=== PATIENT | male | born 1970 | race Caucasian/White ===

== ENCOUNTER → 2018-03-31 07:11 | Outpatient (CLI) | payer BC, SELFPAY ==
[2018-03-31 08:36] LABS: Absolute Lymphocyte Count 1.64 X10^3/ul (0.83-4.51); Absolute Neutrophil Count 2.4 X10^3/uL (2.0-7.7); Basophil# 0.02 X10^3/uL; Basophil% 0.4 % (0-1); Eosinophil# 0.31 X10^3/uL; Eosinophils% 6.1 % (0-5); Hematocrit 40.8 % (40-54); Hemoglobin 13.7 g/dl (13.0-16.5); Lymphocyte # 1.64 X10^3/ul (4.0); Lymphocyte % 32.5 % (19-41); Mean Corp Hgb Conc 33.6 g/gl (32-36); Mean Corpuscular Hgb 29.7 pg (27.0-32.0); Mean Corpuscular Volume 88.3 fL (80-94); Mean Platelet Vol. 12.1 fl (6.2-12.0); Monocyte# 0.63 X10^3/uL; Monocyte% 12.5 % (0-10); Neutrophil # 2.43 X10^3/uL (2.7-7.7); Neutrophil % 48.1 % (47-70); POSITIVE COUNT NO; POSITIVE DIFFERENTIAL NO; POSITIVE MORPHOLOGY NO; Platelet Count 136 K/mm3 (150-450); RBC Distribution Width CV 13.4 % (11.6-14.6); Red Blood Count 4.62 M/mm3 (4.6-6.2); White Blood Count 5.1 K/mm3 (4.4-11.0)
[2018-03-31 09:44] LABS: ALB/GLOB Ratio 1.2 RATIO (0.9-2.4); AST(SGOT) 18 U/L (15-37); Alanine Aminotransfer ALT/SGPT 43 U/L (16-61); Albumin, Serum 3.7 g/dL (3.2-5.0); Alkaline Phosphatase 59 U/L (45-117); Anion Gap 7 (5-15); BUN 24 mg/dL (7-18); BUN/Creat Ratio 23.3 RATIO (10-20); Calcium,Total 8.2 mg/dL (8.5-10.1); Chloride 103 mmol/L (98-107); Cholesterol 135 mg/dL (200); Creatinine, Serum 1.03 mg/dL (0.70-1.30); EST Glomerular Filtration Rate 81 mL/min (>60); Est Glom Filt Rate - Afr Amer 98 mL/min (>60); Globulin 3.1 g/dL (2.2-4.2); Glucose 178 mg/dL (74-106); High Density Lipoprotein 26 mg/dL; Potassium 3.7 mmol/L (3.5-5.1); Protein, Total 6.8 g/dL (6.4-8.2); Sodium Level 139 mmol/L (136-145); Triglycerides 175 mg/dL; Very Low Density Lipoprotein 35 mg/dL (5-40)
[2018-04-02 10:10] LABS: Vitamin D,25 Hydroxy 24.9 ng/mL (29.95-100.01)
== END ==
PROVIDERS: Family Provider Nurse Practitioner; PCP Nurse Practitioner; Visit Provider Nurse Practitioner
DX: E11.9 Type 2 diabetes mellitus without complications (principal); E78.00 Pure hypercholesterolemia, unspecified
CPT/HCPCS: 36415; 80053; 80061; 82306; 85025

== ENCOUNTER → 2018-06-30 07:33 | Outpatient (CLI) | payer BC, SELFPAY ==
[2018-06-30 08:40] LABS: ALB/GLOB Ratio 1.1 RATIO (0.9-2.4); AST(SGOT) 21 U/L (15-37); Albumin, Serum 3.7 g/dL (3.2-5.0); Alkaline Phosphatase 54 U/L (45-117); BUN 20 mg/dL (7-18); BUN/Creat Ratio 17.5 RATIO (10-20); Calcium,Total 8.4 mg/dL (8.5-10.1); Creatinine, Serum 1.14 mg/dL (0.70-1.30); EST Glomerular Filtration Rate 72 mL/min (>60); Est Glom Filt Rate - Afr Amer 87 mL/min (>60); Globulin 3.5 g/dL (2.2-4.2); Glucose 166 mg/dL (74-106); Protein, Total 7.2 g/dL (6.4-8.2)
[2018-06-30 08:41] LABS: Alanine Aminotransfer ALT/SGPT 46 U/L (16-61); Anion Gap 6 (5-15); Chloride 103 mmol/L (98-107); PSA,Total - Annual Screen 0.43 ng/mL (0.00-4.00); Potassium 4.4 mmol/L (3.5-5.1); Sodium Level 137 mmol/L (136-145)
[2018-07-02 09:49] LABS: Vitamin D,25 Hydroxy 35.1 ng/mL (29.95-100.01)
== END ==
PROVIDERS: Family Provider Nurse Practitioner; PCP Nurse Practitioner; Visit Provider Nurse Practitioner
DX: E11.9 Type 2 diabetes mellitus without complications (principal); E55.9 Vitamin D deficiency, unspecified; Z12.5 Encounter for screening for malignant neoplasm of prostate
CPT/HCPCS: 36415; 80053; 82306; 84153; G0103

== ENCOUNTER → 2019-01-12 07:04 | Outpatient (CLI) | payer BC, SELFPAY ==
[2019-01-12 07:20] LABS: Bacteria 0 SEEN /hpf (None Seen); Mucous, Urine 0 SEEN /hpf (<or=2+); Red Blood Cells-Urine 0 SEEN /hpf (0-5); Squamous Epithelial Cells - UA 0 SEEN /hpf (0-5); White Blood Cells 0 SEEN /hpf (0-5)
[2019-01-12 07:56] LABS: Absolute Neutrophil Count 2.5 X10^3/uL (2.0-7.7); Basophil# 0.02 X10^3/uL; Basophil% 0.4 % (0-1); Eosinophil# 0.25 X10^3/uL; Eosinophils% 5.2 % (0-5); Hematocrit 40.1 % (40-54); Hemoglobin 13.7 g/dl (13.0-16.5); Mean Corp Hgb Conc 34.2 g/gl (32-36); Mean Corpuscular Hgb 29.8 pg (27.0-32.0); Mean Corpuscular Volume 87.2 fL (80-94); Monocyte# 0.65 X10^3/uL; Monocyte% 13.5 % (0-10); Neutrophil # 2.46 X10^3/uL (2.7-7.7); Neutrophil % 50.9 % (47-70); Platelet Count 127 K/mm3 (150-450); RBC Distribution Width SD 41.4 fl (35.1-43.9); White Blood Count 4.8 K/mm3 (4.4-11.0)
[2019-01-12 07:57] LABS: POSITIVE COUNT NO; POSITIVE DIFFERENTIAL NO; POSITIVE MORPHOLOGY NO
[2019-01-12 08:19] LABS: Color, Urine Yellow (Yellow); Glucose, Dipstick 1000 mg/dl (Normal); Ketone-Dipstick Negative (Negative); Leukocyte Esterase-Dipstick Negative /ul (Negative); Nitrite-Dipstick Negative (Negative); Occult Blood-Urine Negative /ul (Negative); Protein-Dipstick Negative (Negative); Specific Gravity, Urine 1.025 (1.002-1.030); Urine Bilirubin Dipstick Negative (Negative); Urine Clarity Clear (Clear); Urine Urobilinogen Normal (Normal)
[2019-01-12 08:20] LABS: Microalbumin,Random Urine 6.8 mg/L (NO RANGE EST.); Microalbumin:Creatinine Ratio 5.1 mg/g CRE (<30 mg/g CRE)
[2019-01-12 08:26] LABS: ALB/GLOB Ratio 1.2 RATIO (0.9-2.4); AST(SGOT) 28 U/L (15-37); Alanine Aminotransfer ALT/SGPT 50 U/L (16-61); Albumin, Serum 3.5 g/dL (3.2-5.0); Alkaline Phosphatase 78 U/L (45-117); Anion Gap 7 (5-15); BUN 17 mg/dL (7-18); BUN/Creat Ratio 17.1 RATIO (10-20); Calcium,Total 7.9 mg/dL (8.5-10.1); Chloride 103 mmol/L (98-107); Cholesterol 149 mg/dL (200); EST Glomerular Filtration Rate 84 mL/min (>60); Est Glom Filt Rate - Afr Amer 102 mL/min (>60); Glucose 269 mg/dL (74-106); High Density Lipoprotein 27 mg/dL; Potassium 3.9 mmol/L (3.5-5.1); Protein, Total 6.5 g/dL (6.4-8.2); Sodium Level 134 mmol/L (136-145); Thyroid Stim Hormone (TSH) 2.29 uIU/mL (0.358-3.74); Triglycerides 241 mg/dL; Very Low Density Lipoprotein 48 mg/dL (5-40)
== END ==
PROVIDERS: Family Provider Nurse Practitioner; PCP Nurse Practitioner; Referring Provider Nurse Practitioner; Visit Provider Nurse Practitioner
DX: E11.8 Type 2 diabetes mellitus with unspecified complications (principal); I10 Essential (primary) hypertension; E78.00 Pure hypercholesterolemia, unspecified
CPT/HCPCS: 36415; 80053; 80061; 81001; 82043; 82570; 84443; 85025

== ENCOUNTER → 2019-11-16 | Outpatient (CLI) | payer BC, SELFPAY ==
[2019-11-16 10:20] LABS: Absolute Lymphocyte Count 1.38 X10^3/uL (0.83-4.51); Absolute Neutrophil Count 2.7 X10^3/uL (2.0-7.7); Basophil# 0.04 X10^3/uL; Basophil% 0.8 % (0-1); Eosinophil# 0.28 X10^3/uL; Eosinophils% 5.4 % (0-5); Hematocrit 42.6 % (40-54); Hemoglobin 14.4 g/dL (13.0-16.5); Lymphocyte # 1.38 X10^3/ul (4.0); Lymphocyte % 26.7 % (19-41); Mean Corp Hgb Conc 33.8 g/dL (32-36); Mean Corpuscular Hgb 28.8 pg (27.0-32.0); Mean Corpuscular Volume 85.2 fL (80-94); Mean Platelet Vol. 12.9 fl (6.2-12.0); Monocyte# 0.69 X10^3/uL; Monocyte% 13.4 % (0-10); NRBC Flagged by Analyzer 0 % (0-5); Neutrophil # 2.72 X10^3/uL (2.7-7.7); Neutrophil % 52.7 % (47-70); Platelet Count 162 K/mm3 (150-450); RBC Distribution Width CV 13.2 % (11.6-14.6); RBC Distribution Width SD 40.6 fl (35.1-43.9); White Blood Count 5.2 K/mm3 (4.4-11.0)
[2019-11-16 10:30] LABS: Microalbumin,Random Urine 8.8 mg/L (NO RANGE EST.)
[2019-11-16 11:21] LABS: AST(SGOT) 18 U/L (15-37); Alanine Aminotransfer ALT/SGPT 47 U/L (16-61); Albumin, Serum 3.7 g/dL (3.2-5.0); Alkaline Phosphatase 72 U/L (45-117); Anion Gap 5 (5-15); BUN 19 mg/dL (7-18); BUN/Creat Ratio 17.9 RATIO (10-20); Calcium,Total 8.7 mg/dL (8.5-10.1); Chloride 104 mmol/L (98-107); Cholesterol 172 mg/dL (200); Creatinine, Serum 1.06 mg/dL (0.70-1.30); EST Glomerular Filtration Rate 78 mL/min (>60); Est Glom Filt Rate - Afr Amer 94 mL/min (>60); Globulin 3.6 g/dL (2.2-4.2); Glucose 187 mg/dL (74-106); High Density Lipoprotein 35 mg/dL; PSA,Total - Annual Screen 0.63 ng/mL (0.00-4.00); Potassium 3.9 mmol/L (3.5-5.1); Protein, Total 7.3 g/dL (6.4-8.2); Sodium Level 137 mmol/L (136-145); Thyroid Stim Hormone (TSH) 2.02 uIU/mL (0.358-3.74); Triglycerides 140 mg/dL; Very Low Density Lipoprotein 28 mg/dL (5-40)
[2019-11-18 09:45] LABS: Vitamin D,25 Hydroxy 40.4 ng/mL (29.95-100.01)
== END | disposition home or self-care (01) ==
LOC: LAB 08:20
PROVIDERS: PCP Nurse Practitioner; Referring Provider Nurse Practitioner; Visit Provider Nurse Practitioner
DX: E11.8 Type 2 diabetes mellitus with unspecified complications (principal); E55.9 Vitamin D deficiency, unspecified; Z12.5 Encounter for screening for malignant neoplasm of prostate; Z13.220 Encounter for screening for lipoid disorders
CPT/HCPCS: 36415; 80053; 80061; 82043; 82306; 82570; 84153; 84443; 85025; G0103

== ENCOUNTER → 2021-02-20 07:03 | Outpatient (CLI) | payer BC, SELFPAY ==
[2021-01-26 14:56] VITALS: BMI 38.5
[2021-02-20 09:36] LABS: ALB/GLOB Ratio 1.1 RATIO (0.9-2.4); AST(SGOT) 28 U/L (15-37); Alanine Aminotransfer ALT/SGPT 50 U/L (16-61); Albumin, Serum 3.9 g/dL (3.2-5.0); Alkaline Phosphatase 74 U/L (45-117); Anion Gap 7 (5-15); BUN 23 mg/dL (7-18); BUN/Creat Ratio 25.4 RATIO (10-20); Calcium,Total 8.7 mg/dL (8.5-10.1); Chloride 104 mmol/L (98-107); Cholesterol 134 mg/dL (200); EST Glomerular Filtration Rate 93 mL/min (>60); Est Glom Filt Rate - Afr Amer 113 mL/min (>60); Globulin 3.5 g/dL (2.2-4.2); Glucose 94 mg/dL (74-106); High Density Lipoprotein 39 mg/dL; PSA,Total - Annual Screen 0.68 ng/mL (0.00-4.00); Potassium 3.7 mmol/L (3.5-5.1); Protein, Total 7.4 g/dL (6.4-8.2); Sodium Level 140 mmol/L (136-145); Triglycerides 95 mg/dL; Very Low Density Lipoprotein 19 mg/dL (5-40)
== END ==
PROVIDERS: PCP Nurse Practitioner; Referring Provider Nurse Practitioner; Visit Provider Nurse Practitioner
DX: I10 Essential (primary) hypertension (principal); E78.00 Pure hypercholesterolemia, unspecified; Z12.5 Encounter for screening for malignant neoplasm of prostate
CPT/HCPCS: 36415; 80053; 80061; 84153; G0103

== ENCOUNTER 2021-10-23 07:00 | Outpatient (CLI) | payer BC, SELFPAY ==
[2021-10-23 07:16] LABS: Absolute Lymphocyte Count 1.84 X10^3/uL (0.83-4.51); Absolute Neutrophil Count 4.5 X10^3/uL (2.0-7.7); Basophil# 0.05 X10^3/uL; Basophil% 0.7 % (0-1); Eosinophil# 0.36 X10^3/uL; Eosinophils% 4.8 % (0-5); Hematocrit 45.1 % (40-54); Hemoglobin 15.4 g/dL (13.0-16.5); Lymphocyte # 1.84 X10^3/ul (0.83-4.51); Lymphocyte % 24.3 % (19-41); Mean Corp Hgb Conc 34.1 g/dL (32-36); Mean Corpuscular Volume 87.7 fL (80-94); Mean Platelet Vol. 11.3 fl (6.2-12.0); Monocyte# 0.81 X10^3/uL; Monocyte% 10.7 % (0-10); NRBC Flagged by Analyzer 0 % (0-5); Neutrophil # 4.48 X10^3/uL (2.7-7.7); Neutrophil % 59.1 % (47-70); Platelet Count 163 K/mm3 (150-450); RBC Distribution Width SD 44.6 fl (35.1-43.9); Red Blood Count 5.14 M/mm3 (4.6-6.2); White Blood Count 7.6 K/mm3 (4.4-11.0)
[2021-10-23 07:40] LABS: AST(SGOT) 23 U/L (15-37); Alanine Aminotransfer ALT/SGPT 51 U/L (16-61); Albumin, Serum 3.7 g/dL (3.2-5.0); Alkaline Phosphatase 70 U/L (45-117); Anion Gap 4 (5-15); BUN 16 mg/dL (7-18); BUN/Creat Ratio 18.4 RATIO (10-20); Calcium,Total 8.8 mg/dL (8.5-10.1); Chloride 105 mmol/L (98-107); Creatinine, Serum 0.87 mg/dL (0.70-1.30); EST Glomerular Filtration Rate 97 mL/min (>60); Est Glom Filt Rate - Afr Amer 118 mL/min (>60); Globulin 3.7 g/dL (2.2-4.2); Glucose 71 mg/dL (74-106); Potassium 3.6 mmol/L (3.5-5.1); Protein, Total 7.4 g/dL (6.4-8.2); Sodium Level 141 mmol/L (136-145); Thyroid Stim Hormone (TSH) 1.92 uIU/mL (0.358-3.74)
== END 2021-10-23 23:59 | disposition short-term general hospital (02) ==
LOC: LAB 07:02
PROVIDERS: PCP Nurse Practitioner; Referring Provider Nurse Practitioner; Visit Provider Nurse Practitioner
DX: E11.9 Type 2 diabetes mellitus without complications (principal)
CPT/HCPCS: 36415; 80053; 84443; 85025

== ENCOUNTER → 2022-12-31 | Outpatient (CLI) | payer BC, SELFPAY ==
[2022-12-31 08:13] LABS: Microalbumin,Random Urine 65.7 mg/L (NO RANGE EST.); Microalbumin:Creatinine Ratio 38.6 mg/g CRE (<30 mg/g CRE)
[2022-12-31 08:15] LABS: ALB/GLOB Ratio 1.1 RATIO (0.9-2.4); AST(SGOT) 22 U/L (15-37); Alanine Aminotransfer ALT/SGPT 52 U/L (16-61); Albumin, Serum 3.6 g/dL (3.2-5.0); Alkaline Phosphatase 83 U/L (45-117); Anion Gap 9 (5-15); BUN 19 mg/dL (7-18); BUN/Creat Ratio 20.2 RATIO (10-20); Calcium,Total 8.7 mg/dL (8.5-10.1); Chloride 106 mmol/L (98-107); Cholesterol 193 mg/dL (200); Creatinine, Serum 0.94 mg/dL (0.70-1.30); EST Glomerular Filtration Rate 89 mL/min (>60); Est Glom Filt Rate - Afr Amer 107 mL/min (>60); Globulin 3.4 g/dL (2.2-4.2); Glucose 95 mg/dL (74-106); High Density Lipoprotein 32 mg/dL; Sodium Level 142 mmol/L (136-145); Thyroid Stim Hormone (TSH) 2.49 uIU/mL (0.358-3.74); Triglycerides 222 mg/dL; Very Low Density Lipoprotein 44 mg/dL (5-40)
[2023-01-02 08:15] LABS: Vitamin D,25 Hydroxy 74.7 ng/mL
== END | disposition home or self-care (01) ==
LOC: LAB 07:18
PROVIDERS: PCP Nurse Practitioner; Visit Provider Nurse Practitioner Family
DX: E11.9 Type 2 diabetes mellitus without complications (principal); I10 Essential (primary) hypertension; E78.1 Pure hyperglyceridemia; E66.9 Obesity, unspecified
CPT/HCPCS: 36415; 80053; 80061; 82043; 82306; 82570; 84443

== ENCOUNTER → 2024-03-29 | Outpatient (CLI) | payer BC, SELFPAY ==
[2024-03-29 07:32] LABS: Microalbumin,Random Urine 19.4 mg/L (NO RANGE EST.); Microalbumin:Creatinine Ratio 14.9 mg/g CRE (<30 mg/g CRE)
[2024-03-30 06:50] LABS: ALB/GLOB Ratio 0.9 RATIO (0.9-2.4); AST(SGOT) 26 U/L (15-37); Alanine Aminotransfer ALT/SGPT 53 U/L (16-61); Albumin, Serum 3.5 g/dL (3.2-5.0); Alkaline Phosphatase 87 U/L (45-117); Anion Gap 7 (5-15); BUN 23 mg/dL (7-18); BUN/Creat Ratio 24.7 RATIO (10-20); Calcium,Total 8.7 mg/dL (8.5-10.1); Chloride 106 mmol/L (98-107); Cholesterol 166 mg/dL (200); Creatinine, Serum 0.93 mg/dL (0.70-1.30); EST Glomerular Filtration Rate 89 mL/min (>60); Est Glom Filt Rate - Afr Amer 108 mL/min (>60); Globulin 3.7 g/dL (2.2-4.2); Glucose 102 mg/dL (74-106); High Density Lipoprotein 31 mg/dL; Potassium 3.9 mmol/L (3.5-5.1); Protein, Total 7.2 g/dL (6.4-8.2); Sodium Level 140 mmol/L (136-145); Thyroid Stim Hormone (TSH) 2.94 uIU/mL (0.358-3.74); Triglycerides 258 mg/dL; Very Low Density Lipoprotein 52 mg/dL (5-40)
== END | disposition home or self-care (01) ==
LOC: LAB 06:07
PROVIDERS: Referring Provider Nurse Practitioner Family; Visit Provider Nurse Practitioner Family
DX: E11.9 Type 2 diabetes mellitus without complications (principal)
CPT/HCPCS: 36415; 80053; 80061; 82043; 82306; 82570; 84443

== ENCOUNTER → 2025-04-05 | Outpatient (CLI) | payer BC, SELFPAY ==
--- OUTSIDE RECORDS SUMMARY | 2025-04-05 07:26 | XMS RPT_ITS | CCD ---
Author Organization [facility] ion Partnership [facility] Care Team Providers Care Door Frame Assembler Machine Name Role Phone Noy Hook Unavailable Bere Rogers Unavailable Gravius, Latoya Unavailable Unavailable Unavailable Unavailable Kim Caba Unavailable Unavailable Noy Hook Unavailable Bere Rogers Unavailable Gravius, Latoya Unavailable Unavailable Kim Caba Unavailable Unavailable Unavailable Unavailable Kyrie Falk Unavailable Unavailable Noy Hook Attending Unavailable Noy Hook Referring Unavailable Noy Hook Consulting Unavailable Gravius, Latoya Unavailable Unavailable Kyrie Falk Unavailable Unavailable Slarb, Latrice Unavailable Unavailable Minnie Quinteros Unavailable Unavailable Unavailable Unavailable Timur Burgos Unavailable Kyrie Denis Unavailable Unavailable Noy Hook CNP Unavailable Dr. Bere Rogers Unavailable Timur Burgos Unavailable Kyrie Denis LPN Unavailable Unavailable Gravius BHARGAV, Latoya Unavailable Unavailable Unavailable Unavailable Minnie Quinteros LPN Unavailable Unavailable Noy Hook CNP Primary Care Provider Noy Hook Unavailable Julio Cesar VOCATIONAL CASE MANAGER, VOCATIONAL CASE MANAGER-C Noy Primary Care Provider Julio Cesar VOCATIONAL CASE MANAGER, VOCATIONAL CASE MANAGER-C Noy Referring Provider [phone] CARMINA Griffin Attending Provider Noy Hook CNP Primary Care Provider Noy Hook CNP Primary Care Provider ERA LLANOS Referring Unavailable ERA LLANOS Attending Unavailable NOY HOOK Primary Care Unavailable NOY HOOK Primary Care Unavailable ERA LLANOS Attending Unavailable NOY HOOK Referring Unavailable Unavailable Primary Care Provider Unavailabl e Care Physician, No Primary Primary Care Unava ilMarysol Abreu Referring Unavailable Marysol Griffin Attending Unavailable Julio Cesar VOCATIONAL CASE MANAGER, Noy Referring Unavailable Julio Cesar VOCATIONAL CASE MANAGER, Noy Primary Care Unavailable Marysol Griffin Attending Unavailable Care Physician, No Primary Referring Unava ilable Care Physician, No Primary Primary Care Unava ilable Marysol Griffin Attending Unavailable Care Physician, No Primary Referring Unava ilable Care Physician, No Primary Primary Care Unava ilable Marysol Griffin Attending Unavailable Allergies Allergy Classification Reported Allergen(s) Allergy Type Date of Onset Reaction(s) Facility (3 sources) Definity *DIAGNOSTIC PRODUCTS*; Translations: [[facility] *DIAGNOSTIC PRODUCTS*] Allergy to drug (finding) [facility]; [facility] Work Phone: (8 sources) Perflutren Lipid Microsphere Propensity to adverse reactions to drug 8 [facility] (1 source) Iodine Drug Allergy 4 [facility] (1 source) Iodinated Contrast Media Drug allergy (disorder) 5 [facility] Repository Medications Current Medications Medication Drug Class(es) Dates Sig (Normalized) Sig (Original) amLODIPine 5 mg oral tablet (20 sources) Dihydropyridine Calcium Channel Ninfa Start: 07-07-2021 End: 05-14-2024 take 2 tablets by mouth once amLODIPine (NORVASC) 5 mg tablet Take 2 tablets by mouth every afternoon. 03/29/2024 Active Start: 06-01-2021 take 2 tablets by mo [facility] once daily amLODIPine (Norvasc) 5 MG tablet Indications: Essential hypertension Take 2 tablets by mouth daily. 90 tablet 3 06/01/2021 Active Start: 10-05-2020 take 1 tablet by clarence twice daily amLODIPine Besylate 5 MG Oral Tablet 1 (one) Tablet BID for 0 days Quantity: 60 {Tablet} Refills: 0 Ordered: 03-Nov-2021 Noy Hook Mary Start : 03-Nov-2021 Active Start: 06-08-2020 End: 06-01-2021 take 1 tablet by mouth once daily amLODIPine Besylate 5 MG Oral Tablet 1 (one) Tablet daily for 0 days Quantity: 30 {Tablet} Refills: 0 Ordered: 03-Nov-2020 Kyrie Denis LPN Start : 30-Jun-2020 Active ascorbic acid 1000 mg oral tablet (20 sources) Vitamin C Start: 10-05-2020 take 1 g by mouth once daily Ascorbic Acid (Vitamin C) Active 1 GM PO DAILY October 05, 2020 1:00am take 1 tablet by mouth once carly y ascorbic acid 500 MG Tab tablet Take 1 tablet by mouth daily. Active take 1 tablet by mouth once carly y ascorbic acid 500 MG Tab tablet Take 500 mg by mouth daily. 0 Active VItamin C 500mg Active aspirin 81 mg delayed release oral tablet (20 sources) Nonsteroidal Anti-inflammatory Drug Start: 10-05-2020 take 1 tablet by mouth twice daily Aspirin (Adult Aspirin Regimen) 81 mg tablet,delayed release (DR/EC) Active 81 MG PO TWICE A DAY October 05, 2020 1:00am Start: 04-27-2010 take 1 tablet by clarence th once daily aspirin 81 MG PO TABS take 1 Tab by mouth daily. 90 Tab 3 04/27/2010 Active Blood Pressure Monitoring (B lood Pressure Monitor/L Cuff) Misc (8 sources) Start: 06-02-2020 Start: 06-02-2020 cholecalciferol 0.125 mg oral capsule (20 sources) Vitamin D Start: 06-29-2022 take 125 ug by mouth once daily Cholecalciferol (Vitamin D3) Active 125 MCG PO DAILY June 29, 2022 12:00am Start: 10-10-2018 End: 06-30-2020 take 1 capsule by mouth once daily Vitamin D3 Ultra Strength 125 MCG (5000 UT) Oral Capsule 1 (one) Capsule Capsule daily for 0 days Quantity: 30 {Capsule} Refills: 0 Ordered: 30-Jun-2020 Kyrie Denis LPN Start : 10-Oct-2018 End : 30-Jun-2020 Inactive Start: 10-10-2018 End: 06-30-2020 take 1 capsule by mouth once daily Vitamin D3 Ultra Strength 125 MCG (5000 UT) Oral Capsule 1 (one) Capsule Capsule daily for 0 days Quantity: 30 {Capsule} Refills: 0 Ordered: 30-Jun-2020 Kyrie Denis LPN Start : 10-Oct-2018 End : 30-Jun-2020 Inactive Start: 04-03-2018 take 1 capsule by mo uth once daily, then take 2 capsules by mouth once daily Vitamin D 2000 UNIT Oral Capsule 1 (one) Capsule Capsule 1 daily alter with 2 daily for 0 days Quantity: 60 {Capsule} Refills: 0 Ordered: 10-Jul-2018 Latoya Duque CMA Start : 03-Apr-2018 Active take 5000-52450 [IU] by mouth once daily Vitamin D3 25 MCG (1000 UT) tablet Take 1 tablet by mouth daily. States 5,000-10,000 units per day Active empagliflozin 25 mg oral tablet (6 sources) Sodium-Glucose Cotransporter 2 Inhibitor Start: 03-29-2024 take 1 tablet by mouth once JARDIANCE 25 mg tablet Take 1 tablet by mouth every afternoon. 03/29/2024 Active Start: 01-02-2023 take 1 tablet by clarence th once daily Empagliflozin (Jardiance) 25 mg tablet Active 25 MG PO DAILY January 02, 2023 12:00am take 1 tablet by clarence th once daily Empagliflozin (Jardiance) 10 MG tablet Take 1 tablet by mouth daily. Active 3 ml insulin degludec 100 unt/ml pen injector (20 sources) Insulin Analog Start: 04-13-2024 inject 60 [IU] by subcutaneous injection once daily in the evening TRESIBA FLEXTOUCH U-100 100 unit/mL (3 mL) injection pen Inject 60 Units subcutaneously every evening. 04/13/2024 Active Start: 04-29-2022 Tresiba FlexTo uch 200 UNIT/ML Solution Pen-injector injection Inject under the skin. 04/29/2022 Active Start: 07-07-2021 End: 10-05-2021 inject 20 [IU] by subcutaneous injection once daily Tresiba FlexTouch 200 UNIT/ML Subcutaneous Solution Pen-injector 20 Unit daily for 90 days Quantity: 3 {Pre-filled_Pen_Syringe} Refills: 0 Ordered: 07-Jul-2021 Noy Hook Mary Start : 07-Jul-2021 End : 05-Oct-2021 Inactive Comments: Per Dr. Timur Burgos Start: 11-03-2020 End: 11-03-2020 inject 20 [IU] by subcutaneous injection once daily Tresiba FlexTouch 200 UNIT/ML Subcutaneous Solution Pen-injector 20 Unit daily for 90 days Quantity: 3 {Pre-filled_Pen_Syringe} Refills: 0 Ordered: 03-Nov-2020 Julio Cesar MEIR Noy Martinez CNP Start : 03-Nov-2020 End : 03-Nov-2020 Inactive Comments: Per Dr. Timur Burgos Start: 10-10-2020 inject 60 [IU] by lopez bcutaneous injection once daily Tresiba FlexTouch 200 UNIT/ML Subcutaneous Solution Pen-injector 60 Unit daily for 90 days Quantity: 3 {Pre-filled_Pen_Syringe} Refills: 0 Ordered: 10-Oct-2020 Bessychitraissac WORLEY Noy Martinez CNP Start : 10-Oct-2020 Active Comments: Per Dr. Timur Burgos Start: 10-05-2020 End: 12-28-2022 Insulin Degludec (Tresiba Flextouch U-200) 200 unit/mL (3 mL) insulin pen Active 60 UNIT SC DAILY December 28, 2022 11:11am Start: 10-05-2020 End: 10-05-2020 Insulin Degludec Discontinue d ML SC October 05, 2020 1:00am October 05, 2020 11:51am Start: 04-30-2019 inject 10 [IU] by lopez bcutaneous injection once daily Tresiba FlexTouch 100 UNIT/ML Subcutaneous Solution Pen-injector 10 Unit daily for 0 days Quantity: 1 {Box} Refills: 3 Ordered: 30-Apr-2019 Julio Cesar MEIR Noy Martinez CNP Start : 30-Apr-2019 Active Start: 01-22-2019 inject 10 [IU] by lopez bcutaneous injection once daily Tresiba FlexTouch 100 UNIT/ML Subcutaneous Solution Pen-injector 10 Unit daily for 0 days Quantity: 1 {Box} Refills: 0 Ordered: 22-Jan-2019 Julio Cesar MEIR Noy Martinez CNP Start : 22-Jan-2019 Active insulin degludec (TRESIBA) 100 UNIT/ML Solution Inject under the skin. 10 units Active Comment on above: Per Dr. Timur Burgos losartan potassium 100 mg oral tablet (20 sources) Angiotensin 2 Receptor Ninfa Start: 05-16-2023 End: 05-14-2024 take 1 tablet by mouth once losartan (COZAAR) 100 mg tablet Take 1 tablet by mouth every afternoon. 03/22/2024 Active Start: 07-07-2021 End: 05-16-2023 take 0.5 tablet by mouth twice daily losartan 50 MG tablet Indications: Essential hypertension Take 0.5 tablets by mouth 2 times daily. 90 tablet 3 05/31/2022 05/16/2023 Discontinued Start: 05-13-2020 take 1 tablet by clarence th twice daily Losartan Potassium 25 MG Oral Tablet 1 (one) Tablet Tablet bid for 0 days Quantity: 180 {Tablet} Refills: 3 Ordered: 10-May-2021 Noy Hook Mary Start : 10-May-2021 Active Start: 05-16-2019 take 1 tablet by clarence th twice daily Losartan Potassium 25 MG Oral Tablet 1 (one) Tablet Tablet bid for 0 days Quantity: 180 {Tablet} Refills: 3 Ordered: 16-May-2019 Noy Hook CNP, CNP, Mary E Start : 16-May-2019 Active Start: 05-16-2018 take 1 tablet by clarence th twice daily Losartan Potassium 25 MG Oral Tablet 1 (one) Tablet Tablet bid for 0 days Quantity: 180 {Tablet} Refills: 3 Ordered: 16-May-2018 Noy Hook CNP, CNP Dina Start : 16-May-2018 Active Start: 02-08-2016 End: 06-01-2021 take 0.5 tablet by mouth twice daily losartan 50 MG tablet Indications: Essential hypertension Take 0.5 tablets by mouth 2 times daily. 90 tablet 3 06/01/2021 Active End: 04-11-2017 take 1 tablet by mouth once daily Losartan Potassium 25 MG Oral Tablet 1 qd (25 MG) End : 11-Apr-2017 Discontinued mecobalamin 1 mg chewable tablet (1 source) Start: 10-05-2020 take 1 tablet by mouth once daily Mecobalamin (Vitamin B12) (B12 Active) 1,000 mcg tablet,chewable Active 1000 MCG PO DAILY October 05, 2020 1:00am 24 hr metFORMIN hydrochloride 750 mg extended release oral tablet (20 sources) Biguanide Start: 05-10-2024 take 1 tablet by mouth twice daily at mealtime metFORMIN ER (GLUCOPHAGE XR) 750 mg 24 hr tablet Take 750 mg by mouth two times a day with meals. 05/10/2024 Active Start: 02-18-2022 metFORMIN HCl ER 750 MG Oral Tablet Extended Release 24 Hour 1 (one) Tablet ER 24HR bid for 90 days Quantity: 180 {Tablet} Refills: 6 Ordered: 18-Feb-2022 Miriam Chao DO Start : 18-Feb-2022 Active Start: 12-22-2020 metFORMIN HCl ER 750 MG Oral Tablet Extended Release 24 Hour 1 (one) Tablet ER 24HR bid for 90 days Quantity: 180 {Tablet} Refills: 6 Ordered: 22-Dec-2020 Noy Hook CNP, CNP, Mary E Start : 22-Dec-2020 Active Start: 08-20-2020 End: 12-28-2022 take 1 tablet by mouth twice daily metFORMIN HCl ER 750 MG Oral Tablet Extended Release 24 Hour 1 (one) Tablet bid for 30 days Quantity: 60 {Tablet} Refills: 3 Ordered: 03-Nov-2020 Kyrie Denis LPN Start : 20-Aug-2020 End : 03-Nov-2020 Inactive Start: 04-22-2020 take 1 tablet by clarence th twice daily metFORMIN HCl ER 750 MG Oral Tablet Extended Release 24 Hour 1 (one) Tablet bid for 30 days Quantity: 60 {Tablet} Refills: 3 Ordered: 22-Apr-2020 Miriam Chao DO Start : 22-Apr-2020 Active Start: 08-20-2019 take 1 tablet by clarence th twice daily metFORMIN HCl ER 750 MG Oral Tablet Extended Release 24 Hour 1 (one) Tablet bid for 30 days Quantity: 60 {Tablet} Refills: 3 Ordered: 20-Aug-2019 Noy Hook CNP, CNP, Mary E Start : 20-Aug-2019 Active Start: 01-22-2019 metFORMIN HCl ER 750 MG Oral Tablet Extended Release 24 Hour 1 (one) Tablet ER 24HR bid for 30 days Quantity: 60 {Tablet} Refills: 6 Ordered: 22-Jan-2019 Noy Hook CNP, CNP, Mary E Start : 22-Jan-2019 Active Start: 06-27-2018 MetFORMIN HCl ER 750 MG Oral Tablet Extended Release 24 Hour 1 (one) Tablet ER 24HR bid for 30 days Quantity: 60 {Tablet} Refills: 6 Ordered: 27-Jun-2018 Noy Hook CNP, CNP, Mary E Start : 27-Jun-2018 Active Start: 09-29-2017 End: 04-03-2018 take 1 tablet by mouth twice daily MetFORMIN HCl 1000 MG Oral Tablet 1 (one) Tablet bid for 0 days Quantity: 60 {Tablet} Refills: 4 Ordered: 03-Apr-2018 Marysol Arias RN Start : 29-Sep-2017 End : 03-Apr-2018 Inactive Start: 05-30-2013 take 1 tablet by clarence th twice daily at mealtime metformin 500 MG PO TABS Indications: Diabetes mellitus take 1 Tab by mouth 2 times daily with meals. 180 Tab 1 05/30/2013 Active Comment on above: Mail order. 24 hr metoprolol succinate 100 mg extended release oral tablet (20 sources) beta-Adrenergic Ninfa Start: 06-08-2020 End: 05-14-2024 take 1 tablet by mouth once metoprolol succinate ER (TOPROL XL) 100 mg Take 1 tablet by mouth every afternoon. 03/22/2024 Active take 1 tablet by clarence th every twenty-four hours Metoprolol Succinate ER 100 MG Oral Tablet Extended Release 24 Hour daily (100 MG) Inactive pravastatin sodium 40 mg oral tablet (20 sources) HMG-CoA Reductase Inhibitor Start: 03-29-2024 take 1 tablet by mouth once pravastatin (PRAVACHOL) 40 mg tablet Take 1 tablet by mouth every afternoon. 03/29/2024 Active Start: 04-22-2020 End: 12-28-2022 take 1 tablet by mouth once daily Pravastatin Sodium 40 MG Oral Tablet 1 (one) Tablet daily for 90 days Quantity: 90 {Tablet} Refills: 3 Ordered: 01-Dec-2021 Noy Hook Mary Start : 01-Dec-2021 Active Comments: [id number] Start: 02-26-2019 take 1 tablet by clarence th once daily Pravachol 40 MG Oral Tablet 1 (one) Tablet daily for 30 days Quantity: 30 {Tablet} Refills: 6 Ordered: 26-Feb-2019 Noy Hook CNP, CNP, Mary E Start : 26-Feb-2019 Active Comments: [id number] Start: 01-22-2019 take 1 tablet by clarence th once daily Pravachol 40 MG Oral Tablet 1 (one) Tablet daily for 0 days Quantity: 90 {Tablet} Refills: 1 Ordered: 22-Jan-2019 Noy Hook CNP, CNP, Mary E Start : 22-Jan-2019 Active Start: 07-26-2018 take 1 tablet by clarence th once daily Pravachol 40 MG Oral Tablet 1 (one) Tablet daily for 30 days Quantity: 30 {Tablet} Refills: 6 Ordered: 26-Jul-2018 Noy Hook CNP, CNP, Mary E Start : 26-Jul-2018 Active take 1.5 tablets by mouth once daily pravastatin 40 MG Tab Take 1.5 tablets by mouth daily. Active pravastatin 40 M G Tab take 60 mg by mouth daily. 0 Active Comment on above: [id number] Mail order. predniSONE 10 mg oral tablet (1 source) Start: 06-14-2024 End: 06-23-2024 predniSONE (DELTASONE) 10 mg tablet Indications: Dermatitis due to plants, including poison nisha, sumac, and oak Take 4 tabs daily for 3 days, then 2 tabs daily for 3 days, then 1 tab daily for 3 days with food. 21 tablet 06/14/2024 06/23/2024 Active semaglutide 14 mg oral tablet (20 sources) Start: 04-13-2024 take 1 tablet by mouth once RYBELSUS 14 mg tablet Take 1 tablet by mouth every afternoon. 04/13/2024 Active Start: 10-24-2022 End: 12-28-2022 take 1 tablet by mouth once daily Semaglutide (Rybelsus) 14 mg tablet Active 14 MG PO DAILY December 28, 2022 11:11am Start: 11-03-2021 Rybelsus 14 MG Oral Tablet 1 (one) Tablet daily for 0 days Quantity: 30 {Tablet} Refills: 0 Ordered: 03-Nov-2021 Noy Hook Mary Start : 03-Nov-2021 Active Comments: 30 day given Start: 07-05-2021 End: 01-03-2022 take 1 tablet by mouth once daily Semaglutide (Rybelsus) 14 mg tablet Discontinued 14 MG PO DAILY July 05, 2021 12:00am January 03, 2022 2:55pm Start: 10-05-2020 End: 08-01-2023 take 1 tablet by mouth once daily Semaglutide 7 MG tablet Take 7 mg by mouth daily. 0 11/03/2020 05/16/2023 Discontinued (Discontinued by another clinician (suppress cancel msg)) Start: 06-30-2020 Rybelsus 3 MG Oral Tablet 1 (one) Tablet TAD for 0 days Quantity: 1 {Package} Refills: 0 Ordered: 30-Jun-2020 Julio Cesar CONFERENCE CONCIERGE, Dina Julio Cesar CONFERENCE CONCIERGE, Noy Arevalo Start : 30-Jun-2020 Active Comments: 30 day given Comment on above: 30 day given triamcinolone acetonide 0.25 mg/ml topical cream (20 sources) Corticosteroid Start: 06-14-2024 triamcinolone (KENALOG) 0.025 % cream Indications: Dermatitis due to plants, including poison nisha, sumac, and oak Apply 1 application to affected area two times a day. 80 g 06/14/2024 Active End: 06-24-2013 TRI-MED, 40MG/ML (Injection Suspension) for 0 days Refills: 0 Ordered: 24-Jun-2013 KIRSTIN Boland LPN End : 24-Jun-2013 Discontinued Comments: This order discontinued per [facility]. End: 06-24-2013 TRI-MED, 40MG/ML (Injection Suspension) for 0 days Refills: 0 Ordered: 24-Jun-2013 KIRSTIN Boland End : 24-Jun-2013 Discontinued Comments: This order discontinued per [facility]. Comment on above: This order discontin ued per [facility]. Turmeric Root Extract (9 sources) Start: 10-05-2020 take 2 tablets by mouth once daily Turmeric Root Extract Active 500 MG PO DAILY October 05, 2020 1:00am 2 tablets by mouth daily Turmeric 500 MG Tab Take 2 tablets by mouth. Active Turmeric 500 MG Tab Take 2 tablets by mouth. 0 Active Turmeric 500 MG Tab Take 1,000 mg by mouth. 0 Active vitamin b12 0.5 mg oral tablet (8 sources) Vitamin B12 take 1 tablet by mouth once daily cyanocobalamin 500 MCG tablet Take 1 tablet by mouth daily. Active vitamin b6 100 mg oral tablet (20 sources) Start: 10-05-2020 take 100 mg by mouth once daily Pyridoxine (Vitamin B6) Active 100 MG PO DAILY October 05, 2020 1:00am take 2 tablets by mouth once lazaro ly pyridoxine 50 MG Tab Take 2 tablets by mouth daily. Active VItamin B6 100mg Active Completed/Discontinued Medications Medication Drug Class(es) Dates Sig (Normalized) Sig (Original) Accu-Chek Apple Plus (5 sources) Start: 10-03-2016 Accu-Chek Apple Plus w/Device Kit 1 (one) Kit Kit test 2-3 times daily for 0 days Quantity: 1 Kit Refills: 0 Ordered: 03-Oct-2016 Slarb BOX TURNER, Latrice Start : 03-Oct-2016 Active Start: 10-03-2016 Accu-Chek Tae a Plus In Vitro Strip 1 (one) Strip Strip test 2-3 times daily for 0 days Quantity: 90 {Strip} Refills: 10 Ordered: 03-Oct-2016 Slarb BOX TURNER, Latrice Start : 03-Oct-2016 Active Accu-Chek Apple Plus w/Device Kit (20 sources) Start: 10-03-2016 Accu-Chek Apple Plus w/Device Kit 1 (one) Kit Kit test 2-3 times daily for 0 days Quantity: 1 Kit Refills: 0 Ordered: 03-Oct-2016 Slarb BOX TURNER, Latrice Start : 03-Oct-2016 Active Accu-Chek Soft Touch Lancets (1 source) Start: 10-03-2016 Accu-Chek Soft Touch Lancets Miscellaneous 1 (one) Misc Misc test 3x daily for 0 days Quantity: 100 {Applicator} Refills: 11 Ordered: 03-Oct-2016 Slarb BOX TURNER, Latrice Start : 03-Oct-2016 Active Accu-Chek Softclix Lancet Dev (1 source) Start: 10-03-2016 End: 10-04-2016 Accu-Chek Softclix Lancet Dev Miscellaneous 1 (one) Misc one for 1 days Quantity: 1 Kit Refills: 0 Ordered: 03-Oct-2016 Noy Hook CNP E Noy Hook CNP Start : 03-Oct-2016 End : 04-Oct-2016 Inactive amoxicillin 500 mg oral capsule (12 sources) Penicillin-class Antibacterial Start: 12-02-2014 End: 05-14-2025 Amoxicillin (Amoxil) 500 MG capsule Indications: Coarctation of aorta take by mouth As directed. Take total of 4 capsules (2grams) one hour before dental procedure. 4 capsule 05/16/2023 05/14/2024 Discontinued (Reorder) atorvastatin 20 mg oral tablet (20 sources) HMG-CoA Reductase Inhibitor End: 08-21-2014 take 1 tablet by mouth once daily LIPITOR, 20MG (Oral Tablet) 1 qd (20 MG) End : 21-Aug-2014 Inactive BD Pen Needle Jackie U/F (1 source) Start: 05-02-2017 BD Pen Needle Jackie U/F 32G X 4 MM Miscellaneous 1 (one) Misc Misc qd for 0 days Quantity: 1 {Box} Refills: 6 Ordered: 02-May-2017 Noy Hook CNP, CNP, Mary E Start : 02-May-2017 Active cephalexin 500 mg oral capsule (20 sources) Cephalosporin Antibacterial Start: 08-20-2019 End: 08-27-2019 take 1 capsule by mouth twice daily Keflex 500 MG Oral Capsule 1 (one) Capsule bid for 7 days Quantity: 14 {Capsule} Refills: 0 Ordered: 20-Aug-2019 Noy Hook Mary Start : 20-Aug-2019 End : 27-Aug-2019 Inactive fenofibrate 145 mg oral tablet (20 sources) Peroxisome Proliferator Receptor alpha Agonist Start: 01-02-2017 End: 06-29-2022 take 1 tablet by mouth once daily Tricor 145 MG Oral Tablet 1 Tablet QD for 0 days Quantity: 90 {Tablet} Refills: 3 Ordered: 03-Mar-2021 Noy Hook Mary Start : 02-Jan-2017 End : 03-Mar-2021 Inactive Comment on above: Mail order. glimepiride 2 mg oral tablet (14 sources) Sulfonylurea Start: 03-03-2021 End: 07-07-2021 take 1 tablet by mouth once daily Glimepiride 2 MG Oral Tablet 1 (one) Tablet daily based on nightly blood sugar reading for 0 days Quantity: 30 {Tablet} Refills: 0 Ordered: 07-Jul-2021 Minnie Quinteros LPN Start : 03-Mar-2021 End : 07-Jul-2021 Inactive Comments: per Dr. Burgos Start: 10-05-2020 End: 07-05-2021 take 1 tablet by mouth once daily Glimepiride 4 MG Oral Tablet 1 (one) Tablet daily for 0 days Quantity: 30 {Tablet} Refills: 0 Ordered: 03-Nov-2020 Kyrie Denis LPN Start : 10-Oct-2020 Active Comments: per Dr. Burgos End: 05-16-2023 take 2 mg by mouth once daily in the morning gliMEPIride 4 MG tablet Take 2 mg by mouth daily every morning. 0 05/16/2023 Discontinued (Discontinued by another clinician (suppress cancel msg)) Comment on above: per Dr. Burgos linagliptin 5 mg oral tablet (20 sources) Dipeptidyl Peptidase 4 Inhibitor Start: 07-26-20 18 End: 05-16-20 take 1 tablet by mouth once daily Tradjenta 5 MG Oral Tablet 1 (one) Tablet daily for 0 days Quantity: 30 {Tablet} Refills: 6 Ordered: 03-Nov-2020 Kyrie Denis LPN Start : 22-Apr-2020 End : 03-Nov-2020 Inactive 3 ml liraglutide 6 mg/ml pen injector (20 sources) GLP-1 Receptor Agonist Start: 04-22-20 End: 06-30-20 inject 1.8 mg by subcutaneous injection once daily Victoza 18 MG/3ML Subcutaneous Solution Pen-injector uad Soln Pen-inj 1.8 mg a day SC for 0 days Quantity: 3 {Pre-filled_Pen_Syri nge} Refills: 3 Ordered: 30-Jun-2020 Noy Hook Mary Start : 22-Apr-2020 End : 30-Jun-2020 Inactive Start: 08-20-2019 inject 1.8 mg by subcutaneous injection once daily Victoza 18 MG/3ML Subcutaneous Solution Pen-injector uad Soln Pen-inj 1.8 mg a day SC for 0 days Quantity: 3 {Pre-filled_Pen_Syringe} Refills: 3 Ordered: 20-Aug-2019 Latrice Castillo LPN Start : 20-Aug-2019 Active Start: 04-30-2019 inject 1.8 mg by subcutaneous injection once daily Victoza 18 MG/3ML Subcutaneous Solution Pen-injector uad Soln Pen-inj 1.8 mg a day SC for 0 days Quantity: 3 {Pre-filled_Pen_Syringe} Refills: 3 Ordered: 30-Apr-2019 Noy Hook CNP, CNP, Mary E Start : 30-Apr-2019 Active Start: 12-26-2018 inject 1.8 mg by subcutaneous injection once daily Victoza 18 MG/3ML Subcutaneous Solution Pen-injector uad Soln Pen-inj 1.8 mg a day SC for 0 days Quantity: 3 {Pre-filled_Pen_Syringe} Refills: 3 Ordered: 26-Dec-2018 Julio Cesar MEIRNoy MEIRNoy Start : 26-Dec-2018 Active Start: 08-28-2018 take 1.8 mg by subcu taneous injection once daily Victoza 18 MG/3ML Subcutaneous Solution Pen-injector uad Soln Pen-inj 1.8 mg a day SC for 0 days Quantity: 3 {Pre-filled_Pen_Syringe} Refills: 3 Ordered: 28-Aug-2018 Bessychitraissac WORLEY Noy Blandonissac WORLEY Noy Arevalo Start : 28-Aug-2018 Active Start: 04-26-2018 take 1.8 mg by subcu taneous injection once daily Victoza 18 MG/3ML Subcutaneous Solution Pen-injector uad Soln Pen-inj 1.8 mg a day SC for 0 days Quantity: 3 {Pre-filled_Pen_Syringe} Refills: 3 Ordered: 26-Apr-2018 Julio Cesar MEIRNoy MEIRNoy Start : 26-Apr-2018 Active End: 05-31-2022 Liraglutide 18 MG/3ML Soluti on Pen-injector injection 1.2 mg by Subcutaneous route. 0 05/31/2022 Discontinued Rybelsus 3 MG Oral Tablet (7 sources) Start: 09-03-2020 Rybelsus 3 MG Oral Tablet 1 (one) Tablet TAD for 0 days Quantity: 1 {Package} Refills: 0 Ordered: 03-Sep-2020 Julio Cesar MEIRNoy MEIRNoy Start : 03-Sep-2020 Active Comments: 30 day given Start: 08-03-2020 Rybelsus 3 MG Oral Tablet 1 (one) Tablet TAD for 0 days Quantity: 1 {Package} Refills: 0 Ordered: 03-Aug-2020 Julio Cesar MEIR Noy Blandonissac WORLEYNoy Start : 03-Aug-2020 Active Comments: 30 day given Start: 06-30-2020 Rybelsus 3 MG Oral Tablet 1 (one) Tablet TAD for 0 days Quantity: 1 {Package} Refills: 0 Ordered: 30-Jun-2020 Noy Hook CNP, CNP, Mary E Start : 30-Jun-2020 Active Comments: 30 day given Comment on above: 30 day given Rybelsus 7 MG Oral Tablet (2 sources) Start: 11-03-2020 Rybelsus 7 MG Oral Tablet 1 (one) Tablet TAD for 0 days Quantity: 1 {Package} Refills: 0 Ordered: 03-Nov-2020 Noy Hook CNP, CNP, Mary E Start : 03-Nov-2020 Active Comments: 30 day given Comment on above: 30 day given Semaglutide (Rybelsus) 14 mg tablet (1 source) Start: 01-03-2022 End: 10-24-2022 take 1 tablet by mouth once daily Semaglutide (Rybelsus) 14 mg tablet Discontinued 14 MG PO DAILY 90 January 03, 2022 2:55pm October 24, 2022 12:22pm Tumeric (20 sources) Tumeric 1000 Act wendy Problems Active Problems Problem Classification Problem Date Documented Date Episodic/Chronic Abdominal hernia (20 sources) Umbilical hernia without obstruction AND without gangrene ; Translations: [Hernia of abdominal cavity] 07-10-2018 Episodic Comment on above: told once loose more weight to have repaired. know signs and symptoms of carceration and when to go to ER not wanting to do an ything at this time Administrative/social admission (20 sources) Patient encounter status; Translations: [Encounter for pre-employment examination] Resolved: 05-25-2015 09-01-2015 Episodic Comment on above: fill out form Allergic reactions (1 source) Contact dermatitis due to plants; Translations: [Unspecified contact dermatitis due to plants, except food] 06-14-2024 Episodic Aortic; peripheral; and visceral artery aneurysms (15 sources) Aortic aneurysm; Translations: [Aortic aneurysm of unspecified site, without rupture] Onset: 06-03-2021 Resolved: 06-03-2021 04-16-2009 Chronic Asthma (20 sources) Asthma; Translations: [Asthma] 07-10-2018 Chronic Comment on above: 1986 refuse pneumonv ax wants to check cost Blindness and vision defects (20 sources) Unspecified visual disturbance; Translations: [Visual disturbance] 07-10-2018 Episodic Comment on above: 1973 Cardiac and circulatory congenital anomalies (20 sources) Coarctation of aorta; Translations: [Coarctation of aorta] Onset: 04-21-2009 07-10-2018 Chronic Comment on above: repaired reviewed wi patient specialist's note and following. Dr. Era Llanos at [facility], root repair not valve Cardiac and circulatory congenital anomalies (20 sources) History of repair of coarctation of aorta; Translations: [History of closure of ventricular septal defect] 07-10-2018 Episodic Comment on above: with BAV and s/p fab t replacement (09-17-03 [facility]. Ventral Septal defect s/p repair,(1976) coarctation of the aorta s/p repair( 1976) at [facility] Following with Dr. Era Askew at [facility] Adult congenital Heart diseaseRequires dental [id number], 2003 with BAV and s/p fab t replacement (09-17-03 [facility]. Ventral Septal defect s/p repair,(1976) coarctation of the aorta s/p repair( 1976) at [facility] Following with Dr. Era Llanos at [facility] Adult congenital Heart diseaseRequires dental [id number], 2003 Diabetes mellitus with complications (20 sources) Type II diabetes mellitus uncontrolled; Translations: [Diabetes mellitus without mention of complication, type II or unspecified type, uncontrolled] Onset: 01-09-2025 Resolved: 11-03-2021 12-27-2017 Chronic Comment on above: hga1c up 8.1 victoza . metformin,Eats at 9 goes to bed at 10, Saw T Aubrey stopped t radgenta, stopped victoza, on tresiba base is 20 units up to 60 based on finger prick, glimepiride, on rybelsus 7mg on metformin, tragen ta, victoza and tresiba, am blood sugars higher than pm will take treseiba at hs and monitor BS, eats late Diabetes mellitus with complications (20 sources) Diabetes mellitus with complications Diabetes mellitus without complication (20 sources) Type 2 diabetes mellitus without complication; Translations: [Diabetes mellitus] Onset: 01-09-2025 Resolved: 10-10-2018 07-10-2018 Chronic Comment on above: on victoza. at 1.8, tragenta 1 daily,cut out sweetsGFR 81see cardio. see eye recently. on victoza. at 1.8, tragenta 1 daily,cut out sweets, metformin GFR 81see cardio. see eye recently. on metformin, tragen ta, victoza on metformin, tragen ta, victoza and tresiba, am blood sugars higher than pm will take treseiba at hs and monitor BS hga1c up 8.1 victoza . metformin,Eats at 9 goes to bed at 10, on metformin, tragen ta, victoza and tresiba, am blood sugars higher than pm will take treseiba at hs and monitor BS, eats late Saw T Aubrey stopped t radgenta, stopped victoza, on tresiba base is 20 units up to 60 based on finger prick, glimepiride, on rybelsus 7mg rybelsus, metformin, tresiba Diabetes mellitus without complication (20 sources) Diabetes mellitus without complication Disorders of lipid metabolism (20 sources) Hypercholesterolemia; Translations: [Hypercholesterolemia ] 07-10-2018 Chronic Comment on above: MRA widely patent ar silke. on statin now and pravachol not cause ache reveiwed with patient labs good Essential hypertension (20 sources) Hypertensive disorder; Translations: [Hypertension] 07-10-2018 Chronic Comment on above: Working with cardiol ogist for BP to get holter Working with cardiol ogist at [facility], Seeing Era Llanos at Genitourinary symptoms and ill-defined conditions (2 sources) Microalbuminuria; Translations: [Proteinuria, unspecified] Onset: 01-09-2025 01-02-2023 Episodic Nutritional deficiencies (20 sources) Vitamin D deficiency; Translations: [Vitamin D deficiency] 07-10-2018 Chronic Comment on above: continue 2000 daily continue 5000 daily Other and ill-defined heart disease (20 sources) Heart disease, unspecified; Translations: [HEART DISEASE, NOS] Resolved: 03-08-2016 03-08-2016 Chronic Other circulatory disease (20 sources) Disorder of aorta; Translations: [Aortic stenosis] 07-10-2018 Chronic Comment on above: Jeremy Llanos-- [phone]. does echo alternate mri for this yearly,echo this year Other congenital anomalies (5 sources) Congenital malformation; Translations: [Other specified congenital malformations] Chronic Other connective tissue disease (6 sources) Pain in right lower limb; Translations: [Leg pain, right] 07-07-2021 Episodic Comment on above: rt leg swelling sugg ested by cardio Other connective tissue disease (5 sources) Pain in left arm; Translations: [Arm pain, left] 11-03-2021 Episodic Comment on above: from statin vs old i njury vs other, holding statin x 2 weeks to see if arm pain resolves Other ear and sense organ disorders (20 sources) Hearing loss; Translations: [Hearing loss] 07-10-2018 Chronic Comment on above: 1988 Other male genital disorders (20 sources) Impotence; Translations: [Impotence of organic origin] 07-10-2018 Chronic Other nutritional; endocrine; and metabolic disorders (20 sources) Body mass index 30+ - obesity; Translations: [BMI 36.0-36.9,adult] Resolved: 10-24-2017 07-10-2018 Chronic Other nutritional; endocrine; and metabolic disorders (20 sources) Obesity; Translations: [Obesity, unspecified] Resolved: 12-27-2017 12-27-2017 Chronic Comment on above: gain soem weight brian k not workign as much and eating more. Other nutritional; endocrine; and metabolic disorders (14 sources) Body mass index 40+ - severely obese; Translations: [BMI 40.0-44.9, adult] 11-03-2020 Chronic Other nutritional; endocrine; and metabolic disorders (8 sources) Obese class II; Translations: [Obesity, unspecified] Onset: 06-01-2021 06-01-2021 Chronic Other nutritional; endocrine; and metabolic disorders (1 source) Obesity, unspecified; Translations: [Obesity, unspecified] 12-28-2022 Chronic Other screening for suspected conditions (not mental disorders or infectious disease) (20 sources) Screening status; Translations: [Encounter for screening for malignant neoplasm of colon (Renamed from Special screening for malignant neoplasms, colon)] 11-03-2020 Episodic Residual codes; unclassified (20 sources) Non-smoker; Translations: [Nonsmoker] 07-10-2018 Episodic Residual codes; unclassified (2 sources) History of repair of aortic root; Translations: [Other specified postprocedural states] Episodic Skin and subcutaneous tissue infections (20 sources) Abscess; Translations: [Abscess] Resolved: 11-26-2019 08-20-2019 Episodic Comment on above: paranychia Spondylosis; intervertebral disc disorders; other back problems (20 sources) Sciatica; Translations: [Sciatica, left side] 07-10-2018 Episodic Comment on above: ask chiropracter at work to work onit Substance-related disorders (20 sources) Tobacco dependence in remission; Translations: [Tobacco abuse, in remission (Renamed from Tobacco dependence in remission)] 07-10-2018 Chronic Unclassified (20 sources) Noncompliance with treatment; Translations: [Noncompliance] Resolved: 03-08-2016 03-08-2016 Episodic Comment on above: not follow up as gurpreet pitts told that could risk eye site, kidneys, loss of limb, neuropathy, heart disease. pt aware Unclassified (20 sources) BMI 36.0-36.9,adult Unclassified (20 sources) Unclassified (20 sources) Tobacco abuse, in remission (Renamed from Tobacco dependence in remission) Unclassified (20 sources) Non-smoker; Translations: [Non-smoker] 07-10-2018 Unclassified (20 sources) Aortic stenosis Unclassified (20 sources) Sciatica, left side Unclassified (20 sources) HEART DISEASE, NOS (429.9) Unclassified (20 sources) BMI 37.0-37.9, adult Unclassified (20 sources) HEARING LOSS, NOS (389.9) Unclassified (20 sources) Noncompliance Unclassified (20 sources) Aortic Stenosis (746.81) Unclassified (20 sources) Encounter for screening for malignant neoplasm of colon (Renamed from Special screening for malignant neoplasms, colon) Unclassified (20 sources) Work Physical (V70.5) Unclassified (20 sources) Well Male Exam (V70.0) Unclassified (20 sources) Abdominal hernia Unclassified (20 sources) Encounter for screening for malignant neoplasm of prostate (Renamed from Screening for prostate cancer) Unclassified (20 sources) Nonsmoker Unclassified (20 sources) Encounter for screening for lipid disorder Unclassified (19 sources) BMI 38.0-38.9,adult Unclassified (12 sources) BMI 40.0-44.9, adult Unclassified (20 sources) Uncontrolled diabetes mellitus with complications Unclassified (20 sources) Diabetes mellitus type II, controlled, with no complications Unclassified (20 sources) Diabetes mellitus type 2, uncontrolled, without complications Unclassified (2 sources) Encounter for routine history and physical exam for male Unclassified (2 sources) Leg pain, right Unclassified (1 source) Arm pain, left Past or Other Problems Problem Classification Problem Date Documented Da te Episodic/Chronic Chronic obstructive pulmonary disease and bronchiectasis (20 sources) Bronchitis, not specified as acute or chronic; Translations: [BRONCHITIS, NOS] Resolved: 04-13-2009 06-24-2013 Episodic Other nutritional; endocrine; and metabolic disorders (20 sources) Obese class I; Translations: [Obesity (BMI 30.0-34.9)] Resolved: 12-27-2017 01-22-2019 Comment on above: gain soem weight brian k not workign as much and eating more. Other upper respiratory disease (20 sources) Allergic rhinitis; Translations: [Allergic rhinitis] Resolved: 04-13-2009 07-21-2015 Chronic Comment on above: 1982 Pneumonia (20 sources) Infective pneumonia; Translations: [Pneumonia, organism unspecified] Resolved: 04-13-2009 09-01-2015 Episodic Residual codes; unclassified (1 source) Edema of right lower limb; Translations: [Localized edema] Episodic Unclassified (20 sources) Patient encounter status; Translations: [Encounter for pre-employment examination] Resolved: 05-25-2015 09-01-2015 Comment on above: fill out form Unclassified (20 sources) Unspecified Diagnosis Resolved: 05-25-2015 07-10-2018 Unclassified (20 sources) Non-smoker; Translations: [Nonsmoker] 07-10-2018 Unclassified (20 sources) Encounter for well adult exam with abnormal findings (Renamed from Encounter for general adult medical examination with abnormal findings) Unclassified (20 sources) Screening status; Translations: [Encounter for screening for malignant neoplasm of prostate (Renamed from Screening for prostate cancer)] 07-10-2018 Unclassified (20 sources) Annual visit for general adult medical examination without abnormal findings Unclassified (20 sources) S/P repair of coarctation of aorta Unclassified (1 source) AORTIC ROOT REPLACEMENT 05-05-2022 Unclassified (1 source) REPAIR OF JOINT DEFECTS IN BOTH ARMS 05-05-2022 Unclassified (1 source) REPAIR OF NARROW AORTA 05-05-2022 Unclassified (1 source) VITAMIN DEF 05-05-2022 Results Test Name Value Interpretation Reference Range Facility Endocrinology Visit Reporton 01-09-2025 Endocrinology Visit Report [facility] [address] [place], [place] [id number] OFFICE VISIT Date of Service: 01/09/25 MR#: [id number] Acct: [id number] Name: LISS MOON Rep #: [id number] : 1970 Provider: CARMINA nieves Age/Sex: 54/M Location: [facility] Status: Signed Intake Vital Signs 07/11/24 12:59 01/09/25 08:07 Height 5 ft 7.5 in 5 ft 7.5 in Weight: 257 lb 6 oz 255 lb 6 oz BMI 39.6 39.4 BP 136/81 H 132/80 H Blood Pressure Location Rt brachial Rt brachial Position Sitting Sitting Pulse 74 67 Pulse Source Monitor Monitor Pulse Oximetry (%) 96 96 Oxygen Delivery Method room air room air Intake Visit Reasons: 6 M FU Chief Complaint: f/u diabetes Is patient in pain?: No Allergies Iodinated Contrast Media Adverse Reaction (Mild, Verified 01/09/25 08:11) Hives Medications ???Medication ???Instructions ???Recorded ???Confirmed ???Type amlodipine 5 mg tablet ea PO 10/05/20 01/09/25 History metoprolol succinate 100 mg ea PO 10/05/20 01/09/25 History tablet,extended release 24 hr losartan 100 mg tablet 100 mg PO DAILY 07/06/23 01/09/25 History Rybelsus 14 mg tablet (semaglutide) 14 mg PO DAILY #90 tabs 4 01/09/25 Rx aspirin 81 mg tablet,delayed 81 mg PO QDAY 07/11/24 01/09/25 Hi story release (Adult Aspirin Regimen) insulin degludec 100 unit/mL (3 60 unit (0.6 mL) subcut DAILY #54 07/11/24 01/09/25 Rx mL) subcutaneous pen (Tresiba mL FlexTouch U-100 insulin) metformin 750 mg tablet,extended 750 mg PO BIDWMEAL #180 tabs 07/1101/09/25 Rx release 24 hr pravastatin 40 mg tablet 40 mg PO DAILY #90 tabs 07/11/24 0 01/09/25 Rx empagliflozin 25 mg tablet 25 mg PO DAILY #90 tabs 01/09/25 0 01/09/25 Rx (Jardiance) PFS Medical History REPAIR OF JOINT DEFECTS IN BOTH ARMS REPAIR OF NARROW AORTA AORTIC ROOT REPLACEMENT CIRCUMCISION Heart valve problem VITAMIN DEF Vision problem Murmur Heart disease Diabetes Asthma Anemia Surgical History H/O knee surgery Family History Other Alcohol abuse Breast cancer Depression Diabetes Heart disease Hypertension Mental disorder Psychiatric care Social History Smoking Status: Former smoker alcohol intake: never substance use type: does not use HPI HPI Chief Complaint: f/u diabetes Details: LISS MOON, is a 54 M who presents to the office today for evaluation and management of diabetes. A1C today is 6.5%, improved from at 6.8%. He has lost 2 lbs since that time. Currently taking Tresiba 60 u once daily, metformin 750 mg BID, Jardiance 25 mg once daily, and Rybelsus 14 mg once daily. He denies any blood sugars <70 or any significant episodes of hypoglycemia that have required assistnace from others, he has intermittent symptoms of hypoglycemia, he does not check his blood sugars during these episodes, he eats and symptoms resolve. BP today is controlled. Currently taking amlodipine 10 mg once daily, losartan 100 mg once daily, and metoprolol 100 mg once daily. He has microalbuminuria. He takes a daily statin. He will be due for labs. Denies any acute concerns. ROS Const Constitutional: No fatigue or weight change ENT ENT: No dizziness/vertigo Cardio Cardiology: No chest pain at rest, chest pain with exertion, shortness of breath or palpitations Skin Skin: No wounds Endo Endocrine: No fatigue or weight change Exam Const General: cooperative, healthy appearing, comfortable and no acute distress Nutritional Appearance: obese Orientation: alert, awake and oriented x3 HENMT Head: normal to inspection Ears: hearing grossly normal bilaterally Nose: external nose normal Face and sinus: normal facial exam Eyes General: appearance normal, both eyes and all related structures Alignment and Position: alignment normal Sclera: sclerae normal Neck Neck: normal visual inspection Chest Chest palpation inspection: normal inspection of the chest Resp Effort Inspection: normal respiratory effort, able to speak in complete sentences, symmetric chest movement, normal respiratory pattern, no audible wheezes and no cough Auscultation: Bilateral: Clear to Auscultation Cardio Heart Sounds: murmur systolic mid, III/, with radiation to the carotids, at the left sternal border and at the right sternal border GI Inspection: obesity Musc Cervical Spine: normal cervical lordosis Thoracic/Lumbar Spine: thoracic and lumbar spine normal to inspection Skin General: no rashes or lesions noted L (more content not included)... Normal [facility] Endocrinology Visit Reporton 07-11-2024 Endocrinology Visit Report [facility] [address] [place] [address]. [address] [place] [address] OFFICE VISIT Date of Service: 07/11/24 MR#: [id number] Acct: [id number] Name: ELVIRALISS CASH Rep #: [id number] : 1970 Provider: CARMINA nieves Age/Sex: 54/M [place] [facility] Status: Signed Intake Vital Signs 07/06/23 08:16 07/11/24 12:59 Height 5 ft 7.5 in 5 ft 7.5 in Weight: 257 lb 6 oz BMI 39.6 BP 136/81 H Blood Pressure Location Rt brachial Position Sitting Pulse 74 Pulse Source Monitor Pulse Oximetry (%) 96 Oxygen Delivery Method room air Intake Visit Reasons: 6 M FU Chief Complaint: f/u diabetes Is patient in pain?: No Allergies Iodinated Contrast Media Adverse Reaction (Mild, Verified 01/11/24 08:44) Hives Medications ???Medication ???Instructions ???Recorded ???Confirmed ???Type amlodipine 5 mg tablet ea PO 10/05/20 07/11/24 History ascorbic acid (vitamin C) 1,000 mg 1 g PO DAILY 10/05/20 07/11/24 History tablet mecobalamin (vitamin B12) 1,000 1,000 mcg PO DAILY 10/05/20 07/11/24 History mcg chewable tablet (B12 Active) metoprolol succinate 100 mg ea PO 10/05/20 07/11/24 History tablet,extended release 24 hr pyridoxine (vitamin B6) 100 mg 100 mg PO DAILY 10/05/20 07/11/24 History tablet cholecalciferol (vitamin D3) 125 125 mcg PO DAILY 06/29/22 07/11/24 History mcg (5,000 unit) capsule losartan 100 mg tablet 100 mg PO DAILY 07/06/23 07/11/24 History empagliflozin 25 mg tablet 25 mg PO DAILY #90 tabs 06/27/24 07/11/24 Rx (Jardiance) Rybelsus 14 mg tablet (semaglutide) 14 mg PO DAILY #90 tabs 07/11/24 07/11/24 Rx aspirin 81 mg tablet,delayed 81 mg PO QDAY 07/11/24 07/11/24 History release (Adult Aspirin Regimen) insulin degludec 100 unit/mL (3 60 unit (0.6 mL) subcut DAILY #54 07/11/24 07/11/24 Rx mL) subcutaneous pen (Tresiba mL FlexTouch U-100 insulin) metformin 750 mg tablet,extended 750 mg PO BIDWMEAL #180 tabs 07/11/24 07/11/24 Rx release 24 hr pravastatin 40 mg tablet 40 mg PO DAILY #90 tabs 07/11/24 07/11/24 Rx PFSH Medical History REPAIR OF JOINT DEFECTS IN BOTH ARMS REPAIR OF NARROW AORTA AORTIC ROOT REPLACEMENT CIRCUMCISION Heart valve problem VITAMIN DEF Vision problem Murmur Heart disease Diabetes Asthma Anemia Surgical History H/O knee surgery Family History Other Alcohol abuse Breast cancer Depression Diabetes Heart disease Hypertension Mental disorder Psychiatric care Social History Smoking Status: Former smoker alcohol intake: never substance use type: does not use HPI HPI Chief Complaint: f/u diabetes Details: LISS MOON, is a 54 M who presents to the office today for evaluation and management of diabetes. A1C today is 6.8%, increased from 3/28/24 at 6.2%, he has gained 5 lbs since that time. Currently taking Tresiba 60 u once daily, metformin 750 mg BID with food, Jardiance 25 mg once daily, and Rybelsus 14 mg once daily. Denies blood sugars <70. Average fasting blood sugar remains between 100-120. He admits that there is room for improvement in his diet. BP today is 136/81. Currently taking amlodipine 10 mg once daily, losartan 100 mg once daily, and metoprolol succ 100 mg once daily. Labs are up to date and unremarkable. He saw cardiology last month and aortic root repair is stable. He follows up again in 1 year. Denies any acute concerns. ROS Const Constitutional: Positive for weight change (gain) Resp Respiratory: Positive for change in phlegm color Endo Endocrine: Positive for weight change (gain) Exam Const General: cooperative, healthy appearing, comfortable and no acute distress Nutritional Appearance: obese Orientation: alert, awake and oriented x3 HENMT Head: normal to inspection Ears: hearing grossly normal bilaterally Nose: external nose normal Face and sinus: normal facial exam Eyes General: appearance normal, both eyes and all related structures Alignment and Position: alignment normal Sclera: sclerae normal Neck Neck: normal visual inspection Carotids: normal carotid upstroke Chest Chest palpation inspection: normal inspection of the chest Resp Effort Inspection: normal respiratory effort, able to speak in complete sentences, symmetric chest movement, normal respiratory pattern, no audible wheezes and no cough Auscultation: Bilateral: Clear to Auscultation Cardio Rate: regular rate Rhythm: regular rhythm Heart Sounds: S1 normal, S2 normal and murmur systolic III/, at the left sternal b (more content not included)... Normal [facility] ECHOCARDIOGRAM CONGENITALon 05-17-2024 ECHOCARDIOGRAM CONGENITAL ? BAV, s/p asc aorta replacement, VSD and coarct repairs. ? Left Ventricle: Chamber size is normal. Increased wall thickness. Concentric hypertrophy. Normal global systolic function. Regional wall motion is normal. Ejection fraction is normal (65 - 70%). Unable to assess diastolic function. No residual ventricular septal defect present. ? Right Ventricle: Chamber size is enlarged. Systolic function is normal. ? Bi-atrial enlargement. ? Aortic Valve: Bicuspid valve. Leaflet calcification. Leaflet excursion is mildly decreased. No regurgitation. Mean gradient: 29 mmHg. Dimensionless Index by VTI: 0.31. Valve area continuity VMAX: 0.95 cm2. Valve area continuity VTI: 1.00 cm2. ? Mitral Valve: Leaflet mobility is normal. Annular calcification. Mild regurgitation. Mean gradient is 4 mmHg. Hemodynamics assessed at heart rate of 76 bpm. ? The ascending aorta regions contain a 26 mm Hemashield prosthetic graft. SOV: 4.32 cm. STJ: 3.68 cm. Ascendin.89 cm. No evidence of re-coarctation. ? Compared to the prior study from 05/2023, there is no significant change. Table formatting from the original result was not included. Images from the original result were not included. Facility [facility] Patient Information Patient Name Liss Moon Legal Sex Male Indication for Exam Priority: Routine Dx: Coarctation of aorta [Q25.1 (ICD-10-CM)]; Bicuspid aortic valve [Q23.1 (ICD-10-CM)] Comments: Coarct, bav s/p vsrr Interpretation Summary ? BAV, s/p asc aorta replacement, VSD and coarct repairs. ? Left Ventricle: Chamber size is normal. Increased wall thickness. Concentric hypertrophy. Normal global systolic function. Regional wall motion is normal. Ejection fraction is normal (65 - 70%). Unable to assess diastolic function. No residual ventricular septal defect present. ? Right Ventricle: Chamber size is enlarged. Systolic function is normal. ? Bi-atrial enlargement. ? Aortic Valve: Bicuspid valve. Leaflet calcification. Leaflet excursion is mildly decreased. No regurgitation. Mean gradient: 29 mmHg. Dimensionless Index by VTI: 0.31. Valve area continuity VMAX: 0.95 cm2. Valve area continuity VTI: 1.00 cm2. ? Mitral Valve: Leaflet mobility is normal. Annular calcification. Mild regurgitation. Mean gradient is 4 mmHg. Hemodynamics assessed at heart rate of 76 bpm. ? The ascending aorta regions contain a 26 mm Hemashield prosthetic graft. SOV: 4.32 cm. STJ: 3.68 cm. Ascendin.89 cm. No evidence of re-coarctation. ? Compared to the prior study from 05/2023, there is no significant change. Findings Left Ventricle Chamber size is normal. Increased wall thickness. Concentric hypertrophy. Normal global systolic function. Regional wall motion is normal. Ejection fraction is normal (65 - 70%). Unable to assess diastolic function. No ventricular septal defect present. Right Ventricle Chamber size is enlarged. Systolic function is normal. Left Atrium Chamber size is mildly enlarged. Right Atrium Chamber size is enlarged. Septum The atrial septum is normal. Mitral Valve Leaflet mobility is normal. Annular calcification. Mild regurgitation. Hemodynamics assessed at heart rate of 76 bpm. Mean gradient is 4 mmHg. Aortic Valve Bicuspid valve. Leaflet calcification. Leaflet excursion is mildly decreased. No regurgitation. Mean gradient: 29 mmHg. Dimensionless Index by VTI: 0.31. Valve area continuity VMAX: 0.95 cm2. Valve area continuity VTI: 1.00 cm2. Tricuspid Valve Tricuspid valve not well visualized. No regurgitation. No stenosis. Pulmonic Valve Normal structure. No regurgitation. No stenosis. Aorta The ascending aorta regions contain a prosthetic graft. SOV: 4.32 cm. STJ: 3.68 cm. Ascendin.89 cm. Pericardium Trivial pericardial effusion. IVC/SVC The inferior vena cava structure has a diameter <21 mm and decreases >50% during inspiration. Reading Providers Reading Role Read Date Soledad Oleary MD Echo Irons, Test Guest Relations Representative 05/17/2024 Left Heart Measurements LV - Systole LVIDD 3.89 cm IVS 1.36 cm LVIDS 2.11 cm PW 1.38 cm LV RWT 0.71 LV Mass Index 87 g/m2 LV - Diastole MV pk E donovan 1.19 m/s MV pk A donovan 1.38 m/s E/A ratio 0.86 e' septal pk donovan 0.08 m/s e' lateral pk donovan 0.08 m/s Avg e' pk donovan 0.08 m/s E/e' septal ratio 14.99 E/e' lateral ratio 14.22 Avg E/e' ratio 14.6 LV - HCM AV LVOT peak gradient 4 mmHg Left Atrium LA ESV SP 4CH (MOD) 96 mL LA ESV SP 2CH (MOD) 73 mL LA ESV BP (MOD) index 39 mL/m2 Right Heart Measurements RV - 2D RV basal diam 5.82 cm RV mid diam 4.8 cm RV long diam 6.8 cm RV Area diastolic 29.71 cm2 RV Area systolic 18.98 cm2 RV Fractional area change 36.1 % RV - Doppler TAPSE 1.55 cm RV S' 10 cm/s Right Atrium RA vol index 4CH (MOD) 36.77 mL/m2 RA area 4CH (MOD) 24.2 (more content not included)... Abnormal [facility] Comprehensive Metabolic Prof oleg 03-30-2024 Albumin [Mass/Vol] 3.5 g/dL Normal 3.2-5.0 [facility] Comment on above: Performed By: #### L 501.9520, L502.0250, L500.4050, L500.4100, L506.1000 #### [facility] [address] [place], [address] Albumin/Globulin [Mass ratio] 0.9 {ratio} Normal 0.9-2.4 [facility] Comment on above: Performed By: #### L 501.9520, L502.0250, L500.4050, L500.4100, L506.1000 #### [facility] [address] [place], [address] ALK P 87 U/L Normal 45-117 [facility] Comment on above: Performed By: #### L [id number], L502.0250, L500.4050, L500.4100, L506.1000 #### [facility] [address] [place], [address] ALT [Catalytic activity/Vol] 53 U/L Normal 16-61 [facility] Comment on above: Performed By: #### L 501.9520, L502.0250, L500.4050, L500.4100, L506.1000 #### [facility] [address] [place], [address] AST [Catalytic activity/Vol] 26 U/L Normal 15-37 [facility] Comment on above: Performed By: #### L 501.9520, L502.0250, L500.4050, L500.4100, L506.1000 #### [facility] [address] [place], [address] Bilirubin [Mass/Vol] 0.50 mg/dL Normal 0.20-1.00 [facility] Comment on above: Result Comment: For patients on eltrombopag therapy, use of Dimension Banks TBIL is not recommended. Performed By: #### L 501.9520, L502.0250, L500.4050, L500.4100, L506.1000 #### [facility] [address] [place], [address] BUN/CRE 24.7 RATIO High 10-20 [facility] Comment on above: Performed By: #### L 501.9520, L502.0250, L500.4050, L500.4100, L506.1000 #### [facility] [address] [place], [address] CA,Total 8.7 mg/dL Normal 8.5-10.1 [facility] Comment on above: Performed By: #### L 501.9520, L502.0250, L500.4050, L500.4100, L506.1000 #### [facility] [address] [place], [address] Chloride [Moles/Vol] 106 mmol/L Normal 98-107 [facility] Comment on above: Performed By: #### L 501.9520, L502.0250, L500.4050, L500.4100, L506.1000 #### [facility] [address] [place], [address] CO2 [Moles/Vol] 27.0 mmol/L Normal 21.0-32.0 [facility] Comment on above: Performed By: #### L 501.9520, L502.0250, L500.4050, L500.4100, L506.1000 #### [facility] [address] [place], [address] Creatinine [Mass/Vol] 0.93 mg/dL Normal 0.70-1.30 [facility] Comment on above: Result Comment: The validity of the calculated GFR GFRAA in patients over 70 years has not been determined. Clinical correlation is essential. Performed By: #### L 501.9520, L502.0250, L500.4050, L500.4100, L506.1000 #### [facility] [address] [place], [address] EST GFR - AA 108 mL/min Normal >60 [facility] Comment on above: Result Comment: Afri can Peruvian GFR Calc Performed By: #### L 501.9520, L502.0250, L500.4050, L500.4100, L506.1000 #### [facility] [address] [place], [address] GAP 7 Normal 5-15 [facility] Comment on above: Performed By: #### L 501.9520, L502.0250, L500.4050, L500.4100, L506.1000 #### [facility] [address] [place], [address] GFR/1.73 sq M.predicted among non-blacks MDRD (S/P/Bld) [Vol rate/Area] 89 mL/min/{1.73_m2} Normal >60 [facility] Comment on above: Result Comment: Non- GFR Calc Performed By: #### L 501.9520, L502.0250, L500.4050, L500.4100, L506.1000 #### [facility] [address] [place], [address] Globulin (S) [Mass/Vol] 3.7 g/dL Normal 2.2-4.2 [facility] Comment on above: Performed By: #### L 501.9520, L502.0250, L500.4050, L500.4100, L506.1000 #### [facility] [address] [place], [address] Glucose [Mass/Vol] 102 mg/dL Normal 74-106 [facility] Comment on above: Result Comment: Fast ing Glucose result from 100 to 125 mg/dL suggests IMPAIRED HOMEOSTASIS per A.D.A. criteria. Performed By: #### L 501.9520, L502.0250, L500.4050, L500.4100, L506.1000 #### [facility] [address] [place], [address] Potassium [Moles/Vol] 3.9 mmol/L Normal 3.5-5.1 [facility] Comment on above: Performed By: #### L 501.9520, L502.0250, L500.4050, L500.4100, L506.1000 #### [facility] [address] [place], [address] Sodium [Moles/Vol] 140 mmol/L Normal 136-145 [facility] Comment on above: Performed By: #### L 501.9520, L502.0250, L500.4050, L500.4100, L506.1000 #### [facility] [address] [place], [address] T PROT 7.2 g/dL Normal 6.4-8.2 [facility] Comment on above: Performed By: #### L 501.9520, L502.0250, L500.4050, L500.4100, L506.1000 #### [facility] [address] [place], [address] Urea nitrogen [Mass/Vol] 23 mg/dL High 7-18 [facility] Comment on above: Performed By: #### L 501.9520, L502.0250, L500.4050, L500.4100, L506.1000 #### [facility] [address] [place], [address] Lipid Profileon 03-30-2024 Cholesterol [Mass/Vol] 166 mg/dL Normal 200 [facility] Comment on above: Result Comment: <200 mg/dL Desirable 200-240 mg/dL Borderline >240 mg/dL High Risk Performed By: #### L 501.9520, L502.0250, L500.4050, L500.4100, L506.1000 #### [facility] [address] [place], [address] Cholesterol in HDL [Mass/Vol] 31 mg/dL Low [facility] Comment on above: Result Comment: The drugs N-Acetylcysteine and Metamizole may falsely depress this assay. Reference Range HDL <40 mg/dL Low HDL Cholesterol HDL >or= 60 mg/dL High HDL Cholesterol Performed By: #### L 501.9520, L502.0250, L500.4050, L500.4100, L506.1000 #### [facility] [address] [place], [address] Cholesterol in LDL [Mass/Vol] 83 mg/dL Normal 0-130 [facility] Comment on above: Performed By: #### L 501.9520, L502.0250, L500.4050, L500.4100, L506.1000 #### [facility] [address] [place], [address] Cholesterol in VLDL [Mass/Vol] 52 mg/dL High 5-40 [facility] Comment on above: Performed By: #### L 501.9520, L502.0250, L500.4050, L500.4100, L506.1000 #### [facility] [address] [place], [address] Triglyceride [Mass/Vol] 258 mg/dL High [facility] Comment on above: Result Comment: The drugs N-Acetylcysteine and Metamizole may falsely depress this assay. Serum Triglycerides Reference Interval Normal <150 mg/dL Borderline high 150 - 199 mg/dL High 200 - 499 mg/dL Very High > or = 500 mg/dL Performed By: #### L 501.9520, L502.0250, L500.4050, L500.4100, L506.1000 #### [facility] [address] [place], [address] Thyroid Stim Hormone (TSH)on 03-30-2024 TSH 2.94 uIU/mL Normal 0.358-3.74 [facility] Comment on above: Performed By: #### L 501.9520, L502.0250, L500.4050, L500.4100, L506.1000 #### [facility] [address] [place], [address] Microalb:Creat Ratio,Random URon 03-29-2024 Creatinine [Mass/Vol] 130.00 mg/dL Normal NO RAN GE EST. [facility] Comment on above: Performed By: #### L 501.9520, L502.0250, L500.4050, L500.4100, L506.1000 #### [facility] [address] [place], [address] MALB:CRE 14.9 mg/g CRE Normal <30 mg/g CRE [facility] Comment on above: Performed By: #### L 501.9520, L502.0250, L500.4050, L500.4100, L506.1000 #### [facility] [address] [place], [address] MICROALBUMIN,UR 19.4 mg/L Normal NO RANGE EST. [facility] Comment on above: Performed By: #### L 501.9520, L502.0250, L500.4050, L500.4100, L506.1000 #### [facility] [address] [place], [address] Vitamin D,25 Hydroxyon 03-29 Vitamin D 25-OH 38.0 ng/mL Normal [facility] Comment on above: Result Comment: Charline min D 25(OH) Status Range Deficiency <20 ng/mL (50nmol/L) Insufficiency 20 - 30 ng/mL (50 - 75 nmol/L) Sufficiency 30 - 100 ng/mL (75 - 250 nmol/L) Toxicity >100 ng/mL (>250 nmol/L) Performed By: #### L 501.9520, L502.0250, L500.4050, L500.4100, L506.1000 #### [facility] [address] [place], [place], [address] Endocrinology Visit Reporton 01-11-2024 Endocrinology Visit Report [facility] [address] [place], [place] [address] OFFICE VISIT Date of Service: 01/11/24 MR#: [id number] Acct: [id number] Name: LISS MOON Rep #: [id number] : 1970 Provider: CARMINA nieves Age/Sex: 53/M [facility] Status: Signed Intake Vital Signs 07/06/23 08:16 01/11/24 08:42 Height 5 ft 7.5 in Weight: 252 lb 252 lb 2 oz BMI 38.9 BP 129/79 H 169/82 H Blood Pressure Location Lt brachial Rt brachial Position Sitting Sitting Respiration 16 17 Pulse 72 87 Pulse Source Monitor NIBP Temp 98.4 F 97.5 F L Temp Source Temporal Temporal Pulse Oximetry (%) 97 92 Oxygen Delivery Method room air room air Intake Visit Reasons: 6 M FU Chief Complaint: f/u diabetes Header Operator Required: No Is patient in pain?: No Allergies Iodinated Contrast Media Adverse Reaction (Mild, Verified 01/11/24 08:44) Hives Medications amlodipine 5 mg tablet ea PO 10/05/20 [History Confirmed 01/11/24] ascorbic acid (vitamin C) 1,000 mg tablet 1 g PO DAILY 10/05/20 [History Confirmed 01/11/24] aspirin 81 mg tablet,delayed release (Adult Aspirin Regimen) 81 mg PO BID 10/05/20 [History Confirmed 01/11/24] mecobalamin (vitamin B12) 1,000 mcg chewable tablet (B12 Active) 1,000 mcg PO DAILY 10/05/20 [History Confirmed 01/11/24] metoprolol succinate 100 mg tablet,extended release 24 hr ea PO 10/05/20 [History Confirmed 01/11/24] pyridoxine (vitamin B6) 100 mg tablet 100 mg PO DAILY 10/05/20 [History Confirmed 01/11/24] turmeric root extract 500 mg capsule 500 mg PO DAILY 10/05/20 [History Confirmed 01/11/24] cholecalciferol (vitamin D3) 125 mcg (5,000 unit) capsule 125 mcg PO DAILY 06/29/22 [History Confirmed 01/11/24] losartan 100 mg tablet 100 mg PO DAILY 07/06/23 [History Confirmed 01/11/24] empagliflozin 25 mg tablet (Jardiance) 25 mg PO DAILY #90 tabs 01/02/24 [Rx Confirmed 01/11/24] pravastatin 40 mg tablet 40 mg PO DAILY #90 tabs 01/02/24 [Rx Confirmed 01/11/24] Rybelsus 14 mg tablet (semaglutide) 14 mg PO DAILY #90 tabs 01/11/24 [Rx Confirmed 01/11/24] azithromycin 250 mg tablet See Rx Instructions PO .COMPLEX #6 tabs 01/11/24 [Rx Confirmed 01/11/24] insulin degludec 100 unit/mL (3 mL) subcutaneous pen (Tresiba FlexTouch U-100 insulin) 60 unit (0.6 mL) subcut DAILY #54 mL 01/11/24 [Rx Confirmed 01/11/24] metformin 750 mg tablet,extended release 24 hr 750 mg PO BIDWMEAL #180 tabs 01/11/24 [Rx Confirmed 01/11/24] PFSH Medical History Anemia AORTIC ROOT REPLACEMENT Asthma CIRCUMCISION Diabetes Heart disease Heart valve problem Murmur 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 A1C today is 6.2%, improved slightly from 07/06/23 at 6.4%, weight is stable. Currently taking Tresiba 60 u once daily, metformin 750 mg BId with food, Rybelsus 14 mg once daily, and Jardiance 25 mg once daily. Reports fastings average 110-120's. Denies any blood sugars <70. BP elevated today at 169/82. Currently taking amlodipine 5 mg once daily, losartan 100 mg once daily, and metoprolol succinate 100 mg once daily. Reports compliance with medication regimen. He reports cold sx for the last 3 weeks. He has not taken any cold medications as he is concerned about how it will effect chronic conditions. He is due for routine labs. Regarding cold symptoms. Reports approximately 3 weeks ago he developed sinus congestion with cough. Denies any fevers/chills. Reports body aches, malaise, and productive cough. Additionally, over the last week he has noticed increased shortness of breath, worse with exertion. O2 sat 92% at rest. ROS Const Constitutional: Positive for body ache, fatigue and malaise Resp Respiratory: Positive for cough Cough: Yes productive and shortness of breath sob: SOB with activity Endo Endocrine: Positive for fatigue Exam Const General: cooperative, healthy appearing, comfortable and no acute distress Nutritional Appearance: obese Orientation: alert, awake and oriented x3 HENMT Head: normal to inspection Ears: hearing grossly normal bilaterally Nose: exte (more content not included)... Normal [facility] ECGOrdered By: Bharath gar 05-20-2023 [facility] Work Phone: Cardiac echo study Procedure Ordered By: Agustin Reeves on 05-16-2023 Ao arch index 1.03 cm/m2 [facility] Work Phone: Ao ASC index 1.29 cm/m2 [facility] Work Phone: Ao peak donovan 3.11 m/s [facility] Work Phone: Ao SOV index 1.88 cm/m2 [facility] Work [facility]: Ao STJ index 1.61 cm/m2 [facility] Work Phone: Ao VTI 67.90 cm [facility] Work Phone: Aortic arch 2.30 cm [facility] Work Phone: Ascending [facility] 2.[facility] Work [facility]: AV LVOT peak gradient 3 mmHg [facility] Work Phone: AV mean gradient 25 mmHg [facility] Work Phone: AV peak gradient 39 mmHG [facility] Work Phone: AV valve area 0.96 cm2 [facility] Work Phone: AV Velocity Ratio 0.[address] [facility] Work Phone: ANDREW (continuity Vmax) 0.94 cm2 [facility] Work Phone: ANDREW (continuity VTI) 0.96 cm2 [facility] Work Phone: ANDREW index (continuity Vmax) 0.42 m/s [facility] Work Phone: ANDREW index (continuity VTI) 0.43 cm2/m2 [facility] Work Phone: Avg e' pk donovan 0.08 m/s [facility] Work Phone: Avg E/e' ratio 12.85 [facility] Work Phone: Body surface area Derived from formula 2.24 m2 [facility] Work Phone: BP EF 56 % [facility] Work Phone: DI (Vmax) 0.30 [facility] Work Phone: DI (VTI) 0.30 m/2 [facility] Work Phone: E wave decelartion time 228.00 msec [facility] Work Phone: e' lateral pk donovan 0.1000 m/s [facility] Work Phone: e' lateral pk donovan 0.10 m/s [facility] Work Phone: e' septal pk donovan 0.0691 m/s [facility] Work Phone: e' septal pk donovan 0.07 m/s [facility] Work Phone: E/A ratio 0.80 [facility] Work Phone: E/e' lateral ratio 10.50 [facility] Work Phone: E/e' septal ratio 15.20 [facility] Work Phone: EF SP 2CH 58 [facility] Work Phone: EF SP 4CH 53 [facility] Work Phone: EST RAP 3.00 mmHg [facility] Work Phone: EST RVSP 31 mmHg [facility] Work Phone: FS 25 % Abnormal 28 - 44 % [facility] Work Phone: Interpretation and review of laboratory results Abnormal [facility] Work Phone: IVC ostium 1.10 cm [facility] Work Phone: IVS 1.10 cm [facility] Work Phone: LA AREA 2CH 25.30 cm2 [facility] Work Phone: LA area 4CH 29.10 cm2 [facility] Work Phone: LA ESV BP (MOD) 86 mL [facility] Work Phone: LA ESV BP (MOD) index 38 mL/m2 [facility] Work Phone: LA ESV SP 2CH (MOD) 77 mL [facility] Work Phone: LA ESV SP 4CH (MOD) 96 mL [facility] Work Phone: LV EDV BP 147 mL [facility] Work Phone: LV EDV SP 2CH 178 mL [facility] Work Phone: LV EDV SP 4CH 117 mL [facility] Work Phone: LV ESV BP 65 mL [facility] Work Phone: LV ESV SP 2CH 74 mL [facility] Work Phone: LV ESV SP 4CH 55 mL [facility] Work Phone: LV mass 207.28 g [facility] Work Phone: LV Mass Index 92.5 g/m2 [facility] Work Phone: LV RWT 0.38 [facility] Work Phone: LV stroke volume BP (ml) 82 mL [facility] Work Phone: LV stroke volume index BP 36.61 mL/m2 [facility] Work Phone: LVIDD 5.20 cm [facility] Work Phone: LVIDS 3.90 cm [facility] Work Phone: LVOT area 3.14 cm2 [facility] Work Phone: LVOT diameter 2.00 cm [facility] Work Phone: LVOT peak donovan 0.93 m/s [facility] Work Phone: LVOT peak VTI 20.70 cm [facility] Work Phone: LVOT stroke volume 65 [facility]3 [facility] Work Phone: LVOT stroke volume index 29.02 ml/m2 [facility] Work Phone: MV mean gradient 4 mmHg [facility] Work Phone: MV peak gradient 7 mmHg [facility] Work Phone: MV pk A donovan 1.31 m/s [facility] Work Phone: MV pk E donovan 1.05 m/s [facility] Work Phone: MV stenosis pressure 1/2 time 105.00 ms [facility] Work Phone: MV valve area by continuity eq 1.80 cm2 [facility] Work Phone: MV valve area p 1/2 method 2.10 cm2 [facility] Work Phone: MV VTI 36.20 cm [facility] Work Phone: MVA (continuity VTI) 1.80 cm [facility] Work Phone: [facility] AV VTI RATIO PRE STRESS 0.30 [facility] Work Phone: OSU ECHO LV BIPLANE SYSTOLIC VOLUME INDEX 29.02 mL/m2 [facility] Work Phone: [facility] ECHO LV BP DIASTOLIC VOLUME INDEX 65.63 mL/m2 [facility] Work Phone: PW 1.00 cm [facility] Work Phone: RA vol index 4CH (MOD) 27.68 mL/m2 [facility] Work Phone: Right atrium volume 4 chamber method of disks 62 mL [facility] Work Phone: RV basal diam 4.20 cm [facility] Work Phone: RV long diam 7.70 cm [facility] Work Phone: RV mid diam 3.80 cm [facility] Work Phone: Sinus 4.20 cm [facility] Work Phone: STJ 3.60 cm [facility] Work Phone: Stroke Volume 65 cm/mL [facility] Work Phone: Stroke volume index 29 [facility] Work Phone: TAPSE 1.58 cm [facility] Work Phone: TR pk grad 28 mmHg [facility] Work Phone: TR pk donovan 2.65 m/s [facility] Work Phone: [facility] Work Phone: Cardiac echo study Procedure on 05-16-2023 BAV, s/p asc aorta replacement, VSD and coarct repairs. Fair image quality. Left Ventricle: Chamber size is normal. Normal global systolic function. Regional wall motion is normal. The ejection fraction is 56%. Ejection fraction by modified Grace's rule is normal (55 - 60%). Right Ventricle: Chamber size is normal. Systolic function is normal. Aortic valve not well visualized, reportedly bicusoid. Non-specific thickening. Leaflet calcification. Leaflet excursion is decreased. Moderate stenosis. Mean gradient: 25 mmHg. Dimensionless Index by VTI: 0.30. Valve area continuity VTI: 0.96 cm2. The valve Vmax is 3.11 m/s. MAC with a small gradient, mild MR. Estimated right ventricular systolic pressure is 31 mmHg. Estimated right atrial pressure is 3.00 mmHg. Sinuses of Valsalva/aortic root is mildly enlarged. The ascending aorta regions contain a prosthetic graft (26 mm Hemshield). SOV: 4.20 cm. Coarct repsir site noted, ? graft or stent, no gradient to suggest re-coarctation. Compared to 05/31/22 TTE, results are similar, some progression of No evidence of VSD flow with color Doppler. Background information: 1) Bicuspid aortic valve and aortic root dilation s/p valve sparing supracoronary root replacement 2) Ventricular septal defect s/p repair 3) Coarctation of the aorta s/p repair Relevant Surgical and Procedural History: - 1976: VSD and coarctation repair [facility] - 2002: surveillance revealed a 5.0 cm aortic aneurysm - 09/17/03: Valve-sparing supracoronary root replacement at [facility] 26 mm hemashield tube graft and closure of residual VSD Left Ventricle Chamber size is normal. Normal global systolic function. Regional wall motion is normal. The ejection fraction is 56%. Ejection fraction by modified Grace's rule is normal (55 - 60%). Unable to assess diastolic function. Right Ventricle Chamber size is normal. Systolic function is normal. Left Atrium Chamber size is mildly enlarged. Right Atrium Chamber size is normal. IVC/SVC The inferior vena cava is normal in size. The inferior vena cava structure has a diameter <21 mm and decreases >50% during inspiration. Mitral Valve Normal appearing leaflets. Leaflet mobility is normal. Annular calcification. Mild regurgitation. No valve stenosis. Hemodynamics assessed at heart rate of 75 bpm. Mean gradient is 4 mmHg. Tricuspid Valve Normal leaflets. Leaflet mobility is normal. Trace regurgitation. No stenosis. Estimated right ventricular systolic pressure is 31 mmHg. Estimated right atrial pressure is 3.00 mmHg. Aortic Valve Aortic valve not well visualized. Structural morphology cannot be determined. Non-specific thickening. Leaflet calcification. Leaflet excursion is decreased. No regurgitation. Moderate stenosis. LVOT diameter: 2.00 cm. Mean gradient: 25 mmHg. Dimensionless Index by VTI: 0.30. Valve area continuity VTI: 0.96 cm2. The valve Vmax is 3.11 m/s. Pulmonic Valve Normal structure. Trace regurgitation. No stenosis. Pericardium No pericardial effusion. Septum The atrial septum is normal. Pulmonary Artery Pulmonary artery not well visualized. Aorta Sinuses of Valsalva/aortic root is mildly enlarged. The ascending aorta regions contain a prosthetic graft. SOV: 4.20 cm. Study Details A complete congenital echocardiography study was performed. Overall study quality was fair. Study limitations include patient body habitus. Imaging system used: Taya. Wall Scoring Score Index: 1.00 The left ventricular wall motion is normal. [facility] Radiology Study observation (narrative) [facility] Basophil percentageOrdered B y: Marysol Griffin on 12-31-2022 Bilirubin [Mass/Vol] 0.40 mg/dL 0.20-1.00 [facility] Comment on above: For patients on eltr ombopag therapy, use of Dimension Banks TBIL is not recommended. Chloride [Moles/Vol] 106 mmol/L 98-107 [facility] Cholesterol [Mass/Vol] 193 mg/dL <200 [facility] Comment on above: <200 mg/dL Desirable 200-240 mg/dL Borderline >240 mg/dL High Risk Glucose [Mass/Vol] 95 mg/dL 74-106 [facility] Potassium [Moles/Vol] 4.0 mmol/L 3.5-5.1 [facility] Protein [Mass/Vol] 7.0 g/dL 6.4-8.2 [facility] Sodium [Moles/Vol] 142 mmol/L 136-145 [facility] Triglyceride [Mass/Vol] 222 mg/dL <199 [facility] Comment on above: The drugs N-Acetylcy steine and Metamizole may falsely depress this assay.Serum Triglycerides Reference Interval Normal <150 mg/dL Borderline high 150 - 199 mg/dL High 200 - 499 mg/dL Very High > or = 500 mg/dL Laboratory - Chemistry and C hemistry - challengeOrdered By: Marysol Griffin on 12-31-2022 ALP [Catalytic activity/Vol] 83 U/L 45-117 [facility] ALT [Catalytic activity/Vol] 52 U/L 16-61 [facility] CO2 [Moles/Vol] 27.0 mmol/L 21.0-32.0 [facility] Globulin (S) [Mass/Vol] 3.4 g/dL 2.2-4.2 [facility] Urea nitrogen/Creatinine [Mass ratio] 20.2 mg/mg 10-20 [facility] No Panel InformationOrdered By: Marysol Griffin on 12-31-2022 Estimated GFR (MDRD) Amer 107 mL/min >60 [facility] Comment on above: GFR Calc Estimated GFR (MDRD) Non-Af Amer 89 mL/min >60 [facility] Comment on above: Non- GFR Calc Thyroid Stimulating Hormone (TSH) 2.49 uIU/mL 0.358-3.74 [facility] Urine Microalbumin/Creatini ne Ratio 38.6 mg/g CRE <30 [facility] Vitamin D 25-Hydroxy 74.7 ng/mL [facility] Comment on above: Vitamin D 25(OH) Sta tus Range Deficiency <20 ng/mL (50nmol/L) Insufficiency 20 - 30 ng/mL (50 - 75 nmol/L) Sufficiency 30 - 100 ng/mL (75 - 250 nmol/L) Toxicity >100 ng/mL (>250 nmol/L) Serum or plasma albumin arely urement (mass/volume)Ordered By: Marysol Griffin on 12-31-2022 Albumin [Mass/Vol] 3.6 g/dL 3.2-5.0 [facility] Serum or plasma albumin/glob ulin mass ratioOrdered By: Marysol Griffin on 12-31-2022 Albumin/Globulin [Mass ratio] 1.1 {ratio} 0.9-2.4 [facility] Serum or plasma calcium arely urement (mass/volume)Ordered By: Marysol Griffin on 12-31-2022 Calcium [Mass/Vol] 8.7 mg/dL 8.5-10.1 [facility] Serum or plasma cholesterol in HDL measurement (mass/volume)Ordered By: Marysol Griffin on 12-31-2022 Cholesterol in HDL [Mass/Vol] 32 mg/dL >40 [facility] Comment on above: The drugs N-Acetylcy steine and Metamizole may falsely depress this assay. Reference Range HDL <40 mg/dL Low HDL Cholesterol HDL >or= 60 mg/dL High HDL Cholesterol Serum or plasma cholesterol in VLDL measurement (mass/volume)Ordered By: Marysol Griffin on 12-31-2022 Cholesterol in VLDL [Mass/Vol] 44 mg/dL 5-40 [facility] Serum or plasma creatinine m easurement (mass/volume)Ordered By: Marysol Griffin on 12-31-2022 Creatinine [Mass/Vol] 0.94 mg/dL 0.70-1.30 [facility] Comment on above: The validity of the calculated GFR & GFRAA in patients over 70 years has not been determined. Clinical correlation is essential. Serum or plasma low density lipoprotein (LDL) cholesterol measurement (mass/volume)Ordered By: Marysol Griffin on 12-31-2022 Cholesterol in LDL [Mass/Vol] 117 mg/dL 0-130 [facility] Serum or plasma urea nitroge n measurement (mass/volume)Ordered By: Marysol Griffin on 12-31-2022 Urea nitrogen [Mass/Vol] 19 mg/dL 7-18 [facility] Thin prep Papanicolaou smear with manual screeningOrdered By: Marysol Griffin on 12-31-2022 Thin prep Papanicolaou smear with manual screening 22 U/L 15-37 [facility] Thin prep Papanicolaou smear with manual screening 9 5-15 [facility] Thin prep Papanicolaou smear with manual screening 65.7 mg/L NO RANGE EST. [facility] Urine creatinine measurement (mass/volume)Ordered By: Marysol Griffin on 12-31-2022 Creatinine (U) [Mass/Vol] 170.00 mg/dL NO RANGE EST. [facility] Laboratory - Hematology and Cell countson 12-28-2022 HbA1c (Bld) [Mass fraction] 6.3 % 4.2-6.3 [facility] HgA1C , Office ([phone])Ordere d By: Kyrie Denis on 11-03-2021 HbA1c (Bld) [Mass fraction] 5.6 % Normal 4.6 - 7.1 [facility]; [facility] Work Phone: HgA1C , Office ([phone])Ordere d By: Minnie Quinteros on 06-30-2020 HbA1c (Bld) [Mass fraction] 9.4 % Abnormal 4.6 - 7.1 [facility] Work Phone: HgA1C , Office ([phone])Ordere d By: Latrice Castillo on 03-24-2020 HbA1c (Bld) [Mass fraction] 9.7 % Abnormal 4.6 - 7.1 [facility] Work Phone: Blood Glucose , Office ([phone])Ordered By: Kyrie Falk on 11-26-2019 Glucose Glucometer (BldC) [Moles/Vol] 239 1 Normal [facility] Work Phone: HgA1C , Office ([phone])Ordere d By: Kyrie Falk on 11-26-2019 HbA1c (Bld) [Mass fraction] 9.7 % Abnormal 4.6 - 7.1 [facility] Work Phone: Blood Glucose , Office ([phone])Ordered By: Latrice Castillo on 08-20-2019 Glucose Glucometer (BldC) [Moles/Vol] 129 1 Normal [facility] Work Phone: Blood Glucose , Office ([phone])Ordered By: Latoya Duque on 04-30-2019 Glucose Glucometer (BldC) [Moles/Vol] 126 1 Normal [facility] Work Phone: HgA1C , Office ([phone])Ordere d By: Latoya Duque on 04-30-2019 HbA1c (Bld) [Mass fraction] 7.1 % Normal 4.6 - 7.1 [facility] Work Phone: Comment on above: 7.1 Blood Glucose , Office ([phone])Ordered By: Kyrie Falk on 01-22-2019 Glucose Glucometer (BldC) [Moles/Vol] 242 1 Normal [facility] Work Phone: HgA1C , Office ([phone])Ordere d By: Kyrie Falk on 01-22-2019 HbA1c (Bld) [Mass fraction] 10.2 % Abnormal 4.6 - 7.1 [facility] Work Phone: CBC W/Diff, AutomatedOrdered By: Community Midwife on 01-12-2019 Absolute Neut 2.5 {X10_3/uL} Normal 2.0-7.7 Compreh ensive [facility] Work Phone: Comment on above: [facility] [address] [place], [address] Basophils/100 WBC (Bld) 0.4 % Normal 0-1 [facility] Work Phone: Comment on above: [facility] [address] [place], [address] Eosinophils/100 WBC (Bld) 5.2 % Abnormal 0-5 [facility] Work Phone: Comment on above: [facility] [address] [place], [address] Erythrocyte distribution width (RBC) [Ratio] 13.0 % Normal 11.6-14.6 [facility] Work Phone: Comment on above: [facility] [address] [place], [address] Hematocrit (Bld) [Volume fraction] 40.1 % Normal 40-54 [facility] Work Phone: Comment on above: [facility] [address] [place], [address] Hemoglobin (Bld) [Mass/Vol] 13.7 g/dL Normal 13.0-16.5 [facility] Work Phone: Comment on above: [facility] [address] [place], [address] IM GRAN % 1.000 % Abnormal 0.0-0.9 [facility] Work Phone: Comment on above: IG% - Immature Granu locytes (promyelocytes, myelocytes andmetamyelocytes) > 1% indicates that a LEFT SHIFT is Present. [facility] [address] [place], [address] Lymphocytes (Bld) [#/Vol] 1.40 {X10_3/ul} Normal 0.83-4.51 [facility] Work Phone: Comment on above: [facility] [address] [place], [address] Lymphocytes/100 WBC (Bld) 29.0 % Normal 19-41 [facility] Work Phone: Comment on above: [facility] [address] [place], [address] MCH (RBC) [Entitic mass] 29.8 pg Normal 27.0-32.0 [facility] Work Phone: Comment on above: [facility] [address] [place], [address] MCHC (RBC) [Mass/Vol] 34.2 {g/gl} Normal 32-36 [facility] Work Phone: Comment on above: [facility] [address] [place], [address] MCV (RBC) [Entitic vol] 87.2 fL Normal 80-94 [facility] Work Phone: Comment on above: [facility] [address] [place], [address] Monocytes/100 WBC (Bld) 13.5 % Abnormal 0-10 [facility] Work Phone: Comment on above: [facility] [address] [place], [address] Neutrophils/100 WBC (Bld) 50.9 % Normal 47-70 [facility] Work Phone: Comment on above: [facility] [address] [place], [address] Platelet mean volume (Bld) [Entitic vol] 12.0 fL Normal 6.2-12.0 [facility] e [facility] Work Phone: Comment on above: [facility] [address] [place], [place], [phone] Platelets (Bld) [#/Vol] 127 10*3/uL Abnormal 150-450 [facility] Work Phone: Comment on above: [facility] [address] [place], [phone] RBC (Bld) [#/Vol] 4.60 {M/mm3} Normal 4.6-6.2 Compr ehensive [facility] Work Phone: Comment on above: [facility] [address] [place], [place], [phone] RDW SD 41.4 fL Normal 35.1-43.9 [facility] Work Phone: Comment on above: [facility] [address] [place], [place], [phone] WBC (Bld) [#/Vol] 4.8 10*3/uL Normal 4.4-11.0 Compre [facility] Internal Medicine Work Phone: Comment on above: [facility] [address] [place], [place], [phone] [facility] Met[facility] Prof ilOrdered By: Community Midwife on 01-12-2019 [facility] 2000 panel 103 mmol/L Normal 98-107 Comprehensi ve [facility] Medicine Work Phone: Comment on above: [facility] [address] [place], [place], [phone] [facility] 2000 panel 6.5 g/dL Normal 6.4-8.2 Comprehensi ve [facility] Work Phone: Comment on above: [facility] [address] [place], [place], [phone] [facility] 2000 panel 17.1 {RATIO} Normal 10-20 Comprehensi ve [facility] Work Phone: Comment on above: [facility] [address] [place], [place], [phone] [facility] 2000 panel 3.0 g/dL Normal 2.2-4.2 Comprehensi ve [facility] Work Phone: Comment on above: [facility] [address] [place], [place], [phone] [facility] 2000 panel 1.2 {RATIO} Normal 0.9-2.4 Comprehensi ve [facility] Work Phone: Comment on above: [facility] [address] [place], [address] [facility] 2000 panel 102 mL/min Normal Comprehensi ve [facility] Work Phone: Comment on above: GFR Calc [facility] [address] [place], [place], [phone] [facility] 2000 panel 7.9 mg/dL Abnormal 8.5-10.1 Comprehensi ve [facility] Work Phone: Comment on above: [facility] [address] [place], [place], [phone] [facility] 2000 panel 28 U/L Normal 15-37 Comprehensi ve [facility] Work Phone: Comment on above: [facility] [address] [place], [address] Comprehensive metabolic 2000 panel 84 mL/min Normal Comprehensi ve [facility] Work Phone: Comment on above: Non- GFR Calc [facility] [address] [place], [address] Comprehensive metabolic 2000 panel 3.5 g/dL Normal 3.2-5.0 Comprehensi ve [facility] Work Phone: Comment on above: [facility] [address] [place], [place], [phone] [facility] 2000 panel 1.00 mg/dL Normal 0.70-1.30 Comprehensi ve [facility] Work Phone: Comment on above: The validity of the calculated GFR AND GFRAA in patients over70 years has not been determined. Clinical correlation isessential. [facility] [address] [place], [place], [phone] [facility] 2000 panel 17 mg/dL Normal 7-18 Comprehensi ve [facility] Work Phone: Comment on above: [facility] [address] [place], [place], [phone] [facility] 2000 panel 269 mg/dL Abnormal 74-106 Comprehensi ve [facility] Work Phone: Comment on above: Glucose result great er than or equal to 200 mg/dLsuggests DIABETES MELLITUS per A.D.A. criteria.Please note revised GLUCOSE reference range tsoencony66/02/2018. [facility] [address] [place], [place], [phone] [facility] 2000 panel 50 U/L Normal 16-61 Comprehensi ve [facility] Work Phone: Comment on above: [facility] [address] [place], [place], [phone] [facility] 2000 panel 0.30 mg/dL Normal 0.20-1.00 Comprehensi ve [facility] Work Phone: Comment on above: [facility] [address] [place], [place], [phone] [facility] 2000 panel 134 mmol/L Abnormal 136-145 Comprehensi ve [facility] Work Phone: Comment on above: [facility] [address] [place], [place], [phone] [facility] 2000 panel 3.9 mmol/L Normal 3.5-5.1 Comprehensi ve [facility] Work Phone: Comment on above: [facility] [address] [place], [place], [phone] [facility] 2000 panel 24.0 mmol/L Normal 21.0-32.0 Comprehensi ve [facility] Work Phone: Comment on above: [facility] [address] [place], [place], [phone] [facility] 2000 panel 7 1 Normal 5-15 Comprehensi ve [facility] Work Phone: Comment on above: [facility] [address] [place], [place], [phone] [facility] 2000 panel 78 U/L Normal 45-117 Comprehensi ve [facility] Work Phone: Comment on above: [facility] [address] [place], [place], [phone] Lipid ProfileOrdered By: Gracia tem Picture Frames Inspector on 01-12-2019 Cholesterol [Mass/Vol] 149 mg/dL Normal [facility] Work Phone: Comment on above: <200 mg/dL Desirable 200-240 mg/dL Borderline >240 mg/dL High Risk [facility] [address] [place], [place], [phone] Cholesterol in HDL [Mass/Vol] 27 mg/dL Abnormal [facility] Work Phone: Comment on above: The drugs N-Acetylcy steine and Metamizole may falselydepress this assay. Reference Range HDL <40 mg/dL Low HDL Cholesterol HDL >or= 60 mg/dL High HDL Cholesterol [facility] [address] [place], [place], [phone] Cholesterol in LDL [Mass/Vol] 74 mg/dL Normal 0-130 [facility] Work Phone: Comment on above: [facility] [address] [place], [place], [phone] Cholesterol in VLDL [Mass/Vol] 48 mg/dL Abnormal 5-40 [facility] Work Phone: Comment on above: [facility] [address], [address] Triglyceride [Mass/Vol] 241 mg/dL Abnormal [facility] Work Phone: Comment on above: The drugs N-Acetylcy steine and Metamizole may falselydepress this assay.Serum Triglycerides Reference Interval Normal <150 mg/dL Borderline high 150 - 199 mg/dL High 200 - 499 mg/dL Very High > or = 500 mg/dL [facility] [address] [place], [place], [phone] MicroalbOrdered By: Jose serna on 01-12-2019 Creatinine [Mass/Vol] 133.00 mg/dL Normal C omprehensive Internal Medicine Work Phone: Comment on above: [facility] [address] [place], [address] Creatinine [Mass/Vol] 5.1 {mg/g_CRE} Normal [facility] Work Phone: Comment on above: [facility] [address] [place], [address] Microalb 6.8 mg/L Normal [facility] Work Phone: Comment on above: [facility] [address] [place], [address] Thyroid Stim Hormone (TSH)Or dered By: Community Midwife on 01-12-2019 TSH Qn 2.29 {uIU/mL} Normal 0.358-3.74 Comprehensi ve [facility] Work Phone: Comment on above: [facility] [address] [place], [address] Urinalysis, CompleteOrdered By: Community Midwife on 01-12-2019 Protein mass conc (U) Negative Normal Com prehensive [facility] Work Phone: Comment on above: How was Urine Obtain ed? [facility] [address] [place], [address] RBC (U) [#/Vol] 0 SEEN Normal 0-5 Comprehen sive [facility] Medicine Work Phone: Comment on above: How was Urine Obtain ed? [facility] [address] [place], [address] Urinalysis complete panel - Urine Clear Normal [facility] Work Phone: Comment on above: How was Urine Obtain ed? [facility] [address] [place], [address] Urinalysis complete panel - Urine 0 SEEN Normal 0-5 [facility] Work Phone: Comment on above: How was Urine Obtain ed? [facility] [address] [place], [address] Urinalysis complete panel - Urine Negative Normal [facility] Work Phone: Comment on above: How was Urine Obtain ed? [facility] [address] [place], [address] Urinalysis complete panel - Urine Normal Normal [facility] Work Phone: Comment on above: How was Urine Obtain ed? [facility] [address] [place], [address] Urinalysis complete panel - Urine Yellow Normal [facility] Work Phone: Comment on above: How was Urine Obtain ed? [facility] [address] [place], [address] Urinalysis complete panel - Urine 1000 mg/dL Abnormal [facility] Work Phone: Comment on above: How was Urine Obtain ed? [facility] [address] [place], [address] Urinalysis complete panel - Urine 5.0 1 Normal 5.0 - 8.0 [facility] Work Phone: Comment on above: How was Urine Obtain ed? [facility] [address] [place], [place], [phone] Urinalysis complete panel - Urine 1.025 1 Normal 1.002-1.030 [facility] Work Phone: Comment on above: How was Urine Obtain ed? [facility] [address] [place], [place], [phone] Blood Glucose , Office ([phone])Ordered By: Kim Caba on 10-10-2018 Glucose Glucometer molar conc (BldC) 212 1 Normal [facility] Work Phone: Comment on above: 212 HgA1C , Office ([phone])Ordere d By: Kyrie Falk on 10-10-2018 Hemoglobin A1c/Hemoglobin.total mass fraction (Bld) 8.9 % Abnormal 4.6 - 7.1 Comprehensiv e [facility] Work Phone: Comment on above: 8.9 [facility] Met[facility] Prof ilOrdered By: Community Midwife on 06-30-2018 [facility] 2000 panel 72 mL/min Normal Comprehensi ve [facility] Medicine Work Phone: Comment on above: Non- GFR Calc [facility] [address] [place], [place], [phone] [facility] 2000 panel 6 1 Normal 5-15 Comprehensi ve Internal Medicine Work Phone: Comment on above: [facility] [address] [place], [place], [phone] [facility] 2000 panel 0.40 mg/dL Normal 0.20-1.00 Comprehensi ve Internal Medicine Work Phone: Comment on above: [facility] spital [address] [place], [place], [phone] Comprehensive metabolic 2000 panel 46 U/L Normal 16-61 Comprehensi ve Internal Medicine Work Phone: Comment on above: [facility] spital [address] [place], [place], [phone] [facility] 2000 panel 54 U/L Normal 45-117 Comprehensi ve [facility] Medicine Work Phone: Comment on above: [facility] [address] [place], [place], [phone] [facility] metabolic 2000 panel 21 U/L Normal 15-37 Comprehensi ve [facility] Medicine Work Phone: Comment on above: [facility] [address] [place], [place], [phone] Comprehensive metabolic 2000 panel 8.4 mg/dL Abnormal 8.5-10.1 Comprehensi ve [facility] Medicine Work Phone: Comment on above: [facility] [address] [place], [place], [phone] Comprehensive metabolic 2000 panel 1.1 {RATIO} Normal 0.9-2.4 Comprehensi ve [facility] Work Phone: Comment on above: [facility] [address] [place], [place], [phone] Comprehensive metabolic 2000 panel 3.5 g/dL Normal 2.2-4.2 Comprehensi ve Internal Medicine Work Phone: Comment on above: [facility] [address] [place], [place], [address] Comprehensive metabolic 2000 panel 3.7 g/dL Normal 3.2-5.0 Comprehensi ve Internal Medicine Work Phone: Comment on above: [facility] [address] [place], [place], [address] Comprehensive metabolic 2000 panel 7.2 g/dL Normal 6.4-8.2 Comprehensi ve Internal Medicine Work Phone: Comment on above: [facility] [address] [place], [place], [phone] Comprehensive metabolic 2000 panel 17.5 {RATIO} Normal 10-20 Comprehensi ve Internal Medicine Work Phone: Comment on above: [facility] [address] [place], [place], [address] Comprehensive metabolic 2000 panel 87 mL/min Normal Comprehensi ve Internal Medicine Work Phone: Comment on above: GFR Calc [facility] [address] [place], [address] Comprehensive metabolic 2000 panel 4.4 mmol/L Normal 3.5-5.1 Comprehensi ve Internal Medicine Work Phone: Comment on above: [facility] [address] [place], [place], [address] Comprehensive metabolic 2000 panel 137 mmol/L Normal 136-145 Comprehensi ve Internal Medicine Work Phone: Comment on above: [facility] [address] [place], [place], [address] Comprehensive metabolic 2000 panel 1.14 mg/dL Normal 0.70-1.30 Comprehensi ve Internal Medicine Work Phone: Comment on above: The validity of the calculated GFR AND GFRAA in patients over70 years has not been determined. Clinical correlation isessential. [facility] [address] [place], [place], [phone] Comprehensive metabolic 2000 panel 20 mg/dL Abnormal 7-18 Comprehensi ve Internal Medicine Work Phone: Comment on above: [facility] [address] [place], [place], [address] Comprehensive metabolic 2000 panel 166 mg/dL Abnormal 74-106 Comprehensi ve Internal Medicine Work Phone: Comment on above: Fasting Glucose resu lt greater than or equal to 126 mg/dLsuggests DIABETES MELLITUS per A.D.A. criteria.Please note revised GLUCOSE reference range [id number]/02/2018. [facility] [address] [place], [place], [phone] Comprehensive metabolic 2000 panel 28.0 mmol/L Normal 21.0-32.0 Comprehensi ve Internal Medicine Work Phone: Comment on above: [facility] [address] [place], [address] Comprehensive metabolic 2000 panel 103 mmol/L Normal 98-107 Comprehensi Internal Medicine Work Phone: Comment on above: [facility] [address] [place], [phone] PSA,Total - Annual ScreenOrd ered By: Community Midwife on 06-30-2018 Prostate specific Ag mass conc 0.43 ng/mL Normal 0.00-4.00 Comprehensive Internal Medicine Work Phone: Comment on above: This test was perfor med using the TPSA assay method for [employer] chemistry system. Values obtained with differentassay methods cannot be used interchangably.When changing PSA assays in the course of monitoring apatient, additional sequential testing should be carriedout to confirm baseline values. [facility] [address] [place], [phone] Vitamin D,25 HydroxyOrdered By: Community Midwife on 06-30-2018 Vitamin D 25-OH 35.1 ng/mL Normal 29.95-100.01 Compreh ensive Internal Medicine Work Phone: Comment on above: Vitamin D 25(OH) Sta tus Range Deficiency <20 ng/mL (50nmol/L) Insuffciency 20 - 30 ng/mL (50 - 75 nmol/L) Sufficiency 30 - 100 ng/mL (75 - 250 nmol/L) Toxicity >100 ng/mL (>250 nmol/L) Vitamin D,25 Hydroxy 35.1 ng/mL Normal 29.95-100.01 [facility] Internal [facility] Work Phone: Comment on above: Vitamin D 25(OH) Sta tus Range Deficiency <20 ng/mL (50nmol/L) Insuffciency 20 - 30 ng/mL (50 - 75 nmol/L) Sufficiency 30 - 100 ng/mL (75 - 250 nmol/L) Toxicity >100 ng/mL (>250 nmol/L) [facility] [address] [place], [phone] Blood Glucose , Office ([phone])Ordered By: Marysol Arias on 04-03-2018 Glucose Glucometer molar conc (BldC) 111 1 Normal Comprehensive Internal Medicine Work Phone: HgA1C , Office ([phone])Ordere d By: Marysol Arias on 04-03-2018 Hemoglobin A1c/Hemoglobin.total mass fraction (Bld) 7.7 % Abnormal 4.6 - 7.1 Comprehensiv e Internal Medicine Work Phone: CBC W/Diff, AutomatedOrdered By: Community Midwife on 03-31-2018 Absolute Lymph 1.64 {X10_3/ul} Normal 0.83-4.51 Compr ehensive Internal Medicine Work Phone: Absolute Neut 2.4 {X10_3/uL} Normal 2.0-7.7 Compreh ensive Internal Medicine Work Phone: Comment on above: [facility] [address] [place], [place], [phone] Basophils/100 WBC (Bld) 0.4 % Normal 0-1 Comprehensive Internal Medicine Work Phone: Comment on above: [facility] [address] [place], [place], [phone] Basophils/100 WBC Auto (Bld) 0.4 % Normal 0-1 Comprehensive Internal Medicine Work Phone: Eosinophils/100 WBC (Bld) 6.1 % Abnormal 0-5 Comprehensive Internal Medicine Work Phone: Comment on above: [facility] [address] [place], [place], [phone] Eosinophils/100 WBC Auto (Bld) 6.1 % Abnormal 0-5 Comprehensive Internal Medicine Work Phone: Erythrocyte distribution width Auto Ratio (RBC) 13.4 % Normal 11.6-14.6 Comprehensive Internal Medicine Work Phone: Erythrocyte distribution width Ratio (RBC) 13.4 % Normal 11.6-14.6 Comprehensive Internal Medicine Work Phone: Comment on above: [facility] [address] [place], [place], [phone] Hematocrit Auto Volume Fraction (Bld) 40.8 % Normal 40-54 Comprehens wendy Internal Medicine Work Phone: Hematocrit Volume Fraction (Bld) 40.8 % Normal 40-54 Comprehensive Internal Medicine Work Phone: Comment on above: [place] [address] [place], [address] Hemoglobin mass conc (Bld) 13.7 g/dL Normal 13.0-16.5 Comprehensive Internal Medicine Work Phone: Comment on above: [place] [address] [place], [address] IM GRAN % 0.400 % Normal 0.0-0.9 Comprehensive Internal Medicine Work Phone: Comment on above: IG% - Immature Granu locytes (promyelocytes, myelocytes andmetamyelocytes) > 1% indicates that a LEFT SHIFT is Present. [place] [address] [place], [place], [phone] Lymphocytes #/vol (Bld) 1.64 {X10_3/ul} Normal 0.83-4.51 Comprehensive Internal Medicine Work Phone: Comment on above: [place] [address] [place], [address] Lymphocytes/100 WBC (Bld) 32.5 % Normal 19-41 Comprehensive Internal Medicine Work Phone: Comment on above: [facility] [address] [place], [address] Lymphocytes/100 WBC Auto (Bld) 32.5 % Normal 19-41 Comprehensive Internal Medicine Work Phone: MCH Auto Entitic mass (RBC) 29.7 pg Normal 27.0-32.0 Comprehensive Internal Medicine Work Phone: MCH Entitic mass (RBC) 29.7 pg Normal 27.0-32.0 Comprehensive Internal Medicine Work Phone: Comment on above: [facility] [address] [place], [address] MCHC Auto mass conc (RBC) 33.6 {g/gl} Normal 32-36 Comprehensive Internal Medicine Work Phone: MCHC mass conc (RBC) 33.6 {g/gl} Normal 32-36 [facility] prehensive Internal Medicine Work Phone: Comment on above: [facility] [address] [place], [address] MCV Auto Entitic volume (RBC) 88.3 fL Normal 80-94 Comprehensive Internal Medicine Work Phone: MCV Entitic volume (RBC) 88.3 fL Normal 80-94 Comprehensive Internal Medicine Work Phone: Comment on above: [facility] [address] [place], [address] Monocytes/100 WBC Auto (Bld) 12.5 % Abnormal 0-10 Comprehensive Internal Medicine Work Phone: Comment on above: [facility] [address] [place], [address] Monocytes/100 WBC Auto (Bld) 12.5 % Abnormal 0-10 Comprehensive Internal Medicine Work Phone: Neutrophils/100 WBC (Bld) 48.1 % Normal 47-70 Comprehensive Internal Medicine Work Phone: Comment on above: [facility] [address] [place], [address] Neutrophils/100 WBC Auto (Bld) 48.1 % Normal 47-70 Comprehensive Internal Medicine Work Phone: Platelet mean volume Auto Entitic volume (Bld) 12.1 fL Abnormal 6.2-12.0 Comprehensive Internal Medicine Work Phone: Platelet mean volume Entitic volume (Bld) 12.1 fL Abnormal 6.2-12.0 Comprehensi ve Internal Medicine Work Phone: Comment on above: [facility] [address] [place], [address] Platelets #/vol (Bld) 136 10*3/uL Abnormal 150-450 [facility] Internal Medicine Work Phone: Comment on above: [facility] [address] [place], [address] Platelets Auto #/vol (Bld) 136 10*3/uL Abnormal 150-450 Comprehensive Internal Medicine Work Phone: RBC #/vol (Bld) 4.62 {M/mm3} Normal 4.6-6.2 Compreh ensive Internal Medicine Work Phone: Comment on above: [facility] [address] [place], [address] RBC Auto #/vol (Bld) 4.62 {M/mm3} Normal 4.6-6.2 [facility] Internal [facility] Work Phone: RDW SD 43.0 fL Normal 35.1-43.9 Comprehensive Internal Medicine Work Phone: Comment on above: [facility] [address] [place], [address] WBC #/vol (Bld) 5.1 10*3/uL Normal 4.4-11.0 Comprehe nsive Internal Medicine Work Phone: Comment on above: [facility] [address] [place], [address] WBC Auto #/vol (Bld) 5.1 10*3/uL Normal 4.4-11.0 [facility] prehensive Internal Medicine Work Phone: CBC W/Diff, Automated 1.64 {X10_3/ul} Normal 0.83-4.51 Comprehensive Internal Medicine Work Phone: CBC W/Diff, Automated 2.4 {X10_3/uL} Normal 2.0-7.7 Comprehensive Internal Medicine Work Phone: CBC W/Diff, Automated 0.400 % Normal 0.0-0.9 [facility] prehensive Internal Medicine Work Phone: Comment on above: IG% - Immature Granu locytes (promyelocytes, myelocytes andmetamyelocytes) > 1% indicates that a LEFT SHIFT is Present. CBC W/Diff, Automated 43.0 fL Normal 35.1-43.9 [facility] prehensive Internal Medicine Work Phone: Comprehensive Metabolic Prof ilOrdered By: Community Midwife on 03-31-2018 Comprehensive metabolic 2000 panel 29.0 mmol/L Normal 21.0-32.0 Comprehensi ve Internal Medicine Work Phone: Comment on above: [facility] [address] [place], [place], [phone] Comprehensive metabolic 2000 panel 3.7 mmol/L Normal 3.5-5.1 Comprehensi ve Internal Medicine Work Phone: Comment on above: [facility] [address] [place], [place], [phone] Comprehensive metabolic 2000 panel 103 mmol/L Normal 98-107 Comprehensi ve Internal Medicine Work Phone: Comment on above: [facility] [address] [place], [place], [phone] Comprehensive metabolic 2000 panel 3.7 g/dL Normal 3.2-5.0 Comprehensi ve Internal Medicine Work Phone: Comment on above: [facility] [address] [place], [place], [phone] Comprehensive metabolic 2000 panel 139 mmol/L Normal 136-145 Comprehensi ve Internal Medicine Work Phone: Comment on above: [facility] [address] [place], [place], [phone] Comprehensive metabolic 2000 panel 7 1 Normal 5-15 Comprehensi ve Internal Medicine Work Phone: Comment on above: [facility] [address] [place], [place], [address] Comprehensive metabolic 2000 panel 0.30 mg/dL Normal 0.20-1.00 Comprehensi ve Internal Medicine Work Phone: Comment on above: [facility] spital [address] [place], [place], [phone] Comprehensive metabolic 2000 panel 6.8 g/dL Normal 6.4-8.2 Comprehensi ve Internal Medicine Work Phone: Comment on above: [facility] [address] [place], [place], [phone] Comprehensive metabolic 2000 panel 23.3 {RATIO} Abnormal 10-20 Comprehensi ve Internal Medicine Work Phone: Comment on above: [facility] [address] [place], [place], [phone] Comprehensive metabolic 2000 panel 43 U/L Normal 16-61 Comprehensi ve Internal Medicine Work Phone: Comment on above: [facility] [address] [place], [place], [address] Comprehensive metabolic 2000 panel 98 mL/min Normal Comprehensi ve Internal Medicine Work Phone: Comment on above: GFR Calc [facility] [address] [place], [place], [address] Comprehensive metabolic 2000 panel 59 U/L Normal 45-117 Comprehensi ve Internal Medicine Work Phone: Comment on above: [facility] [address] [place], [place], [address] Comprehensive metabolic 2000 panel 81 mL/min Normal Comprehensi ve Internal Medicine Work Phone: Comment on above: Non- GFR Calc [facility] spital [address] [place], [address] Comprehensive metabolic 2000 panel 18 U/L Normal 15-37 Comprehensi ve Internal Medicine Work Phone: Comment on above: [facility] [address] [place], [place], [phone] Comprehensive metabolic 2000 panel 1.03 mg/dL Normal 0.70-1.30 Comprehensi ve Internal Medicine Work Phone: Comment on above: The validity of the calculated GFR AND GFRAA in patients over70 years has not been determined. Clinical correlation isessential. [facility] [address] [place], [place], [phone] Comprehensive metabolic 2000 panel 8.2 mg/dL Abnormal 8.5-10.1 Comprehensi ve Internal Medicine Work Phone: Comment on above: [facility] [address] [place], [place], [phone] Comprehensive metabolic 2000 panel 1.2 {RATIO} Normal 0.9-2.4 Comprehensi ve Internal Medicine Work Phone: Comment on above: [facility] [address] [place], [place], [phone] Comprehensive metabolic 2000 panel 24 mg/dL Abnormal 7-18 Comprehensi ve Internal Medicine Work Phone: Comment on above: [facility] [address] [place], [place], [phone] Comprehensive metabolic 2000 panel 178 mg/dL Abnormal 74-106 Comprehensi ve Internal Medicine Work Phone: Comment on above: Fasting Glucose resu lt greater than or equal to 126 mg/dLsuggests DIABETES MELLITUS per A.D.A. criteria.Please note revised GLUCOSE reference range /02/2018. [facility] [address] [place], [place], [phone] Comprehensive metabolic 2000 panel 3.1 g/dL Normal 2.2-4.2 Comprehensi ve Internal Medicine Work Phone: Comment on above: [facility] [address] [place], [place], [phone] Lipid ProfileOrdered By: Sys tem Picture Frames Inspector on 03-31-2018 Cholesterol in HDL mass conc 26 mg/dL Abnormal Comprehensive Internal Medicine Work Phone: Comment on above: The drugs N-Acetylcy steine and Metamizole may falselydepress this assay. Reference Range HDL <40 mg/dL Low HDL Cholesterol HDL >or= 60 mg/dL High HDL Cholesterol [facility] [address] [place], [address] Cholesterol in LDL mass conc 74 mg/dL Normal 0-130 Comprehensive Internal Medicine Work Phone: Cholesterol in LDL mass conc 74 mg/dL Normal 0-130 Comprehensive Internal Medicine Work Phone: Comment on above: [facility] [address] [place], [address] Cholesterol in VLDL mass conc 35 mg/dL Normal 5-40 Comprehensive Internal Medicine Work Phone: Comment on above: [facility] [address] [place], [address] Cholesterol mass conc 135 mg/dL Normal Com prehensive Internal Medicine Work Phone: Comment on above: <200 mg/dL Desirable 200-240 mg/dL Borderline >240 mg/dL High Risk [facility] [address] [place], [place], [phone] Triglyceride mass conc 175 mg/dL Normal Comprehensive Internal Medicine Work Phone: Comment on above: The drugs N-Acetylcy steine and Metamizole may falselydepress this assay.Serum Triglycerides Reference Interval Normal <150 mg/dL Borderline high 150 - 199 mg/dL High 200 - 499 mg/dL Very High > or = 500 mg/dL [facility] [address] [place], [place], [phone] Lipid Profile 35 mg/dL Normal 5-40 Comprehensi ve Internal Medicine Work Phone: Vitamin D,25 HydroxyOrdered By: Community Midwife on 03-31-2018 Vitamin D 25-OH 24.9 ng/mL Abnormal 29.95-100.01 Compreh ensive Internal Medicine Work Phone: Comment on above: Vitamin D 25(OH) Sta tus Range Deficiency <20 ng/mL (50nmol/L) Insuffciency 20 - 30 ng/mL (50 - 75 nmol/L) Sufficiency 30 - 100 ng/mL (75 - 250 nmol/L) Toxicity >100 ng/mL (>250 nmol/L) Vitamin D,25 Hydroxy 24.9 ng/mL Abnormal 29.95-100.01 Co mprehensive Internal Medicine Work Phone: Comment on above: Vitamin D 25(OH) Sta tus Range Deficiency <20 ng/mL (50nmol/L) Insuffciency 20 - 30 ng/mL (50 - 75 nmol/L) Sufficiency 30 - 100 ng/mL (75 - 250 nmol/L) Toxicity >100 ng/mL (>250 nmol/L) [facility] [address] [place] [address], [phone] Blood Glucose , Office ([phone])Ordered By: Marysol Arias on 10-24-2017 Glucose Glucometer molar conc (BldC) 328 1 Normal Comprehensive Internal Medicine Work Phone: Comment on above: Just ate HgA1C , Office ([phone])Ordere d By: Marysol Arias on 10-24-2017 Hemoglobin A1c/Hemoglobin.total mass fraction (Bld) 9.5 % Abnormal 4.6 - 7.1 Comprehensiv e Internal Medicine Work Phone: Blood Glucose , Office ([phone])Ordered By: Latrice Castillo on 07-25-2017 Glucose Glucometer molar conc (BldC) 149 1 Normal Comprehensive Internal Medicine Work Phone: HgA1C , Office ([phone])Ordere d By: Latrice Castillo on 07-25-2017 Hemoglobin A1c/Hemoglobin.total mass fraction (Bld) 8.1 % Abnormal 4.6 - 7.1 Comprehensiv e Internal Medicine Work Phone: Comprehensive Metabolic Prof ilOrdered By: Community Midwife on 07-17-2017 Comprehensive metabolic 2000 panel 7 1 Normal 5-15 Comprehensi ve Internal Medicine Work Phone: Comment on above: [facility] [address] [place], [place], [phone] Comprehensive metabolic 2000 panel 76 mL/min Normal Comprehensi ve Internal Medicine Work Phone: Comment on above: Non- GFR Calc [facility] sp[facility] [address] [place], [place], [phone] Comprehensive metabolic 2000 panel 31.0 mmol/L Normal 21.0-32.0 Comprehensi ve Internal Medicine Work Phone: Comment on above: [facility] sp[facility] [address] [place], [place], [phone] Comprehensive metabolic 2000 panel 91 mL/min Normal Comprehensi ve Internal Medicine Work Phone: Comment on above: [facility] Calc [facility] [address] [place], [place], [phone] Comprehensive metabolic 2000 panel 4.0 mmol/L Normal 3.5-5.1 Comprehensi ve Internal Medicine Work Phone: Comment on above: [facility] sp[facility] [address] [place], [place], [address] Comprehensive metabolic 2000 panel 138 mmol/L Normal 136-145 Comprehensi ve Internal Medicine Work Phone: Comment on above: [facility] [address] [place], [place], [address] Comprehensive metabolic 2000 panel 18.2 {RATIO} Normal 10-20 Comprehensi ve Internal Medicine Work Phone: Comment on above: [facility] [address] [place], [place], [address] Comprehensive metabolic 2000 panel 0.30 mg/dL Normal 0.20-1.00 Comprehensi ve Internal Medicine Work Phone: Comment on above: [facility] [address] [place], [place], [address] Comprehensive metabolic 2000 panel 47 U/L Normal 12-78 Comprehensi ve Internal Medicine Work Phone: Comment on above: [facility] [address] [place], [place], [address] Comprehensive metabolic 2000 panel 59 U/L Normal 45-117 Comprehensi ve Internal Medicine Work Phone: Comment on above: [facility] [address] [place], [place], [address] Comprehensive metabolic 2000 panel 22 U/L Normal 15-37 Comprehensi ve Internal Medicine Work Phone: Comment on above: [facility] [address] [place], [place], [phone] Comprehensive metabolic 2000 panel 8.3 mg/dL Abnormal 8.5-10.1 Comprehensi ve Internal Medicine Work Phone: Comment on above: [facility] [address] [place], [place], [address] Comprehensive metabolic 2000 panel 6.9 g/dL Normal 6.4-8.2 Comprehensi ve Internal Medicine Work Phone: Comment on above: [facility] [address] [place], [place], [address] Comprehensive metabolic 2000 panel 100 mmol/L Normal 98-107 Comprehensi ve Internal Medicine Work Phone: Comment on above: [facility] [address] [place], [place], [address] Comprehensive metabolic 2000 panel 3.3 g/dL Normal 2.3-3.5 Comprehensi ve Internal Medicine Work Phone: Comment on above: [facility] [address] [place], [place], [address] Comprehensive metabolic 2000 panel 1.1 {RATIO} Normal 0.9-2.4 Comprehensi ve Internal Medicine Work Phone: Comment on above: [facility] [address] [place], [place], [phone] Comprehensive metabolic 2000 panel 1.10 mg/dL Normal 0.70-1.30 Comprehensi ve Internal Medicine Work Phone: Comment on above: The validity of the calculated GFR AND GFRAA in patients over70 years has not been determined. Clinical correlation isessential. [facility] [address] [place], [place], [phone] Comprehensive metabolic 2000 panel 20 mg/dL Abnormal 7-18 Comprehensi ve Internal Medicine Work Phone: Comment on above: [facility] [address] [place], [place], [address] Comprehensive metabolic 2000 panel 204 mg/dL Abnormal 70-110 Comprehensi ve Internal Medicine Work Phone: Comment on above: Glucose result great er than or equal to 200 mg/dLsuggests DIABETES MELLITUS per A.D.A. criteria. [facility] [address] [place], [place], [phone] Comprehensive metabolic 2000 panel 3.6 g/dL Normal 3.4-5.0 Comprehensi ve Internal Medicine Work Phone: Comment on above: [facility] [address] [place], [place], [phone] MicroalbOrdered By: Jose serna on 07-17-2017 Creatinine mass conc 4.7 {mg/g_CRE} Normal Comprehensive Internal Medicine Work Phone: Comment on above: [facility] [address] [place], [place], [phone] Creatinine mass conc 157.00 mg/dL Normal [facility] Work Phone: Comment on above: [facility] [address] [place], [place], [phone] MICROALBUMIN,UR 7.4 mg/L Normal Comprehen sive Internal Medicine Work Phone: UR CREAT 157.00 mg/dL Normal Comprehensiv e Internal Medicine Work Phone: Microalb 7.4 mg/L Normal Comprehensive Internal Medicine Work Phone: Comment on above: [facility] [address] [place], [phone]) Microalb 157.00 mg/dL Normal Comprehensiv e Internal Medicine Work Phone: Blood Glucose , Office ([phone])Ordered By: Latrice Castillo on 04-11-2017 Glucose Glucometer molar conc (BldC) 227 1 Normal Comprehensive [facility] Medicine Work Phone: HgA1C , Office ([phone])Ordere d By: Latrice Castillo on 04-11-2017 Hemoglobin A1c/Hemoglobin.total mass fraction (Bld) 8.2 % Abnormal 4.6 - 7.1 Comprehensiv e Internal Medicine Work Phone: CBC W/Diff, AutomatedOrdered By: Community Midwife on 04-07-2017 Absolute Lymph 1.72 {X10_3/ul} Normal 0.83-4.51 Compr ehensive Internal Medicine Work Phone: Absolute Neut 2.2 {X10_3/uL} Normal 2.0-7.7 Compreh ensive Internal Medicine Work Phone: Comment on above: [facility] [address] [place], [place], [phone] Basophils/100 WBC (Bld) 0.8 % Normal 0-1 Comprehensive Internal Medicine Work Phone: Comment on above: [facility] [address] [place], [address] Basophils/100 WBC Auto (Bld) 0.8 % Normal 0-1 Comprehensive Internal Medicine Work Phone: Eosinophils/100 WBC (Bld) 4.8 % Normal 0-5 Comprehensive [facility] Medicine Work Phone: Comment on above: [facility] [address] [place], [address] Eosinophils/100 WBC Auto (Bld) 4.8 % Normal 0-5 Comprehensive Internal Medicine Work Phone: Erythrocyte distribution width Auto Ratio (RBC) 13.1 % Normal 11.6-14.6 Comprehensive [facility] Medicine Work Phone: Erythrocyte distribution width Ratio (RBC) 13.1 % Normal 11.6-14.6 Comprehensive Internal Medicine Work Phone: Comment on above: [facility] [address] [place], [place], [id number] Hematocrit Auto Volume Fraction (Bld) 39.6 % Abnormal 40-54 Comprehens wendy Internal Medicine Work Phone: Hematocrit Volume Fraction (Bld) 39.6 % Abnormal 40-54 [facility] Internal Medicine Work Phone: Comment on above: [facility] [address] [place], [address] Hemoglobin mass conc (Bld) 13.8 g/dL Normal 13.0-16.5 [facility] Internal Medicine Work Phone: Comment on above: [facility] [address] [place], [address] IM GRAN % 0.200 % Normal 0.0-0.9 [facility] Internal Medicine Work Phone: Comment on above: IG% - Immature Granu locytes (promyelocytes, myelocytes andmetamyelocytes) > 1% indicates that a LEFT SHIFT is Present. [facility] [address] [place], [place], [phone] Lymphocytes #/vol (Bld) 1.72 {X10_3/ul} Normal 0.83-4.51 [facility] Internal Medicine Work Phone: Comment on above: [facility] [address] [place], [address] Lymphocytes/100 WBC (Bld) 34.7 % Normal 19-41 [facility] Internal Medicine Work Phone: Comment on above: [facility] [address] [place], [address] Lymphocytes/100 WBC Auto (Bld) 34.7 % Normal 19-41 [facility] Internal Medicine Work Phone: MCH Auto Entitic mass (RBC) 30.1 pg Normal 27.0-32.0 [facility] Internal Medicine Work Phone: MCH Entitic mass (RBC) 30.1 pg Normal 27.0-32.0 [facility] Internal Medicine Work Phone: Comment on above: [facility] [address] [place], [address] MCHC Auto mass conc (RBC) 34.8 {g/gl} Normal 32-36 [facility] Internal Medicine Work Phone: MCHC mass conc (RBC) 34.8 {g/gl} Normal 32-36 [facility] prehensive Internal Medicine Work Phone: Comment on above: [facility] [address] [place], [address] MCV Auto Entitic volume (RBC) 86.5 fL Normal 80-94 [facility] Internal Medicine Work Phone: MCV Entitic volume (RBC) 86.5 fL Normal 80-94 [facility] Internal Medicine Work Phone: Comment on above: [facility] [address] [place], [address] Monocytes/100 WBC Auto (Bld) 14.9 % Abnormal 0-10 [facility] Internal Medicine Work Phone: Comment on above: [facility] [address] [place], [address] Monocytes/100 WBC Auto (Bld) 14.9 % Abnormal 0-10 [facility] Internal Medicine Work Phone: Neutrophils/100 WBC (Bld) 44.6 % Abnormal 47-70 [facility] Internal Medicine Work Phone: Comment on above: [facility] [address] [place], [address] Neutrophils/100 WBC Auto (Bld) 44.6 % Abnormal 47-70 [facility] Internal Medicine Work Phone: Platelet mean volume Auto Entitic volume (Bld) 12.3 fL Abnormal 6.2-12.0 [facility] Internal Medicine Work Phone: Platelet mean volume Entitic volume (Bld) 12.3 fL Abnormal 6.2-12.0 Comprehensi Internal Medicine Work Phone: Comment on above: [facility] [address] [place], [address] Platelets #/vol (Bld) 146 10*3/uL Abnormal 150-450 [facility] Internal Medicine Work Phone: Comment on above: [facility] [address] [place], [address] Platelets Auto #/vol (Bld) 146 10*3/uL Abnormal 150-450 [facility] Internal Medicine Work Phone: RBC #/vol (Bld) 4.58 {M/mm3} Abnormal 4.6-6.2 Compreh ensive Internal Medicine Work Phone: Comment on above: ADDENDA: Monday [facility] [address] [place], [address] RBC Auto #/vol (Bld) 4.58 {M/mm3} Abnormal 4.6-6.2 [facility] Internal Medicine Work Phone: Comment on above: ADDENDA: OV Monday RDW SD 40.3 fL Normal 35.1-43.9 [facility] Internal Medicine Work Phone: Comment on above: [facility] [address] [place], [address] WBC #/vol (Bld) 5.0 10*3/uL Normal 4.4-11.0 Comprehe nsive Internal Medicine Work Phone: Comment on above: [facility] [address] [place], [place], [phone] WBC Auto #/vol (Bld) 5.0 10*3/uL Normal 4.4-11.0 [facility] prehensive Internal Medicine Work Phone: CBC W/Diff, Automated 0.200 % Normal 0.0-0.9 [facility] prehensive Internal Medicine Work Phone: Comment on above: IG% - Immature Granu locytes (promyelocytes, myelocytes andmetamyelocytes) > 1% indicates that a LEFT SHIFT is Present. CBC W/Diff, Automated 2.2 {X10_3/uL} Normal 2.0-7.7 [facility] Internal Medicine Work Phone: CBC W/Diff, Automated 1.72 {X10_3/ul} Normal 0.83-4.51 [facility] Internal Medicine Work Phone: CBC W/Diff, Automated 40.3 fL Normal 35.1-43.9 [facility] prehensive Internal Medicine Work Phone: Comprehensive Metabolic Prof ilOrdered By: Community Midwife on 04-07-2017 Comprehensive metabolic 2000 panel 1.2 {RATIO} Normal 0.9-2.4 Comprehensi ve Internal Medicine Work Phone: Comment on above: [facility] [address] [place], [place], [phone] Comprehensive metabolic 2000 panel 22 mg/dL Abnormal 7-18 Comprehensi ve Internal Medicine Work Phone: Comment on above: [facility] [address] [place], [place], [phone] Comprehensive metabolic 2000 panel 36 U/L Normal 12-78 Comprehensi ve Internal Medicine Work Phone: Comment on above: [facility] [address] [place], [address] Comprehensive metabolic 2000 panel 0.50 mg/dL Normal 0.20-1.00 Comprehensi ve Internal Medicine Work Phone: Comment on above: ADDENDA: ov 04/11 [facility] [address] [place], [address] Comprehensive metabolic 2000 panel 136 mmol/L Normal 136-145 Comprehensi ve Internal Medicine Work Phone: Comment on above: [facility] [address] [place], [address] Comprehensive metabolic 2000 panel 3.5 mmol/L Normal 3.5-5.1 Comprehensi ve Internal Medicine Work Phone: Comment on above: [facility] [address] [place], [address] Comprehensive metabolic 2000 panel 99 mmol/L Normal 98-107 Comprehensi ve Internal Medicine Work Phone: Comment on above: [facility] [address] [place], [address] Comprehensive metabolic 2000 panel 29.0 mmol/L Normal 21.0-32.0 Comprehensi ve Internal Medicine Work Phone: Comment on above: [facility] [address] [place], [place], [address] Comprehensive metabolic 2000 panel 8 1 Normal 5-15 Comprehensi ve Internal Medicine Work Phone: Comment on above: [facility] [address] [place], [address] Comprehensive metabolic 2000 panel 8.6 mg/dL Normal 8.5-10.1 Comprehensi ve Internal Medicine Work Phone: Comment on above: [facility] [address] [place], [address] Comprehensive metabolic 2000 panel 54 U/L Normal 45-117 Comprehensi ve Internal Medicine Work Phone: Comment on above: [facility] [address] [place], [address] Comprehensive metabolic 2000 panel 3.1 g/dL Normal 2.3-3.5 Comprehensi ve Internal Medicine Work Phone: Comment on above: [facility] [address] [place], [place], [phone] Comprehensive metabolic 2000 panel 3.6 g/dL Normal 3.4-5.0 Comprehensi ve Internal Medicine Work Phone: Comment on above: [facility] [address] [place], [place], [phone] Comprehensive metabolic 2000 panel 6.7 g/dL Normal 6.4-8.2 Comprehensi ve Internal Medicine Work Phone: Comment on above: [facility] [address] [place], [place], [phone] Comprehensive metabolic 2000 panel 19.0 {RATIO} Normal 10-20 Comprehensi ve Internal Medicine Work Phone: Comment on above: [facility] [address] [place], [place], [phone] Comprehensive metabolic 2000 panel 154 mg/dL Abnormal 70-110 Comprehensi ve Internal Medicine Work Phone: Comment on above: Fasting Glucose resu lt greater than or equal to 126 mg/dLsuggests DIABETES MELLITUS per A.D.A. criteria. [facility] [address] [place], [place], [phone] Comprehensive metabolic 2000 panel 86 mL/min Normal Comprehensi ve Internal Medicine Work Phone: Comment on above: GFR Calc [facility] [address] [place], [place], [phone] Comprehensive metabolic 2000 panel 71 mL/min Normal Comprehensi ve Internal Medicine Work Phone: Comment on above: Non- GFR Calc [facility] [address] [place], [place], [phone] Comprehensive metabolic 2000 panel 1.16 mg/dL Normal 0.70-1.30 Comprehensi ve Internal Medicine Work Phone: Comment on above: The validity of the calculated GFR AND GFRAA in patients over70 years has not been determined. Clinical correlation isessential. [facility] [address] [place], [place], [address] Comprehensive metabolic 2000 panel 20 U/L Normal 15-37 Comprehensi ve Internal Medicine Work Phone: Comment on above: [facility] [address] [place], [place], [phone] Lipid ProfileOrdered By: Gracia tem Picture Frames Inspector on 04-07-2017 Cholesterol in HDL mass conc 32 mg/dL Abnormal Comprehensive Internal Medicine Work Phone: Comment on above: The drugs N-Acetylcy steine and Metamizole may falsely deressthis assay. Reference Range HDL <40 mg/dL Low HDL Cholesterol HDL >or= 60 mg/dL High HDL Cholesterol [facility] [address] [place], [place], [phone] Cholesterol in LDL mass conc 77 mg/dL Normal 0-130 [facility] Internal Medicine Work Phone: Cholesterol in LDL mass conc 77 mg/dL Normal 0-130 [facility] Internal Medicine Work Phone: Comment on above: [facility] [address] [place], [place], [phone] Cholesterol in VLDL mass conc 31 mg/dL Normal 5-40 [facility] Internal Medicine Work Phone: Comment on above: [facility] [address] [place], [place], [phone] Cholesterol mass conc 140 mg/dL Normal Com prehensive Internal Medicine Work Phone: Comment on above: <200 mg/dL Desirable 200-240 mg/dL Borderline >240 mg/dL High Risk [facility] [address] [place], [place], [phone] Triglyceride mass conc 153 mg/dL Normal [facility] Internal Medicine Work Phone: Comment on above: The drugs N-Acetylcy steine and Metamizole may falsely deressthis assay.Serum Triglycerides Reference Interval Normal <150 mg/dL Borderline high 150 - 199 mg/dL High 200 - 499 mg/dL Very High > or = 500 mg/dL [facility] [address] [place], [place], [address] Lipid Profile 31 mg/dL Normal 5-40 Comprehensi ve Internal Medicine Work Phone: Thyroid Stim Hormone (TSH)Or dered By: Community Midwife on 04-07-2017 Thyrotropin Qn 2.64 {uIU/mL} Normal 0.358-3.74 Compreh ensive Internal Medicine Work Phone: Comment on above: [facility] [address] [place], [place], [address] Blood Glucose , Office ([phone])Ordered By: Latrice Castillo on 01-02-2017 Glucose Glucometer molar conc (BldC) 136 1 Normal [facility] Internal Medicine Work Phone: Comment on above: 136 HgA1C , Office ([phone])Ordere d By: Latrice Castillo on 01-02-2017 Hemoglobin A1c/Hemoglobin.total mass fraction (Bld) 7.5 % Abnormal 4.6 - 7.1 Comprehensiv e Internal Medicine Work Phone: Comment on above: 7.5 Blood Glucose , Office ([phone])Ordered By: Latrice Castillo on 10-03-2016 Glucose Glucometer molar conc (BldC) 172 1 Normal [facility] Internal Medicine Work Phone: HgA1C , Office ([phone])Ordere d By: Latrice Castillo on 10-03-2016 Hemoglobin A1c/Hemoglobin.total mass fraction (Bld) 8.1 % Abnormal 4.6 - 7.1 Comprehensiv e Internal Medicine Work Phone: Blood Glucose , Office ([phone])Ordered By: Latrice Castillo on 06-27-2016 Glucose Glucometer molar conc (BldC) 186 1 Normal [facility] Medicine Work Phone: HgA1C , Office ([phone])Ordere d By: Latrice Castillo on 06-27-2016 Hemoglobin A1c/Hemoglobin.total mass fraction (Bld) 7.0 % Normal 4.6 - 7.1 Comprehensiv e Internal Medicine Work Phone: Comment on above: down to 7.0 from 7.5 CBC W/Diff, AutomatedOrdered By: Community Midwife on 06-25-2016 Absolute Lymph 1.45 {X10_3/ul} Normal 0.83-4.51 Compr ehensive Internal Medicine Work Phone: Absolute Neut 2.8 {X10_3/uL} Normal 2.0-7.7 Compreh ensive Internal Medicine Work Phone: Comment on above: [facility] [address] [place], [address] Basophils/100 WBC (Bld) 0.6 % Normal 0-1 [facility] Internal Medicine Work Phone: Comment on above: [facility] [address] [place], [address] Basophils/100 WBC Auto (Bld) 0.6 % Normal 0-1 [facility] Internal Medicine Work Phone: Eosinophils/100 WBC (Bld) 5.3 % Abnormal 0-5 [facility] Internal Medicine Work Phone: Comment on above: [facility] [address] [place], [address] Eosinophils/100 WBC Auto (Bld) 5.3 % Abnormal 0-5 [facility] Internal Medicine Work Phone: Erythrocyte distribution width Auto Ratio (RBC) 13.2 % Normal 11.6-14.6 [facility] Internal Medicine Work Phone: Erythrocyte distribution width Ratio (RBC) 13.2 % Normal 11.6-14.6 [facility] Internal Medicine Work Phone: Comment on above: [facility] [address] [place], [address] Hematocrit Auto Volume Fraction (Bld) 41.0 % Normal 40-54 Comprehens wendy Internal Medicine Work Phone: Hematocrit Volume Fraction (Bld) 41.0 % Normal 40-54 [facility] Internal Medicine Work Phone: Comment on above: [facility] [address] [place], [address] Hemoglobin mass conc (Bld) 14.7 g/dL Normal 13.0-16.5 [facility] Internal Medicine Work Phone: Comment on above: [facility] [address] [place], [address] IM GRAN % 1.000 % Abnormal 0.0-0.9 [facility] Internal Medicine Work Phone: Comment on above: IG% - Immature Granu locytes (promyelocytes, myelocytes andmetamyelocytes) > 1% indicates that a LEFT SHIFT is Present. [place] [address] [place], [address] Lymphocytes #/vol (Bld) 1.45 {X10_3/ul} Normal 0.83-4.51 [facility] Internal Medicine Work Phone: Comment on above: [facility] [address] [place], [address] Lymphocytes/100 WBC (Bld) 27.6 % Normal 19-41 [facility] Internal Medicine Work Phone: Comment on above: [facility] [address] [place], [address] Lymphocytes/100 WBC Auto (Bld) 27.6 % Normal 19-41 [facility] Internal Medicine Work Phone: MCH Auto Entitic mass (RBC) 31.8 pg Normal 27.0-32.0 [facility] Internal Medicine Work Phone: MCH Entitic mass (RBC) 31.8 pg Normal 27.0-32.0 [facility] Internal Medicine Work Phone: Comment on above: [facility] [address] [place], [address] MCHC Auto mass conc (RBC) 35.9 {g/gl} Normal 32-36 [facility] Internal Medicine Work Phone: MCHC mass conc (RBC) 35.9 {g/gl} Normal 32-36 Com prehensive Internal Medicine Work Phone: Comment on above: [facility] [address] [place], [address] MCV Auto Entitic volume (RBC) 88.7 fL Normal 80-94 [facility] Internal Medicine Work Phone: MCV Entitic volume (RBC) 88.7 fL Normal 80-94 [facility] Internal Medicine Work Phone: Comment on above: [facility] [address] [place], [address] Monocytes/100 WBC Auto (Bld) 12.8 % Abnormal 0-10 [facility] Internal Medicine Work Phone: Comment on above: [facility] [address] [place], [address] Monocytes/100 WBC Auto (Bld) 12.8 % Abnormal 0-10 [facility] Internal Medicine Work Phone: Neutrophils/100 WBC (Bld) 52.7 % Normal 47-70 [facility] Internal Medicine Work Phone: Comment on above: [facility] [address] [place], [address] Neutrophils/100 WBC Auto (Bld) 52.7 % Normal 47-70 [facility] Internal Medicine Work Phone: Platelet mean volume Auto Entitic volume (Bld) 12.5 fL Abnormal 6.2-12.0 [facility] Internal Medicine Work Phone: Platelet mean volume Entitic volume (Bld) 12.5 fL Abnormal 6.2-12.0 Comprehensi Internal Medicine Work Phone: Comment on above: [facility] [address] [place], [address] Platelets #/vol (Bld) 141 10*3/uL Abnormal 150-450 Co mprehensive Internal Medicine Work Phone: Comment on above: [facility] [address] [place], [address] Platelets Auto #/vol (Bld) 141 10*3/uL Abnormal 150-450 Comprehensive Internal Medicine Work Phone: RBC #/vol (Bld) 4.62 {M/mm3} Normal 4.6-6.2 Compreh ensive Internal Medicine Work Phone: Comment on above: [facility] [address] [place], [address] RBC Auto #/vol (Bld) 4.62 {M/mm3} Normal 4.6-6.2 Co mprehensive Internal Medicine Work Phone: RDW SD 42.5 fL Normal 35.1-43.9 Comprehensive Internal Medicine Work Phone: Comment on above: [facility] [address] [place], [address] WBC #/vol (Bld) 5.3 10*3/uL Normal 4.4-11.0 Comprehe nsive Internal Medicine Work Phone: Comment on above: [facility] [address] [place], [address] WBC Auto #/vol (Bld) 5.3 10*3/uL Normal 4.4-11.0 [facility] prehensive Internal Medicine Work Phone: CBC W/Diff, Automated 1.000 % Abnormal 0.0-0.9 [facility] prehensive Internal Medicine Work Phone: Comment on above: IG% - Immature Granu locytes (promyelocytes, myelocytes andmetamyelocytes) > 1% indicates that a LEFT SHIFT is Present. CBC W/Diff, Automated 2.8 {X10_3/uL} Normal 2.0-7.7 [facility] Internal Medicine Work Phone: CBC W/Diff, Automated 1.45 {X10_3/ul} Normal 0.83-4.51 [facility] Internal Medicine Work Phone: CBC W/Diff, Automated 42.5 fL Normal 35.1-43.9 Com prehensive Internal Medicine Work Phone: Comprehensive Metabolic Prof ilOrdered By: Community Midwife on 06-25-2016 Comprehensive metabolic 2000 panel 26.0 mmol/L Normal 21.0-32.0 Comprehensi ve Internal Medicine Work Phone: Comment on above: [facility] [address] [place], [address] ; OV today Comprehensive metabolic 2000 panel 17.6 {RATIO} Normal 10-20 Comprehensi ve Internal Medicine Work Phone: Comment on above: [facility] [address] [place], [place], [address] ; OV today Comprehensive metabolic 2000 panel 48 U/L Abnormal 50-136 Comprehensi ve Internal Medicine Work Phone: Comment on above: [facility] [address] [place], [place], [address] ; OV today Comprehensive metabolic 2000 panel 26 U/L Normal 15-37 Comprehensi ve Internal Medicine Work Phone: Comment on above: [facility] [address] [place], [place], [address] ; OV today Comprehensive metabolic 2000 panel 43 U/L Normal 12-78 Comprehensi ve Internal Medicine Work Phone: Comment on above: [facility] [address] [place], [place], [address] ; OV today Comprehensive metabolic 2000 panel 8.2 mg/dL Abnormal 8.5-10.1 Comprehensi ve Internal Medicine Work Phone: Comment on above: [facility] [address] [place], [place], [phone] ; OV today Comprehensive metabolic 2000 panel 1.2 {RATIO} Normal 0.9-2.4 Comprehensi ve Internal Medicine Work Phone: Comment on above: [facility] [address] [place], [address] ; OV today Comprehensive metabolic 2000 panel 3.2 g/dL Normal 2.3-3.5 Comprehensi ve Internal Medicine Work Phone: Comment on above: [facility] [address] [place], [address] ; OV today Comprehensive metabolic 2000 panel 94 mL/min Normal Comprehensi ve Internal Medicine Work Phone: Comment on above: GFR Calc [facility] [address] [place], [address] ; OV today Comprehensive metabolic 2000 panel 77 mL/min Normal Comprehensi ve Internal Medicine Work Phone: Comment on above: Non- GFR Calc [facility] [address] [place], [address] ; OV today Comprehensive metabolic 2000 panel 8 1 Normal 5-15 Comprehensi ve Internal Medicine Work Phone: Comment on above: [facility] [address] [place], [place], [address] ; OV today Comprehensive metabolic 2000 panel 1.08 mg/dL Normal 0.70-1.30 Comprehensi ve Internal Medicine Work Phone: Comment on above: The validity of the calculated GFR AND GFRAA in patients over70 years has not been determined. Clinical correlation isessential. [facility] [address] [place], [address] ; OV today Comprehensive metabolic 2000 panel 0.50 mg/dL Normal 0.20-1.00 Comprehensi ve Internal Medicine Work Phone: Comment on above: [facility] [address] [place], [address] ; OV today Comprehensive metabolic 2000 panel 100 mmol/L Normal 98-107 Comprehensi ve Internal Medicine Work Phone: Comment on above: [facility] [address] [place], [place], [phone] ; OV today Comprehensive metabolic 2000 panel 3.8 g/dL Normal 3.4-5.0 Comprehensi ve Internal Medicine Work Phone: Comment on above: [facility] [address] [place], [place], [phone] ; OV today Comprehensive metabolic 2000 panel 7.0 g/dL Normal 6.4-8.2 Comprehensi ve Internal Medicine Work Phone: Comment on above: [facility] [address] [place], [place], [phone] ; OV today Comprehensive metabolic 2000 panel 3.7 mmol/L Normal 3.5-5.1 Comprehensi ve Internal Medicine Work Phone: Comment on above: [facility] [address] [place], [place], [phone] ; OV today Comprehensive metabolic 2000 panel 19 mg/dL Abnormal 7-18 Comprehensi ve Internal Medicine Work Phone: Comment on above: [facility] [address] [place], [place], [address] ; OV today Comprehensive metabolic 2000 panel 133 mg/dL Abnormal 70-110 Comprehensi ve Internal Medicine Work Phone: Comment on above: Fasting Glucose resu lt greater than or equal to 126 mg/dLsuggests DIABETES MELLITUS per A.D.A. criteria. [facility] [address] [place], [place], [phone] ; OV today Comprehensive metabolic 2000 panel 134 mmol/L Abnormal 136-145 Comprehensi ve Internal Medicine Work Phone: Comment on above: [facility] [address] [place], [place], [phone] ; OV today Lipid ProfileOrdered By: Gracia tem Picture Frames Inspector on 06-25-2016 Cholesterol in HDL mass conc 33 mg/dL Abnormal [facility] Medicine Work Phone: Comment on above: The drugs N-Acetylcy steine and Metamizole may falsely deressthis assay. Reference Range HDL <40 mg/dL Low HDL Cholesterol HDL >or= 60 mg/dL High HDL Cholesterol [facility] [address] [place], [address] Cholesterol in LDL mass conc 89 mg/dL Normal 0-130 [facility] Work Phone: Cholesterol in LDL mass conc 89 mg/dL Normal 0-130 [facility] Work Phone: Comment on above: [facility] [address] [place], [address] Cholesterol in VLDL mass conc 27 mg/dL Normal 5-40 [facility] Work Phone: Comment on above: [facility] [address] [place], [place], [phone] Cholesterol mass conc 149 mg/dL Normal Com prehensive Internal Medicine Work Phone: Comment on above: <200 mg/dL Desirable 200-240 mg/dL Borderline >240 mg/dL High Risk [facility] [address] [place], [place], [phone] Triglyceride mass conc 134 mg/dL Normal [facility] Work Phone: Comment on above: The drugs N-Acetylcy steine and Metamizole may falsely deressthis assay.Serum Triglycerides Reference Interval Normal <150 mg/dL Borderline high 150 - 199 mg/dL High 200 - 499 mg/dL Very High > or = 500 mg/dL [facility] [address] [place], [place], [phone] Lipid Profile 27 mg/dL Normal 5-40 Comprehensi Internal Medicine Work Phone: MicroalbOrdered By: Jose serna on 06-25-2016 Creatinine mass conc Test not performed Normal [facility] Work Phone: Comment on above: [facility] [address] [place], [place], [phone] Creatinine mass conc mg/dL Normal Comp rehensive Internal Medicine Work Phone: Comment on above: [facility] [address] [place], [place], [phone] MICROALBUMIN,UR < 5.0 Normal Comprehen sive Internal Medicine Work Phone: UR CREAT < 13.00 Normal [facility] Work Phone: Microalb < 5.0 Normal [facility] Work Phone: Comment on above: [facility] [address] [place], [address] Microalb < 13.00 Normal [facility] Work Phone: HgA1C , Office ([phone])Ordere d By: Marysol Arias on 03-08-2016 Hemoglobin A1c/Hemoglobin.total mass fraction (Bld) 7.5 % Abnormal 4.6 - 7.1 Comprehensiv e Internal Medicine Work Phone: CBC W/Diff, AutomatedOrdered By: Community Midwife on 11-21-2015 Absolute Lymph 1.51 {X10_3/ul} Normal 0.83-4.51 Compr ehensive Internal Medicine Work Phone: Absolute Neut 2.2 {X10_3/uL} Normal 2.0-7.7 Compreh ensive Internal Medicine Work Phone: Comment on above: [facility] [address] [place], [place], [phone] ; apt. 2-16 Basophils/100 WBC (Bld) 0.6 % Normal 0-1 [facility] Work Phone: Comment on above: [facility] [address] [place], [place], [phone] ; apt. 2-16 Basophils/100 WBC Auto (Bld) 0.6 % Normal 0-1 [facility] Work Phone: Eosinophils/100 WBC (Bld) 6.1 % Abnormal 0-5 [facility] Work Phone: Comment on above: [facility] [address] [place], [place], [phone] ; [address]-16 Eosinophils/100 WBC Auto (Bld) 6.1 % Abnormal 0-5 [facility] Work Phone: Erythrocyte distribution width Auto Ratio (RBC) 13.3 % Normal 11.6-14.6 [facility] Work Phone: Erythrocyte distribution width Ratio (RBC) 13.3 % Normal 11.6-14.6 [facility] Work Phone: Comment on above: [facility] [address] [place], [place], [phone] ; [address]. 2-16 Hematocrit Auto Volume Fraction (Bld) 42.7 % Normal 40-54 [facility] Internal [facility] Work Phone: Hematocrit Volume Fraction (Bld) 42.7 % Normal 40-54 [facility] Work Phone: Comment on above: [facility] [address] [place], [place], [address] ; [address]. [address]-16 Hemoglobin mass conc (Bld) 14.8 g/dL Normal 13.0-16.5 [facility] Work Phone: Comment on above: [place] [address] [place], [place], [phone] ; apt. 2-16 IM GRAN % 0.400 % Normal 0.0-0.9 [facility] Work Phone: Comment on above: IG% - Immature Granu locytes (promyelocytes, myelocytes andmetamyelocytes) > 1% indicates that a LEFT SHIFT is Present. [facility] [address] [place], [place], [phone] ; apt. 2-16 Lymphocytes #/vol (Bld) 1.51 {X10_3/ul} Normal 0.83-4.51 [facility] Work Phone: Comment on above: [facility] [address] [place], [place], [phone] ; apt. 2-16 Lymphocytes/100 WBC (Bld) 31.9 % Normal 19-41 [facility] Work Phone: Comment on above: [facility] [address] [place], [place], [phone] ; apt. 2-16 Lymphocytes/100 WBC Auto (Bld) 31.9 % Normal 19-41 [facility] Work Phone: MCH Auto Entitic mass (RBC) 30.3 pg Normal 27.0-32.0 [facility] Work Phone: MCH Entitic mass (RBC) 30.3 pg Normal 27.0-32.0 [facility] Work Phone: Comment on above: [facility] [address] [place], [place], [phone] ; apt. 2-16 MCHC Auto mass conc (RBC) 34.7 {g/gl} Normal 32-36 [facility] Work Phone: MCHC mass conc (RBC) 34.7 {g/gl} Normal 32-36 [facility] prehensive Internal Medicine Work Phone: Comment on above: [facility] [address] [place], [place], [phone] ; apt. 2-16 MCV Auto Entitic volume (RBC) 87.5 fL Normal 80-94 [facility] Work Phone: MCV Entitic volume (RBC) 87.5 fL Normal 80-94 [facility] Work Phone: Comment on above: [facility] [address] [place], [place], [phone] ; apt. 2-16 Monocytes/100 WBC Auto (Bld) 15.4 % Abnormal 0-10 [facility] Work Phone: Comment on above: [facility] [address] [place], [phone] ; apt. 2-16 Monocytes/100 WBC Auto (Bld) 15.4 % Abnormal 0-10 [facility] Work Phone: Neutrophils/100 WBC (Bld) 45.6 % Abnormal 47-70 [facility] Work Phone: Comment on above: [facility] [address] [place], [phone] ; [address]. 2-16 Neutrophils/100 WBC Auto (Bld) 45.6 % Abnormal 47-70 [facility] Work Phone: Platelet mean volume Auto Entitic volume (Bld) 12.2 fL Abnormal 6.2-12.0 [facility] Work Phone: Platelet mean volume Entitic volume (Bld) 12.2 fL Abnormal 6.2-12.0 Comprehensi ve Internal Medicine Work Phone: Comment on above: [facility] [address] [place], [phone] ; [address] Platelets #/vol (Bld) 140 10*3/uL Abnormal 150-450 Co mprehensive Internal Medicine Work Phone: Comment on above: [facility] [address] [place], [phone] ; [address] Platelets Auto #/vol (Bld) 140 10*3/uL Abnormal 150-450 [facility] Work Phone: RBC #/vol (Bld) 4.88 {M/mm3} Normal 4.6-6.2 Compreh ensive Internal Medicine Work Phone: Comment on above: [facility] [address] [place], [phone] ; [address]. 2-16 RBC Auto #/vol (Bld) 4.88 {M/mm3} Normal 4.6-6.2 Co mprehensive Internal Medicine Work Phone: RDW SD 41.1 fL Normal 35.1-43.9 [facility] Work Phone: Comment on above: [facility] [address] [place], [place], [address] ; apt. 2-16 WBC #/vol (Bld) 4.7 10*3/uL Normal 4.4-11.0 Comprehe nsive Internal Medicine Work Phone: Comment on above: [facility] [address] [place], [place], [phone] ; [address]. [address]-16 WBC Auto #/vol (Bld) 4.7 10*3/uL Normal 4.4-11.0 Com prehensive Internal Medicine Work Phone: CBC W/Diff, Automated 41.1 fL Normal 35.1-43.9 [facility] prehensive Internal Medicine Work Phone: CBC W/Diff, Automated 0.400 % Normal 0.0-0.9 [facility] prehensive Internal Medicine Work Phone: Comment on above: IG% - Immature Granu locytes (promyelocytes, myelocytes andmetamyelocytes) > 1% indicates that a LEFT SHIFT is Present. CBC W/Diff, Automated 2.2 {X10_3/uL} Normal 2.0-7.7 [facility] Work Phone: CBC W/Diff, Automated 1.51 {X10_3/ul} Normal 0.83-4.51 [facility] Work Phone: Comprehensive Metabolic Prof ilOrdered By: Community Midwife on 11-21-2015 Comprehensive metabolic 2000 panel 1.2 {RATIO} Normal 0.9-2.4 Comprehensi ve Internal Medicine Work Phone: Comment on above: [facility] [address] [place], [place], [phone] Comprehensive metabolic 2000 panel 4 1 Abnormal 5-15 Comprehensi ve Internal Medicine Work Phone: Comment on above: [facility] [address] [place], [address] Comprehensive metabolic 2000 panel 80 mL/min Normal Comprehensi ve Internal Medicine Work Phone: Comment on above: Non- GFR Calc [facility] [address] [place], [address] Comprehensive metabolic 2000 panel 97 mL/min Normal Comprehensi ve Internal Medicine Work Phone: Comment on above: [facility] Calc [facility] [address] [place], [place], [phone] Comprehensive metabolic 2000 panel 128 mg/dL Abnormal 70-110 Comprehensi ve Internal Medicine Work Phone: Comment on above: Fasting Glucose resu lt greater than or equal to 126 mg/dLsuggests DIABETES MELLITUS per A.D.A. criteria. [facility] [address] [place], [place], [phone] Comprehensive metabolic 2000 panel 1.05 mg/dL Normal 0.70-1.30 Comprehensi ve Internal Medicine Work Phone: Comment on above: The validity of the calculated GFR AND GFRAA in patients over70 years has not been determined. Clinical correlation isessential. [facility] [address] [place], [place], [phone] Comprehensive metabolic 2000 panel 16.2 {RATIO} Normal 10-20 Comprehensi ve Internal Medicine Work Phone: Comment on above: [facility] [address] [place], [place], [phone] Comprehensive metabolic 2000 panel 7.0 g/dL Normal 6.4-8.2 Comprehensi ve Internal Medicine Work Phone: Comment on above: [facility] [address] [place], [place], [phone] Comprehensive metabolic 2000 panel 3.8 g/dL Normal 3.4-5.0 Comprehensi ve Internal Medicine Work Phone: Comment on above: [facility] spital [address] [place], [place], [phone] Comprehensive metabolic 2000 panel 3.2 g/dL Normal 2.3-3.5 Comprehensi ve Internal Medicine Work Phone: Comment on above: [facility] spital [address] [place], [place], [phone] Comprehensive metabolic 2000 panel 17 mg/dL Normal 7-18 Comprehensi ve Internal Medicine Work Phone: Comment on above: [facility] spital [address] [place], [place], [address] Comprehensive metabolic 2000 panel 8.2 mg/dL Abnormal 8.5-10.1 Comprehensi ve Internal Medicine Work Phone: Comment on above: [facility] [address] [place], [place], [phone] Comprehensive metabolic 2000 panel 26 U/L Normal 15-37 Comprehensi ve Internal Medicine Work Phone: Comment on above: [facility] [address] [place], [place], [phone] Comprehensive metabolic 2000 panel 59 U/L Normal 50-136 Comprehensi ve Internal Medicine Work Phone: Comment on above: [facility] [address] [place], [place], [phone] Comprehensive metabolic 2000 panel 44 U/L Normal 12-78 Comprehensi ve Internal Medicine Work Phone: Comment on above: [facility] [address] [place], [place], [phone] Comprehensive metabolic 2000 panel 0.50 mg/dL Normal 0.20-1.00 Comprehensi ve Internal Medicine Work Phone: Comment on above: [facility] spital [address] [place], [place], [phone] Comprehensive metabolic 2000 panel 138 mmol/L Normal 136-145 Comprehensi ve Internal Medicine Work Phone: Comment on above: [facility] [address] [place], [place], [phone] Comprehensive metabolic 2000 panel 4.1 mmol/L Normal 3.5-5.1 Comprehensi ve Internal Medicine Work Phone: Comment on above: [facility] [address] [place], [place], [address] Comprehensive metabolic 2000 panel 104 mmol/L Normal 98-107 Comprehensi ve Internal Medicine Work Phone: Comment on above: [facility] [address] [place], [place], [phone] Comprehensive metabolic 2000 panel 30.0 mmol/L Normal 21.0-32.0 Comprehensi ve Internal Medicine Work Phone: Comment on above: [facility] [address] [place], [place], [phone] Lipid ProfileOrdered By: Gracia tem Picture Frames Inspector on 11-21-2015 Cholesterol in HDL mass conc 37 mg/dL Abnormal [facility] Work Phone: Comment on above: Reference Range HDL <40 mg/dL Low HDL Cholesterol HDL >or= 60 mg/dL High HDL Cholesterol [facility] [address] [place], [place], [phone] Cholesterol in LDL mass conc 84 mg/dL Normal 0-130 [facility] Work Phone: Cholesterol in LDL mass conc 84 mg/dL Normal 0-130 [facility] Work Phone: Comment on above: [facility] [address] [place], [place], [address] Cholesterol in VLDL mass conc 19 mg/dL Normal 5-40 [facility] Work Phone: Comment on above: [facility] [address] [place], [place], [address] Cholesterol mass conc 140 mg/dL Normal Com prehensive Internal Medicine Work Phone: Comment on above: <200 mg/dL Desirable 200-240 mg/dL Borderline >240 mg/dL High Risk [facility] [address] [place], [address] Triglyceride mass conc 96 mg/dL Normal [facility] Work Phone: Comment on above: Serum Triglycerides Reference Interval Normal <150 mg/dL Borderline high 150 - 199 mg/dL High 200 - 499 mg/dL Very High > or = 500 mg/dL [facility] [address] [place], [place], [address] Lipid Profile 19 mg/dL Normal 5-40 Comprehensi ve Internal Medicine Work Phone: MicroalbOrdered By: Jose serna on 11-21-2015 Creatinine mass conc Test not performed Normal [facility] Work Phone: Comment on above: [facility] [address] [place], [place], [phone] Creatinine mass conc 46.90 mg/dL Normal Com prehensive Internal Medicine Work Phone: Comment on above: [facility] [address] [place], [place], [phone] MICROALBUMIN,UR < 5.0 Normal Comprehen sive Internal Medicine Work Phone: UR CREAT 46.90 mg/dL Normal [facility] Work Phone: Microalb 46.90 mg/dL Normal [facility] Work Phone: Microalb < 5.0 Normal [facility] Work Phone: Comment on above: [facility] [address] [place], [place], [phone] CBC W/Diff, AutomatedOrdered By: Community Midwife on 05-22-2015 Absolute Lymph 1.78 {X10_3/ul} Normal 0.83-4.51 Compr ehensive Internal Medicine Work Phone: Absolute Neut 2.5 {X10_3/uL} Normal 2.0-7.7 Compreh ensive Internal Medicine Work Phone: Comment on above: Test performed at:[facility] [address] [place] [address] ; has fu 8-10 will review then Basophils/100 WBC (Bld) 0.4 % Normal 0-1 [facility] Work Phone: Comment on above: Test performed at:[facility] [address] [place] [address] ; has fu 8-10 will review then Basophils/100 WBC Auto (Bld) 0.4 % Normal 0-1 [facility] Work Phone: Eosinophils/100 WBC (Bld) 5.7 % Abnormal 0-5 [facility] Work Phone: Comment on above: Test performed at:[facility] [address] [place] [address] ; has fu 8-10 will review then Eosinophils/100 WBC Auto (Bld) 5.7 % Abnormal 0-5 [facility] Work Phone: Erythrocyte distribution width Auto Ratio (RBC) 13.3 % Normal 11.6-14.6 [facility] Work Phone: Erythrocyte distribution width Ratio (RBC) 13.3 % Normal 11.6-14.6 [facility] Work Phone: Comment on above: Test performed at:[facility] [address] [place], [place] [phone] ; has fu 8-10 will review then Hematocrit Auto Volume Fraction (Bld) 42.5 % Normal 40-54 Comprehens wendy Internal Medicine Work Phone: Hematocrit Volume Fraction (Bld) 42.5 % Normal 40-54 [facility] Work Phone: Comment on above: Test performed at:[facility] [address] [place] [address] ; has fu 8-10 will review then Hemoglobin mass conc (Bld) 14.5 g/dL Normal 13.0-16.5 [facility] Work Phone: Comment on above: Test performed at:[facility] [address] [place], [place] [phone] ; has fu 8-10 will review then IM GRAN % 0.600 % Normal 0.0-0.9 [facility] Work Phone: Comment on above: IG% - Immature Granu locytes (promyelocytes, myelocytes andmetamyelocytes) > 1% indicates that a LEFT SHIFT is Present. Test performed at:[facility] [address] [place] [address] ; has fu 8-10 will review then Lymphocytes #/vol (Bld) 1.78 {X10_3/ul} Normal 0.83-4.51 [facility] Work Phone: Comment on above: Test performed at:[facility] [address] [place], [place] [phone] ; has fu 8-10 will review then Lymphocytes/100 WBC (Bld) 32.9 % Normal 19-41 [facility] Work Phone: Comment on above: Test performed at:[facility] [address] [place], [place] [phone] ; has fu 8-10 will review then Lymphocytes/100 WBC Auto (Bld) 32.9 % Normal 19-41 [facility] Work Phone: MCH Auto Entitic mass (RBC) 30.5 pg Normal 27.0-32.0 [facility] Work Phone: MCH Entitic mass (RBC) 30.5 pg Normal 27.0-32.0 [facility] Work Phone: Comment on above: Test performed at:[facility] [address] [place], [place] [phone] ; has fu 8-10 will review then MCHC Auto mass conc (RBC) 34.1 {g/gl} Normal 32-36 [facility] Work Phone: MCHC mass conc (RBC) 34.1 {g/gl} Normal 32-36 Com prehensive Internal Medicine Work Phone: Comment on above: Test performed at:[facility] [address] [place], [place] [phone] ; has fu 8-10 will review then MCV Auto Entitic volume (RBC) 89.5 fL Normal 80-94 [facility] Work Phone: MCV Entitic volume (RBC) 89.5 fL Normal 80-94 [facility] Work Phone: Comment on above: Test performed at:[facility] [address] [place], [place] [phone] ; has fu 8-10 will review then Monocytes/100 WBC Auto (Bld) 14.0 % Abnormal 0-10 [facility] Work Phone: Comment on above: Test performed at:[facility] [address] [place], [place] [phone] ; has fu 8-10 will review then Monocytes/100 WBC Auto (Bld) 14.0 % Abnormal 0-10 [facility] Work Phone: Neutrophils/100 WBC (Bld) 46.4 % Abnormal 47-70 [facility] Work Phone: Comment on above: Test performed at:[facility] [address] [place], [place] [phone] ; has fu 8-10 will review then Neutrophils/100 WBC Auto (Bld) 46.4 % Abnormal 47-70 [facility] Work Phone: Platelet mean volume Auto Entitic volume (Bld) 12.0 fL Normal 6.2-12.0 [facility] Work Phone: Platelet mean volume Entitic volume (Bld) 12.0 fL Normal 6.2-12.0 Comprehensi ve Internal Medicine Work Phone: Comment on above: Test performed at:[facility] [address] [place] [address] ; has fu 8- will review then Platelets #/vol (Bld) 154 10*3/uL Normal 150-450 [facility] Work Phone: Comment on above: Test performed at:[facility] [address] [place] [address] ; has fu 05-25 will review then Platelets Auto #/vol (Bld) 154 10*3/uL Normal 150-450 Comprehensive [facility] Work Phone: RBC #/vol (Bld) 4.75 {M/mm3} Normal 4.6-6.2 Compreh ensive Internal Medicine Work Phone: Comment on above: Test performed at:[facility] [address] [place] [address] ; has fu 05-25 will review then RBC Auto #/vol (Bld) 4.75 {M/mm3} Normal 4.6-6.2 [facility] Work Phone: RDW SD 43.3 fL Normal 35.1-43.9 Comprehensive [facility] Work Phone: Comment on above: Test performed at:[facility] [address] [place] [address] ; has fu 05-25 will review then WBC #/vol (Bld) 5.4 10*3/uL Normal 4.4-11.0 Comprehe nsive Internal Medicine Work Phone: Comment on above: Test performed at:[facility] [address] [place], [place] [phone] ; has fu 05-25 will review then WBC Auto #/vol (Bld) 5.4 10*3/uL Normal 4.4-11.0 [facility] prehensive Internal Medicine Work Phone: CBC W/Diff, Automated 1.78 {X10_3/ul} Normal 0.83-4.51 [facility] Work Phone: CBC W/Diff, Automated 2.5 {X10_3/uL} Normal 2.0-7.7 [facility] Work Phone: CBC W/Diff, Automated 43.3 fL Normal 35.1-43.9 [facility] prehensive Internal Medicine Work Phone: CBC W/Diff, Automated 0.600 % Normal 0.0-0.9 [facility] prehensive Internal Medicine Work Phone: Comment on above: IG% - Immature Granu locytes (promyelocytes, myelocytes andmetamyelocytes) > 1% indicates that a LEFT SHIFT is Present. Comprehensive Metabolic Prof ilOrdered By: Community Midwife on 05-22-2015 Comprehensive metabolic 2000 panel 6 1 Normal 5-15 Comprehensi ve Internal Medicine Work Phone: Comment on above: Test performed at:[facility] [address] [facility] [place] [address] Comprehensive metabolic 2000 panel 103 mmol/L Normal 98-107 Comprehensi ve Internal Medicine Work Phone: Comment on above: Test performed at:[facility] [address] [place] [address] Comprehensive metabolic 2000 panel 0.98 mg/dL Normal 0.70-1.30 Comprehensi ve Internal Medicine Work Phone: Comment on above: Please note revised CREATININE reference range /22/2015. Test performed at:[facility] [address] [address] Comprehensive metabolic 2000 panel 23 mg/dL Abnormal 7-18 Comprehensi ve Internal Medicine Work Phone: Comment on above: Test performed at:[facility] [address] [facility] [place] [address] Comprehensive metabolic 2000 panel 136 mmol/L Normal 136-145 Comprehensi ve Internal Medicine Work Phone: Comment on above: Test performed at:[facility] [address] [place], [place] [id number] Comprehensive metabolic 2000 panel 0.40 mg/dL Normal 0.20-1.00 Comprehensi ve Internal Medicine Work Phone: Comment on above: Test performed at:[facility] [address] [place], [place] [id number] Comprehensive metabolic 2000 panel 41 U/L Normal 12-78 Comprehensi ve Internal Medicine Work Phone: Comment on above: Test performed at:[facility] [address] [place], [place] [id number] Comprehensive metabolic 2000 panel 47 U/L Abnormal 50-136 Comprehensi ve Internal Medicine Work Phone: Comment on above: Test performed at:[facility] [address] [place] [address] Comprehensive metabolic 2000 panel 23 U/L Normal 15-37 Comprehensi ve Internal Medicine Work Phone: Comment on above: Test performed at:[facility] [address] [place], [place] [id number] Comprehensive metabolic 2000 panel 8.4 mg/dL Abnormal 8.5-10.1 Comprehensi ve Internal Medicine Work Phone: Comment on above: Test performed at:[facility] [address] [place], [place] [id number] Comprehensive metabolic 2000 panel 1.3 {RATIO} Normal 0.9-2.4 Comprehensi ve Internal Medicine Work Phone: Comment on above: Test performed at:[facility] [address] [place], [place] [id number] Comprehensive metabolic 2000 panel 3.1 g/dL Normal 2.3-3.5 Comprehensi ve Internal Medicine Work Phone: Comment on above: Test performed at:[facility] [address] [place], [place] [id number] Comprehensive metabolic 2000 panel 126 mg/dL Abnormal 70-110 Comprehensi ve Internal Medicine Work Phone: Comment on above: Fasting Glucose resu lt greater than or equal to 126 mg/dLsuggests DIABETES MELLITUS per A.D.A. criteria. Test performed at:[facility] [address] [place], [place] [id number] Comprehensive metabolic 2000 panel 3.9 g/dL Normal 3.4-5.0 Comprehensi ve Internal Medicine Work Phone: Comment on above: Test performed at:[facility] [address] [place], [place] [id number] Comprehensive metabolic 2000 panel 7.0 g/dL Normal 6.4-8.2 Comprehensi ve Internal Medicine Work Phone: Comment on above: Test performed at:[facility] [address] [place], [place] [id number] Comprehensive metabolic 2000 panel 23.5 {RATIO} Abnormal 10-20 Comprehensi ve Internal Medicine Work Phone: Comment on above: Test performed at:[facility] [address] [place], [place] [id number] Comprehensive metabolic 2000 panel 27.0 mmol/L Normal 21.0-32.0 Comprehensi ve Internal Medicine Work Phone: Comment on above: Test performed at:[facility] [address] [place] [address] Comprehensive metabolic 2000 panel 105 mL/min Normal Comprehensi ve Internal Medicine Work Phone: Comment on above: Test performed at:[facility] [address] [place], [place] [id number] Comprehensive metabolic 2000 panel 87 mL/min Normal Comprehensi ve Internal Medicine Work Phone: Comment on above: Test performed at:[facility] [address] [place], [place] [id number] Comprehensive metabolic 2000 panel 3.7 mmol/L Normal 3.5-5.1 Comprehensi ve Internal Medicine Work Phone: Comment on above: Test performed at:[facility] [address] [place] [address] Hemoglobin [id number] By: Sy stem Picture Frames Inspector on 05-22-2015 Hemoglobin A1c/Hemoglobin.total mass fraction (Bld) 7.0 % Abnormal 4.2-6.3 Comprehensiv e Internal Medicine Work Phone: Comment on above: Test performed at:[facility] [address] [place] [address] Lipid ProfileOrdered By: Gracia tem Picture Frames Inspector on 05-22-2015 Cholesterol in HDL mass conc 31 mg/dL Abnormal Comprehensive [facility] Medicine Work Phone: Comment on above: Reference Range HDL <40 mg/dL Low HDL Cholesterol HDL >or= 60 mg/dL High HDL Cholesterol Test performed at:[facility] [address] [place] [address] Cholesterol in LDL mass conc 83 mg/dL Normal 0-130 [facility] Work Phone: Cholesterol in LDL mass conc 83 mg/dL Normal 0-130 [facility] Work Phone: Comment on above: Test performed at:[facility] [address] [place] [address] Cholesterol in VLDL mass conc 24 mg/dL Normal 5-40 [facility] Work Phone: Comment on above: Test performed at:[facility] [address] [place] [address] Cholesterol mass conc 138 mg/dL Normal Com prehensive Internal Medicine Work Phone: Comment on above: <200 mg/dL Desirable 200-240 mg/dL Borderline >240 mg/dL High Risk Test performed at:[facility] [address] [place] [address] Triglyceride mass conc 120 mg/dL Normal [facility] Work Phone: Comment on above: Serum Triglycerides Reference Interval Normal <150 mg/dL Borderline high 150 - 199 mg/dL High 200 - 499 mg/dL Very High > or = 500 mg/dL Test performed at:[facility] [address] [place] [address] Lipid Profile 24 mg/dL Normal 5-40 Comprehensi ve Internal Medicine Work Phone: MicroalbOrdered By: Jose serna on 05-22-2015 Creatinine mass conc 3.0 {mg/g_CRE} Normal [facility] Work Phone: Comment on above: Test performed at:[facility] [address] [place] [address] Creatinine mass conc 192.00 mg/dL Normal Co mprehensive Internal Medicine Work Phone: Comment on above: Test performed at:[facility] [address] [place] [address] MICROALBUMIN,UR 6.8 mg/L Normal Comprehen sive Internal Medicine Work Phone: UR CREAT 192.00 mg/dL Normal Comprehensiv e Internal Medicine Work Phone: Microalb 6.8 mg/L Normal [facility] Work Phone: Comment on above: Test performed at:[facility] [address] [place] [address] Microalb 192.00 mg/dL Normal Comprehensiv e Internal Medicine Work Phone: Blood Glucose , Office ([phone])Ordered By: Marysol Arias on 12-16-2014 Glucose Glucometer molar conc (BldC) 252 1 Normal [facility] Work Phone: HgA1C , Office ([id number])Ordere d By: Rossy Carrillo on 12-16-2014 Hemoglobin A1c/Hemoglobin.total mass fraction (Bld) 9.1 % Abnormal 4.6 - 7.1 Comprehensiv e Internal Medicine Work Phone: Lipid ProfileOrdered By: Gracia tem on 12-13-2014 Cholesterol in HDL mass conc 31 mg/dL Abnormal [facility] Work Phone: Comment on above: Reference Range HDL <40 mg/dL Low HDL Cholesterol HDL >or= 60 mg/dL High HDL Cholesterol Test performed at:[facility] [address] [place], [place] [id number] Cholesterol in LDL mass conc 104 mg/dL Normal 0-130 [facility] Work Phone: Cholesterol in LDL mass conc 104 mg/dL Normal 0-130 [facility] Work Phone: Comment on above: Test performed at:[facility] [address] [place], [place] [id number] Cholesterol in VLDL mass conc 28 mg/dL Normal 5-40 [facility] Work Phone: Comment on above: Test performed at:[facility] [address] [place] [address] Cholesterol mass conc 163 mg/dL Normal Com prehensive Internal Medicine Work Phone: Comment on above: <200 mg/dL Desirable 200-240 mg/dL Borderline >240 mg/dL High Risk Test performed at:[facility] [address] [place] [address] Triglyceride mass conc 139 mg/dL Normal 0-199 [facility] Work Phone: Comment on above: Serum Triglycerides Reference Interval Normal <150 mg/dL Borderline high 150 - 199 mg/dL High 200 - 499 mg/dL Very High > or = 500 mg/dL Test performed at:[facility] [address] [place] [address] Lipid Profile 28 mg/dL Normal 5-40 Comprehensi ve Internal Medicine Work Phone: Liver ProfileOrdered By: Gracia tem Picture Frames Inspector on 12-13-2014 Albumin mass conc 4.0 g/dL Normal 3.4-5.0 Compreh ensive Internal Medicine Work Phone: Comment on above: Test performed at:[facility] [address] [place] [address] ALT enzyme act/vol 44 U/L Normal 12-78 [facility]pre [facility] Internal Medicine Work Phone: Comment on above: Test performed at:[facility] [address] [place] [address] AST enzyme act/vol 29 U/L Normal 15-37 Compre [facility] Internal Medicine Work Phone: Comment on above: Test performed at:[facility] [address] [place] [address] Bilirubin mass conc 0.80 mg/dL Normal 0.00-4.00 Compr ehensive Internal Medicine Work Phone: Comment on above: Test performed at:[facility] [address] [place] [address] Bilirubin.direct mass conc 0.17 mg/dL Normal 0.00-0.30 [facility] Work Phone: Comment on above: Test performed at:[facility] [address] [place] [address] Globulin Calculated mass conc (S) 3.1 g/dL Normal 2.7-4.2 [facility] Work Phone: Globulin mass conc (S) 3.1 g/dL Normal 2.7-4.2 [facility] Work Phone: Comment on above: Test performed at:[facility] [address] [place] [address] Protein mass conc 7.1 g/dL Normal 6.4-8.2 Compreh ensive Internal Medicine Work Phone: Comment on above: Test performed at:[facility] [address] [place] [address] Liver Profile 47 U/L Abnormal 50-136 Comprehensi ve Internal Medicine Work Phone: Comment on above: Test performed at:[facility] [address] [place] [address] Liver Profile 7.1 g/dL Normal 6.4-8.2 Comprehensi ve Internal Medicine Work Phone: Comment on above: Test performed at:[facility] [address] [place] [address] Liver Profile 3.1 g/dL Normal 2.7-4.2 Comprehensi ve Internal Medicine Work Phone: Comment on above: Test performed at:[facility] [address] [place] [address] PSA,Total - Annual ScreenOrd ered By: Community Midwife on 12-13-2014 PSA,Total - Annual Screen 0.42 ng/mL Normal 0.00-4.00 [facility] Work Phone: Comment on above: This test was perfor med using the TPSA assay method for theLabtrip chemistry system. Values obtained with differentassay methods cannot be used interchangably.When changing PSA assays in the course of monitoring apatient, additional sequential testing should be carriedout to confirm baseline values. Test performed at:[facility] [address] [place] [address] Thyroid Stim Hormone (TSH)Or dered By: Community Midwife on 12-13-2014 Thyrotropin Qn 1.51 {uIU/mL} Normal 0.358-3.74 Compreh ensive Internal Medicine Work Phone: Comment on above: Test performed at:[facility] [address] [place] [address] HEPATIC FUNCTION PANEL ([id number])Ordered By: Community Midwife on 08-21-2014 Albumin mass conc 4.4 g/dL Normal 3.5-5.5 Compreh ensive Internal Medicine Work Phone: Comment on above: PATIENT WAS FASTINGP ERFORMED BY: [facility] Znbpzi2132 [facility] [id number] ALP [Catalytic activity/Vol] 57 U/L Normal 39-117 [facility] Work Phone: Comment on above: PATIENT WAS FASTINGP ERFORMED BY: DAVON [facility] Qkzsti[address] RoadDublin [place] [id number] ALP enzyme act/vol 57 [iU]/L Normal 39-117 [facility] Internal Medicine Work Phone: Comment on above: PATIENT WAS FASTINGP ERFORMED BY: DAVON [facility] Zxfadm6[address] Road[address] [place] [id number] ALT [Catalytic activity/Vol] 35 U/L Normal 0-44 [facility] Internal Medicine Work Phone: Comment on above: PATIENT WAS FASTINGP ERFORMED BY: DAVON [facility] J[address]bjbp[address] Road[address] [place] [id number] ALT enzyme act/vol 35 [iU]/L Normal 0-44 [facility] Internal Medicine Work Phone: Comment on above: PATIENT WAS FASTINGP ERFORMED BY: DAVON [facility] Pdbxgz4541 [address]ublin [place] [id number] AST [Catalytic activity/Vol] 21 U/L Normal 0-40 [facility] Internal Medicine Work Phone: Comment on above: PATIENT WAS FASTINGP ERFORMED BY: DAVON [facility] Njclce[address] RoadDublin [place] [id number] AST enzyme act/vol 21 [iU]/L Normal 0-40 [facility] Internal Medicine Work Phone: Comment on above: PATIENT WAS FASTINGP ERFORMED BY: DAVON [facility] Icssrs[address] [place] [id number] Bilirubin mass conc 0.6 mg/dL Normal 0.0-1.2 [facility] Internal Medicine Work Phone: Comment on above: PATIENT WAS FASTINGP ERFORMED BY: DAVON [facility] [address] [place] [id number] Bilirubin.direct mass conc 0.21 mg/dL Normal 0.00-0.40 [facility] Internal Medicine Work Phone: Comment on above: PATIENT WAS FASTINGP ERFORMED BY: CB [facility] Q[address]hjj[address] [place] [id number] Protein mass conc 6.9 g/dL Normal 6.0-8.5 Compreh ensive Internal Medicine Work Phone: Comment on above: PATIENT WAS FASTINGP ERFORMED BY: DAVON Sorianolin6370 [facility] [id number] LIPID PANEL ([id number])Ordered B y: Community Midwife on 08-21-2014 Cholesterol in HDL mass conc 35 mg/dL Abnormal [facility] Work Phone: Comment on above: According to ATP-III Guidelines, HDL-C >59 mg/dL is considered anegative risk factor for CHD. PATIENT WAS FASTINGP ERFORMED BY: DAVON [facility] [address] [id number] Information: [id number] Cholesterol in LDL mass conc 128 mg/dL Abnormal 0-99 [facility] Work Phone: Comment on above: PATIENT WAS FASTINGP ERFORMED BY: DAVON [place] [address]79[address] [facility] [id number] Information: [id number] Cholesterol in LDL/Cholesterol in HDL mass ratio 3.7 {ratio_units} Abnormal 0.0-3.6 [facility] Work Phone: Comment on above: LDL/HDL Ratio Men Wo men 1/2 Avg.Risk 1.0 1.5 Avg.Risk 3.6 3.2 2X Avg.Risk 6.2 5.0 3X Avg.Risk 8.0 6.1 PATIENT WAS FASTINGP ERFORMED BY: DAVON [facility]eraldBe[facility]umont Hospital6370 [facility] [id number] Information: [id number] Cholesterol in VLDL mass conc 28 mg/dL Normal 5-40 [facility] Work Phone: Comment on above: PATIENT WAS FASTINGP ERFORMED BY: DAVON MarquesBeaumont Hospital6370 [facility] [id number] Information: [id number] Cholesterol mass conc 191 mg/dL Normal 100-199 Com prehensive Internal Medicine Work Phone: Comment on above: PATIENT WAS FASTINGP ERFORMED BY: DAVON [facility] Lwgund3528 [facility] [id number] Information: [id number] Triglyceride mass conc 139 mg/dL Normal 0-149 [facility] Work Phone: Comment on above: PATIENT WAS FASTINGP ERFORMED BY: [facility] Sbkmuq8984 [facility] [id number] Information: [id number] PSA (PROSTATE SPECIFIC ANTIG EN) (V76.44)Ordered By: Community Midwife on 08-21-2014 Prostate specific Ag mass conc 0.4 ng/mL Normal 0.0-4.0 [facility] Work Phone: Comment on above: [employer] ECLIA methodol ogy. .According to the [place] [employer], Serum PSA shoulddecrease and remain at undetectable levels after radicalprostatectomy. The AUA defines biochemical recurrence as an initialPSA value 0.2 ng/mL or greater followed by a subsequent confirmatoryPSA value 0.2 ng/mL or greater.Values obtained with different assay methods or kits cannot be usedinterchangeably. Results cannot be interpreted as absolute evidenceof the presence or absence of malignant disease. PATIENT WAS FASTINGP ERFORMED BY: DAVON [facility] Noyuvf7073 [facility] [id number] TSH ([id number])Ordered By: INFUSDe m Picture Frames Inspector on 08-21-2014 Thyrotropin Qn 2.180 {uIU/mL} Normal 0.450-4.500 Compr ehensive Internal Medicine Work Phone: Comment on above: PATIENT WAS FASTINGP ERFORMED BY: [facility] Puzqxn7889 [facility] [id number] By: System Manage r on 08-16-2014 Hemoglobin A1c/Hemoglobin.total mass fraction (Bld) 9.7 % Abnormal 4.2-6.3 Comprehensiv e Internal Medicine Work Phone: Comment on above: Has pt arrived? Y BMPOrdered By: System Manage r on 08-16-2014 Calcium mass conc 8.6 mg/dL Normal 8.5-10.1 Compreh ensive Internal Medicine Work Phone: Comment on above: Has pt arrived? Y Chloride molar conc 104 mmol/L Normal 98-107 Compr ehensive Internal Medicine Work Phone: Comment on above: Has pt arrived? Y CO2 molar conc 27.0 mmol/L Normal 21.0-32.0 Comprehen sive Internal Medicine Work Phone: Comment on above: Has pt arrived? Y Creatinine mass conc 1.1 mg/dL Normal 0.8-1.3 Comp rehensive Internal Medicine Work Phone: Comment on above: Has pt arrived? Y GFR/1.73 sq M predicted among non-blacks MDRD vol rate/area (S/P/Bld) 77 mL/min/{1.73_m2} Normal Comprehe nsive Internal Medicine Work Phone: Comment on above: Has pt arrived? Y Glucose mass conc 202 mg/dL Abnormal 70-110 Compreh ensive Internal Medicine Work Phone: Comment on above: Glucose result great er than or equal to 200 mg/dLsuggests DIABETES MELLITUS per A.D.A. criteria. Has pt arrived? Y Potassium molar conc 4.1 mmol/L Normal 3.5-5.1 Comp rehensive Internal Medicine Work Phone: Comment on above: Has pt arrived? Y Sodium molar conc 136 mmol/L Normal 136-145 Compreh ensive Internal Medicine Work Phone: Comment on above: Has pt arrived? Y Urea nitrogen mass conc 21 mg/dL Abnormal 7-18 [facility] Work Phone: Comment on above: Has pt arrived? Y BMP 19.1 {RATIO} Normal 10-20 Comprehensiv e Internal Medicine Work Phone: Comment on above: Has pt arrived? Y BMP 93 mL/min Normal [facility] Work Phone: Comment on above: Has pt arrived? Y BMP 5 1 Normal 5-15 [facility] Work Phone: Comment on above: Has pt arrived? Y LIVEROrdered By: Jose manjarrez on 08-16-2014 Albumin mass conc 3.8 g/dL Normal 3.4-5.0 Compreh ensive Internal Medicine Work Phone: Comment on above: Has pt arrived? Y ALT enzyme act/vol 39 U/L Normal 12-78 [facility] Internal Medicine Work Phone: Comment on above: Has pt arrived? Y AST enzyme act/vol 19 U/L Normal 15-37 [facility] Internal Medicine Work Phone: Comment on above: Has pt arrived? Y Protein mass conc 7.3 g/dL Normal 6.4-8.2 Compreh [facility] Internal Medicine Work Phone: Comment on above: Has pt arrived? Y LIVER 0.17 mg/dL Normal 0.00-0.30 [facility] Work Phone: Comment on above: Has pt arrived? Y LIVER 0.50 mg/dL Normal 0.00-4.00 [facility] Work Phone: Comment on above: Has pt arrived? Y LIVER 73 U/L Normal 50-136 [facility] Work Phone: Comment on above: Has pt arrived? Y LIVER 7.3 g/dL Normal 6.4-8.2 [facility] Work Phone: Comment on above: Has pt arrived? Y Blood Glucose , Office ([phone])Ordered By: KIRSTIN Boland on 06-24-2013 Glucose Glucometer molar conc (BldC) 115 1 Normal [facility] Work Phone: HgA1C , Office ([id number])Ordere d By: KIRSTIN Boland on 06-24-2013 Hemoglobin A1c/Hemoglobin.total mass fraction (Bld) 7.8 % Abnormal 4.6 - 7.1 Comprehensiv e Internal Medicine Work Phone: CBCDOrdered By: System Manag er on 03-03-2007 Basophils/100 WBC (Bld) 0.7 % Normal 0-1 [facility] Work Phone: Basophils/100 WBC Auto (Bld) 0.7 % Normal 0-1 [facility] Work Phone: Eosinophils/100 WBC (Bld) 6.1 % Abnormal 0-5 [facility] Work Phone: Eosinophils/100 WBC Auto (Bld) 6.1 % Abnormal 0-5 [facility] Work Phone: Erythrocyte distribution width Auto Ratio (RBC) 13.5 % Normal 11.6-14.6 [facility] Work Phone: Erythrocyte distribution width Ratio (RBC) 13.5 % Normal 11.6-14.6 [facility] Work Phone: Hematocrit Auto Volume Fraction (Bld) 44.6 % Normal 40-54 Comprehens wendy Internal Medicine Work Phone: Hematocrit Volume Fraction (Bld) 44.6 % Normal 40-54 [facility] Work Phone: Hemoglobin mass conc (Bld) 15.6 g/dL Normal 14.0-18.0 [facility] Work Phone: Lymphocytes/100 WBC (Bld) 34.6 % Normal 19-41 [facility] Work Phone: Lymphocytes/100 WBC Auto (Bld) 34.6 % Normal 19-41 [facility] Work Phone: MCH Auto Entitic mass (RBC) 30.7 pg Normal 27.0-32.0 [facility] Work Phone: MCH Entitic mass (RBC) 30.7 pg Normal 27.0-32.0 [facility] Work Phone: MCHC Auto mass conc (RBC) 34.9 g/dL Normal 32-36 [facility] Work Phone: MCHC mass conc (RBC) 34.9 g/dL Normal 32-36 Comp rehensive Internal Medicine Work Phone: MCV Auto Entitic volume (RBC) 87.8 fL Normal 80-94 [facility] Work Phone: MCV Entitic volume (RBC) 87.8 fL Normal 80-94 [facility] Work Phone: Monocytes/100 WBC (Bld) 11.5 % Abnormal 0-10 [facility] Work Phone: Monocytes/100 WBC Auto (Bld) 11.5 % Abnormal 0-10 [facility] Work Phone: Neutrophils/100 WBC (Bld) 47.1 % Normal 47-70 [facility] Work Phone: Neutrophils/100 WBC Auto (Bld) 47.1 % Normal 47-70 [facility] Work Phone: Platelet mean volume Auto Entitic volume (Bld) 10.1 fL Normal 6.5-12.0 [facility] Work Phone: Platelet mean volume Entitic volume (Bld) 10.1 fL Normal 6.5-12.0 Comprehensi ve Internal Medicine Work Phone: Platelets #/vol (Bld) 191 10*3/uL Normal 150-450 Co mprehensive Internal Medicine Work Phone: Platelets Auto #/vol (Bld) 191 10*3/uL Normal 150-450 [facility] Work Phone: RBC #/vol (Bld) 5.08 {M/mm3} Normal 4.6-6.2 Compreh ensive Internal Medicine Work Phone: RBC Auto #/vol (Bld) 5.08 {M/mm3} Normal 4.6-6.2 Co mprehensive Internal Medicine Work Phone: WBC #/vol (Bld) 4.9 10*3/uL Normal 4.4-11.0 Comprehe nsive Internal Medicine Work Phone: WBC Auto #/vol (Bld) 4.9 10*3/uL Normal 4.4-11.0 Com prehensive Internal Medicine Work Phone: COMP METABOLICOrdered By: Sy stem Picture Frames Inspector on 03-03-2007 Albumin mass conc 3.9 g/dL Normal 3.4-5.0 Compreh ensive Internal Medicine Work Phone: Albumin/Globulin mass ratio 1.1 {RATIO} Normal 0.9-2.4 [facility] Work Phone: ALP enzyme act/vol 61 U/L Normal 50-136 Compre hensive Internal Medicine Work Phone: ALT enzyme act/vol 64 [iU]/L Normal 30-65 [facility] Internal Medicine Work Phone: Anion gap 3 molar conc 8 mmol/L Normal 5-15 [facility] Internal Medicine Work Phone: Anion gap molar conc 8 mmol/L Normal 5-15 [facility] Internal Medicine Work Phone: AST enzyme act/vol 33 U/L Normal 15-37 [facility] Work Phone: Bilirubin mass conc 0.62 mg/dL Normal 0.00-1.00 Compr [facility] Internal Medicine Work Phone: Calcium mass conc 8.7 mg/dL Normal 8.5-10.1 Compreh [facility] Internal Medicine Work Phone: Chloride molar conc 103 mmol/L Normal 98-107 Compr [facility] Internal Medicine Work Phone: CO2 molar conc 27.8 mmol/L Normal 22.0-29.0 [facility] Internal [facility] Work Phone: Creatinine mass conc 1.1 mg/dL Normal 0.8-1.3 [facility] Internal Medicine Work Phone: Globulin Calculated mass conc (S) 3.4 g/dL Normal 2.3-3.5 [facility] Internal Medicine Work Phone: Globulin mass conc (S) 3.4 g/dL Normal 2.3-3.5 [facility] Internal Medicine Work Phone: Glucose mass conc 111 mg/dL Abnormal 70-110 [facility] Internal Medicine Work Phone: Comment on above: Fasting Glucose resu lt from 110 to <126 mg/dL suggests IMPAIRED HOMEOSTASIS per A.D.A. criteria. Potassium molar conc 3.9 mmol/L Normal 3.5-5.1 [facility] Internal Medicine Work Phone: Protein mass conc 7.3 g/dL Normal 6.4-8.2 [facility]pre[facility] Internal Medicine Work Phone: Sodium molar conc 139 mmol/L Normal 136-145 Compreh [facility] Internal Medicine Work Phone: Urea nitrogen mass conc 21 mg/dL Abnormal 7-18 [facility] Work Phone: Urea nitrogen/Creatinine mass ratio 19.1 {RATIO} Normal 10-20 [facility] Work Phone: LIPIDOrdered By: Jose manjarrez on 03-03-2007 Cholesterol in HDL mass conc 29 mg/dL Abnormal [facility] Work Phone: Comment on above: Reference Range HDL <40 mg/dL Low HDL Cholesterol HDL >or= 60 mg/dL High HDL Cholesterol Cholesterol in LDL mass conc 144 mg/dL Abnormal 0-130 [facility] Work Phone: Cholesterol in VLDL mass conc 25 mg/dL Normal 5-40 [facility] Work Phone: Cholesterol mass conc 198 mg/dL Normal Com prehensive Internal Medicine Work Phone: Comment on above: <200 mg/dL Desirable 200-240 mg/dL Borderline >240 mg/dL High Risk Triglyceride mass conc 125 mg/dL Normal [facility] Work Phone: Comment on above: Serum Triglycerides Reference Interval Normal <150 mg/dL Borderline high 150 - 199 mg/dL High 200 - 499 mg/dL Very High > or = 500 mg/dL Vital Signs Date Time Vital Sign Value Performing Clinician Facility 06-14-2024 10:17-0400 Body temperature 98.6 [degF] Awa Praisler-Wood EMERGENCY DISPATCH OPERATOR.CONFERENCE CONCIERGE Work Phone: [facility] 06-14-2024 10:17-0400 Body weight 116 kg Awa Praisler-Wood EMERGENCY DISPATCH OPERATOR.CONFERENCE CONCIERGE Work Phone: [facility] 06-14-2024 10:17-0400 Diastolic blood pressure 90 mm[Hg] Awa Praisler-Wood EMERGENCY DISPATCH OPERATOR.CONFERENCE CONCIERGE Work Phone: [facility] Comment on above: At home BP 117/77 06-14-2024 10:17-0400 Heart rate 77 /min Awa Praisler-Wood EMERGENCY DISPATCH OPERATOR.CONFERENCE CONCIERGE Work Phone: [facility] 06-14-2024 10:17-0400 Respiratory rate 18 /min Awa Praisler-Wood EMERGENCY DISPATCH OPERATOR.CONFERENCE CONCIERGE Work Phone: [facility] 06-14-2024 10:17-0400 SaO2% (BldA) [Mass fraction] 98 % Awa Aguero EMERGENCY DISPATCH OPERATOR.CONFERENCE CONCIERGE Work Phone: [facility] 06-14-2024 10:17-0400 Systolic blood pressure 160 mm[Hg] Awa Aguero EMERGENCY DISPATCH OPERATOR.CONFERENCE CONCIERGE Work Phone: [facility] Comment on above: At home BP 117/77 05-14-2024 09:45-0400 Diastolic blood pressure 86 mm[Hg] Era Llanos MD Work Phone: [facility] 05-14-2024 09:45-0400 Heart rate 73 /min Era Llanos MD Work Phone: [facility] 05-14-2024 09:45-0400 Systolic blood pressure 188 mm[Hg] Era Llanos MD Work Phone: [facility] 05-14-2024 09:42-0400 Body height 168.9 cm Era Llanos MD Work Phone: [facility] 05-14-2024 09:42-0400 Body mass index (BMI) [Ratio] 40.55 kg/m2 Era Llanos MD Work Phone: [facility] 05-14-2024 09:42-0400 Body weight 115.7 kg Era Llanos MD Work Phone: [facility] 05-14-2024 09:42-0400 Diastolic blood pressure 71 mm[Hg] Era Llanos MD Work Phone: [facility] 05-14-2024 09:42-0400 Systolic blood pressure 136 mm[Hg] Era Llanos MD Work Phone: [facility] 05-14-2024 09:39-0400 Body height 168.9 cm Era Llanos MD Work Phone: 4(980)494-060740 [place] [address] 05-14-2024 09:39-0400 Body mass index (BMI) [Ratio] 40.54 kg/m2 Era Llanos MD Work Phone: 3(688)651-002840 [place] [address] 05-14-2024 09:39-0400 Body weight 115.67 kg Era Llanos MD Work Phone: 1(444)402-339840 [place] [address] 05-14-2024 09:39-0400 Respiratory rate 16 /min Era Llanos MD Work Phone: 3(268)913-655240 [place] [address] 05-14-2024 09:39-0400 SaO2% (BldA) [Mass fraction] 99 % Era Llanos MD Work Phone: 5(106)484-670540 [place] [address] 05-16-2023 08:51-0400 Diastolic blood pressure 77 mm[Hg] Era Llanos MD Work Phone: 3(340)515-898040 [place] [address] 05-16-2023 08:51-0400 Heart rate 78 /min Era Llanos MD Work Phone: 4(576)416-635640 [place] [address] 05-16-2023 08:51-0400 Systolic blood pressure 148 mm[Hg] Era Llanos MD Work Phone: 3(266)552-606140 [place] [address] 05-16-2023 08:45-0400 Body height 170.2 cm Era Llanos MD Work Phone: 4(044)916-675540 [place] [address] 05-16-2023 08:45-0400 Body mass index (BMI) [Ratio] 39.16 kg/m2 Era Llanos MD Work Phone: 9(953)441-087140 [place] [address] 05-16-2023 08:45-0400 Body weight 113.4 kg Era Llanos MD Work Phone: 2(341)471-948840 [place] [address] 05-16-2023 08:45-0400 Respiratory rate 16 /min Era Llanos MD Work Phone: [facility] 05-16-2023 08:45-0400 SaO2% (BldA) [Mass fraction] 97 % Era Llanos MD Work Phone: [facility] 05-16-2023 08:39-0400 Body height 170.2 cm Era Llanos MD Work Phone: [facility] 05-16-2023 08:39-0400 Body mass index (BMI) [Ratio] 39.98 kg/m2 Era Llanos MD Work Phone: [facility] 05-16-2023 08:39-0400 Body weight 115.8 kg Era Llanos MD Work Phone: [facility] 05-16-2023 08:39-0400 Diastolic blood pressure 81 mm[Hg] Era Llanos MD Work Phone: 0(606)[phone] [address] 05-16-2023 08:39-0400 Systolic blood pressure 149 mm[Hg] Era Llanos MD Work Phone: [facility] 12-28-2022 10:37-0400 Body height 171.45 cm VOCATIONAL CASE MANAGER-C Noy Blandona VOCATIONAL CASE MANAGER Work Phone: [facility] 12-28-2022 10:37-0400 Body mass index (BMI) [Ratio] 40.4 kg/m2 VOCATIONAL CASE MANAGER-C Noy Blandona VOCATIONAL CASE MANAGER Work Phone: [facility] 12-28-2022 10:37-0400 Body temperature 97.2 [degF] VOCATIONAL CASE MANAGER-C Noy Blandona VOCATIONAL CASE MANAGER Work Phone: [facility] 12-28-2022 10:37-0400 Body weight 118.95 kg VOCATIONAL CASE MANAGER-C Noy Blandona VOCATIONAL CASE MANAGER Work Phone: [facility] 12-28-2022 10:37-0400 Diastolic blood pressure 79 mm[Hg] VOCATIONAL CASE MANAGER-C Noy Bessychitraa VOCATIONAL CASE MANAGER Work Phone: [facility] 12-28-2022 10:37-0400 Heart rate 71 /min VOCATIONAL CASE MANAGER-C Noy Hook VOCATIONAL CASE MANAGER Work Phone: [facility] 12-28-2022 10:37-0400 Respiratory rate 18 /min VOCATIONAL CASE MANAGER-C Noy Hook VOCATIONAL CASE MANAGER Work Phone: [facility] 12-28-2022 10:37-0400 SaO2% (BldA) [Mass fraction] 95 % VOCATIONAL CASE MANAGER-C Noy Hook VOCATIONAL CASE MANAGER Work Phone: [facility] 12-28-2022 10:37-0400 Systolic blood pressure 142 mm[Hg] VOCATIONAL CASE MANAGER-C Noy Hook VOCATIONAL CASE MANAGER Work Phone: [facility] 05-31-2022 08:58-0400 Diastolic blood pressure 95 mm[Hg] Era Llanos MD Work Phone: [facility] 05-31-2022 08:58-0400 Heart rate 77 /min Era Llanos MD Work Phone: [facility] 05-31-2022 08:58-0400 Systolic blood pressure 152 mm[Hg] Era Llanos MD Work Phone: [facility] 05-31-2022 08:54-0400 Body height 170.2 cm Era Llanos MD Work Phone: [facility] 05-31-2022 08:54-0400 Body mass index (BMI) [Ratio] 39.97 kg/m2 Era Llanos MD Work Phone: [facility] 05-31-2022 08:54-0400 Body weight 115.76 kg Era Llanos MD Work Phone: [facility] 05-31-2022 08:54-0400 Respiratory rate 20 /min Era Llanos MD Work Phone: [facility] 05-31-2022 08:54-0400 SaO2% (BldA) [Mass fraction] 96 % Era Llanos MD Work Phone: [facility] 11-03-2021 13:42-0500 Body height 170.18 cm Kyrie Denis LPN [facility]; [facility] Work Phone: 11-03-2021 13:42-0500 Body mass index (BMI) [Ratio] 37.78 kg/m2 Kyrie Denis LPN [facility]; [facility] Work Phone: 11-03-2021 13:42-0500 Body surface area Derived from formula 2.19 m2 Kyrie Denis LPN [facility]; [facility] Work Phone: 11-03-2021 13:42-0500 Body temperature 97.8 [degF] Kyrie Denis LPN [facility]; [facility] Work Phone: Comment on above: Method: Infrared 11-03-2021 13:42-0500 Body weight 109.41 kg Kyrie Denis LPN [facility]; [facility] Work Phone: 11-03-2021 13:42-0500 Diastolic blood pressure 70 mm[Hg] Kyrie Denis LPN [facility]; [facility] Work Phone: Comment on above: Patient Position: Sitting; Cuff Location : Left Arm; Cuff Size: Standard 11-03-2021 13:42-0500 Heart rate 90 /min Kyrie Denis LPN [facility]; [facility] Work Phone: Comment on above: Pattern: Regular 11-03-2021 13:42-0500 Respiratory rate 16 /min Kyrie Denis LPN [facility]; [facility] Work Phone: Comment on above: Pattern: Unlabored 11-03-2021 13:42-0500 SaO2% (BldA) [Mass fraction] 95 % Kyrie Denis LPN [facility]; [facility] Work Phone: Comment on above: Room air 11-03-2021 13:42-0500 Systolic blood pressure 110 mm[Hg] Kyrie Denis LPN [facility]; [facility] Work Phone: Comment on above: Patient Position: Sitting; Cuff Location : Left Arm; Cuff Size: Standard 07-07-2021 14:37-0400 Body height 170.18 cm Minnie Quinteros [facility]; [facility] Work Phone: 07-07-2021 14:37-0400 Body mass index (BMI) [Ratio] 38.27 kg/m2 Minnie Quinteros [facility]; [facility] Work Phone: 07-07-2021 14:37-0400 Body surface area Derived from formula 2.2 m2 Minnie Quinteros [facility]; [facility] Work Phone: 07-07-2021 14:37-0400 Body temperature 97.3 [degF] Minnie Quinteros [facility]; [facility] Work Phone: Comment on above: Method: Temporal 07-07-2021 14:37-0400 Body weight 110.85 kg Minnie Quinteros ARNULFO [facility]; [facility] Work Phone: 07-07-2021 14:37-0400 Diastolic blood pressure 84 mm[Hg] Minnie Quinteros [facility]; [facility] Work Phone: Comment on above: Patient Position: Sitting; Cuff Location : Left Arm; Cuff Size: Standard 07-07-2021 14:37-0400 Heart rate 80 /min Minnie Quinteros [facility]; [facility] Work Phone: Comment on above: Pattern: Regular 07-07-2021 14:37-0400 Respiratory rate 16 /min Minnie Quinteros [facility]; [facility] Work Phone: Comment on above: Pattern: Unlabored 07-07-2021 14:37-0400 SaO2% (BldA) [Mass fraction] 95 % Minnielashell Quinteros [facility]; [facility] Work Phone: Comment on above: Room air 07-07-2021 14:37-0400 Systolic blood pressure 140 mm[Hg] Minnie Neli [facility]; [facility] Work Phone: Comment on above: Patient Position: Sitting; Cuff Location : Left Arm; Cuff Size: Standard 06-01-2021 11:35-0400 Diastolic blood pressure 101 mm[Hg] Era Llanos MD Work Phone: 0(232)602-103340 [place] [address] 06-01-2021 11:35-0400 Systolic blood pressure 156 mm[Hg] Era Llanos MD Work Phone: 6(549)244-650540 [place] [address] 06-01-2021 11:05-0400 Body height 170.2 cm Era Llanos MD Work Phone: 8(038)873-768040 [place] [address] 06-01-2021 11:05-0400 Body mass index (BMI) [Ratio] 38.48 kg/m2 Era Llanos MD Work Phone: 6(560)013-361140 [place] [address] 06-01-2021 11:05-0400 Body temperature 97.7 [degF] Era Llanos MD Work Phone: 2(973)123-328340 [place] [address] 06-01-2021 11:05-0400 Body weight 111.45 kg Era Llanos MD Work Phone: 6(511)066-491040 [place] [address] 06-01-2021 11:05-0400 Heart rate 76 /min Era Llanos MD Work Phone: 6(742)636-828140 [place] [address] 06-01-2021 11:05-0400 Respiratory rate 16 /min Era Llanos MD Work Phone: 1(176)417-586240 [place] [address] 06-01-2021 11:05-0400 SaO2% (BldA) [Mass fraction] 97 % Era Llanos MD Work Phone: 8(264)617-845640 [place] [address] 06-01-2021 10:57-0400 Body height 170.2 cm Era Llanos MD Work Phone: 1(444)578-872840 [place] [address] 06-01-2021 10:57-0400 Body mass index (BMI) [Ratio] 38.06 kg/m2 Era Llanos MD Work Phone: [facility] 06-01-2021 10:57-0400 Body weight 110.22 kg Era Llanos MD Work Phone: [facility] 06-01-2021 10:57-0400 Diastolic blood pressure 80 mm[Hg] Era Llanos MD Work Phone: [facility] 06-01-2021 10:57-0400 Systolic blood pressure 145 mm[Hg] Era Llanos MD Work Phone: [facility] 03-03-2021 15:06-0400 Body height 170.18 cm Kyrie Denis LPN [facility]; [facility] Work Phone: 03-03-2021 15:06-0400 Body mass index (BMI) [Ratio] 38.22 kg/m2 Kyrie Denis LPN [facility]; [facility] Work Phone: 03-03-2021 15:06-0400 Body surface area Derived from formula 2.2 m2 Kyrie Denis LPN [facility]; [facility] Work Phone: 03-03-2021 15:06-0400 Body temperature 97.3 [degF] Kyrie Denis LPN [facility]; [facility] Work Phone: Comment on above: Method: Infrared 03-03-2021 15:06-0400 Body weight 110.68 kg Kyrie Denis LPN [facility]; [facility] Work Phone: 03-03-2021 15:06-0400 Diastolic blood pressure 80 mm[Hg] Kyrie Denis LPN [facility]; [facility] Work Phone: Comment on above: Patient Position: Sitting; Cuff Location : Left Arm; Cuff Size: Standard 03-03-2021 15:06-0400 Heart rate 81 /min Kyrie Denis LPN [facility]; [facility] Work Phone: Comment on above: Pattern: Regular 03-03-2021 15:06-0400 Respiratory rate 16 /min Kyrie Denis LPN [facility]; [facility] Work Phone: Comment on above: Pattern: Unlabored 03-03-2021 15:06-0400 SaO2% (BldA) [Mass fraction] 97 % Kyrie Denis LPN [facility]; [facility] Work Phone: Comment on above: Room air 03-03-2021 15:06-0400 Systolic blood pressure 130 mm[Hg] Kyrie Denis LPN [facility]; [facility] Work Phone: Comment on above: Patient Position: Sitting; Cuff Location : Left Arm; Cuff Size: Standard 11-03-2020 14:53-0500 BMI (Body Mass Index) 38.53 kg/m2 Noy Hook CNP Work Phone: [facility]; [facility] Work Phone: 11-03-2020 14:53-0500 Body Temperature 97.4 [degF] Noy Hook CNP Work Phone: [facility]; [facility] Work Phone: Comment on above: Method: Infrared 11-03-2020 14:53-0500 Body weight 111.59 kg Noy Hook CNP Work Phone: [facility]; [facility] Work Phone: 11-03-2020 14:53-0500 BP Diastolic 80 mm[Hg] Noy Hook CNP Work Phone: [facility]; [facility] Work Phone: Comment on above: Patient Position: Sitting; Cuff Location : Left Arm; Cuff Size: Standard 11-03-2020 14:53-0500 BP Systolic 130 mm[Hg] Noy Hook CNP Work Phone: [facility]; [facility] Work Phone: Comment on above: Patient Position: Sitting; Cuff Location : Left Arm; Cuff Size: Standard 11-03-2020 14:53-0500 BSA (Body Surface Area) 2.21 m2 Noy Hook CNP Work Phone: [facility]; [facility] Work Phone: 11-03-2020 14:53-0500 Height 170.18 cm Noy Hook CONFERENCE CONCIERGE Work Phone: [facility]; [facility] Work Phone: 11-03-2020 14:53-0500 Pulse (Heart Rate) 92 /min Noy Hook CONFERENCE CONCIERGE Work Phone: [facility]; [facility] Work Phone: Comment on above: Pattern: Regular 11-03-2020 14:53-0500 Pulse Oximetry 96 % Noy Hook [facility]; [facility] Work Phone: Comment on above: Room air 11-03-2020 14:53-0500 Respiratory Rate 16 /min Noy Hook CONFERENCE CONCIERGE Work Phone: [facility]; [facility] Work Phone: Comment on above: Pattern: Unlabored 11-03-2020 14:53-0500 SaO2% (BldA) [Mass fraction] 96 % Noy Hook CONFERENCE CONCIERGE Work Phone: [facility]; [facility] Work Phone: Comment on above: Room air 06-30-2020 11:22-0400 Body height 170.18 cm Kyrie Denis LPN [facility] Work Phone: 06-30-2020 11:22-0400 Body mass index (BMI) [Ratio] 37.91 kg/m2 Kyrie Denis LPN [facility] Work Phone: 06-30-2020 11:22-0400 Body mass index (BMI) [Ratio] 37.67 kg/m2 Kyrie Denis LPN [facility] Work Phone: 06-30-2020 11:22-0400 Body surface area Derived from formula 2.19 m2 Kyrie Denis LPN [facility] Work Phone: 06-30-2020 11:22-0400 Body temperature 97.9 [degF] Kyrie Denis LPN [facility] Work Phone: Comment on above: Method: Infrared 06-30-2020 11:22-0400 Body weight 109.79 kg Kyrie Denis LPN [facility] Work Phone: 06-30-2020 11:22-040 Body weight 109.09 kg Kyrie Adeel ARREDONDO [facility] Work Phone: 06-30-2020 11:22-0400 Diastolic blood pressure 74 mm[Hg] Kyrie Denis LPN [facility] Work Phone: Comment on above: Patient Position: Sitting; Cuff Location : Left Arm; Cuff Size: Standard 06-30-2020 11:22-0400 Heart rate 85 /min Kyrie Denis LPN [facility] Work Phone: Comment on above: Pattern: Regular 06-30-2020 11:22-0400 Pulse Oximetry 97 % Noy Hook [facility] Work Phone: Comment on above: Room air 06-30-2020 11:22-0400 Respiratory rate 16 /min Kyrie Adeel ARREDONDO [facility] Work Phone: Comment on above: Pattern: Unlabored 06-30-2020 11:22-0400 SaO2% (BldA) [Mass fraction] 97 % Kyrie Denis LPN [facility] Work Phone: Comment on above: Room air 06-30-2020 11:22-0400 Systolic blood pressure 132 mm[Hg] Kyrie Denis LPN [facility] Work Phone: Comment on above: Patient Position: Sitting; Cuff Location : Left Arm; Cuff Size: Standard 02-18-2020 11:51-0400 BMI (Body Mass Index) 37.67 kg/m2 Minnie Quinteros LPN [facility] Work Phone: 02-18-2020 11:51-0400 Body Temperature 97.4 [degF] Minnie Quinteros LPN [facility] Work Phone: Comment on above: Method: Temporal 02-18-2020 11:51-0400 Body weight 109.09 kg Minnie Quinteros LPN [facility] Work Phone: 02-18-2020 11:51-0400 BP Diastolic 84 mm[Hg] Minnie Quinteros LPN [facility] Work Phone: Comment on above: Patient Position: Sitting; Cuff Location : Left Arm; Cuff Size: Standard 02-18-2020 11:51-0400 BP Systolic 138 mm[Hg] Minnie Quinteros LPN [facility] Work Phone: Comment on above: Patient Position: Sitting; Cuff Location : Left Arm; Cuff Size: Standard 02-18-2020 11:51-0400 BSA (Body Surface Area) 2.19 m2 Minnie Quinteros LPN [facility] Work Phone: 02-18-2020 11:51-0400 Height 170.18 cm Minnie Quinteros [address] [facility] Work Phone: 02-18-2020 11:51-0400 Pulse (Heart Rate) 62 /min Minnie Quinteros LPN [facility]pre[facility] Work Phone: Comment on above: Pattern: Regular 02-18-2020 11:51-0400 Pulse Oximetry 97 % Noy Bessychitraissac [facility] Work Phone: Comment on above: Room air 02-18-2020 11:51-0400 Respiratory Rate 16 /min Minnie Quinteros [address] [facility] Work Phone: Comment on above: Pattern: Unlabored 02-18-2020 11:51-0400 SaO2% (BldA) [Mass fraction] 97 % Minnielashell Quinteros ARNULFO [facility] Work Phone: Comment on above: Room air 11-26-2019 13:10-0500 BMI (Body Mass Index) 38.37 kg/m2 Kyrie Denis LPN [facility] Work Phone: 11-26-2019 13:10-0500 Body Temperature 97.9 [degF] Kyrie Denis LPN [facility] Work Phone: Comment on above: Method: Temporal 11-26-2019 13:10-0500 Body weight 111.14 kg Kyrie Denis LPN [facility] Work Phone: 11-26-2019 13:10-0500 BP Diastolic 78 mm[Hg] Kyrie Denis ARNULFO [facility] Work Phone: Comment on above: Patient Position: Sitting; Cuff Location : Left Arm; Cuff Size: Standard 11-26-2019 13:10-0500 BP Systolic 130 mm[Hg] Kyrie Denis ARNULFO [facility] Work Phone: Comment on above: Patient Position: Sitting; Cuff Location : Left Arm; Cuff Size: Standard 11-26-2019 13:10-0500 BSA (Body Surface Area) 2.2 m2 Kyrie Adeel [address] [facility] Work Phone: 11-26-2019 13:10-0500 Height 170.18 cm Kyrie Denis [address] [facility] Work Phone: 11-26-2019 13:10-0500 Pulse (Heart Rate) 90 /min Kyrie Adeel ARREDONDO [facility] Work Phone: Comment on above: Pattern: Regular 11-26-2019 13:10-0500 Pulse Oximetry 96 % Noy Hook [facility] Work Phone: Comment on above: Room air 11-26-2019 13:10-0500 Respiratory Rate 16 /min Kyrie Adeel [address] [facility] Work Phone: Comment on above: Pattern: Unlabored 11-26-2019 13:10-0500 SaO2% (BldA) [Mass fraction] 96 % Kyrie Adeel [facility] Work Phone: Comment on above: Room air 08-20-2019 14:26-0500 BMI (Body Mass Index) 36.49 kg/m2 Latrice Castillo [facility] [facility] Work Phone: 08-20-2019 14:26-0500 Body Temperature 98.2 [degF] Latrice Castillo [facility] Work Phone: 08-20-2019 14:26-0500 Body weight 105.69 kg Latrice Patrickrb [address] [facility] [facility] Work Phone: 08-20-2019 14:26-0500 BP Diastolic 78 mm[Hg] Latrice Nguyenrb [address] [facility] [facility] Work Phone: Comment on above: Patient Position: Sitting; Cuff Location : Left Arm; Cuff Size: Standard 08-20-2019 14:26-0500 BP Systolic 122 mm[Hg] Latrice Castillo LPN [facility] Work Phone: Comment on above: Patient Position: Sitting; Cuff Location : Left Arm; Cuff Size: Standard 08-20-2019 14:26-0500 BSA (Body Surface Area) 2.16 m2 Latrice Castillo LPN [facility] Work Phone: 08-20-2019 14:26-0500 Height 170.18 cm Latrice Castillo [facility] [facility] Work Phone: 08-20-2019 14:26-0500 Pulse (Heart Rate) 86 /min Latrice Castillo LPN [facility] Work Phone: Comment on above: Pattern: Regular 08-20-2019 14:26-0500 Pulse Oximetry 98 % Noy Hook [facility] Work Phone: Comment on above: Room air 08-20-2019 14:26-0500 Respiratory Rate 17 /min Latrice Castillo LPN [facility] Work Phone: Comment on above: Pattern: Unlabored 08-20-2019 14:26-0500 SaO2% (BldA) [Mass fraction] 98 % Latrice Castillo [address] [facility] Work Phone: Comment on above: Room air 04-30-2019 15:04-0400 BMI (Body Mass Index) 36.81 kg/m2 Latoya Duque [facility] Work Phone: 04-30-2019 15:04-0400 Body Temperature 96.5 [degF] Latoya Duque [facility] Work Phone: Comment on above: Method: Temporal 04-30-2019 15:04-0400 Body weight 106.62 kg Latoya Duque [facility] Work Phone: 04-30-2019 15:04-0400 BP Diastolic 78 mm[Hg] Latoya Duque [facility] Internal Medicine Work Phone: Comment on above: Patient Position: Sitting; Cuff Location : Left Arm; Cuff Size: Standard 04-30-2019 15:04-0400 BP Systolic 124 mm[Hg] Latoya Duque [facility] Internal Medicine Work Phone: Comment on above: Patient Position: Sitting; Cuff Location : Left Arm; Cuff Size: Standard 04-30-2019 15:04-0400 BSA (Body Surface Area) 2.17 m2 Latoya Duque [facility] Internal Medicine Work Phone: 04-30-2019 15:04-0400 Height 170.18 cm Latoya Duque [facility] Internal Medicine Work Phone: 04-30-2019 15:04-0400 Pulse (Heart Rate) 80 /min Latoya Duque [facility] Internal Medicine Work Phone: Comment on above: Pattern: Regular 04-30-2019 15:04-0400 Pulse Oximetry 98 % Noy Blandonissac [facility] Internal Medicine Work Phone: Comment on above: Room air 04-30-2019 15:04-0400 Respiratory Rate 18 /min Latoya Duque [facility] Internal Medicine Work Phone: Comment on above: Pattern: Unlabored 04-30-2019 15:04-0400 SaO2% (BldA) [Mass fraction] 98 % Latoya Duque [facility] Internal Medicine Work Phone: Comment on above: Room air 01-22-2019 09:01-0400 BMI (Body Mass Index) 37.13 kg/m2 Kyrie Denis LPN [facility] Internal Medicine Work Phone: 01-22-2019 09:01-0400 Body Temperature 97.4 [degF] Kyrie Denis LPN [facility] Internal Medicine Work Phone: Comment on above: Method: Temporal 01-22-2019 09:01-0400 Body weight 107.53 kg Kyrie Denis LPN [facility] Internal Medicine Work Phone: 01-22-2019 09:01-0400 BP Diastolic 80 mm[Hg] Kyrie Denis LPN [facility] Internal Medicine Work Phone: Comment on above: Patient Position: Sitting; Cuff Location : Left Arm; Cuff Size: Standard 01-22-2019 09:01-0400 BP Systolic 122 mm[Hg] Kyrie Denis ARNULFO [facility] Internal Medicine Work Phone: Comment on above: Patient Position: Sitting; Cuff Location : Left Arm; Cuff Size: Standard 01-22-2019 09:01-0400 BSA (Body Surface Area) 2.17 m2 Kyrie Adeel ARREDONDO [facility] Internal Medicine Work Phone: 01-22-2019 09:01-0400 Height 170.18 cm Kyrie Adeel ARREDONDO [facility] Internal Medicine Work Phone: 01-22-2019 09:01-0400 Pulse (Heart Rate) 81 /min Kyrie Denis ARNULFO Comprehens[facility] e Internal Medicine Work Phone: Comment on above: Pattern: Regular 01-22-2019 09:01-0400 Pulse Oximetry 97 % Noy Dohertysameera [facility] Internal Medicine Work Phone: Comment on above: Room air 01-22-2019 09:01-0400 Respiratory Rate 16 /min Kyrie Denis ARNULFO [facility] Internal Medicine Work Phone: Comment on above: Pattern: Unlabored 01-22-2019 09:01-0400 SaO2% (BldA) [Mass fraction] 97 % Kyrie Denis [facility] Internal Medicine Work Phone: Comment on above: Room air 01-22-2019 09:01-0400 Weight 107.53 kg Noy Hook [facility] Internal Medicine Work Phone: 10-10-2018 09:12-0500 BMI (Body Mass Index) 36.86 kg/m2 Kim Caba [facility] Internal Medicine Work Phone: 10-10-2018 09:12-0500 Body Temperature 98.6 [degF] Kim Caba [facility] Internal Medicine Work Phone: Comment on above: Method: Temporal 10-10-2018 09:12-0500 Body weight 106.77 kg Kim Caba [facility] Internal Medicine Work Phone: 10-10-2018 09:12-0500 BP Diastolic 82 mm[Hg] Kim Caba [facility] Internal Medicine Work Phone: Comment on above: Patient Position: Sitting; Cuff Location : Left Arm; Cuff Size: Standard 10-10-2018 09:12-0500 BP Systolic 136 mm[Hg] Kim Caba [facility] Internal Medicine Work Phone: Comment on above: Patient Position: Sitting; Cuff Location : Left Arm; Cuff Size: Standard 10-10-2018 09:12-0500 BSA (Body Surface Area) 2.17 m2 Kim Caba [facility] Internal Medicine Work Phone: 10-10-2018 09:12-0500 Height 170.18 cm Kim Caba [facility] Internal Medicine Work Phone: 10-10-2018 09:12-0500 Pulse (Heart Rate) 73 /min Kim Caba [facility] Internal Medicine Work Phone: Comment on above: Pattern: Regular 10-10-2018 09:12-0500 Pulse Oximetry 97 % Noy Hook [facility] Internal Medicine Work Phone: Comment on above: Room air 10-10-2018 09:12-0500 Respiratory Rate 17 /min Kim Caba [facility] Internal Medicine Work Phone: Comment on above: Pattern: Unlabored 10-10-2018 09:12-0500 SaO2% (BldA) [Mass fraction] 97 % Kim Caba [facility] Internal Medicine Work Phone: Comment on above: Room air 10-10-2018 09:12-0500 Weight 106.77 kg Noy Hook [facility] Internal Medicine Work Phone: 07-10-2018 15:17-0400 BMI (Body Mass Index) 36.34 kg/m2 Latoya Duque [facility] Internal Medicine Work Phone: 07-10-2018 15:17-0400 Body Temperature 97.3 [degF] Latoya Duque [facility] Internal Medicine Work Phone: Comment on above: Method: Temporal 07-10-2018 15:17-0400 Body weight 105.24 kg Latoya Duque [facility] Internal Medicine Work Phone: 07-10-2018 15:17-0400 BP Diastolic 90 mm[Hg] Latoya Duque CMA [facility] Medicine Work Phone: Comment on above: Patient Position: Sitting; Cuff Location : Left Arm; Cuff Size: Standard 07-10-2018 15:17-0400 BP Systolic 130 mm[Hg] Latoya Duque [facility] Internal Medicine Work Phone: Comment on above: Patient Position: Sitting; Cuff Location : Left Arm; Cuff Size: Standard 07-10-2018 15:17-0400 BSA (Body Surface Area) 2.15 m2 Latoya Duque [facility] Internal Medicine Work Phone: 07-10-2018 15:17-0400 Height 170.18 cm Latoya Duque [facility] Internal Medicine Work Phone: 07-10-2018 15:17-0400 Pulse (Heart Rate) 82 /min Latoya Duque [facility] Internal Medicine Work Phone: Comment on above: Pattern: Regular 07-10-2018 15:17-0400 Pulse [facility]ximetry 97 % [facility] Work Phone: Comment on above: Room air 07-10-2018 15:17-0400 Respiratory Rate 18 /min Latoya Duque [facility] Internal Medicine Work Phone: Comment on above: Pattern: Unlabored 07-10-2018 15:17-0400 SaO2% (BldA) [Mass fraction] 97 % Latoya Duque [facility] Internal Medicine Work Phone: Comment on above: Room air 07-10-2018 15:17-0400 Weight 105.24 kg Noy Hook [facility] Internal Medicine Work Phone: 04-03-2018 15:15-0400 BMI (Body Mass Index) 35.71 kg/m2 Marysol Arias RN [facility] Internal Medicine Work Phone: 04-03-2018 15:15-0400 Body Temperature 97.5 [degF] Marysol Arias RN [facility] Internal Medicine Work Phone: Comment on above: Method: Temporal 04-03-2018 15:15-0400 Body weight 103.42 kg Marysol Arias RN [facility] Internal Medicine Work Phone: 04-03-2018 15:15-0400 BP Diastolic 74 mm[Hg] Marysol Arias RN [facility] Work Phone: Comment on above: Patient Position: Sitting; Cuff Location : Left Arm; Cuff Size: Standard 04-03-2018 15:15-0400 BP Systolic 122 mm[Hg] Marysol Arias RN [facility] Internal Medicine Work Phone: Comment on above: Patient Position: Sitting; Cuff Location : Left Arm; Cuff Size: Standard 04-03-2018 15:15-0400 BSA (Body Surface Area) 2.14 m2 Marysol Arias RN [facility] Medicine Work Phone: 04-03-2018 15:15-0400 Height 170.18 cm Marysol Arias RN [facility] Work Phone: 04-03-2018 15:15-0400 Pulse (Heart Rate) 80 /min Marysol Arias RN [facility] Medicine Work Phone: Comment on above: Pattern: Regular 04-03-2018 15:15-0400 Pulse Oximetry 98 % Noy Hook [facility] Internal Medicine Work Phone: Comment on above: Room air 04-03-2018 15:15-0400 Respiratory Rate 16 /min Marysol Arias RN [facility] Work Phone: Comment on above: Pattern: Unlabored 04-03-2018 15:15-0400 SaO2% (BldA) [Mass fraction] 98 % Marysol Arias RN [facility] Internal Medicine Work Phone: Comment on above: Room air 04-03-2018 15:15-0400 Weight 103.42 kg Noy Hook [facility] Internal Medicine Work Phone: 12-27-2017 15:15-0400 BMI (Body Mass Index) 36.18 kg/m2 Latrice Castillo LPN [facility] Internal Medicine Work Phone: 12-27-2017 15:15-0400 Body Temperature 97.5 [degF] Latrice Castillo LPN [facility] Internal Medicine Work Phone: 12-27-2017 15:15-0400 Body weight 104.78 kg Latrice Castillo LPN [facility] Medicine Work Phone: 12-27-2017 15:15-0400 BP Diastolic 80 mm[Hg] Latrice Castillo [employer] Work Phone: Comment on above: Patient Position: Sitting; Cuff Location : Left Arm; Cuff Size: Standard 12-27-2017 15:15-0400 BP Systolic 118 mm[Hg] Latrice Castillo [employer] Work Phone: Comment on above: Patient Position: Sitting; Cuff Location : Left Arm; Cuff Size: Standard 12-27-2017 15:15-0400 BSA (Body Surface Area) 2.15 m2 Latrice Castillo LPN [facility] Work Phone: 12-27-2017 15:15-0400 Height 170.18 cm Latrice Castillo LPN [facility] Work Phone: 12-27-2017 15:15-0400 Pulse (Heart Rate) 81 /min Latrice Castillo LPN [facility] Internal Medicine Work Phone: Comment on above: Pattern: Regular 12-27-2017 15:15-0400 Pulse Oximetry 97 % Noy Hook [facility] Internal Medicine Work Phone: Comment on above: Room air 12-27-2017 15:15-0400 Respiratory Rate 17 /min Latrice Castillo LPN [facility] Work Phone: Comment on above: Pattern: Unlabored 12-27-2017 15:15-0400 SaO2% (BldA) [Mass fraction] 97 % Latrice Castillo LPN [facility] Work Phone: Comment on above: Room air 12-27-2017 15:15-0400 Weight 104.78 kg Noy Hook [facility] Internal Medicine Work Phone: 10-24-2017 15:23-0500 BMI (Body Mass Index) 36.96 kg/m2 Marysol Arias RN [facility] Internal Medicine Work Phone: 10-24-2017 15:23-0500 Body Temperature 98.2 [degF] Marysol Arias RN [facility] Work Phone: Comment on above: Method: Temporal 10-24-2017 15:23-0500 Body weight 107.05 kg Marysol Arias RN [facility] Work Phone: 10-24-2017 15:23-0500 BP Diastolic 76 mm[Hg] Marysol Arias RN [facility] Work Phone: Comment on above: Patient Position: Sitting; Cuff Location : Left Arm; Cuff Size: Standard 10-24-2017 15:23-0500 BP Systolic 128 mm[Hg] Marysol Arias RN [facility] Work Phone: Comment on above: Patient Position: Sitting; Cuff Location : Left Arm; Cuff Size: Standard 10-24-2017 15:23-0500 BSA (Body Surface Area) 2.17 m2 Marysol Arias RN [facility] Work Phone: 10-24-2017 15:23-0500 Height 170.18 cm Marysol Arias RN [facility] Work Phone: 10-24-2017 15:23-0500 Pulse (Heart Rate) 78 /min Marysol Arias RN [facility] Work Phone: Comment on above: Pattern: Regular 10-24-2017 15:23-0500 Pulse Oximetry 97 % Noy Hook [facility] Internal Medicine Work Phone: Comment on above: Room air 10-24-2017 15:23-0500 Respiratory Rate 16 /min Marysol Arias RN [facility] Work Phone: Comment on above: Pattern: Unlabored 10-24-2017 15:23-0500 SaO2% (BldA) [Mass fraction] 97 % Marysol Arias RN [facility] Work Phone: Comment on above: Room air 10-24-2017 15:23-0500 Weight 107.05 kg Noy Hook [facility] Internal Medicine Work Phone: 07-25-2017 15:19-0400 BMI (Body Mass Index) 36.81 kg/m2 Latrice Yen [facility] Internal Medicine Work Phone: 07-25-2017 15:19-0400 Body Temperature 97.4 [degF] Latrice Castillo [facility] Work Phone: 07-25-2017 15:19-0400 Body weight 106.6 kg Latrice Castillo [facility] Work Phone: 07-25-2017 15:19-0400 BP Diastolic 78 mm[Hg] Latrice Nguyenrb [employer] [facility] Work Phone: Comment on above: Patient Position: Sitting; Cuff Location : Left Arm; Cuff Size: Standard 07-25-2017 15:19-0400 BP Systolic 122 mm[Hg] Latrice Nguyenrb [employer] [facility] Work Phone: Comment on above: Patient Position: Sitting; Cuff Location : Left Arm; Cuff Size: Standard 07-25-2017 15:19-0400 BSA (Body Surface Area) 2.17 m2 Latrice Nguyenrb [facility] Work Phone: 07-25-2017 15:19-0400 Height 170.18 cm Latrice Castillo [facility] Work Phone: 07-25-2017 15:19-0400 Pulse (Heart Rate) 81 /min Latrice Castillo LPN [facility]prehens[facility] Internal Medicine Work Phone: Comment on above: Pattern: Regular 07-25-2017 15:19-0400 Pulse Oximetry 97 % Noy Hook [facility] Internal Medicine Work Phone: Comment on above: Room air 07-25-2017 15:19-0400 Respiratory Rate 16 /min Latrice Castillo LPN [facility] Work Phone: Comment on above: Pattern: Unlabored 07-25-2017 15:19-0400 SaO2% (BldA) [Mass fraction] 97 % Latrice Castillo [facility] Work Phone: Comment on above: Room air 07-25-2017 15:19-0400 Weight 106.6 kg Noy Hook [facility] Internal Medicine Work Phone: 04-11-2017 15:41-0400 BMI (Body Mass Index) 37.12 kg/m2 Latrice Slarb [facility] [facility] Internal Medicine Work Phone: 04-11-2017 15:41-0400 Body Temperature 97.2 [degF] Latrice Slarb [facility] Work Phone: 04-11-2017 15:41-0400 Body weight 107.5 kg Latrice Slarb [facility] Work Phone: 04-11-2017 15:41-0400 BP Diastolic 80 mm[Hg] Latrice Slarb [facility] Work Phone: Comment on above: Patient Position: Sitting; Cuff Location : Left Arm; Cuff Size: Standard 04-11-2017 15:41-0400 BP Systolic 124 mm[Hg] Latrice Slarb [facility] Work Phone: Comment on above: Patient Position: Sitting; Cuff Location : Left Arm; Cuff Size: Standard 04-11-2017 15:41-0400 BSA (Body Surface Area) 2.17 m2 Latrice Slarb [facility] Work Phone: 04-11-2017 15:41-0400 Height 170.18 cm Latrice Slarb [facility] Work Phone: 04-11-2017 15:41-0400 Pulse (Heart Rate) 82 /min Latrice Slarb [employer] Comprehens[facility] Internal Medicine Work Phone: Comment on above: Pattern: Regular 04-11-2017 15:41-0400 Pulse Oximetry 98 % Noy Hook [facility] Work Phone: Comment on above: Room air 04-11-2017 15:41-0400 Respiratory Rate 18 /min Latrice Slarb [employer] Work Phone: Comment on above: Pattern: Unlabored 04-11-2017 15:41-0400 SaO2% (BldA) [Mass fraction] 98 % Latrice Slarb [facility] Work Phone: Comment on above: Room air 04-11-2017 15:41-0400 Weight 107.5 kg Noy Hook [facility] Work Phone: 01-02-2017 16:24-0400 BP Diastolic 84 mm[Hg] Noy Hook [employer] Work Phone: [facility] Work Phone: Comment on above: Patient Position: Supine; Cuff Location: Right Arm; Cuff Size: Standard 01-02-2017 16:24-0400 BP Systolic 132 mm[Hg] Noy Hook [employer] Work Phone: [facility] Work Phone: Comment on above: Patient Position: Supine; Cuff Location: Right Arm; Cuff Size: Standard 01-02-2017 16:19-0400 Body Temperature 97.4 [degF] Noy Hook [employer] Work Phone: [facility] Work Phone: 01-02-2017 16:19-0400 Body weight 106.6 kg Noy Hook [employer] Work Phone: [facility] Work Phone: 01-02-2017 16:19-0400 BP Diastolic 84 mm[Hg] Noy Hook [employer] Work Phone: [facility] Work Phone: Comment on above: Patient Position: Supine; Cuff Location: Right Arm; Cuff Size: Standard 01-02-2017 16:19-0400 BP Systolic 132 mm[Hg] Noy Hook [employer] Work Phone: [facility] Work Phone: Comment on above: Patient Position: Supine; Cuff Location: Right Arm; Cuff Size: Standard 01-02-2017 16:19-0400 Respiratory Rate 16 /min Noy Hook [employer] Work Phone: [facility] Work Phone: 01-02-2017 16:19-0400 Weight 106.6 kg Noy Hook [facility] Work Phone: 10-03-2016 14:010500 BMI (Body Mass Index) 36.96 kg/m2 Latrice Slarb [employer] [facility]pre[facility] Internal Medicine Work Phone: 10-03-2016 14:01-0500 Body Temperature 97.4 [degF] Latrice Nguyenrb [facility] Work Phone: 10-03-2016 14:01-0500 Body weight 107.05 kg Latrice Castillo [employer] Work Phone: 10-03-2016 14:01-0500 BP Diastolic 82 mm[Hg] Latrice Patrickrb [employer] Work Phone: Comment on above: Patient Position: Sitting; Cuff Location : Left Arm; Cuff Size: Standard 10-03-2016 14:01-0500 BP Systolic 126 mm[Hg] Latrice Jonathan [facility] Work Phone: Comment on above: Patient Position: Sitting; Cuff Location : Left Arm; Cuff Size: Standard 10-03-2016 14:01-0500 BSA (Body Surface Area) 2.17 m2 Latrice Castillo [facility] Work Phone: 10-03-2016 14:01-0500 Height 170.18 cm Latrice Nguyenrb [facility] Work Phone: 10-03-2016 14:01-0500 Pulse (Heart Rate) 80 /min Latrice Castillo LPN [facility] Internal Medicine Work Phone: Comment on above: Pattern: Regular 10-03-2016 14:01-0500 Pulse Oximetry 98 % Noy Hook [facility] Work Phone: Comment on above: Room air 10-03-2016 14:01-0500 Respiratory Rate 18 /min Latrice Castillo LPN [facility] Work Phone: Comment on above: Pattern: Unlabored 10-03-2016 14:01-0500 SaO2% (BldA) [Mass fraction] 98 % Latrice Castillo LPN [facility] Work Phone: Comment on above: Room air 10-03-2016 14:01-0500 Weight 107.05 kg Noy Hook [facility] Work Phone: 06-27-2016 15:35-0400 BMI (Body Mass Index) 35.4 kg/m2 Latrice Slarb [employer] [facility]pre[facility] Internal Medicine Work Phone: 06-27-2016 15:35-0400 Body Temperature 97.2 [degF] Latrice Patrickrb [facility] Work Phone: 06-27-2016 15:35-0400 Body weight 102.51 kg Latrice Patrickrb [facility] Work Phone: 06-27-2016 15:35-0400 BP Diastolic 76 mm[Hg] Latrice Slarb [employer] Work Phone: Comment on above: Patient Position: Sitting; Cuff Location : Left Arm; Cuff Size: Standard 06-27-2016 15:35-0400 BP Systolic 124 mm[Hg] Latrice Patrickrb [employer] [facility] Work Phone: Comment on above: Patient Position: Sitting; Cuff Location : Left Arm; Cuff Size: Standard 06-27-2016 15:35-0400 BSA (Body Surface Area) 2.13 m2 Latrice Patrickrb [facility] Work Phone: 06-27-2016 15:35-0400 Height 170.18 cm Latrice Castillo [facility] Work Phone: 06-27-2016 15:35-0400 Pulse (Heart Rate) 100 /min Latrice Patrickrb [employer]prehens[facility] Internal Medicine Work Phone: Comment on above: Pattern: Regular 06-27-2016 15:35-0400 Pulse Oximetry 97 % Noy Hook [facility] Work Phone: Comment on above: Room air 06-27-2016 15:35-0400 Respiratory Rate 17 /min Latrice Castillo [facility] Work Phone: Comment on above: Pattern: Unlabored 06-27-2016 15:35-0400 SaO2% (BldA) [Mass fraction] 97 % Latrice Slarb [facility] Work Phone: Comment on above: Room air 06-27-2016 15:35-0400 Weight 102.51 kg Noy Hook [facility] Internal Medicine Work Phone: 03-08-2016 15:50-0400 BMI (Body Mass Index) 35.55 kg/m2 KIRSTIN Boland LPN [facility] Internal Medicine Work Phone: 03-08-2016 15:50-0400 Body Temperature 97.4 [degF] KIRSTIN Boland LPN [facility] Work Phone: Comment on above: Method: Temporal 03-08-2016 15:50-0400 Body weight 102.97 kg KIRSTIN Boland LPN [facility] Internal Medicine Work Phone: 03-08-2016 15:50-0400 BP Diastolic 76 mm[Hg] KIRSTIN Boland LPN [facility] Internal Medicine Work Phone: Comment on above: Patient Position: Sitting; Cuff Location : Left Arm; Cuff Size: Standard 03-08-2016 15:50-0400 BP Systolic 116 mm[Hg] KIRSTIN Boland LPN [facility] Work Phone: Comment on above: Patient Position: Sitting; Cuff Location : Left Arm; Cuff Size: Standard 03-08-2016 15:50-0400 BSA (Body Surface Area) 2.13 m2 KIRSTIN Boland LPN [facility] Internal Medicine Work Phone: 03-08-2016 15:50-0400 Height 170.18 cm KIRSTIN Boland [employer] [employer] [facility] Internal Medicine Work Phone: 03-08-2016 15:50-0400 Pulse (Heart Rate) 74 /min KIRSTIN Boland LPN [facility] Internal Medicine Work Phone: Comment on above: Pattern: Regular 03-08-2016 15:50-0400 Pulse Oximetry 97 % Noy Hook [facility] Internal Medicine Work Phone: Comment on above: Room air 03-08-2016 15:50-0400 Respiratory Rate 18 /min KIRSTIN Boland LPN [facility] Internal Medicine Work Phone: Comment on above: Pattern: Unlabored 03-08-2016 15:50-0400 SaO2% (BldA) [Mass fraction] 97 % KIRSTIN Boland LPN [facility] Work Phone: Comment on above: Room air 03-08-2016 15:50-0400 Weight 102.97 kg Noy Hook [facility] Internal Medicine Work Phone: 12-01-2015 15:29-0500 BMI (Body Mass Index) 35.32 kg/m2 Latrice Castillo [employer] [facility]pre[facility] Internal Medicine Work Phone: 12-01-2015 15:29-0500 Body Temperature 97.4 [degF] Latrice Castillo [facility] [facility] Work Phone: 12-01-2015 15:29-0500 Body weight 102.29 kg Latrice Castillo [address] [facility] [facility] Internal Medicine Work Phone: 12-01-2015 15:29-0500 BP Diastolic 80 mm[Hg] Latrice Castillo [facility] Work Phone: Comment on above: Patient Position: Sitting; Cuff Location : Left Arm; Cuff Size: Standard 12-01-2015 15:29-0500 BP Systolic 122 mm[Hg] Latrice Castillo [address] [employer] [facility] Internal Medicine Work Phone: Comment on above: Patient Position: Sitting; Cuff Location : Left Arm; Cuff Size: Standard 12-01-2015 15:29-0500 BSA (Body Surface Area) 2.13 m2 Latrice Castillo [facility] Work Phone: 12-01-2015 15:29-0500 Height 170.18 cm Latrice Castillo [facility] [facility] Work Phone: 12-01-2015 15:29-0500 Pulse (Heart Rate) 92 /min Latrice Castillo [employer] [employer] [facility] Internal Medicine Work Phone: Comment on above: Pattern: Regular 12-01-2015 15:29-0500 Pulse Oximetry 98 % Noy Hook [facility] Internal Medicine Work Phone: Comment on above: Room air 12-01-2015 15:29-0500 Respiratory Rate 16 /min Latriceissac Castillo [address] [facility] Work Phone: Comment on above: Pattern: Unlabored 12-01-2015 15:29-0500 SaO2% (BldA) [Mass fraction] 98 % Latrice Castillo [facility] Internal Medicine Work Phone: Comment on above: Room air 12-01-2015 15:29-0500 Weight 102.29 kg Noy Hook [facility] Internal Medicine Work Phone: 05-25-2015 15:19-0400 BMI (Body Mass Index) 33.99 kg/m2 KIRSTIN Boland [address] [employer] [facility] Internal Medicine Work Phone: 05-25-2015 15:19-0400 Body Temperature 97.6 [degF] KIRSTIN Boland [address] [employer] [facility] Internal Medicine Work Phone: Comment on above: Method: Temporal 05-25-2015 15:0400 Body weight 98.43 kg KIRSTIN Boland [address] [facility] [facility] Internal Medicine Work Phone: 05-25-2015 15:19-0400 BP Diastolic 74 mm[Hg] KIRSTIN Boland [facility] Internal Medicine Work Phone: Comment on above: Patient Position: Sitting; Cuff Location : Left Arm; Cuff Size: Standard 05-25-2015 15:19-0400 BP Systolic 114 mm[Hg] KIRSTIN Boland [facility] Internal Medicine Work Phone: Comment on above: Patient Position: Sitting; Cuff Location : Left Arm; Cuff Size: Standard 05-25-2015 15:19-0400 BSA (Body Surface Area) 2.09 m2 KIRSTIN Boland BOX TURNER [facility] Internal [facility] Work Phone: 05-25-2015 15:19-0400 Height 170.18 cm KIRSTIN Boland BOX TURNER [facility] Work Phone: 05-25-2015 15:19-0400 Pulse (Heart Rate) 84 /min KIRSTIN Boland BOX TURNER [facility] Work Phone: Comment on above: Pattern: Regular 05-25-2015 15:19-0400 Pulse Oximetry 98 % Noy Hook [facility] Work Phone: Comment on above: Room air 05-25-2015 15:19-0400 Respiratory Rate 20 /min KIRSTIN Boland BOX TURNER [facility] Work Phone: Comment on above: Pattern: Unlabored 05-25-2015 15:19-0400 SaO2% (BldA) [Mass fraction] 98 % KIRSTIN Boland ARNULFO [facility] Work Phone: Comment on above: Room air 05-25-2015 15:19-0400 Weight 98.43 kg Noy Blandonissac [facility] Work Phone: 12-16-2014 15:55-0500 BMI (Body Mass Index) 34.93 kg/m2 Marysol Arias RN [facility] Internal Medicine Work Phone: 12-16-2014 15:55-0500 Body Temperature 98.1 [degF] Marysol Arias RN [facility] Work Phone: Comment on above: Method: Temporal 12-16-2014 15:55-0500 Body weight 101.15 kg Marysol Arias RN [facility] Work Phone: 12-16-2014 15:55-0500 BP Diastolic 76 mm[Hg] Marysol Arias RN [facility] Work Phone: Comment on above: Patient Position: Sitting; Cuff Location : Left Arm; Cuff Size: Standard 12-16-2014 15:55-0500 BP Systolic 120 mm[Hg] Marysol Arias RN [facility] Work Phone: Comment on above: Patient Position: Sitting; Cuff Location : Left Arm; Cuff Size: Standard 12-16-2014 15:55-0500 BSA (Body Surface Area) 2.12 m2 Marysol Arias RN [facility] Work Phone: 12-16-2014 15:55-0500 Height 170.18 cm Marysol Arias RN [facility] Work Phone: 12-16-2014 15:55-0500 Pulse (Heart Rate) 78 /min Marysol Arias RN [facility] Work Phone: Comment on above: Pattern: Regular 12-16-2014 15:55-0500 Pulse Oximetry 98 % Noy Blandonissac [facility] Work Phone: Comment on above: Room air 12-16-2014 15:55-0500 Respiratory Rate 18 /min Marysol Arias RN [facility] Work Phone: Comment on above: Pattern: Unlabored 12-16-2014 15:55-0500 SaO2% (BldA) [Mass fraction] 98 % Marysol Arias RN [facility] Work Phone: Comment on above: Room air 12-16-2014 15:55-0500 Weight 101.15 kg Noy Hook [facility] Work Phone: 08-21-2014 07:55-0500 BMI (Body Mass Index) 34.93 kg/m2 KIRSTIN Boland LPN [facility] Work Phone: 08-21-2014 07:55-0500 Body Temperature 97.6 [degF] KIRSTIN Boland LPN [facility] Work Phone: Comment on above: Method: Temporal 08-21-2014 07:55-0500 Body weight 101.15 kg KIRSTIN Boland LPN [facility] Work Phone: 08-21-2014 07:55-0500 BP Diastolic 80 mm[Hg] KIRSTIN Boland LPN [facility] Work Phone: Comment on above: Patient Position: Sitting; Cuff Location : Left Arm; Cuff Size: Standard 08-21-2014 07:55-0500 BP Systolic 120 mm[Hg] KIRSTIN Boland LPN [facility] Work Phone: Comment on above: Patient Position: Sitting; Cuff Location : Left Arm; Cuff Size: Standard 08-21-2014 07:55-0500 BSA (Body Surface Area) 2.12 m2 KIRSTIN Boland LPN [facility] Work Phone: 08-21-2014 07:55-0500 Height 170.18 cm KIRSTIN Boland LPN [facility] Work Phone: 08-21-2014 07:55-0500 Pulse (Heart Rate) 70 /min KIRSTIN Boland LPN [facility] Work Phone: Comment on above: Pattern: Regular 08-21-2014 07:55-0500 Respiratory Rate 18 /min KIRSTIN Boland LPN [facility] Work Phone: Comment on above: Pattern: Unlabored 08-21-2014 07:55-0500 Weight 101.15 kg Noy Hook [facility] Work Phone: 06-24-2013 16:11-0400 BMI (Body Mass Index) 33.05 kg/m2 KIRSTIN Boland LPN [facility] Work Phone: 06-24-2013 16:11-0400 Body Temperature 98 [degF] KIRSTIN Boland LPN [facility] Work Phone: Comment on above: Method: Oral 06-24-2013 16:11-0400 Body weight 95.71 kg KIRSTIN Boland LPN [facility] Work Phone: 06-24-2013 16:11-0400 BP Diastolic 80 mm[Hg] KIRSTIN Boland LPN [facility] Work Phone: Comment on above: Patient Position: Sitting; Cuff Location : Left Arm; Cuff Size: Standard 06-24-2013 16:11-0400 BP Systolic 120 mm[Hg] KIRSTIN Boland LPN [facility] Work Phone: Comment on above: Patient Position: Sitting; Cuff Location : Left Arm; Cuff Size: Standard 06-24-2013 16:11-0400 BSA (Body Surface Area) 2.07 m2 KIRSTIN Boland LPN [facility] Work Phone: 06-24-2013 16:11-0400 Height 170.18 cm KIRSTIN Boland LPN [facility] Work Phone: 06-24-2013 16:11-0400 Pulse (Heart Rate) 70 /min KIRSTIN Boland LPN [facility] Work Phone: Comment on above: Pattern: Regular 06-24-2013 16:11-0400 Respiratory Rate 20 /min KIRSTIN Boland LPN [facility] Work Phone: Comment on above: Pattern: Unlabored 06-24-2013 16:11-0400 Weight 95.71 kg Noy Hook [facility] Work Phone: 02-12-2007 16:20-0400 BMI (Body Mass Index) 37.59 kg/m2 KIRSTIN Boland LPN [facility] Work Phone: 02-12-2007 16:20-0400 Body Temperature 97.8 [degF] KIRSTIN Boland LPN [facility] Work Phone: Comment on above: Method: Oral 02-12-2007 16:20-0400 Body weight 108.86 kg KIRSTIN Boland LPN [facility] Work Phone: 02-12-2007 16:20-0400 BP Diastolic 80 mm[Hg] KIRSTIN Boland LPN [facility] Work Phone: Comment on above: Patient Position: Sitting; Cuff Location : Left Arm; Cuff Size: Standard 02-12-2007 16:20-0400 BP Systolic 122 mm[Hg] KIRSTIN Boland LPN [facility] Work Phone: Comment on above: Patient Position: Sitting; Cuff Location : Left Arm; Cuff Size: Standard 02-12-2007 16:20-0400 BSA (Body Surface Area) 2.19 m2 KIRSTIN Boland LPN [facility] Work Phone: 02-12-2007 16:20-0400 Head Circumference 0 cm Noy Hook [facility] Work Phone: 02-12-2007 16:20-0400 Head Occipital-frontal circumference 0 cm KIRSTIN Boland LPN [facility] Work Phone: 02-12-2007 16:20-0400 Height 170.18 cm KIRSTIN Boland LPN [facility] Work Phone: 02-12-2007 16:20-0400 Pulse (Heart Rate) 80 /min KIRSTIN Boland LPN [facility] Work Phone: Comment on above: Pattern: Regular 02-12-2007 16:20-0400 Respiratory Rate 20 /min KIRSTIN Boland LPN [facility] Work Phone: Comment on above: Pattern: Unlabored 02-12-2007 16:20-0400 Weight 108.86 kg Noy Hook [facility] Work Phone: Encounters Encounter Date Encounter Type Care Provider Facility Start: 01-09-2025 End: 01-09-2025 ambulatory No Primary Care Physician Facility:[facility] Start: 07-11-2024 End: 07-11-2024 ambulatory No Primary Care Physician Facility[place] Start: 06-14-2024 End: 06-14-2024 Patient encounter procedure Awa Aguero EMERGENCY DISPATCH OPERATOR.CONFERENCE CONCIERGE Work Phone: [facility] Comment on above: 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, including poison nisha, sumac, and oak (Primary Dx) Start: 05-14-2024 End: 05-14-2024 Office outpatient visit 25 minutes Era Llanos MD Work Phone: [employer] [facility] Comment on above: Coarctation of aorta (Primary Dx); Essential hypertension; Other hyperlipidemia; Other specified congenital malformations; Congenital aortic insufficiency Start: 05-14-2024 End: 05-14-2024 Subsequent hospital visit by physician Era Llanos MD Work Phone: [facility] Comment on above: Arrived Start: 05-14-2024 ambulatory ERA LLANOS Facility :[facility] Start: 03-29-2024 End: 03-29-2024 ambulatory No Primary Care Physician Facility:[facility] Start: 01-11-2024 End: 01-11-2024 ambulatory Noy Hook NP Facility:[facility] Start: 05-16-2023 End: 05-16-2023 Office outpatient visit 40 minutes Era Llanos MD Work Phone: [employer] [facility] Comment on above: Coarctation of aorta ; Bicuspid aortic valve; Primary hypertension; Essential hypertension; Other hyperlipidemia; Other specified congenital malformations Start: 05-16-2023 End: 05-16-2023 Subsequent hospital visit by physician Era Llanos MD Work Phone: [facility] Comment on above: Arrived Start: 12-31-2022 End: 12-31-2022 ambulatory VOCATIONAL CASE MANAGER-C Noy Hook NP Work Phone: [facility] Work Phone: Start: 12-31-2022 End: 12-31-2022 Patient encounter procedure VOCATIONAL CASE MANAGER-C Noy Jamiaissac VOCATIONAL CASE MANAGER Work Phone: [facility] Start: 12-28-2022 End: 12-28-2022 Patient encounter procedure VOCATIONAL CASE MANAGER-C Noy Blandonissac VOCATIONAL CASE MANAGER Work Phone: [facility] Endocrinology Start: 06-21-2022 [facility] Start: 05-31-2022 End: 05-31-2022 Office outpatient visit 25 minutes Era Llanos MD Work Phone: [facility] Comment on above: Coarctation of aorta (Primary Dx); H/O aortic root repair; S/P VSD repair; Bicuspid aortic valve; Essential hypertension; Other hyperlipidemia; Other specified congenital malformations Start: 11-03-2021 End: 11-03-2021 Office outpatient visit 25 minutes Noy Hook CONFERENCE CONCIERGE Work Phone: [facility] Start: 07-07-2021 End: 07-07-2021 Periodic preventive med est patient 40-64yrs Noy Julio Cesar CONFERENCE CONCIERGE Work Phone: [facility] Start: 07-07-2021 End: 07-07-2021 Physical examination Noy Blandonissac Work Phone: [facility] Start: 06-01-2021 End: 06-01-2021 Subsequent hospital visit by physician Era Llanos MD Work Phone: [facility] Comment on above: Arrived Start: 06-01-2021 End: 06-01-2021 Office outpatient visit 25 minutes Era Llanos MD Work Phone: [employer] [facility] Comment on above: Edema of right lower extremity (Primary Dx); Essential hypertension; Congenital dilatation of aorta; Coarctation of aorta; Other hyperlipidemia; Other specified congenital malformations Start: 03-03-2021 End: 03-03-2021 Office outpatient visit 15 minutes Noy Hook CONFERENCE CONCIERGE Work Phone: [facility] Start: 03-03-2021 Review Noy Hook CONFERENCE CONCIERGE Work Phone: [facility] Start: 11-03-2020 End: 11-03-2020 Office outpatient visit 25 minutes Noy Blandonissac [facility] Start: 10-10-2020 End: 10-10-2020 Annotation/Addendum Noy Blandonissac [facility] Start: 06-30-2020 End: 06-30-2020 Periodic preventive med est patient 40-64yrs Noy Hook CONFERENCE CONCIERGE Work Phone: [facility] Start: 06-30-2020 Review Noy Hook CONFERENCE CONCIERGE Work Phone: [facility] Start: 03-24-2020 End: 03-24-2020 Office outpatient visit 5 minutes Noy Julio Cesar [facility] Start: 02-18-2020 End: 02-18-2020 Office outpatient visit 25 minutes Noy Deng [facility] Start: 12-02-2019 End: 12-02-2019 Annotation/Addendum Noy Hook [facility] Start: 11-26-2019 End: 11-26-2019 Office outpatient visit 15 minutes Noy Julio Cesar [facility] Start: 08-20-2019 End: 08-20-2019 Office outpatient visit 25 minutes Ony Julio Cesar [facility] Start: 08-20-2019 Review Noy Hook Kaila wendy [facility] Start: 04-30-2019 End: 04-30-2019 Office outpatient visit 25 minutes Noy Julio Cesar [facility] Start: 01-22-2019 Patient encounter procedure Noy Dohertysameera [facility] Start: 01-22-2019 End: 01-22-2019 Office outpatient visit 25 minutes Noy Blandonissac [facility] Start: 01-22-2019 Review Noy Hook Kaila wendy [facility] Start: 10-10-2018 End: 10-10-2018 Office outpatient visit 25 minutes Noy Julio Cesar [facility] Start: 07-10-2018 End: 07-10-2018 Patient encounter procedure Noy Hook Work Phone: [facility] Start: 07-10-2018 End: 07-10-2018 Periodic preventive med est patient 40-64yrs Noy Bessychitraissac [facility] Start: 07-10-2018 End: 07-10-2018 Annotation/Addendum Noy Hook [facility] Start: 07-01-2018 End: 07-01-2018 Annotation/Addendum Noy Bessysameera [facility] Start: 04-03-2018 End: 04-03-2018 Office outpatient visit 25 minutes Noy Bessychitraissac [facility] Start: 12-27-2017 End: 12-27-2017 Office outpatient visit 25 minutes Noy Deng [facility] Start: 10-24-2017 End: 10-24-2017 Office outpatient visit 15 minutes Noy Hook [facility] Start: 07-25-2017 End: 07-25-2017 Office outpatient visit 15 minutes Noy Hook [facility] Start: 07-25-2017 End: 07-25-2017 Patient encounter status Noy Hook Work Phone: [facility] Start: 04-11-2017 End: 04-11-2017 Annotation/Addendum Noy Blandonissac [facility] Start: 04-11-2017 End: 04-11-2017 Office outpatient visit 15 minutes Noy Dneg [facility] Start: 01-02-2017 End: 01-02-2017 Office outpatient visit 25 minutes Noy Deng [facility] Start: 10-03-2016 End: 10-03-2016 Office outpatient visit 25 minutes Noy Deng [facility] Start: 06-27-2016 End: 06-27-2016 Office outpatient visit 25 minutes Noy Deng [facility] Start: 06-23-2016 End: 06-23-2016 Phone Encounter Noy Dohertychitraissac [facility] Start: 03-08-2016 End: 03-08-2016 Office outpatient visit 40 minutes Noy Deng [facility] Start: 12-01-2015 End: 12-01-2015 Office outpatient visit 10 minutes Noy Deng [facility] Start: 11-19-2015 End: 11-19-2015 Lab Order Noy Deng [facility] Start: 05-25-2015 End: 05-25-2015 Office outpatient visit 15 minutes Noy Deng [facility] Start: 04-30-2015 End: 04-30-2015 Phone Encounter Noy Deng [facility] Start: 01-12-2015 End: 01-12-2015 Phone Encounter Noy Deng [facility] Start: 12-16-2014 End: 12-16-2014 Office outpatient visit 15 minutes Noy Hook [facility] Start: 08-21-2014 End: 08-21-2014 Office outpatient visit 25 minutes Noy Hook [facility] Start: 08-21-2014 End: 08-21-2014 Patient encounter status Noy Hook Work Phone: [facility] Start: 06-24-2013 End: 06-24-2013 Patient encounter Noy Hook [facility] Start: 02-13-2007 End: 02-13-2007 Historical Summary Noy Hook [facility] Start: 02-12-2007 End: 02-12-2007 Patient encounter Noy Hook [facility] Patient encounter procedure Kyrie Denis LPN [facility]; [facility] Work Phone: Patient encounter procedure Kyrie Denis LPN [facility]; [facility] Work Phone: Patient encounter procedure Minnie Quinteros LPN [facility]; [facility] Work Phone: Patient encounter procedure Latoya Duque AUDIT ASSOCIATE [facility] Work Phone: Patient encounter status Kyrie Denis LPN [facility]; [facility] Work Phone: Patient encounter status Kyrie Denis LPN [facility]; [facility] Work Phone: Patient encounter status Minnie Gar [facility]; [facility] Work Phone: Patient encounter status Kyrie Denis LPN [facility] Work Phone: Patient encounter status Kyrie Denis LPN [facility] Work Phone: Patient encounter status Kyrie Denis LPN [facility]; [facility] Work Phone: End: 05-25-2015 Physical examination Community Midwife [facility] Work Phone: Physical examination Dina Bessychitra [place] MEIR Work Phone: [facility]; [facility] Work Phone: Physical examination Kyrie Denis LPN [facility]; [facility] Work Phone: Procedures Date Procedure Procedure Detail Performing Clinician Start: 05-16-2023 Ecg routine ecg w/least 12 lds trcg only w/o i&r Mino Miner EMERGENCY DISPATCH OPERATOR-CONFERENCE CONCIERGE Work Phone: Start: 05-16-2023 Complete tthrc echo congenital cardiac anomaly Ricki Berry MD Work Phone: Start: 12-28-2022 End: 01-16-2023 Endocrinology Visit Report Procedure Note: See Note; NOTES: [facility] [address] [place] [address] OFFICE VISIT Date of Service: 12/28/22 MR#: [id number] Acct: [id number] Name: LISS MOON Rep #: [id number] : 1970 Provider: CARMINA nieves Age/Sex: 52/M Location: [facility] Status: Signed Intake Vital Signs 12/28/22 10:37 Height 5 ft 7.5 in Weight: 262 lb 4 oz BMI 40.4 BP 142/79 H Blood Pressure Location Rt brachial Position Sitting Respiration 18 Pulse 71 Pulse Source Monitor Temp 97.2 F L Temp Source Temporal Pulse Oximetry (%) 95 Oxygen Delivery Method room air Intake Visit Reasons: 6 M FU Chief Complaint: Diabetes Header Operator Required: No Accompanied by: Self Is patient in pain?: No Allergies CARDIAC DYE Adverse Reaction (Mild, Uncoded 12/28/22 10:55) [facility] Medical History Anemia AORTIC ROOT REPLACEMENT Asthma CIRCUMCISION Diabetes Heart disease Heart valve problem Murmur 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 A1C today is 6.3%, increased slightly from 06/29/22 at 6.1%. He has gained 10 lbs. Currently taking metformin 750 mg BID with food, Rybelsus 14 mg once daily, and Tresiba 60 u once daily. Denies any instances of lows. He is due for labs. He is need of a PCP. Continues to follow with cardiology at [facility] for congenital heart defect. Denies any acute concerns. Exam Const General: cooperative, healthy appearing, comfortable and no acute distress Nutritional Appearance: obese Orientation: alert, awake and oriented x3 HENSC Head: normal to inspection Ears: hearing grossly normal bilaterally Nose: external nose normal Face and sinus: normal facial exam Eyes General: appearance normal, both eyes and all related structures Alignment and Position: alignment normal Sclera: sclerae normal Neck Neck: normal visual inspection Carotids: normal carotid upstroke Chest Chest palpation inspection: normal inspection of the chest Resp Effort Inspection: normal respiratory effort, able to speak in complete sentences, symmetric chest movement, normal respiratory pattern, no audible wheezes and no cough Auscultation: Bilateral: Clear to Auscultation Cardio Rate: regular rate Rhythm: regular rhythm Heart Sounds: S1 normal, S2 normal and murmur systolic IV/ GI Inspection: normal to inspection and obesity Musc Cervical Spine: normal cervical lordosis Thoracic/Lumbar Spine: thoracic and lumbar spine normal to inspection Skin General: no rashes or lesions noted Lesions: no lesions Rashes: no rashes Trauma: no lacerations or abrasions Wounds: no wounds Neuro General: patient alert, patient awake and patient oriented x3 Cognition: normal cognition Speech: speech normal Gait: normal gait Extrem General: normal to inspection and pedal edema bilaterally Location: of the foot, of the ankle and of the leg Psych Appearance: grossly normal Mental Status: mental status grossly normal Mood: congruent mood Affect: normal affect Speech and Movement: speech and movement normal Attitude: cooperative Thought Process: normal Thought Content: normal Judgment: judgment good Results POC A1C POC A1C 6.3 % Last Edit by Livier Arias on 12/28/22 11:01 Coding Level of Care Code Off vis,est,level 4 Diagnoses Diabetes E11.65 Diabetes mellitus type: type 2 Diabetes mellitus middle or intermediate school principal insulin use: with alf use Diabetes mellitus complication status: with hyperglycemia Benign essential hypertension I10 Obesity E66.01; Z68.38 Obesity type: due to excess calories Obesity classification: adult class 2 (BMI 35 - 39.9) Serious obesity comorbidity presence: with serious comorbidity Body mass index: BMI 38.0-38.9 Assessment and Plan Assessment and Plan (1) Diabetes: Status: Chronic Qualifiers: Diabetes mellitus type: type 2 Diabetes mellitus middle or intermediate school principal insulin use: with alf use Diabetes mellitus complication status: with hyperglycemia Qualified Code(s): E11.65 - Type 2 diabetes mellitus with hyperglycemia Plan: Chronic- controlled. A1C at goal: <7.5%. I reviewed with the patient the risk of developing and worsening of diabetes complications including retinopathy, neuropathy, nephropathy, heart attack, stroke, amputation, and sudden . Diabetes education provided. Continue Tresiba 60 u once daily. Continue metformin 750 mg BID with food. Discussed switching Rybelsus to injectable GLP-1- he will research gonzales and decide. Notify office of persistent low blood sugars. Check CMP, lipid panel, TSH, M:C ratio, and vitamin D- I will interpret and communicate labs with patient. The patient was counseled regarding the importance of foot care including daily visual and tactile inspection. The patient was instructed not to go barefoot and to always wear socks with their shoes. Encouraged he get a PCP for preventative measures and acute illnesses. Follow up in 6 months. (2) Benign essential hypertension: Status: Chronic Plan: Chronic- stable. Continue amlodipine 5 mg once daily. Continue losartan 25 mg BID. Continue metoprolol 100 mg once daily. Will continue to monitor. (3) Obesity: Status: Chronic Qualifiers: Obesity type: due to excess calories Obesity classification: adult class 2 (BMI 35 - 39.9) Serious obesity comorbidity presence: with serious comorbidity Body mass index: BMI 38.0-38.9 Qualified Code(s): E66.01 - Morbid (severe) obesity due to excess calories; Z68.38 - Body mass index [BMI] 38.0-38.9, adult Plan: Chronic- stable. Encouraged a diet that contains high quality carbohydrates rich in fiber. Injectable GLP-1 may be more effective for weight loss. I have spent [31] minutes today reviewing labs, records and history. Time includes coordinating care, interpretation of tests, discussion with patient's other health care providers via telephone. This also includes time I spent with the patient for exam, treatment plan and education as well as documenting clinical information. Orders: Orders POC A1C Today E11.9 - Type 2 diabetes mellitus without complications Vitamin D,25 Hydroxy Today E11.9 - Type 2 diabetes mellitus without complications, E66.9 - Obesity, unspecified, E78.1 - Pure hyperglyceridemia, I10 - Essential (primary) hypertension [facility] Metabolic Profil Today E11.9 - Type 2 diabetes mellitus without complications, E66.9 - Obesity, unspecified, E78.1 - Pure hyperglyceridemia, I10 - Essential (primary) hypertension Lipid Profile Today E11.9 - Type 2 diabetes mellitus without complications, E66.9 - Obesity, unspecified, E78.1 - Pure hyperglyceridemia, I10 - Essential (primary) hypertension Thyroid Stim Hormone (TSH) Today E11.9 - Type 2 diabetes mellitus without complications, E66.9 - Obesity, unspecified, E78.1 - Pure hyperglyceridemia, I10 - Essential (primary) hypertension Microalb:Creat Ratio,Random UR Today E11.9 - Type 2 diabetes mellitus without complications, E66.9 - Obesity, unspecified, E78.1 - Pure hyperglyceridemia, I10 - Essential (primary) hypertension Medications: Changed From pravastatin PO To pravastatin 40 mg PO DAILY 90 tabs 1RF Refilled Rybelsus (semaglutide) 14 mg PO DAILY 90 tabs 1RF NS E11.9 - Type 2 diabetes mellitus without complications Tresiba FlexTouch U-200 (insulin degludec) 60 units (0.3 mL) subcut DAILY 27 mL 1RF NS E11.9 - Type 2 diabetes mellitus without complications metformin ER 750 mg PO BIDWMEAL 180 tabs 1RF E11.9 - Type 2 diabetes mellitus without complications Plan Details Follow Up: 3 Months 12/28/22 1308 <Electronically signed by Marysol GREWAL> Date Marysol GREWAL Cosigner Signature: Date (if applicable) CC: Noy Hook Work Phone: Start: 06-29-2022 End: 06-29-2022 Endocrinology Visit Report Procedure Note: See Note; NOTES: [facility] [address] [place] [address] OFFICE VISIT Date of Service: 06/29/22 MR#: [id number] Acct: [id number] Name: LISS MOON Rep #: [id number] : 1970 Provider: CARMINA nieves Age/Sex: 52/M Location: [facility] Status: Signed Intake Vital Signs 06/29/22 13:12 Height 5 ft 7.5 in Weight: 252 lb 6 oz BMI 38.9 BP 144/79 H Blood Pressure Location Lt brachial Position Sitting Respiration 18 Pulse 80 Pulse Source Monitor Temp 96.8 F L Temp Source Temporal Pulse Oximetry (%) 95 Oxygen Delivery Method room air Intake Visit Reasons: 6 M FU Chief Complaint: Diabetes Header Operator Required: No Accompanied by: Self Is patient in pain?: No Allergies CARDIAC DYE Adverse Reaction (Mild, Uncoded 06/29/22 13:20) HIVES,TROUBLE BREATHING PFSH Medical History Anemia AORTIC ROOT REPLACEMENT Asthma CIRCUMCISION Diabetes Heart disease Heart valve problem Murmur REPAIR OF 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 A1C today is 6.1%, improved from 01/03/22 at 6.3%. Currently taking metformin 750 mg BID- not closely associated with food, Rybelsus 14 mg once daily, and Tresiba 54-60 u daily. He takes fasting blood sugar daily, persistently <140. Complains of occasional lows with increased activity or between meals. Currently taking amlodipine 5 mg daily, losartan 25 mg BID, and metoprolol succ 100 mg daily. He sees cardiology at [facility] for congenital cardiac issues. Denies any acute concerns. Exam Const General: cooperative, healthy appearing, comfortable and no acute distress Nutritional Appearance: obese Orientation: alert, awake and oriented x3 HENMT Head: normal to inspection Ears: hearing grossly normal bilaterally Nose: external nose normal Eyes General: appearance normal, both eyes and all related structures Alignment and Position: alignment normal Sclera: sclerae normal Neck Neck: normal visual inspection and full ROM Neck mass: No Carotids: normal carotid upstroke Chest Chest palpation inspection: normal inspection of the chest Resp Effort Inspection: normal respiratory effort, able to speak in complete sentences, symmetric chest movement, normal respiratory pattern, no audible wheezes and no cough Auscultation: Bilateral: Clear to Auscultation Cardio Rate: regular rate Rhythm: regular rhythm Heart Sounds: murmur continuous III/ GI Inspection: normal to inspection and obesity Musc Cervical Spine: normal cervical lordosis Thoracic/Lumbar Spine: thoracic and lumbar spine normal to inspection Skin General: no rashes or lesions noted Lesions: no lesions Rashes: no rashes Trauma: no lacerations or abrasions Wounds: no wounds Neuro General: patient alert, patient awake and patient oriented x3 Cognition: normal cognition Speech: speech normal Gait: normal gait Extrem General: normal to inspection, full ROM and pedal edema on the right Location: of the leg Psych Appearance: grossly normal Mental Status: mental status grossly normal Mood: congruent mood Affect: normal affect Speech and Movement: speech and movement normal Attitude: cooperative Thought Process: normal Thought Content: normal Judgment: judgment good Results POC A1C POC A1C 6.1 % Last Edit by Livier Evans on 06/29/22 13:25 Coding Level of Care Code Off vis,est,level 3 Diagnoses Diabetes E11.65 Diabetes mellitus type: type 2 Diabetes mellitus middle or intermediate school principal insulin use: with middle or intermediate school principal use Diabetes mellitus complication status: with hyperglycemia Benign essential hypertension I10 Obesity E66.01; Z68.38 Obesity type: due to excess calories Obesity classification: adult class 2 (BMI 35 - 39.9) Serious obesity comorbidity presence: with serious comorbidity Body mass index: BMI 38.0-38.9 Assessment and Plan Assessment and Plan (1) Diabetes: Status: Chronic Qualifiers: Diabetes mellitus type: type 2 Diabetes mellitus middle or intermediate school principal insulin use: with middle or intermediate school principal use Diabetes mellitus complication status: with hyperglycemia Qualified Code(s): E11.65 - Type 2 diabetes mellitus with hyperglycemia Plan: Chronic- controlled. I reviewed with the patient the risk of developing and worsening of diabetes complications including retinopathy, neuropathy, nephropathy, heart attack, stroke, amputation, and sudden . Diabetes education provided. Continue metformin 750 mg BID, emphasized importance of taking with food. Continue Rybelsus 14 mg once daily. Reviewed proper administration of medication. Continue Tresiba 60 u once daily, encouraged him to decrease dose with increased activity for the day to alleviate lows with activity. Call office with lows. He will be due for labs at next appointment. Follow up in 6 months. (2) Benign essential hypertension: Status: Chronic Plan: Chronic- controlled. Continue amlodipine 5 mg once daily, losartan 25 mg BID, and metoprolol succ 100 mg daily. Will continue to monitor. (3) Obesity: Status: Chronic Qualifiers: Obesity type: due to excess calories Obesity classification: adult class 2 (BMI 35 - 39.9) Serious obesity comorbidity presence: with serious comorbidity Body mass index: BMI 38.0-38.9 Qualified Code(s): E66.01 - Morbid (severe) obesity due to excess calories; Z68.38 - Body mass index [BMI] 38.0-38.9, adult Plan: Chronic- stable. Nutritional counseling provided, avoid flour, sugar, and artificial sweeteners. Encouraged a diet that contains high quality carbohydrates rich in fiber. I have spent [27] minutes today reviewing labs, records and history. Time includes coordinating care, interpretation of tests, discussion with patient's other health care providers via telephone. This also includes time I spent with the patient for exam, treatment plan and education as well as documenting clinical information. Medications: Changed From metformin ER PO E11.9 - Type 2 diabetes mellitus without complications To metformin ER 750 mg PO BIDWMEAL 180 tabs 1RF E11.9 - Type 2 diabetes mellitus without complications Refilled Tresiba FlexTouch U-200 (insulin degludec) 60 units (0.3 mL) subcut DAILY 27 mL 2RF NS 06/29/22 1412 <Electronically signed by Marysol AVALOSC> Date Marysol Elias VOCATIONAL CASE MANAGER-C Cosigner Signature: Date (if applicable) CC: Noy Hook Work Phone: Start: 01-03-2022 End: 01-03-2022 Endocrinology Visit Report Procedure Note: See Note; NOTES: [facility] [address] [place] [address] OFFICE VISIT Date of Service: 01/03/22 MR#: [id number] Acct: [id number] Name: LISS MOON Rep #: [id number] : 1970 Provider: Tonia Moore Age/Sex: 51/M Location: [facility] Status: Signed Intake Vital Signs 01/03/22 14:47 Height 5 ft 7.5 in Weight: 251 lb BMI 38.7 BP 132/78 H Blood Pressure Location Rt popliteal Intake Visit Reasons: 6 M FU Chief Complaint: Diabetes Allergies CARDIAC DYE Adverse Reaction (Mild, Uncoded 01/26/21 15:02) HIVES,TROUBLE BREATHING PFSH Medical History Anemia AORTIC ROOT REPLACEMENT Asthma CIRCUMCISION Diabetes Heart disease Heart valve problem Murmur 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 He is taking metformin , rybelsus, and Tresiba 60 units. He states morning blood sugars are high at 130's. He was sick with pneumonia in August. He eats late supper. A1C is 6.3% He is doing well! Exam Const General: cooperative, healthy appearing, comfortable, no acute distress, well developed and not cushingoid Nutritional Appearance: well nourished Orientation: alert, awake and oriented x3 HENMT Head: normal to inspection Ears: hearing grossly normal bilaterally Nose: external nose normal Mouth: oral mucosae normal Eyes General: appearance normal, both eyes and all related structures Alignment and Position: alignment normal Periorbital: periorbital findings normal Eyelids: eyelids normal Conjunctivae: conjunctivae normal Neck Neck: normal visual inspection Neck mass: No Thyroid: thyroid normal Lymphatic: no lymphadenopathy noted Chest Chest palpation inspection: normal inspection of the chest Resp Effort Inspection: normal respiratory effort, able to speak in complete sentences, symmetric chest movement, no audible wheezes and no cough Auscultation: Bilateral: Clear to Auscultation Cardio Rate: regular rate Rhythm: regular rhythm Pulses: posterior tibial pulses present GI Inspection: normal to inspection Auscultation: normal bowel sounds Palpation: soft and no hepatosplenomegaly Skin General: no rashes or lesions noted Neuro General: patient alert, patient awake and patient oriented x3 Cranial Nerves: CN's II-XI intact bilaterally Cognition: normal cognition Speech: speech normal Gait: normal gait Motor: muscle tone normal throughout Extrem General: no edema Psych Appearance: grossly normal Mental Status: mental status grossly normal Mood: congruent mood Affect: normal affect Speech and Movement: speech and movement normal Attitude: cooperative Thought Process: normal Thought Content: normal Judgment: judgment good Coding Level of Care Code Off vis,est,level 3 Diagnoses Diabetes E11.65 Diabetes mellitus type: type 2 Diabetes mellitus middle or intermediate school principal insulin use: with middle or intermediate school principal use Diabetes mellitus complication status: with hyperglycemia Benign essential hypertension I10 Hypertriglyceridemia E78.1 Obesity E66.01; Z68.38 Obesity type: due to excess calories Obesity classification: adult class 2 (BMI 35 - 39.9) Serious obesity comorbidity presence: with serious comorbidity Body mass index: BMI 38.0-38.9 Assessment and Plan Assessment and Plan (1) Diabetes: Status: Chronic Qualifiers: Diabetes mellitus type: type 2 Diabetes mellitus alf insulin use: with middle or intermediate school principal use Diabetes mellitus complication status: with hyperglycemia Qualified Code(s): E11.65 - Type 2 diabetes mellitus with hyperglycemia Plan: Diabetes education provided. Controlled, continue current medications. Follow up in 6 months. (2) Benign essential hypertension: Status: Chronic Plan: Controlled, please continue current medications. (3) Hypertriglyceridemia: Status: Chronic Plan: Continue fenofibrate. (4) Obesity: Status: Chronic Qualifiers: Obesity type: due to excess calories Obesity classification: adult class 2 (BMI 35 - 39.9) Serious obesity comorbidity presence: with serious comorbidity Body mass index: BMI 38.0-38.9 Qualified Code(s): E66.01 - Morbid (severe) obesity due to excess calories; Z68.38 - Body mass index [BMI] 38.0-38.9, adult Plan: Nutritional counseling provided, avoid flour, sugar, and artificial sweeteners. I have spent [26] minutes today reviewing labs, records and history. Time includes coordinating care, interpretation of tests, discussion with patient's other health care providers via telephone. This also includes time I spent with the patient for exam, treatment plan and education as well as documenting clinical information. Plan Details Other Medications: Refilled: Tresiba FlexTouch U-200 (insulin degludec) 60 units (0.3 mL) subcut DAILY 27 mL 2RF NS Rybelsus (semaglutide) 14 mg PO DAILY 90 tabs 2RF NS 01/03/22 1523 <Electronically signed by Timur Burgos MD> Date Timur Burgos MD Cosigner Signature: Date (if applicable) CC: VOCATIONAL CASE MANAGERGarcía Hook Noy Hook Work Phone: Start: 07-05-2021 End: 07-05-2021 Endocrinology Visit Report Comments: See Note; NOTES: [facility] [address] [place] [address] OFFICE VISIT Date of Service: 07/05/21 MR#: [id number] Acct: [id number] Name: LISS MOON Rep #: [id number] : 1970 Provider: Tonia Moore Age/Sex: 51/M Location: [facility] Status: Signed Intake Vital Signs 07/05/21 14:03 07/05/21 14:11 Height 5 ft 7.5 in Weight: 246 lb BMI 37.9 38.5 BP 138/70 H Pulse 78 Intake Visit Reasons: 5 M FU Chief Complaint: Diabetes Allergies CARDIAC DYE Adverse Reaction (Mild, Uncoded 01/26/21 15:02) HIVES,TROUBLE BREATHING PFS Medical History Anemia AORTIC ROOT REPLACEMENT Asthma CIRCUMCISION Diabetes Heart disease Heart valve problem Murmur 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 He is taking metformin, rybelsus, Tresiba. Glimepiride if blood sugar is over 200 (took 3 times) A1C is 6.3% He has no acute concerns. Exam Const General: cooperative, healthy appearing, comfortable, no acute distress, well developed and not cushingoid Nutritional Appearance: well nourished Orientation: alert, awake and oriented x3 HENMT Head: normal to inspection Ears: hearing grossly normal bilaterally Nose: external nose normal Mouth: oral mucosae normal Eyes General: appearance normal, both eyes and all related structures Alignment and Position: alignment normal Periorbital: periorbital findings normal Eyelids: eyelids normal Conjunctivae: conjunctivae normal Neck Neck: normal visual inspection Neck mass: No Thyroid: thyroid normal Carotids: no bruits Lymphatic: no lymphadenopathy noted Chest Chest palpation inspection: normal inspection of the chest Resp Effort Inspection: normal respiratory effort, able to speak in complete sentences, symmetric chest movement, no audible wheezes and no cough Auscultation: Bilateral: Clear to Auscultation Cardio Rate: regular rate Rhythm: regular rhythm Pulses: posterior tibial pulses present GI Inspection: normal to inspection Auscultation: normal bowel sounds Palpation: soft and no hepatosplenomegaly Skin General: no rashes or lesions noted Neuro General: patient alert, patient awake and patient oriented x3 Cranial Nerves: CN's II-XI intact bilaterally Cognition: normal cognition Speech: speech normal Gait: normal gait Motor: muscle tone normal throughout Extrem General: no edema Psych Appearance: grossly normal Mental Status: mental status grossly normal Mood: congruent mood Affect: normal affect Speech and Movement: speech and movement normal Attitude: cooperative Thought Process: normal Thought Content: normal Judgment: judgment good Coding Level of Care Code Off vis,est,level 3 Diagnoses Diabetes E11.65 Diabetes mellitus complication status: with hyperglycemia Diabetes mellitus alf insulin use: with alf use Diabetes mellitus type: type 2 Benign essential hypertension I10 Obesity E66.01; Z68.38 Body mass index: BMI 38.0-38.9 Obesity classification: adult class 2 (BMI 35 - 39.9) Obesity type: due to excess calories Serious obesity comorbidity presence: with serious comorbidity Assessment and Plan Assessment and Plan (1) Diabetes: Status: Chronic Qualifiers: Diabetes mellitus complication status: with hyperglycemia Diabetes mellitus alf insulin use: with alf use Diabetes mellitus type: type 2 Qualified Code(s): E11.65 - Type 2 diabetes mellitus with hyperglycemia Plan: Diabetes education provided. Increase Rybelsus from 7 mg to 14 mg. Continue metformin and Tresiba. (2) Benign essential hypertension: Status: Chronic Plan: Controlled, please continue current medications. (3) Obesity: Status: Chronic Qualifiers: Body mass index: BMI 38.0-38.9 Obesity classification: adult class 2 (BMI 35 - 39.9) Obesity type: due to excess calories Serious obesity comorbidity presence: with serious comorbidity Qualified Code(s): E66.01 - Morbid (severe) obesity due to excess calories; Z68.38 - Body mass index [BMI] 38.0-38.9, adult Plan: Nutritional counseling provided, avoid flour, sugar, and artificial sweeteners. He has lost 5 pounds. I have spent [27] minutes today reviewing labs, records and history. Time includes coordinating care, interpretation of tests, discussion with patient's other health care providers via telephone. This also includes time I spent with the patient for exam, treatment plan and education as well as documenting clinical information. Plan Details Other Medications: New: Rybelsus (semaglutide) 14 mg PO DAILY 30 tabs 6RF NS Refilled: Tresiba FlexTouch U-200 (insulin degludec) 60 units (0.3 mL) subcut DAILY 6 mL 6RF NS Discontinued: glimepiride Discontinued Reason: Order Completed 4 mg PO DAILY 30 tabs 6RF Rybelsus (semaglutide) Discontinued Reason: Order Changed 7 mg PO DAILY 30 tabs 6RF NS 07/05/21 1509 <Electronically signed by Timur Burgos MD> Date Timur Burgos MD Cosigner Signature: Date (if applicable) CC: VOCATIONAL CASE MANAGERGarcía Hook [employer]FERENCE CONCIERGE Work Phone: Start: 01-26-2021 End: 01-28-2021 Endocrinology Visit Report Comments: See Note; NOTES: [facility] [place] [address] OFFICE VISIT Date of Service: 01/26/21 MR#: [id number] Acct: [id number] Name: LISS MOON Rep #: [id number] : 1970 Provider: Tonia Moore Age/Sex: 51/M Location[place] [email or web address] Status: Signed Intake Vital Signs 01/26/21 Height 5 ft 7.5 in 01/26/21 Weight: 250 lb 01/26/21 BMI 38.5 01/26/21 BP 128/82 H 01/26/21 Blood Pressure Location Lt brachial 01/26/21 Position Sitting 01/26/21 Respiration 20 H 01/26/21 Pulse 85 01/26/21 Pulse Source Monitor 01/26/21 Temp 97.5 F L 01/26/21 Temp Source Temporal 01/26/21 Pulse Oximetry (%) 97 01/26/21 Oxygen Delivery Method room air Intake Visit Reasons: 4 M FU Chief Complaint: Diabetes Header Operator Required: No Accompanied by: None Is patient in pain?: No Allergies CARDIAC DYE Adverse Reaction (Mild, Uncoded 01/26/21 15:02) HIVES,TROUBLE BREATHING [facility] Medical History AORTIC ROOT REPLACEMENT (Acute) Anemia (Acute) Asthma (Acute) CIRCUMCISION (Acute) Diabetes (Acute) Heart disease (Acute) Heart valve problem (Acute) Murmur (Acute) 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 A1C went from 13.2% to 5.8% We are both very pleased. He is taking Tresiba, metformin, Rybelsus and glimepiride. ROS Const Constitutional: No anorexia, body ache, chills, excessive sweating, fatigue, fever(s), frequent falls, headache(s), decreased energy, malaise, night sweats, snoring, weakness, weight change, sleep problems, abnormal sleep pattern, change in appetite or other Eyes Eyes: No blurry vision, change in vision, double vision, discharge, dry eyes, bulging eyes, floaters, visual disturbances, eye pain, light sensitivity, spots in vision, tunnel vision or other ENT ENT: No abnormal hearing, ear pain, ear discharge, ear pressure, hearing loss, tinnitus, dizziness/vertigo, balance problems, nosebleed/epistaxis, nasal congestion, nasal obstruction, nose pain, sinus pressure, sinus pain, nasal discharge, post nasal drip, headache(s), facial pain, dental pain, dry mouth, difficulty swallowing, bad breath, hoarseness, lip swelling, mouth lesions, mouth pain, neck pain, sore throat, tongue swelling, throat swelling or other Cardio Cardiology: No chest pain at rest, chest pain with exertion, leg pain with exertion, excessive sweating, shortness of breath, dyspnea on exertion, generalized swelling, irregular heart rhythm, lightheadedness, orthopnea, radiating jaw, neck or arm pain, fast heart rate, slow heart rate, palpitations or other Musc Musculoskeletal: No abnormal walking, joint pain, back pain, deformity, joint swelling, limited range of motion, loss of height, muscle cramps, decreased muscle mass, body aches, neck pain, numbness, radiating pain into limb, stiffness, tingling, Arthritis, restless legs, leg pain with exertion, sciatica, leg pain at night or other Neuro Neurology: No abnormal walking, abnormal hearing, abnormal movements, abnormal speech, behavioral changes, confusion, unsteady gait/balance, dizziness, weakness, frequent falls, headache(s), lack of coordination, loss of vision, memory loss, numbness, tingling, visual disturbances, restless legs, fainting, tremor(s) or other Psych Psychiatric: No abnormal sleep pattern, No lack of enjoyment, No anxiety, No behavioral changes, No change in appetite, No confusion, No depression, No difficulty concentrating, No hopelessness, No irritability, No memory loss, No mood swings, No panic attacks, No paranoia, No Thoughts of harming yourself/Others, No hallucinations, No other Evaristo/Lymp Hematologic/Lymphatic: No easy bleeding, easy bruising, enlarged lymph nodes or other Resp Respiratory: No cough, change in phlegm color, chest congestion, excessive phlegm production, hemoptysis, pain on inspiration, shortness of breath, pain with cough, snoring, stridor, wheezing or other Gastro GI: No abdominal pain, belching, bloating, change in bowel habits, change in stool character, coffee ground emesis, constipation, cramping, diarrhea, heartburn, difficulty swallowing, feeling full early, excessive flatus, incontinent of stools, Vomiting blood/hematemesis, blood in stool, loose stools, Black,tarry stools, nausea/dyspepsia, pain with swallowing, vomiting or other Skin Skin: No acne, hair loss, change in hair, nail changes, boil, change in skin color, dry skin, redness, excessive hair growth, yellowing of the skin, lesions, itching, rash, skin pain, skin ulcer, sores, skin swelling, wounds or other Breast Breast: No change in breast shape, breast lump, breast pain, breast skin changes, breast swelling, nipple discharge or other Endo Endocrine: No change in body appearance, cold intolerance, excessive sweating, fatigue, flushing, heat intolerance, increased thirst/drinking, increased hunger, increased urination or other Aller/Imm Allergy/Immunologic: No food intolerance, itchy eyes, lip swelling, seasonal allergy symptoms, throat swelling, tongue swelling, hives, wheezing or other Exam Const General: cooperative, healthy appearing, comfortable, no acute distress, well developed, not cushingoid Nutritional Appearance: well nourished Orientation: alert, awake, oriented x3 HENMT Head: normal to inspection Ears: hearing grossly normal bilaterally Nose: external nose normal Mouth: oral mucosae normal Eyes General: appearance normal, both eyes and all related structures Alignment and Position: alignment normal Periorbital: periorbital findings normal Eyelids: eyelids normal Conjunctivae: conjunctivae normal Neck Neck: normal visual inspection Neck mass: No Chest Chest palpation inspection: normal inspection of the chest Resp Effort Inspection: normal respiratory effort, able to speak in complete sentences, symmetric chest movement, no audible wheezes, no cough Cardio Rate: regular rate Rhythm: regular rhythm Pulses: posterior tibial pulses present GI Inspection: normal to inspection Skin General: no rashes or lesions noted Neuro General: alert, awake, oriented x3 Cranial Nerves: CN's II-XI intact bilaterally Cognition: normal cognition Speech: speech normal Gait: normal gait Motor: muscle tone normal throughout Extrem General: no edema Psych Appearance: grossly normal Mental Status: mental status grossly normal Mood: congruent mood Affect: normal affect Speech and Movement: speech and movement normal Attitude: cooperative Thought Process: normal Thought Content: normal Judgment: judgment good Results POC A1C POC A1C 5.8 % Last Edit by Livier Arias on 01/26/21 15:07 Assessment Plan 1. Type 2 diabetes mellitus with hyperglycemia, with long-term current use of insulin E11.65 Plan Diabetes education provided. Reduce glimepiride to avoid hypoglycemia. Discussed medication pattern management. He will adjust medications and call for help if needed. 2. Benign essential hypertension I10 Plan Controlled, please continue current medications. 3. Class 2 severe obesity due to excess calories with serious comorbidity and body mass index (BMI) of 38.0 to 38.9 in adult E66.01; Z68.38 Plan Nutritional counseling provided, avoid flour, sugar, and artificial sweeteners. I have spent [27] minutes today reviewing labs, records and history. Time includes coordinating care, interpretation of tests, discussion with patient's other health care providers via telephone. This also includes time I spent with the patient for exam, treatment plan and education as well as documenting clinical information. Coding Level of Care Code Off vis,est,level 3 Diagnoses Type 2 diabetes mellitus with hyperglycemia, with long-term current use of insulin E11.65 ?Diabetes mellitus type: type 2 ?Diabetes mellitus alf insulin use: with middle or intermediate school principal use ?Diabetes mellitus complication status: with hyperglycemia Benign essential hypertension I10 Class 2 severe obesity due to excess calories with serious comorbidity and body mass index (BMI) of 38.0 to 38.9 in adult E66.01; Z68.38 ?Obesity type: due to excess calories ?Obesity classification: adult class 2 (BMI 35 - 39.9) ?Serious obesity comorbidity presence: with serious comorbidity ?Body mass index: BMI 38.0-38.9 01/28/21 0804 <Electronically signed by Timur Burgos MD> Date Timur Burgos MD Cosigner Signature: Date (if applicable) CC: VOCATIONAL CASE MANAGERGarcía Hook [employer] Work Phone: Start: 10-05-2020 End: 10-08-2020 Endocrinology Visit Report Comments: See Note; NOTES: [facility] [address] [place] [address] OFFICE VISIT Date of Service: 10/05/20 MR#: [id number] Acct: [id number] Name: LISS MOON Rep #: [id number] : 1970 Provider: Tonia Moore Age/Sex: 50/M [place] [facility] [place] Status: Signed Intake Vital Signs 10/05/20 Height 5 ft 8 in 10/05/20 Weight: 244 lb 8 oz 10/05/20 BMI 37.1 10/05/20 BP 140/90 H 10/05/20 Blood Pressure Location Lt brachial 10/05/20 Position Sitting 10/05/20 Respiration 16 10/05/20 Pulse 76 10/05/20 Pulse Source Monitor 10/05/20 Pulse Oximetry (%) 98 10/05/20 Oxygen Delivery Method room air Intake Visit Reasons: DM Chief Complaint: Diabetes Header Operator Required: No Accompanied by: none Is patient in pain?: No Allergies CARDIAC DYE Adverse Reaction (Mild, Uncoded 10/05/20 10:09) HIVES,TROUBLE BREATHING PFSH Medical History AORTIC ROOT REPLACEMENT (Acute) Anemia (Acute) Asthma (Acute) CIRCUMCISION (Acute) Diabetes (Acute) Heart disease (Acute) Heart valve problem (Acute) Murmur (Acute) 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 He was diagnosed about 2011. He states his control was good until the past 2-3 years. In 2019 his A1C has been running in the 9's. Today A1C is 13.2%. He is taking: Tradgenta, metformin, Tresiba 10 units and Victoza (was on Rybelsus). He is not paying much attention to his diet, he lives alone. He has never been on a sulfonylurea. No known complications. ROS Const Constitutional: Positive for snoring; no excessive sweating, fatigue, frequent falls, headache(s) or weakness Eyes Eyes: No blurry vision, change in vision, double vision, discharge, dry eyes, bulging eyes, floaters, visual disturbances, eye pain, light sensitivity, spots in vision, tunnel vision or other ENT ENT: Positive for post nasal drip; no abnormal hearing, headache(s), difficulty swallowing or other Cardio Cardiology: Positive for chest pain with exertion; no excessive sweating Musc Musculoskeletal: Positive for sciatica; no abnormal walking, numbness, tingling or restless legs Neuro Neurology: No abnormal walking, abnormal hearing, abnormal movements, abnormal speech, behavioral changes, confusion, unsteady gait/balance, dizziness, weakness, frequent falls, headache(s), lack of coordination, loss of vision, memory loss, numbness, tingling, visual disturbances, restless legs, fainting, tremor(s) or other Psych Psychiatric: Positive for anxiety, No behavioral changes, No confusion, No memory loss Evaristo/Lymp Hematologic/Lymphatic: No easy bleeding, easy bruising, enlarged lymph nodes or other Resp Respiratory: Positive for snoring and wheezing Gastro GI: No abdominal pain, belching, bloating, change in bowel habits, change in stool character, coffee ground emesis, constipation, cramping, diarrhea, heartburn, difficulty swallowing, feeling full early, excessive flatus, incontinent of stools, Vomiting blood/hematemesis, blood in stool, loose stools, Black,tarry stools, nausea/dyspepsia, pain with swallowing, vomiting or other Skin Skin: No acne, hair loss, change in hair, nail changes, boil, change in skin color, dry skin, redness, excessive hair growth, yellowing of the skin, lesions, itching, rash, skin pain, skin ulcer, sores, skin swelling, wounds or other Breast Breast: No change in breast shape, breast lump, breast pain, breast skin changes, breast swelling, nipple discharge or other Endo Endocrine: No change in body appearance, cold intolerance, excessive sweating, fatigue, flushing, heat intolerance, increased thirst/drinking, increased hunger, increased urination or other Aller/Imm Allergy/Immunologic: Positive for wheezing; no itchy eyes Exam Const General: cooperative, healthy appearing, comfortable, no acute distress, well developed, not cushingoid Nutritional Appearance: well nourished Orientation: alert, awake, oriented x3 HENSC Head: normal to inspection Ears: hearing grossly normal bilaterally Nose: external nose normal Mouth: oral mucosae normal Eyes General: appearance normal, both eyes and all related structures Alignment and Position: alignment normal Periorbital: periorbital findings normal Eyelids: eyelids normal Conjunctivae: conjunctivae normal Neck Neck: normal visual inspection Neck mass: No Thyroid: thyroid normal Carotids: no bruits Lymphatic: no lymphadenopathy noted Chest Chest palpation inspection: normal inspection of the chest Resp Effort Inspection: normal respiratory effort, able to speak in complete sentences, symmetric chest movement, no audible wheezes, no cough Auscultation: Bilateral: Clear to Auscultation Cardio Rate: regular rate Rhythm: regular rhythm Pulses: posterior tibial pulses present GI Inspection: normal to inspection Auscultation: normal bowel sounds Palpation: soft, no hepatosplenomegaly Skin General: no rashes or lesions noted Neuro General: alert, awake, oriented x3 Cranial Nerves: CN's II-XI intact bilaterally Cognition: normal cognition Speech: speech normal Gait: normal gait Motor: muscle tone normal throughout Sensory Exam: lower extremity (sensation is intact) Extrem General: no edema Other: Diabetic foot exam: normal sensation, pulses 1+, no lesions Psych Appearance: grossly normal Mental Status: mental status grossly normal Mood: congruent mood Affect: normal affect Speech and Movement: speech and movement normal Attitude: cooperative Thought Process: normal Thought Content: normal Judgment: judgment good Assessment Plan 1. Type 2 diabetes mellitus with hyperglycemia, with long-term current use of insulin E11.65; Z79.4 Plan Diabetes education provided. Stop Tradjenta (on GLP-1) Stop Victoza, restart Rybelsus (patient preference) Increase Tresiba to 20 units and titrate by 2 units per day until am blood sugar is under 130 or max dose of 60 units. Start glimepiride 4 mg daily. I reviewed with the patient the risk of developing and worsening of diabetes complications including retinopathy, neuropathy, nephropathy, heart attack, stroke, amputation, and sudden . 2. Benign essential hypertension I10 Plan BP elevated today, will monitor. 3. Hypertriglyceridemia E78.1 Plan Continue fibrate. 4. Class 2 severe obesity due to excess calories with serious comorbidity and body mass index (BMI) of 37.0 to 37.9 in adult E66.01; Z68.37 Plan Plate method dietary sheet given to the patient and explained in detail. Match all insulin requiring foods with a non-insulin requiring food. Also, choose high fiber, low glycemic index carbohydrates. I have spent [64] minutes today reviewing labs, records and history. Time includes coordinating care, interpretation of tests, discussion with patient's other health care providers via telephone. This also includes time I spent with the patient for exam, treatment plan and education as well as documenting clinical information. Plan Detail Other Medications New: glimepiride 4 mg PO DAILY 30 tabs 6RF Tresiba FlexTouch U-200 (insulin degludec) 60 units (0.3 mL) subcut DAILY 6 mL 6RF NS Rybelsus (semaglutide) 7 mg PO DAILY 30 tabs 6RF NS Coding Level of Care Code Off vis,new,level 5 Diagnoses Type 2 diabetes mellitus with hyperglycemia, with long-term current use of insulin E11.65; Z79.4 ?Diabetes mellitus type: type 2 ?Diabetes mellitus middle or intermediate school principal insulin use: with alf use ?Diabetes mellitus complication status: with hyperglycemia Benign essential hypertension I10 Hypertriglyceridemia E78.1 Class 2 severe obesity due to excess calories with serious comorbidity and body mass index (BMI) of 37.0 to 37.9 in adult E66.01; Z68.37 ?Obesity type: due to excess calories ?Obesity classification: adult class 2 (BMI 35 - 39.9) ?Serious obesity comorbidity presence: with serious comorbidity ?Body mass index: BMI 37.0-37.9 10/05/20 1303 <Electronically signed by Timur Burgos MD> Date Timur Burgos MD Cosigner Signature: Date (if applicable) CC: VOCATIONAL CASE MANAGER-C [place] aorta repair 1976 Latoya Gra vius aorta repair 1976 Kim Loc klear aorta repair 1976 Kyrie Smi th aorta repair 1976 Latoya Gra vius aorta repair 1976 Kyrie Smi th aorta repair 1976 Kyrie [facility] th aorta repair 1976 Kyrie Jayden is aorta repair 1976 Kyrie Jayden is aorta repair 1976 Kyrie Jayden is [employer] aorta repair 1976 Minnie Clemente patty [employer] aorta repair 1976 Kyrie Jayden is [employer] Aortic anyuersm repaired 2001 Latoya Gravius Aortic anyuersm repaired 2001 Kim Younglear Aortic anyuersm repaired 2001 Kyrie Falk Aortic anyuersm repaired 2001 Latoyaronen Vizcarraius Aortic anyuersm repaired 2001 Kyrie Falk Aortic anyuersm repaired 2001 Kyrie Falk Aortic anyuersm repaired 2001 Kyrie Denis Aortic anyuersm repaired 2001 Kyrie Denis Aortic anyuersm repaired 2001 Kyrie Denis [employer] Aortic anyuersm repaired 2001 Minnie Quinteros [employer] Aortic anyuersm repaired 2001 Kyrie Denis [employer] Bilateral elbows 197 1 no joints in elbows Latoya Vizcarraius Bilateral elbows 197 1 no joints in elbows Kim Younglear Bilateral elbows 197 1 no joints in elbows Kyrie Falk Bilateral elbows 197 1 no joints in elbows Latoyaronen Vizcarraius Bilateral elbows 197 1 no joints in elbows Kyrie Falk Bilateral elbows 197 1 no joints in elbows Kyrie Falk Bilateral elbows 197 1 no joints in elbows Kyrie Denis Bilateral elbows 197 1 no joints in elbows Kyrie Denis Bilateral elbows 197 1 no joints in elbows Kyrie Denis LPN Bilateral elbows 197 1 no joints in elbows Minnie Quinteros [employer] Bilateral elbows 197 1 no joints in elbows Kyrie Denis LPN Circumcision CIRCUMCISION VOCATIONAL CASE MANAGER-C [place] VOCATIONAL CASE MANAGER Work Phone: History of repair of coarctation of aorta S/P repair of coarctation of aorta Kyrie Denis LPN Comment on above: with BAV and s/p root replacement ( [facility] Ventral Septal defect s/p repair,(1976) coarctation of the aorta s/p repair( 1976) at [facility] with Dr. Era Llanos at [facility] Adult congenital Heart diseaseRequires dental [id number], 2002 History of repair of coarctation of aorta S/P repair of coarctation of aorta Kyrie Denis LPN Comment on above: with BAV and s/p root replacement ( [facility] Ventral Septal defect s/p repair,(1976) coarctation of the aorta s/p repair( 1976) at [facility] Following with Dr. Era Llanos at [facility] Adult congenital Heart diseaseRequires dental [id number], 2003 History of repair of coarctation of aorta S/P repair of coarctation of aorta Minnie Neli [employer] Comment on above: with BAV and s/p root replacement ( [facility]. Ventral Septal defect s/p repair,(1976) coarctation of the aorta s/p repair( 1976) at [facility] Following with Dr. Era Llanos at [facility] Adult congenital Heart diseaseRequires dental [id number], 2003 History of repair of coarctation of aorta S/P repair of coarctation of aorta Kyrie Denis [employer] Comment on above: with BAV and s/p root replacement ( [facility]. Ventral Septal defect s/p repair,(1976) coarctation of the aorta s/p repair( 1976) at [facility] Following with Dr. Era Askew at [facility] Adult congenital Heart diseaseRequires dental [id number], 2003 History of repair of coarctation of aorta S/P repair of coarctation of aorta [place] CONFERENCE CONCIERGE Work Phone: Comment on above: with BAV and s/p root replacement ( [facility]. Ventral Septal defect s/p repair,(1976) coarctation of the aorta s/p repair( 1976) at [facility] Following with Dr. Era Llanos at [facility] Adult congenital Heart diseaseRequires dental [id number], 2003 History of repair of coarctation of aorta S/P repair of coarctation of aorta Kyrie Denis [employer] Comment on above: with BAV and s/p root replacement ( [facility]. Ventral Septal defect s/p repair,(1976) coarctation of the aorta s/p repair( 1976) at [facility] Following with Dr. Era Llanos at [facility] Adult congenital Heart diseaseRequires dental [id number], 2003 History of repair of coarctation of aorta S/P repair of coarctation of aorta [place] Work Phone: History of repair of coarctation of aorta S/P repair of coarctation of aorta [place] Work Phone: Right knee construct ion 1979 Latoya Gravius Right knee construct ion 1978 Kim Caba Right knee construct ion 1978 Kyrie Falk Right knee construct ion 1979 Latoya Gravius Right knee construct ion 1979 Kyrie Falk Right knee construct ion 1979 Kyrie Falk Right knee construct ion 1979 Kyrie Denis Right knee construct ion 1979 Kyrie Denis Right knee construct ion 1978 Kyrie Denis [employer] Right knee construct ion 1978 Minnie Quinteros [employer] Right knee construct ion 1978 Kyrie Denis [employer] Plan of Treatment Date Care Activity Detail Author Start: 05-14-2025 End: 06-11-2025 ECHOCARDIOGRAM CONGENITAL ECHOCARDIOGRAM CONGENITAL Echocardiography Routine Coarctation of aorta Essential hypertension Other hyperlipidemia Other specified congenital malformations Congenital aortic insufficiency Expected: 05/14/2025, Expires: 06/11/2025 [facility] Comment on above: Expected: 05/14/2025, Expires: Start: 05-13-2025 End: 05-13-2025 Patient encounter procedure Cardiovascular Imaging Lab [facility] Start: 06-16-2024 Influenza vaccination INFLUENZA VACCINE (#1) [facility] Start: 05-14-2024 End: 05-14-2024 Patient encounter procedure Cardiovascular Imaging Lab [facility] Start: 06-16-2023 COVID-19 VACCINE ( season) COVID-19 VACCINE ( season) [facility] Start: 06-16-2023 Covid-19 Vaccine ( season) Covid-19 Vaccine () [facility] Start: 06-16-2023 Influenza vaccination INFLUENZA VACCINE (#1) [facility] Start: 05-31-2023 End: 05-31-2023 ECHOCARDIOGRAM CONGENITAL ECHOCARDIOGRAM CONGENITAL Echocardiography Routine H/O aortic root repair S/P VSD repair Bicuspid aortic valve Expected: 05/31/2023, Expires: 05/31/2023 [facility] Comment on above: Expected: 05/31/2023, Expires: Start: 05-30-2023 End: 05-30-2023 Patient encounter procedure Cardiovascular Imaging Lab [facility] Start: 05-16-2023 End: 05-16-2024 ECHOCARDIOGRAM CONGENITAL ECHOCARDIOGRAM CONGENITAL Echocardiography Routine Coarctation of aorta Bicuspid aortic valve Expected: 05/16/2023, Expires: 05/16/2024 [facility] Comment on above: Expected: 05/16/2023, Expires: Start: 01-22-2023 Prostate specific antigen measurement Prostate Cancer Screening Discussion [facility] Start: 06-16-2022 Influenza vaccination INFLUENZA VACCINE (#1) [facility] Start: 06-01-2022 End: 07-02-2022 Transthoracic echocardiography ECHOCARDIOGRAM Echocardiography Routine Coarctation of aorta Expected: 06/01/2022, Expires: 07/02/2022 [facility] Comment on above: Expected: 06/01/2022, Expires: Start: 05-31-2022 End: 05-31-2022 [facility] Start: 11-03-2021 Assay of prostate specific antigen total PSA (PROSTATE SPECIFIC ANTIGEN) (V76.44) [facility] Work Phone: Comment on above: February 2022 Start: 11-03-2021 Glucose quantitative blood xcpt reagent strip GLUCOSE (99588) [facility]; [facility] Work Phone: Comment on above: 97 Start: 11-03-2021 Assay of thyroid stimulating hormone tsh TSH (THYROID STIMULATING HORMONE) (78916) [facility]; [facility] Work Phone: Comment on above: February 2022 Start: 11-03-2021 Blood count complete auto&auto difrntl wbc CBC, Platelets & Auto Diff (13831) [facility]; [facility] Work Phone: Comment on above: February 2022 Start: 11-03-2021 Comprehensive metabolic panel Metabolic Panel, Comprehensive (27831) [facility]; [facility] Work Phone: Comment on above: February 2022 Start: 11-03-2021 Lipid panel LIPID PANEL (23661) [facility]; [facility] Work Phone: Comment on above: February 2022 Start: 11-03-2021 Hemoglobin glycosylated a1c HGB A1C (00426) [facility]; [facility] Work Phone: Comment on above: February 2022 Start: 11-03-2021 Procedure Education Eprescribed prescriptions (G8553) [facility]; [facility] Work Phone: Start: 11-03-2021 Provider Instructions for Treatment Follow up in 4 months [facility]; [facility] Work Phone: Start: 10-19-2021 Assay of thyroid stimulating hormone tsh TSH (THYROID STIMULATING HORMONE) (73128) [facility]; [facility] Work Phone: Start: 10-19-2021 Blood count complete auto&auto difrntl wbc CBC, Platelets & Auto Diff (58332) [facility]; [facility] Work Phone: Start: 10-19-2021 Comprehensive metabolic panel Metabolic Panel, Comprehensive (25952) [facility]; [facility] Work Phone: Start: 07-07-2021 Procedure Education Eprescribed prescriptions (G8553) [facility]; [facility] Work Phone: Start: 07-07-2021 Provider Instructions for Treatment Follow up in 4 months [facility]; [facility] Work Phone: Start: 06-16-2021 Influenza vaccination INFLUENZA VACCINE (#1) [facility] Start: 06-01-2021 End: 06-01-2022 Duplex scan of lower limb veins VASC DUPLEX VENOUS EXTREMITY LOWER RIGHT Imaging Routine Edema of right lower extremity Expected: 06/01/2021, Expires: 06/01/2022 [facility] Work Phone: Comment on above: Expected: 06/01/2021, Expires: Start: 03-03-2021 Procedure Education Eprescribed prescriptions (G8553) [facility]; [facility] Work Phone: Start: 03-03-2021 Provider Instructions for Treatment [facility]; [facility] Work Phone: Start: 11-03-2020 Comprehensive metabolic panel Metabolic Panel, Comprehensive (16284) [facility]; [facility] Work Phone: Comment on above: give pt lab slip Start: 11-03-2020 Assay of prostate specific antigen total PSA (PROSTATE SPECIFIC ANTIGEN) (V76.44) [facility]; [facility] Work Phone: Comment on above: give pt lab slip Start: 11-03-2020 Lipid panel LIPID PANEL (69469) [facility]; [facility] Work Phone: Comment on above: Give lab slip to pt Start: 11-03-2020 Procedure Education Eprescribed prescriptions (G8553) [facility]; [facility] Work Phone: Start: 11-03-2020 Provider Instructions for Treatment [facility]; [facility] Work Phone: Start: 06-30-2020 Procedure Education Eprescribed prescriptions (G8553) [facility] Work Phone: Start: 06-30-2020 Provider Instructions for Treatment Follow up in 4 months [facility] Work Phone: Start: 06-30-2020 Hemoglobin glycosylated a1c HgA1C , Office (89011) [facility] Work Phone: Start: 06-30-2020 Gluc bld gluc mntr dev cleared fda spec home use Blood Glucose , Office (73962) [facility] Work Phone: Start: 06-30-2020 Glucose [Mass/Vol] Blood Glucose , Office (57776) [facility] Work Phone: Start: 02-24-2020 HbA1c (Bld) [Mass fraction] HGB A1C (43714) [facility] Work Phone: Start: 02-24-2020 Hemoglobin glycosylated a1c HGB A1C (57847) [facility] Work Phone: Start: 02-18-2020 Procedure Education Eprescribed prescriptions (G8553) [facility] Work Phone: Start: 02-18-2020 Provider Instructions for Treatment [facility] Work Phone: Start: 11-26-2019 Procedure Education Eprescribed prescriptions (G8553) [facility] Work Phone: Start: 11-26-2019 Provider Instructions for Treatment [facility] Work Phone: Start: 11-20-2019 Assay of thyroid stimulating hormone tsh TSH (THYROID STIMULATING HORMONE) (67943) [facility] Work Phone: Start: 11-20-2019 TSH Qn TSH (THYROID STIMULATING HORMONE) (25291) [facility] Work Phone: Start: 11-20-2019 25 hydroxy includes fractions if performed CALCIFEDIOL (02180) [facility] Work Phone: Start: 11-20-2019 Assay of prostate specific antigen total PSA (PROSTATE SPECIFIC ANTIGEN) (V76.44) [facility] Work Phone: Start: 11-20-2019 Lipid panel LIPID PANEL (97505) [facility] Work Phone: Start: 11-20-2019 Urine albumin quantitative MICROALBUMIN: CREATININE RATIO (84113) AND (70255) [facility] Work Phone: Start: 11-20-2019 Blood count complete auto&auto difrntl wbc CBC, Platelets & Auto Diff (81373) [facility] Work Phone: Start: 11-20-2019 Comprehensive metabolic panel Metabolic Panel, Comprehensive (11093) [facility] Work Phone: Start: 08-20-2019 Hemoglobin glycosylated a1c HgA1C , Office (09894) [facility] Work Phone: Comment on above: 6.9 Start: 08-20-2019 HbA1c (Bld) [Mass fraction] HgA1C , Office (08260) [facility] Work Phone: Comment on above: 6.9 Start: 08-20-2019 Procedure Education Eprescribed prescriptions (G8553) [facility] Work Phone: Start: 08-20-2019 Provider Instructions for Treatment [facility] Work Phone: Start: 04-30-2019 Procedure Education Eprescribed prescriptions (G8553) [facility] Work Phone: Start: 04-30-2019 Provider Instructions for Treatment Follow up in 3 months [facility] Work Phone: Start: 01-22-2019 Procedure Education Eprescribed prescriptions (G8553) [facility] Work Phone: Start: 01-22-2019 Provider Instructions for Treatment Follow up in 3 months [facility] Work Phone: Start: 01-14-2019 Urnls dip stick/tablet reagent auto microscopy URINALYSIS, W/ MICRO (04881) [facility] Work Phone: Start: 01-14-2019 Urine albumin quantitative MICROALBUMIN: CREATININE RATIO (81806) AND (44498) [facility] Work Phone: Start: 01-14-2019 Assay of thyroid stimulating hormone tsh TSH (47690) [facility] Work Phone: Start: 01-14-2019 Thyrotropin Qn TSH (89759) [facility] Work Phone: Start: 01-14-2019 Lipid panel Lipid Panel (92428) [facility] Work Phone: Start: 01-14-2019 Blood count complete auto&auto difrntl wbc CBC, Platelets & Auto Diff (48485) [facility] Work Phone: Start: 01-14-2019 Comprehensive metabolic panel Metabolic Panel, Comprehensive (66700) [facility] Work Phone: Start: 10-10-2018 Procedure Education Eprescribed prescriptions (G8553) [facility] Work Phone: Start: 10-10-2018 Provider Instructions for Treatment Follow up in 3 months [facility] Work Phone: Start: 07-10-2018 Hemoglobin A1c/Hemoglobin.total mass fraction (Bld) HgA1C , Office (60886) [facility] Work Phone: Comment on above: 7.9 Start: 07-10-2018 Hemoglobin glycosylated a1c HgA1C , Office (12177) [facility] Work Phone: Comment on above: 7.9 Start: 07-10-2018 Procedure Education Eprescribed prescriptions (G8553) [facility] Work Phone: Start: 07-10-2018 Provider Instructions for Treatment [facility] Work Phone: Start: 07-04-2018 Assay of prostate specific antigen total PSA (PROSTATE SPECIFIC ANTIGEN) (V76.44) [facility] Work Phone: Start: 07-04-2018 Protein mass conc PSA (PROSTATE SPECIFIC ANTIGEN) (V76.44) [facility] Work Phone: Start: 07-04-2018 25 hydroxy includes fractions if performed CALCIFEDIOL (04204) [facility] Work Phone: Start: 07-04-2018 Comprehensive metabolic panel Metabolic Panel, Comprehensive (02186) [facility] Work Phone: Start: 04-03-2018 Procedure Education Eprescribed prescriptions (G8553) [facility] Work Phone: Start: 04-03-2018 Provider Instructions for Treatment [facility] Work Phone: Start: 01-22-2018 Prostate specific antigen measurement PROSTATE CANCER SCREENING DISCUSSION [facility] Start: 01-22-2018 Shingrix Vaccine (1 of 2) Shingrix Vaccine (1 of 2) [facility] Start: 01-22-2018 Zoster vaccine hzv live for subcutaneous use ZOSTER (SHINGLES) VACCINE (1 of 2) [facility] Start: 12-27-2017 Procedure Education Eprescribed prescriptions (G8553) [facility] Work Phone: Start: 12-27-2017 Provider Instructions for Treatment [facility] Work Phone: Start: 10-24-2017 Procedure Education Eprescribed prescriptions (G8553) [facility] Work Phone: Start: 10-24-2017 Provider Instructions for Treatment Follow up in 2 months with life educator Efrain Stout Dec 05 2-4 pm please schedule bring diary [facility] Work Phone: Start: 07-25-2017 Procedure Education Eprescribed prescriptions (G8553) [facility] Work Phone: Start: 07-25-2017 Provider Instructions for Treatment Follow up in 3 months [facility] Work Phone: Start: 04-11-2017 Comprehensive metabolic panel Metabolic Panel, Comprehensive (39870) [facility] Work Phone: Comment on above: Jun 2017 Start: 04-11-2017 Urine albumin quantitative MICROALBUMIN: CREATININE RATIO (99290) AND (24155) [facility] Work Phone: Comment on above: jun 2017 Start: 04-11-2017 Procedure Education Eprescribed prescriptions (G8553) [facility] Work Phone: Start: 04-11-2017 Provider Instructions for Treatment Follow up in 3 months [facility] Work Phone: Start: 01-02-2017 Assay of thyroid stimulating hormone tsh TSH (THYROID STIMULATING HORMONE) (54947) [facility] Work Phone: Start: 01-02-2017 Thyrotropin Qn TSH (THYROID STIMULATING HORMONE) (96704) [facility] Work Phone: Start: 01-02-2017 Blood count complete auto&auto difrntl wbc CBC, Platelets & Auto Diff (67691) [facility] Work Phone: Start: 01-02-2017 Comprehensive metabolic panel Metabolic Panel, Comprehensive (72799) [facility] Work Phone: Start: 01-02-2017 Lipid panel Lipid Panel (28089) [facility] Work Phone: Start: 01-02-2017 Procedure Education Eprescribed prescriptions (G8553) [facility] Work Phone: Start: 01-02-2017 Provider Instructions for Treatment Follow up in 3 months [facility] Work Phone: Start: 10-03-2016 Procedure Education Eprescribed prescriptions (G8553) [facility] Work Phone: Start: 10-03-2016 Provider Instructions for Treatment Follow up in 3 months [facility] Work Phone: Start: 06-27-2016 Procedure Education Eprescribed prescriptions (G8553) [facility] Work Phone: Start: 06-27-2016 Provider Instructions for Treatment [facility] Work Phone: Start: 06-23-2016 Lipid panel LIPID PANEL (82024) [facility] Work Phone: Start: 06-23-2016 Urine albumin quantitative MICROALBUMIN: CREATININE RATIO (94151) AND (02754) [facility] Work Phone: Start: 06-23-2016 CBC, PLATELETS & MANUAL DIFF (66480) CBC, PLATELETS & MANUAL DIFF (00230) [facility] Work Phone: Start: 06-23-2016 Comprehensive metabolic panel METABOLIC PANEL, COMPREHENSIVE (83276) [facility] Work Phone: Start: 12-01-2015 Hemoglobin A1c/Hemoglobin.total mass fraction (Bld) HgA1C , Office (43385) [facility] Work Phone: Start: 12-01-2015 Hemoglobin glycosylated a1c HgA1C , Office (19688) [facility] Work Phone: Start: 11-19-2015 Blood count manual cell count each CBC WITH MANUAL DIFF (66763) [facility] Work Phone: Start: 11-19-2015 Lipid panel Lipid Panel (28119) [facility] Work Phone: Start: 11-19-2015 Comprehensive metabolic panel Metabolic Panel, Comprehensive (16063) [facility] Work Phone: Start: 11-19-2015 Urine albumin quantitative MICROALBUMIN: CREATININE RATIO (58837) AND (40316) [facility] Work Phone: Start: 05-25-2015 Urine albumin quantitative MICROALBUMIN: CREATININE RATIO (72221) AND (41993) [facility] Work Phone: Start: 05-25-2015 Comprehensive metabolic panel METABOLIC PANEL, COMPREHENSIVE (91509) [facility] Work Phone: Start: 05-25-2015 Lipid panel LIPID PANEL (49169) [facility] Work Phone: Start: 05-25-2015 Blood count manual cell count each CBC with auto diff (08734) [facility] Work Phone: Start: 04-30-2015 Lipid panel LIPID PANEL (56268) [facility] Work Phone: Start: 04-30-2015 Hemoglobin A1c/Hemoglobin.total mass fraction (Bld) HEMOGLOBIN GLYCLATED (HGB A1C) (32285) [facility] Work Phone: Start: 04-30-2015 Hemoglobin glycosylated a1c HEMOGLOBIN GLYCLATED (HGB A1C) (36284) [facility] Work Phone: Start: 04-30-2015 Urine albumin quantitative MICROALBUMIN: CREATININE RATIO (66716) AND (79954) [facility] Work Phone: Start: 04-30-2015 Comprehensive metabolic panel Metabolic Panel, Comprehensive (50913) [facility] Work Phone: Start: 04-30-2015 Blood count manual cell count each CBC WITH MANUAL DIFF (27012) [facility] Work Phone: Start: 12-16-2014 Procedure Education Eprescribed prescriptions (G8553) [facility] Work Phone: Start: 08-21-2014 Patient Education Erectile Dysfunction: erectile dysfunction [facility] Work Phone: Start: 06-24-2013 Comprehensive metabolic panel METABOLIC PANEL, COMPREHENSIVE (74645) [facility] Work Phone: Start: 06-24-2013 Lipoprotein blood tomi numbers & subclasses LIPOPROTEIN, BLD, BY NMR (22606) [facility] Work Phone: Start: 06-24-2013 Protein mass conc LIPOPROTEIN, BLD, BY NMR (20227) [facility] Work Phone: Start: 01-22-2013 Colonoscopy COLORECTAL CANCER SCREENING DISCUSSION [facility] Start: 01-22-2013 Diabetes Screening Diabetes Screening [facility] Start: 01-22-2013 Screening for malignant neoplasm of colon [facility] Start: 2008 Fasting lipid profile LIPID SCREENING [facility] Start: 2008 Lipid panel LIPID SCREENING [facility] Start: 02-12-2007 Blood count complete automated CBC (Auto) (04592) [facility] Work Phone: Start: 02-12-2007 Comprehensive metabolic panel Metabolic Panel, Comprehensive (68061) [facility] Work Phone: Start: 02-12-2007 Lipid panel Lipid Panel (68761) [facility] Work Phone: Start: 01-22-2003 Lipid panel Lipid Screening [facility] Start: 01-22-1987 Hepatitis B vaccination HEP B VACCINE (1 of 3 - 19+ 3-dose series) [facility] Start: 01-22-1987 Hepatitis B Vaccine (1 of 3 - 19+ 3-dose series) Hepatitis B Vaccine (1 of 3 - 19+ 3-dose series) [facility] Start: 01-22-1987 Third diphtheria, tetanus and acellular pertussis (DTaP) vaccination TDAP (ADULT) [facility] Start: 01-22-1987 Urine microalbumin profile DTaP,Tdap,Td Vaccine (1 - Tdap) [facility] Start: 01-22-1986 Anxiety Screening Anxiety Screening [facility] Start: 01-22-1986 Depression Screening Depression Screening [facility] Start: 01-22-1986 Hepatitis C screening Hepatitis C Screening [facility] Start: 01-22-1986 HIV screening HIV Screening [facility] Start: 01-22-1986 Tetanus vaccination TETANUS [facility] Start: 01-22-1983 HIV screening HIV SCREENING DISCUSSION [facility] Start: 1970 COVID-19 VACCINE (#1) COVID-19 VACCINE (#1) [facility] Start: 1970 Hepatitis C antibody, confirmatory test HEPATITIS C VIRUS SCREENING [facility] Start: 1968 Hepatitis C screening HEPATITIS C VIRUS SCREENING [facility] Start: 1970 Tetanus vaccination TETANUS [facility] End: 05-14-2024 ECHOCARDIOGRAM CONGENITAL [facility] Comment on above: 1 Occurrences starting 05/14/2024 until 05/14/2024 Standard ECG ECG ECG Routine Essential hypertension Congenital dilatation of aorta Coarctation of aorta Other hyperlipidemia Other specified congenital malformations Edema of right lower extremity 06/01/2021 11:10 AM EDT [facility] Work Phone: Standard ECG ECG ECG Routine Coarctation of aorta 05/31/2022 8:58 AM EDT [facility] Standard ECG ECG ECG Routine Coarctation of aorta 05/14/2024 9:41 AM EDT [facility] End: 06-01-2021 Transthoracic echocardiography [facility] Work Phone: Comment on above: 1 Occurrences starting 06/01/2021 until 06/01/2021 [facility] Work Phone: [facility] Work Phone: [facility] Work Phone: [facility] Work Phone: Erectile dysfunc tion : Erectile Dysfunction: erectile dysfunction [facility] Work Phone: [facility] Work Phone: [facility] Work Phone: Immunizations Immunization Date Immunization Notes Care Provider Fa [facility] 12-14-2020 COVID-19 (Moderna) Noy [place]port CONFERENCE CONCIERGE Work Phone: [facility]; [facility] Work Phone: 11-16-2020 COVID-19 (Moderna) Noy davenport CONFERENCE CONCIERGE Work Phone: [facility] Work Phone: 08-12-2009 influenza virus vaccine, unspecified formulation Era Llanos MD Work Phone: [facility] Payers Date Payer Category Payer Self-pay [id number] 2021 Unknown 2021 Unknown [employer] PPO POS [id number] 2021-Present [address] [place] [address] [id number] 2018 Unknown [id number] 2008 Unknown [id number] 1968 Unknown [id number] 1968 Unknown [id number] 1968 Unknown [id number] Unknown [id number] Unknown [id number] Unknown [id number] Unknown [id number] Social History Date Type Detail Facility Start: 06-01-2021 End: 06-14-2024 Alcohol Use Former smoker [facility] Work Phone: Comment on above: Occasional alcohol u se 1 glass diet pop qd, 1 cup tea q am Full-time [employer] , Lives with spouse Tobacco use: Former smoker. [facility] Work Phone: Comment on above: 20 some years ago Tobacco use: Tobacco use: [facility] Work Phone: Comment on above: 20 some years ago Start: 10-16-1981 End: 10-16-2020 History of tobacco use Current smoker [facility] Start: 10-16-1981 End: 10-16-2020 History of tobacco use Cigarette Smoker [facility] Start: 06-01-2021 End: 05-31-2022 Alcohol intake Current non-drinker of alcohol (finding) [facility] Start: 1970 Sex Assigned At Not on file O [facility] Exposure to SARS-CoV -2 (event) Not sure [facility] Start: 06-01-2021 End: 06-14-2024 Tobacco smoking status NHIS Ex-smoker [facility] Start: 06-01-2021 Tobacco use and exposure Smokeless tobacco non-user [facility] Start: 1970 Sex Assigned At Male [facility] Start: 05-31-2022 End: 06-14-2024 Tobacco use panel [facility] Start: 09-20-2017 Gender identity Identifies as male gender (finding) [facility] Start: 06-14-2024 Tobacco use and exposure User of smokeless tobacco [facility] Medical Equipment Procedure Code Equipment Code Equipment Origin al Text Equipment Identifier Dates Accu-Chek Apple Plus In Vitro Strip 1 (one) Strip Strip test 2-3 times daily for 0 days Quantity: 90 {Strip} Refills: 10 Ordered: 03-Oct-2016 Latrice Castillo LPN Start : 03-Oct-2016 Active Start: 10-03-2016 Accu-Chek Soft T ouch Lancets Miscellaneous 1 (one) Misc Misc test 3x daily for 0 days Quantity: 100 {Applicator} Refills: 11 Ordered: 03-Oct-2016 Latrice Castillo LPN Start : 03-Oct-2016 Active Start: 10-03-2016 BD Pen Needle Na no U/F 32G X 4 MM Miscellaneous 1 (one) Misc Misc qd for 0 days Quantity: 1 {Box} Refills: 6 Ordered: 02-May-2017 Noy Hook CNP, CNP, Mary E Start : 02-May-2017 Active Start: 05-02-2017 Accu-Chek Softcl ix Lancet Dev Miscellaneous 1 (one) Misc one for 1 days Quantity: 1 Kit Refills: 0 Ordered: 03-Oct-2016 Noy Hook CNP, CNP, Mary E Start : 03-Oct-2016 End : 04-Oct-2016 Inactive Start: 10-03-2016 End: 10-04-2016 Accu-Chek Apple Plus In Vitro Strip 1 (one) Strip Strip test 2-3 times daily for 0 days Quantity: 90 {Strip} Refills: 10 Ordered: 03-Oct-2016 Jonathan ARREDONDORonaldoa Start : 03-Oct-2016 Active Start: 10-03-2016 Accu-Chek Soft T ouch Lancets Miscellaneous 1 (one) Misc Misc test 3x daily for 0 days Quantity: 100 {Applicator} Refills: 11 Ordered: 03-Oct-2016 Latrice Castillo LPN Start : 03-Oct-2016 Active Start: 10-03-2016 BD Pen Needle Na no U/F 32G X 4 MM Miscellaneous 1 (one) Misc Misc qd for 0 days Quantity: 1 {Box} Refills: 6 Ordered: 02-May-2017 Julio Cesar WORLEY Noy Arevalo Julio Cesar WORLEY, Noy Arevalo Start : 02-May-2017 Active Start: 05-02-2017 Accu-Chek Softcl ix Lancet Dev Miscellaneous 1 (one) Misc one for 1 days Quantity: 1 Kit Refills: 0 Ordered: 03-Oct-2016 Julio Cesar WORLEY Noy Arevalo Julio Cesar WORLEY, Noy Arevalo Start : 03-Oct-2016 End : 04-Oct-2016 Inactive Start: 10-03-2016 End: 10-04-2016 Accu-Chek Apple Plus In Vitro Strip 1 (one) Strip Strip test 2-3 times daily for 0 days Quantity: 90 {Strip} Refills: 10 Ordered: 03-Oct-2016 Latrice Castillo LPN Start : 03-Oct-2016 Active Start: 10-03-2016 Accu-Chek Soft T ouch Lancets Miscellaneous 1 (one) Misc Misc test 3x daily for 0 days Quantity: 100 {Applicator} Refills: 11 Ordered: 03-Oct-2016 Latrice Castillo LPN Start : 03-Oct-2016 Active Start: 10-03-2016 BD Pen Needle Na no U/F 32G X 4 MM Miscellaneous 1 (one) Misc Misc qd for 0 days Quantity: 1 {Box} Refills: 6 Ordered: 02-May-2017 Julio Cesar WORLEY Noy Arevalo Julio Cesar WORLEY, Noy Arevalo Start : 02-May-2017 Active Start: 05-02-2017 Accu-Chek Softcl ix Lancet Dev Miscellaneous 1 (one) Misc one for 1 days Quantity: 1 Kit Refills: 0 Ordered: 03-Oct-2016 Noy Hook CNP, CNP, Mary E Start : 03-Oct-2016 End : 04-Oct-2016 Inactive Start: 10-03-2016 End: 10-04-2016 Accu-Chek Apple Plus In Vitro Strip 1 (one) Strip Strip test 2-3 times daily for 0 days Quantity: 90 {Strip} Refills: 10 Ordered: 03-Oct-2016 Slarb BOX TURNER, Latrice Start : 03-Oct-2016 Active Start: 10-03-2016 Accu-Chek Soft T ouch Lancets Miscellaneous 1 (one) Misc Misc test 3x daily for 0 days Quantity: 100 {Applicator} Refills: 11 Ordered: 03-Oct-2016 Slarb BOX TURNER, Latrice Start : 03-Oct-2016 Active Start: 10-03-2016 BD Pen Needle Na no U/F 32G X 4 MM Miscellaneous 1 (one) Misc Misc qd for 0 days Quantity: 1 {Box} Refills: 6 Ordered: 02-May-2017 Noy Hook CNP, CNP, Mary E Start : 02-May-2017 Active Start: 05-02-2017 Accu-Chek Softcl ix Lancet Dev Miscellaneous 1 (one) Misc one for 1 days Quantity: 1 Kit Refills: 0 Ordered: 03-Oct-2016 Noy Hook CNP, CNP, Mary E Start : 03-Oct-2016 End : 04-Oct-2016 Inactive Start: 10-03-2016 End: 10-04-2016 Accu-Chek Apple Plus In Vitro Strip 1 (one) Strip Strip test 2-3 times daily for 0 days Quantity: 90 {Strip} Refills: 10 Ordered: 03-Oct-2016 Slarb BOX TURNER, Latrice Start : 03-Oct-2016 Active Start: 10-03-2016 Accu-Chek Soft T ouch Lancets Miscellaneous 1 (one) Misc Misc test 3x daily for 0 days Quantity: 100 {Applicator} Refills: 11 Ordered: 03-Oct-2016 Slarb BOX TURNER, Latrice Start : 03-Oct-2016 Active Start: 10-03-2016 BD Pen Needle Na no U/F 32G X 4 MM Miscellaneous 1 (one) Misc Misc qd for 0 days Quantity: 1 {Box} Refills: 6 Ordered: 02-May-2017 Noy Hook CNP, CNP, Mary E Start : 02-May-2017 Active Start: 05-02-2017 NovoFine 32G X 6 MM Miscellaneous 1 (one) Misc daily for 0 days Quantity: 30 {Each} Refills: 0 Ordered: 22-Jan-2019 Noy Hook CNP, CNP, Mary E Start : 22-Jan-2019 Active Start: 01-22-2019 Accu-Chek Softcl ix Lancet Dev Miscellaneous 1 (one) Misc one for 1 days Quantity: 1 Kit Refills: 0 Ordered: 03-Oct-2016 Noy Hook CNP, CNP, Mary E Start : 03-Oct-2016 End : 04-Oct-2016 Inactive Start: 10-03-2016 End: 10-04-2016 Accu-Chek Apple Plus In Vitro Strip 1 (one) Strip Strip test 2-3 times daily for 0 days Quantity: 90 {Strip} Refills: 10 Ordered: 03-Oct-2016 Latrice Castillo LPN Start : 03-Oct-2016 Active Start: 10-03-2016 Accu-Chek Soft T ouch Lancets Miscellaneous 1 (one) Misc Misc test 3x daily for 0 days Quantity: 100 {Applicator} Refills: 11 Ordered: 03-Oct-2016 Latrice Castillo LPN Start : 03-Oct-2016 Active Start: 10-03-2016 BD Pen Needle Na no U/F 32G X 4 MM Miscellaneous 1 (one) Misc Misc qd for 0 days Quantity: 1 {Box} Refills: 6 Ordered: 02-May-2017 Noy Hook CNP, CNP, Mary E Start : 02-May-2017 Active Start: 05-02-2017 NovoFine 32G X 6 MM Miscellaneous 1 (one) Misc daily for 0 days Quantity: 30 {Each} Refills: 0 Ordered: 22-Jan-2019 Latoya Duque Start : 22-Jan-2019 Active Start: 01-22-2019 Accu-Chek Softcl ix Lancet Dev Miscellaneous 1 (one) Misc one for 1 days Quantity: 1 Kit Refills: 0 Ordered: 03-Oct-2016 Noy Hook CNP, CNP, Mary E Start : 03-Oct-2016 End : 04-Oct-2016 Inactive Start: 10-03-2016 End: 10-04-2016 Accu-Chek Apple Plus In Vitro Strip 1 (one) Strip Strip test 2-3 times daily for 0 days Quantity: 90 {Strip} Refills: 10 Ordered: 03-Oct-2016 Slarb BOX TURNER, Latrice Start : 03-Oct-2016 Active Start: 10-03-2016 Accu-Chek Soft T ouch Lancets Miscellaneous 1 (one) Misc Misc test 3x daily for 0 days Quantity: 100 {Applicator} Refills: 11 Ordered: 03-Oct-2016 Slarb BOX TURNER, Latrice Start : 03-Oct-2016 Active Start: 10-03-2016 BD Pen Needle Na no U/F 32G X 4 MM Miscellaneous 1 (one) Misc Misc qd for 0 days Quantity: 1 {Box} Refills: 6 Ordered: 02-May-2017 Noy Hook CNP, CNP, Mary E Start : 02-May-2017 Active Start: 05-02-2017 NovoFine 32G X 6 MM Miscellaneous 1 (one) Misc daily for 0 days Quantity: 30 {Each} Refills: 0 Ordered: 22-Jan-2019 Latoya Duque Start : 22-Jan-2019 Active Start: 01-22-2019 Accu-Chek Softcl ix Lancet Dev Miscellaneous 1 (one) Misc one for 1 days Quantity: 1 Kit Refills: 0 Ordered: 03-Oct-2016 Noy Hook CNP, CNP, Mary E Start : 03-Oct-2016 End : 04-Oct-2016 Inactive Start: 10-03-2016 End: 10-04-2016 Accu-Chek Apple Plus In Vitro Strip 1 (one) Strip Strip test 2-3 times daily for 0 days Quantity: 90 {Strip} Refills: 10 Ordered: 03-Oct-2016 Slarb BOX TURNER, Latrice Start : 03-Oct-2016 Active Start: 10-03-2016 Accu-Chek Soft T ouch Lancets Miscellaneous 1 (one) Misc Misc test 3x daily for 0 days Quantity: 100 {Applicator} Refills: 11 Ordered: 03-Oct-2016 Ronaldo Castillo LPNa Start : 03-Oct-2016 Active Start: 10-03-2016 BD Pen Needle Na no U/F 32G X 4 MM Miscellaneous 1 (one) Misc Misc qd for 0 days Quantity: 1 {Box} Refills: 6 Ordered: 02-May-2017 Julio Cesar WORLEY, Noy Hook CNP, Noy Arevalo Start : 02-May-2017 Active Start: 05-02-2017 NovoFine 32G X 6 MM Miscellaneous 1 (one) Misc daily for 0 days Quantity: 30 {Each} Refills: 0 Ordered: 22-Jan-2019 [employer] AUDIT ASSOCIATE, Latoya Start : 22-Jan-2019 Active Start: 01-22-2019 Accu-Chek Softcl ix Lancet Dev Miscellaneous 1 (one) Misc one for 1 days Quantity: 1 Kit Refills: 0 Ordered: 03-Oct-2016 Jamiaissac WORLEY, Noy Hook CNP, Noy Arevalo Start : 03-Oct-2016 End : 04-Oct-2016 Inactive Start: 10-03-2016 End: 10-04-2016 Accu-Chek Apple Plus In Vitro Strip 1 (one) Strip Strip test 2-3 times daily for 0 days Quantity: 90 {Strip} Refills: 10 Ordered: 03-Oct-2016 Jonathan ARREDONDORonaldoa Start : 03-Oct-2016 Active Start: 10-03-2016 Accu-Chek Soft T ouch Lancets Miscellaneous 1 (one) Misc Misc test 3x daily for 0 days Quantity: 100 {Applicator} Refills: 11 Ordered: 03-Oct-2016 Ronaldo Castillo LPNa Start : 03-Oct-2016 Active Start: 10-03-2016 BD Pen Needle Na no U/F 32G X 4 MM Miscellaneous 1 (one) Misc Misc qd for 0 days Quantity: 1 {Box} Refills: 6 Ordered: 02-May-2017 Julio Cesar WORLEY, Noy Hook CNP, Noy Arevalo Start : 02-May-2017 Active Start: 05-02-2017 NovoFine 32G X 6 MM Miscellaneous 1 (one) Misc daily for 0 days Quantity: 30 {Each} Refills: 0 Ordered: 22-Jan-2019 Latoya Duque CMA Start : 22-Jan-2019 Active Start: 01-22-2019 Accu-Chek Softcl ix Lancet Dev Miscellaneous 1 (one) Misc one for 1 days Quantity: 1 Kit Refills: 0 Ordered: 03-Oct-2016 Noy Hook CNP, CNP, Mary E Start : 03-Oct-2016 End : 04-Oct-2016 Inactive Start: 10-03-2016 End: 10-04-2016 Accu-Chek Apple Plus In Vitro Strip 1 (one) Strip Strip test 2-3 times daily for 0 days Quantity: 90 {Strip} Refills: 10 Ordered: 03-Oct-2016 Slarb BOX TURNER, Latrice Start : 03-Oct-2016 Active Start: 10-03-2016 Accu-Chek Soft T ouch Lancets Miscellaneous 1 (one) Misc Misc test 3x daily for 0 days Quantity: 100 {Applicator} Refills: 11 Ordered: 03-Oct-2016 Slarb BOX TURNER, Latriec Start : 03-Oct-2016 Active Start: 10-03-2016 BD Pen Needle Na no U/F 32G X 4 MM Miscellaneous 1 (one) Misc Misc qd for 0 days Quantity: 1 {Box} Refills: 6 Ordered: 02-May-2017 Noy Hook CNP, CNP, Mary E Start : 02-May-2017 Active Start: 05-02-2017 NovoFine 32G X 6 MM Miscellaneous 1 (one) Misc daily for 0 days Quantity: 30 {Each} Refills: 0 Ordered: 22-Jan-2019 Latoya Duque CMA Start : 22-Jan-2019 Active Start: 01-22-2019 Accu-Chek Softcl ix Lancet Dev Miscellaneous 1 (one) Misc one for 1 days Quantity: 1 Kit Refills: 0 Ordered: 03-Oct-2016 Noy Hook CNP, CNP, Mary E Start : 03-Oct-2016 End : 04-Oct-2016 Inactive Start: 10-03-2016 End: 10-04-2016 Accu-Chek Apple Plus In Vitro Strip 1 (one) Strip Strip test 2-3 times daily for 0 days Quantity: 90 {Strip} Refills: 10 Ordered: 03-Oct-2016 Slarb BOX TURNER, Latrice Start : 03-Oct-2016 Active Start: 10-03-2016 Accu-Chek Soft T ouch Lancets Miscellaneous 1 (one) Misc Misc test 3x daily for 0 days Quantity: 100 {Applicator} Refills: 11 Ordered: 03-Oct-2016 Slarb BOX TURNER, Latrice Start : 03-Oct-2016 Active Start: 10-03-2016 BD Pen Needle Na no U/F 32G X 4 MM Miscellaneous 1 (one) Misc Misc qd for 0 days Quantity: 1 {Box} Refills: 6 Ordered: 02-May-2017 Julio Cesar WORLEY, Dina Julio Cesar WORLEY, Noy Arevalo Start : 02-May-2017 Active Start: 05-02-2017 NovoFine 32G X 6 MM Miscellaneous 1 (one) Misc daily for 0 days Quantity: 30 {Each} Refills: 0 Ordered: 22-Jan-2019 Gravashok DURANT, Latoya Start : 22-Jan-2019 Active Start: 01-22-2019 Accu-Chek Softcl ix Lancet Dev Miscellaneous 1 (one) Misc one for 1 days Quantity: 1 Kit Refills: 0 Ordered: 03-Oct-2016 Julio Cesar WORLEY, Noy Arevalo Bessychitraissac WORLEY, Noy Arevalo Start : 03-Oct-2016 End : 04-Oct-2016 Inactive Start: 10-03-2016 End: 10-04-2016 Accu-Chek Apple Plus In Vitro Strip 1 (one) Strip Strip test 2-3 times daily for 0 days Quantity: 90 {Strip} Refills: 10 Ordered: 03-Oct-2016 Slarb BOX TURNER, Latrice Start : 03-Oct-2016 Active Start: 10-03-2016 Accu-Chek Soft T ouch Lancets Miscellaneous 1 (one) Misc Misc test 3x daily for 0 days Quantity: 100 {Applicator} Refills: 11 Ordered: 03-Oct-2016 Slarb BOX TURNER, Latrice Start : 03-Oct-2016 Active Start: 10-03-2016 BD Pen Needle Na no U/F 32G X 4 MM Miscellaneous 1 (one) Misc Misc qd for 0 days Quantity: 1 {Box} Refills: 6 Ordered: 02-May-2017 Noy Hook CNP, CNP, Mary E Start : 02-May-2017 Active Start: 05-02-2017 NovoFine 32G X 6 MM Miscellaneous 1 (one) Misc daily for 0 days Quantity: 30 {Each} Refills: 0 Ordered: 22-Jan-2019 Latoya Duque CMA Start : 22-Jan-2019 Active Start: 01-22-2019 Accu-Chek Softcl ix Lancet Dev Miscellaneous 1 (one) Misc one for 1 days Quantity: 1 Kit Refills: 0 Ordered: 03-Oct-2016 Noy Hook CNP, CNP, Mary E Start : 03-Oct-2016 End : 04-Oct-2016 Inactive Start: 10-03-2016 End: 10-04-2016 Accu-Chek Apple Plus In Vitro Strip 1 (one) Strip Strip test 2-3 times daily for 0 days Quantity: 90 {Strip} Refills: 10 Ordered: 03-Oct-2016 Latrice Castillo LPN Start : 03-Oct-2016 Active Start: 10-03-2016 Accu-Chek Soft T ouch Lancets Miscellaneous 1 (one) Misc Misc test 3x daily for 0 days Quantity: 100 {Applicator} Refills: 11 Ordered: 03-Oct-2016 Latrice Castillo LPN Start : 03-Oct-2016 Active Start: 10-03-2016 BD Pen Needle Na no U/F 32G X 4 MM Miscellaneous 1 (one) Misc Misc qd for 0 days Quantity: 1 {Box} Refills: 6 Ordered: 02-May-2017 Noy Hook CNP, CNP, Mary E Start : 02-May-2017 Active Start: 05-02-2017 NovoFine 32G X 6 MM Miscellaneous 1 (one) Misc daily for 0 days Quantity: 30 {Each} Refills: 0 Ordered: 22-Jan-2019 Latoya Duque CMA Start : 22-Jan-2019 Active Start: 01-22-2019 Accu-Chek Softcl ix Lancet Dev Miscellaneous 1 (one) Misc one for 1 days Quantity: 1 Kit Refills: 0 Ordered: 03-Oct-2016 Noy Hook CNP, CNP, Mary E Start : 03-Oct-2016 End : 04-Oct-2016 Inactive Start: 10-03-2016 End: 10-04-2016 Accu-Chek Apple Plus In Vitro Strip 1 (one) Strip Strip test 2-3 times daily for 0 days Quantity: 90 {Strip} Refills: 10 Ordered: 03-Oct-2016 Slarb BOX TURNER, Latrice Start : 03-Oct-2016 Active Start: 10-03-2016 Accu-Chek Soft T ouch Lancets Miscellaneous 1 (one) Misc Misc test 3x daily for 0 days Quantity: 100 {Applicator} Refills: 11 Ordered: 03-Oct-2016 Slarb BOX TURNER, Latrice Start : 03-Oct-2016 Active Start: 10-03-2016 BD Pen Needle Na no U/F 32G X 4 MM Miscellaneous 1 (one) Misc Misc qd for 0 days Quantity: 1 {Box} Refills: 6 Ordered: 02-May-2017 Julio Cesar WORLEY DinaMickey Hook CNP, Dina Start : 02-May-2017 Active Start: 05-02-2017 NovoFine 32G X 6 MM Miscellaneous 1 (one) Misc daily for 0 days Quantity: 30 {Each} Refills: 0 Ordered: 22-Jan-2019 Gravius AUDIT ASSOCIATE, Latoya Start : 22-Jan-2019 Active Start: 01-22-2019 Accu-Chek Softcl ix Lancet Dev Miscellaneous 1 (one) Misc one for 1 days Quantity: 1 Kit Refills: 0 Ordered: 03-Oct-2016 Julio Cesar WORLEY Dina Julio Cesar WORLEY, Dina Start : 03-Oct-2016 End : 04-Oct-2016 Inactive Start: 10-03-2016 End: 10-04-2016 Accu-Chek Apple Plus In Vitro Strip 1 (one) Strip Strip test 2-3 times daily for 0 days Quantity: 90 {Strip} Refills: 10 Ordered: 03-Oct-2016 Slarb BOX TURNER, Latrice Start : 03-Oct-2016 Active Start: 10-03-2016 Accu-Chek Soft T ouch Lancets Miscellaneous 1 (one) Misc Misc test 3x daily for 0 days Quantity: 100 {Applicator} Refills: 11 Ordered: 03-Oct-2016 Slarb BOX TURNER, Latrice Start : 03-Oct-2016 Active Start: 10-03-2016 BD Pen Needle Na no U/F 32G X 4 MM Miscellaneous 1 (one) Misc Misc qd for 0 days Quantity: 1 {Box} Refills: 6 Ordered: 02-May-2017 Noy Hook CNP, CNP, Mary E Start : 02-May-2017 Active Start: 05-02-2017 NovoFine 32G X 6 MM Miscellaneous 1 (one) Misc daily for 0 days Quantity: 30 {Each} Refills: 0 Ordered: 22-Jan-2019 Gravius AUDIT ASSOCIATE, Latoya Start : 22-Jan-2019 Active Start: 01-22-2019 Accu-Chek Softcl ix Lancet Dev Miscellaneous 1 (one) Misc one for 1 days Quantity: 1 Kit Refills: 0 Ordered: 03-Oct-2016 Noy Hook CNP, CNP, Mary E Start : 03-Oct-2016 End : 04-Oct-2016 Inactive Start: 10-03-2016 End: 10-04-2016 Accu-Chek Apple Plus In Vitro Strip 1 (one) Strip Strip test 2-3 times daily for 0 days Quantity: 90 {Strip} Refills: 10 Ordered: 03-Oct-2016 Slarb BOX TURNER, Latrice Start : 03-Oct-2016 Active Start: 10-03-2016 Accu-Chek Soft T ouch Lancets Miscellaneous 1 (one) Misc Misc test 3x daily for 0 days Quantity: 100 {Applicator} Refills: 11 Ordered: 03-Oct-2016 Slarb BOX TURNER, Latrice Start : 03-Oct-2016 Active Start: 10-03-2016 BD Pen Needle Na no U/F 32G X 4 MM Miscellaneous 1 (one) Misc Misc qd for 0 days Quantity: 1 {Box} Refills: 6 Ordered: 02-May-2017 Noy Hook CNP, CNP, Mary E Start : 02-May-2017 Active Start: 05-02-2017 NovoFine 32G X 6 MM Miscellaneous 1 (one) Misc daily for 0 days Quantity: 30 {Each} Refills: 0 Ordered: 22-Jan-2019 Gravius AUDIT ASSOCIATE, Latoya Start : 22-Jan-2019 Active Start: 01-22-2019 Accu-Chek Softcl ix Lancet Dev Miscellaneous 1 (one) Misc one for 1 days Quantity: 1 Kit Refills: 0 Ordered: 03-Oct-2016 Noy Hook CNP, CNP, Mary E Start : 03-Oct-2016 End : 04-Oct-2016 Inactive Start: 10-03-2016 End: 10-04-2016 Accu-Chek Apple Plus In Vitro Strip 1 (one) Strip Strip test 2-3 times daily for 0 days Quantity: 90 {Strip} Refills: 10 Ordered: 03-Oct-2016 Slarb BOX TURNER, Latrice Start : 03-Oct-2016 Active Start: 10-03-2016 Accu-Chek Soft T ouch Lancets Miscellaneous 1 (one) Misc Misc test 3x daily for 0 days Quantity: 100 {Applicator} Refills: 11 Ordered: 03-Oct-2016 Slarb BOX TURNER, Latrice Start : 03-Oct-2016 Active Start: 10-03-2016 BD Pen Needle Na no U/F 32G X 4 MM Miscellaneous 1 (one) Misc Misc qd for 0 days Quantity: 1 {Box} Refills: 6 Ordered: 02-May-2017 Noy Hook CNP, CNP, Mary E Start : 02-May-2017 Active Start: 05-02-2017 NovoFine 32G X 6 MM Miscellaneous 1 (one) Misc daily for 0 days Quantity: 30 {Each} Refills: 0 Ordered: 22-Jan-2019 Zackeryashok DURANTLatoya Start : 22-Jan-2019 Active Start: 01-22-2019 Accu-Chek Softcl ix Lancet Dev Miscellaneous 1 (one) Misc one for 1 days Quantity: 1 Kit Refills: 0 Ordered: 03-Oct-2016 Noy Hook CNP, CNP, Mary E Start : 03-Oct-2016 End : 04-Oct-2016 Inactive Start: 10-03-2016 End: 10-04-2016 Accu-Chek Apple Plus In Vitro Strip 1 (one) Strip Strip test 2-3 times daily for 0 days Quantity: 90 {Strip} Refills: 10 Ordered: 03-Oct-2016 Slarb BOX TURNER, Latrice Start : 03-Oct-2016 Active Start: 10-03-2016 Accu-Chek Soft T ouch Lancets Miscellaneous 1 (one) Misc Misc test 3x daily for 0 days Quantity: 100 {Applicator} Refills: 11 Ordered: 03-Oct-2016 Jonathan ARREDONDORonaldoa Start : 03-Oct-2016 Active Start: 10-03-2016 BD Pen Needle Na no U/F 32G X 4 MM Miscellaneous 1 (one) Misc Misc qd for 0 days Quantity: 1 {Box} Refills: 6 Ordered: 02-May-2017 Noy Hook CNP, CNP, Noy Arevalo Start : 02-May-2017 Active Start: 05-02-2017 NovoFine 32G X 6 MM Miscellaneous 1 (one) Misc daily for 0 days Quantity: 30 {Each} Refills: 0 Ordered: 22-Jan-2019 GravLatoya pulido CMA Start : 22-Jan-2019 Active Start: 01-22-2019 Accu-Chek Softcl ix Lancet Dev Miscellaneous 1 (one) Misc one for 1 days Quantity: 1 Kit Refills: 0 Ordered: 03-Oct-2016 Julio Cesar WORLEY Noy Martinez CNP Start : 03-Oct-2016 End : 04-Oct-2016 Inactive Start: 10-03-2016 End: 10-04-2016 Accu-Chek Apple Plus In Vitro Strip 1 (one) Strip Strip test 2-3 times daily for 0 days Quantity: 90 {Strip} Refills: 10 Ordered: 03-Oct-2016 Jonathan ARREDONDORonaldoa Start : 03-Oct-2016 Active Start: 10-03-2016 Accu-Chek Soft T ouch Lancets Miscellaneous 1 (one) Misc Misc test 3x daily for 0 days Quantity: 100 {Applicator} Refills: 11 Ordered: 03-Oct-2016 Jonathan ARREDONDOLatrice Start : 03-Oct-2016 Active Start: 10-03-2016 BD Pen Needle Na no U/F 32G X 4 MM Miscellaneous 1 (one) Misc Misc qd for 0 days Quantity: 1 {Box} Refills: 6 Ordered: 02-May-2017 Noy Hook CNP, CNP, Mary E Start : 02-May-2017 Active Start: 05-02-2017 NovoFine 32G X 6 MM Miscellaneous 1 (one) Misc daily for 0 days Quantity: 30 {Each} Refills: 0 Ordered: 22-Jan-2019 Latoya Duque CMA Start : 22-Jan-2019 Active Start: 01-22-2019 Accu-Chek Softcl ix Lancet Dev Miscellaneous 1 (one) Misc one for 1 days Quantity: 1 Kit Refills: 0 Ordered: 03-Oct-2016 Noy Hook CNP, CNP, Mary E Start : 03-Oct-2016 End : 04-Oct-2016 Inactive Start: 10-03-2016 End: 10-04-2016 Accu-Chek Apple Plus In Vitro Strip 1 (one) Strip Strip test 2-3 times daily for 0 days Quantity: 90 {Strip} Refills: 10 Ordered: 03-Oct-2016 Slarb BOX TURNER, Latrice Start : 03-Oct-2016 Active Start: 10-03-2016 Accu-Chek Soft T ouch Lancets Miscellaneous 1 (one) Misc Misc test 3x daily for 0 days Quantity: 100 {Applicator} Refills: 11 Ordered: 03-Oct-2016 Slarb BOX TURNER, Latrice Start : 03-Oct-2016 Active Start: 10-03-2016 BD Pen Needle Na no U/F 32G X 4 MM Miscellaneous 1 (one) Misc Misc qd for 0 days Quantity: 1 {Box} Refills: 6 Ordered: 02-May-2017 Noy Hook CNP, CNP, Mary E Start : 02-May-2017 Active Start: 05-02-2017 NovoFine 32G X 6 MM Miscellaneous 1 (one) Misc daily for 0 days Quantity: 30 {Each} Refills: 0 Ordered: 22-Jan-2019 Latoya Duque CMA Start : 22-Jan-2019 Active Start: 01-22-2019 Accu-Chek Softcl ix Lancet Dev Miscellaneous 1 (one) Misc one for 1 days Quantity: 1 Kit Refills: 0 Ordered: 03-Oct-2016 Noy Hook CNP, CNP, Mary E Start : 03-Oct-2016 End : 04-Oct-2016 Inactive Start: 10-03-2016 End: 10-04-2016 Accu-Chek Apple Plus In Vitro Strip 1 (one) Strip Strip test 2-3 times daily for 0 days Quantity: 90 {Strip} Refills: 10 Ordered: 03-Oct-2016 Slarb BOX TURNER, Latrice Start : 03-Oct-2016 Active Start: 10-03-2016 Accu-Chek Soft T ouch Lancets Miscellaneous 1 (one) Misc Misc test 3x daily for 0 days Quantity: 100 {Applicator} Refills: 11 Ordered: 03-Oct-2016 Latrice Castillo LPN Start : 03-Oct-2016 Active Start: 10-03-2016 BD Pen Needle Na no U/F 32G X 4 MM Miscellaneous 1 (one) Misc Misc qd for 0 days Quantity: 1 {Box} Refills: 6 Ordered: 02-May-2017 Julio Cesar WORLEY Noy Arevalo Julio Cesar WORLEY, Dina Start : 02-May-2017 Active Start: 05-02-2017 NovoFine 32G X 6 MM Miscellaneous 1 (one) Misc daily for 0 days Quantity: 30 {Each} Refills: 0 Ordered: 22-Jan-2019 Gravius AUDIT ASSOCIATE, Latoya Start : 22-Jan-2019 Active Start: 01-22-2019 Accu-Chek Softcl ix Lancet Dev Miscellaneous 1 (one) Misc one for 1 days Quantity: 1 Kit Refills: 0 Ordered: 03-Oct-2016 Julio Cesar WORLEY Noy Arevalo Julio Cesar WORLEY, Noy Arevalo Start : 03-Oct-2016 End : 04-Oct-2016 Inactive Start: 10-03-2016 End: 10-04-2016 Accu-Chek Apple Plus In Vitro Strip 1 (one) Strip Strip test 2-3 times daily for 0 days Quantity: 90 {Strip} Refills: 10 Ordered: 03-Oct-2016 Latrice Castillo LPN Start : 03-Oct-2016 Active Start: 10-03-2016 Accu-Chek Soft T ouch Lancets Miscellaneous 1 (one) Misc Misc test 3x daily for 0 days Quantity: 100 {Applicator} Refills: 11 Ordered: 03-Oct-2016 Latrice Castillo LPN Start : 03-Oct-2016 Active Start: 10-03-2016 BD Pen Needle Na no U/F 32G X 4 MM Miscellaneous 1 (one) Misc Misc qd for 0 days Quantity: 1 {Box} Refills: 6 Ordered: 02-May-2017 Julio Cesar WORLEY Noy Arevalo Bessychitraissac WORLEY, Noy Arevalo Start : 02-May-2017 Active Start: 05-02-2017 NovoFine 32G X 6 MM Miscellaneous 1 (one) Misc daily for 0 days Quantity: 30 {Each} Refills: 0 Ordered: 22-Jan-2019 Latoya Duque CMA Start : 22-Jan-2019 Active Start: 01-22-2019 Accu-Chek Softcl ix Lancet Dev Miscellaneous 1 (one) Misc one for 1 days Quantity: 1 Kit Refills: 0 Ordered: 03-Oct-2016 Noy Hook CNP, CNP, Dina Start : 03-Oct-2016 End : 04-Oct-2016 Inactive Start: 10-03-2016 End: 10-04-2016 Accu-Chek Apple Plus In Vitro Strip 1 (one) Strip Strip test 2-3 times daily for 0 days Quantity: 90 {Strip} Refills: 10 Ordered: 03-Oct-2016 Slarb BOX TURNER, Latrice Start : 03-Oct-2016 Active Start: 10-03-2016 Accu-Chek Soft T ouch Lancets Miscellaneous 1 (one) Misc Misc test 3x daily for 0 days Quantity: 100 {Applicator} Refills: 11 Ordered: 03-Oct-2016 Slarb BOX TURNER, Latrice Start : 03-Oct-2016 Active Start: 10-03-2016 BD Pen Needle Na no U/F 32G X 4 MM Miscellaneous 1 (one) Misc Misc qd for 0 days Quantity: 1 {Box} Refills: 6 Ordered: 02-May-2017 Noy Hook CNP, CNP, Mary E Start : 02-May-2017 Active Start: 05-02-2017 NovoFine 32G X 6 MM Miscellaneous 1 (one) Misc daily for 0 days Quantity: 30 {Each} Refills: 0 Ordered: 22-Jan-2019 Latoya Duque Start : 22-Jan-2019 Active Start: 01-22-2019 Accu-Chek Softcl ix Lancet Dev Miscellaneous 1 (one) Misc one for 1 days Quantity: 1 Kit Refills: 0 Ordered: 03-Oct-2016 Noy Hook CNP, CNP, Noy Arevalo Start : 03-Oct-2016 End : 04-Oct-2016 Inactive Start: 10-03-2016 End: 10-04-2016 Accu-Chek Apple Plus In Vitro Strip 1 (one) Strip Strip test 2-3 times daily for 0 days Quantity: 90 {Strip} Refills: 10 Ordered: 03-Oct-2016 Slarb BOX TURNER, Latrice Start : 03-Oct-2016 Active Start: 10-03-2016 Accu-Chek Soft T ouch Lancets Miscellaneous 1 (one) Misc Misc test 3x daily for 0 days Quantity: 100 {Applicator} Refills: 11 Ordered: 03-Oct-2016 Slarb BOX TURNER, Latrice Start : 03-Oct-2016 Active Start: 10-03-2016 BD Pen Needle Na no U/F 32G X 4 MM Miscellaneous 1 (one) Misc Misc qd for 0 days Quantity: 1 {Box} Refills: 6 Ordered: 02-May-2017 Julio Cesar WORLEY, Noy Arevalo Julio Cesar WORLEY, Noy Arevalo Start : 02-May-2017 Active Start: 05-02-2017 NovoFine 32G X 6 MM Miscellaneous 1 (one) Misc daily for 0 days Quantity: 30 {Each} Refills: 0 Ordered: 22-Jan-2019 [employer] AUDIT ASSOCIATE, Latoya Start : 22-Jan-2019 Active Start: 01-22-2019 Accu-Chek Softcl ix Lancet Dev Miscellaneous 1 (one) Misc one for 1 days Quantity: 1 Kit Refills: 0 Ordered: 03-Oct-2016 Julio Cesar WORLEY, Noy Arevalo Bessychitraissac WORLEY, Noy Arevalo Start : 03-Oct-2016 End : 04-Oct-2016 Inactive Start: 10-03-2016 End: 10-04-2016 Accu-Chek Apple Plus In Vitro Strip 1 (one) Strip Strip test 2-3 times daily for 0 days Quantity: 90 {Strip} Refills: 10 Ordered: 03-Oct-2016 Slarb BOX TURNER, Latrice Start : 03-Oct-2016 Active Start: 10-03-2016 Accu-Chek Soft T ouch Lancets Miscellaneous 1 (one) Misc Misc test 3x daily for 0 days Quantity: 100 {Applicator} Refills: 11 Ordered: 03-Oct-2016 Slarb BOX TURNER, Latrice Start : 03-Oct-2016 Active Start: 10-03-2016 BD Pen Needle Na no U/F 32G X 4 MM Miscellaneous 1 (one) Misc Misc qd for 0 days Quantity: 1 {Box} Refills: 6 Ordered: 02-May-2017 Noy Hook CNP, CNP, Mary E Start : 02-May-2017 Active Start: 05-02-2017 NovoFine 32G X 6 MM Miscellaneous 1 (one) Misc daily for 0 days Quantity: 30 {Each} Refills: 0 Ordered: 22-Jan-2019 Noy Hook CNP, CNP, Mary E Start : 22-Jan-2019 Active Start: 01-22-2019 Accu-Chek Softcl ix Lancet Dev Miscellaneous 1 (one) Misc one for 1 days Quantity: 1 Kit Refills: 0 Ordered: 03-Oct-2016 Noy Hook CNP, CNP, Mary E Start : 03-Oct-2016 End : 04-Oct-2016 Inactive Start: 10-03-2016 End: 10-04-2016 Accu-Chek Apple Plus In Vitro Strip 1 (one) Strip Strip test 2-3 times daily for 0 days Quantity: 90 {Strip} Refills: 10 Ordered: 03-Oct-2016 Slarb BOX TURNER, Latrice Start : 03-Oct-2016 Active Start: 10-03-2016 Accu-Chek Soft T ouch Lancets Miscellaneous 1 (one) Misc Misc test 3x daily for 0 days Quantity: 100 {Applicator} Refills: 11 Ordered: 03-Oct-2016 Slarb BOX TURNER, Latrice Start : 03-Oct-2016 Active Start: 10-03-2016 BD Pen Needle Na no U/F 32G X 4 MM Miscellaneous 1 (one) Misc Misc qd for 0 days Quantity: 1 {Box} Refills: 6 Ordered: 02-May-2017 Noy Hook CNP, CNP, Mary E Start : 02-May-2017 Active Start: 05-02-2017 NovoFine 32G X 6 MM Miscellaneous 1 (one) Misc daily for 0 days Quantity: 30 {Each} Refills: 0 Ordered: 22-Jan-2019 [employer] AUDIT ASSOCIATE, Latoya Start : 22-Jan-2019 Active Start: 01-22-2019 Accu-Chek Softcl ix Lancet Dev Miscellaneous 1 (one) Misc one for 1 days Quantity: 1 Kit Refills: 0 Ordered: 03-Oct-2016 Noy Hook CNP, CNP, Mary E Start : 03-Oct-2016 End : 04-Oct-2016 Inactive Start: 10-03-2016 End: 10-04-2016 Accu-Chek Apple Plus In Vitro Strip 1 (one) Strip Strip test 2-3 times daily for 0 days Quantity: 90 {Strip} Refills: 10 Ordered: 03-Oct-2016 SlaRonaldo greer LPNa Start : 03-Oct-2016 Active Start: 10-03-2016 Accu-Chek Soft T ouch Lancets Miscellaneous 1 (one) Misc Misc test 3x daily for 0 days Quantity: 100 {Applicator} Refills: 11 Ordered: 03-Oct-2016 Ronaldo Castillo LPNa Start : 03-Oct-2016 Active Start: 10-03-2016 BD Pen Needle Na no U/F 32G X 4 MM Miscellaneous 1 (one) Misc Misc qd for 0 days Quantity: 1 {Box} Refills: 6 Ordered: 02-May-2017 Noy Hook CNP, CNP, Mary E Start : 02-May-2017 Active Start: 05-02-2017 NovoFine 32G X 6 MM Miscellaneous 1 (one) Misc daily for 0 days Quantity: 30 {Each} Refills: 0 Ordered: 22-Jan-2019 Latoya Duque CMA Start : 22-Jan-2019 Active Start: 01-22-2019 Accu-Chek Softcl ix Lancet Dev Miscellaneous 1 (one) Misc one for 1 days Quantity: 1 Kit Refills: 0 Ordered: 03-Oct-2016 Noy Hook CNP, CNP, Mary E Start : 03-Oct-2016 End : 04-Oct-2016 Inactive Start: 10-03-2016 End: 10-04-2016 Accu-Chek Apple Plus In Vitro Strip 1 (one) Strip Strip test 2-3 times daily for 0 days Quantity: 90 {Strip} Refills: 10 Ordered: 03-Oct-2016 Slazoey ARREDONDO Latrice Start : 03-Oct-2016 Active Start: 10-03-2016 Accu-Chek Soft T ouch Lancets Miscellaneous 1 (one) Misc Misc test 3x daily for 0 days Quantity: 100 {Applicator} Refills: 11 Ordered: 03-Oct-2016 Jonathan ARREDONDOLatrice Start : 03-Oct-2016 Active Start: 10-03-2016 BD Pen Needle Na no U/F 32G X 4 MM Miscellaneous 1 (one) Misc Misc qd for 0 days Quantity: 1 {Box} Refills: 6 Ordered: 02-May-2017 Jamiaissac WORLEY Noy Hook CNP, Noy Arevalo Start : 02-May-2017 Active Start: 05-02-2017 NovoFine 32G X 6 MM Miscellaneous 1 (one) Misc daily for 0 days Quantity: 30 {Each} Refills: 0 Ordered: 22-Jan-2019 [employer] AUDIT ASSOCIATE, Latoya Start : 22-Jan-2019 Active Start: 01-22-2019 Accu-Chek Softcl ix Lancet Dev Miscellaneous 1 (one) Misc one for 1 days Quantity: 1 Kit Refills: 0 Ordered: 03-Oct-2016 Julio Cesar WORLEY Noy Arevalo Bessychitraissac WORLEY Noy Arevalo Start : 03-Oct-2016 End : 04-Oct-2016 Inactive Start: 10-03-2016 End: 10-04-2016 Accu-Chek Apple Plus In Vitro Strip 1 (one) Strip Strip test 2-3 times daily for 0 days Quantity: 90 {Strip} Refills: 10 Ordered: 03-Oct-2016 Latrice Castillo LPN Start : 03-Oct-2016 Active Start: 10-03-2016 Accu-Chek Soft T ouch Lancets Miscellaneous 1 (one) Misc Misc test 3x daily for 0 days Quantity: 100 {Applicator} Refills: 11 Ordered: 03-Oct-2016 Latrice Castillo LPN Start : 03-Oct-2016 Active Start: 10-03-2016 BD Pen Needle Na no U/F 32G X 4 MM Miscellaneous 1 (one) Misc Misc qd for 0 days Quantity: 1 {Box} Refills: 6 Ordered: 02-May-2017 Jamiaissac WORLEY, Noy Hook CONFERENCE CONCIERGE, Noy Arevalo Start : 02-May-2017 Active Start: 05-02-2017 Accu-Chek Softcl ix Lancet Dev Miscellaneous 1 (one) Misc one for 1 days Quantity: 1 Kit Refills: 0 Ordered: 03-Oct-2016 Ciesa CONFERENCE CONCIERGENoy CNP, Noy Arevalo Start : 03-Oct-2016 End : 04-Oct-2016 Inactive Start: 10-03-2016 End: 10-04-2016 Accu-Chek Apple Plus In Vitro Strip 1 (one) Strip Strip test 2-3 times daily for 0 days Quantity: 90 {Strip} Refills: 10 Ordered: 03-Oct-2016 Slarb BOX TURNER, Latrice Start : 03-Oct-2016 Active Start: 10-03-2016 Accu-Chek Soft T ouch Lancets Miscellaneous 1 (one) Misc Misc test 3x daily for 0 days Quantity: 100 {Applicator} Refills: 11 Ordered: 03-Oct-2016 Slarb BOX TURNER, Latrice Start : 03-Oct-2016 Active Start: 10-03-2016 BD Pen Needle Na no U/F 32G X 4 MM Miscellaneous 1 (one) Misc Misc qd for 0 days Quantity: 1 {Box} Refills: 6 Ordered: 02-May-2017 Julio Cesar WORLEY Noy Hook MEIRNoy Start : 02-May-2017 Active Start: 05-02-2017 NovoFine 32G X 6 MM Miscellaneous 1 (one) Misc daily for 0 days Quantity: 30 {Each} Refills: 0 Ordered: 22-Jan-2019 Latoya Duque CMA Start : 22-Jan-2019 Active Start: 01-22-2019 Accu-Chek Softcl ix Lancet Dev Miscellaneous 1 (one) Misc one for 1 days Quantity: 1 Kit Refills: 0 Ordered: 03-Oct-2016 Bessychitraissac WORLEYNoy CONFERENCE CONCIERGENoy Start : 03-Oct-2016 End : 04-Oct-2016 Inactive Start: 10-03-2016 End: 10-04-2016 Accu-Chek Apple Plus In Vitro Strip 1 (one) Strip Strip test 2-3 times daily for 0 days Quantity: 90 {Strip} Refills: 10 Ordered: 03-Oct-2016 Slarb BOX TURNER, Latrice Start : 03-Oct-2016 Active Start: 10-03-2016 Accu-Chek Soft T ouch Lancets Miscellaneous 1 (one) Misc Misc test 3x daily for 0 days Quantity: 100 {Applicator} Refills: 11 Ordered: 03-Oct-2016 Slarb BOX TURNER, Latrice Start : 03-Oct-2016 Active Start: 10-03-2016 BD Pen Needle Na no U/F 32G X 4 MM Miscellaneous 1 (one) Misc Misc qd for 0 days Quantity: 1 {Box} Refills: 6 Ordered: 02-May-2017 Noy Hook CNP, CNP, Mary E Start : 02-May-2017 Active Start: 05-02-2017 NovoFine 32G X 6 MM Miscellaneous 1 (one) Misc daily for 0 days Quantity: 30 {Each} Refills: 0 Ordered: 22-Jan-2019 Gravius AUDIT ASSOCIATE, Latoya Start : 22-Jan-2019 Active Start: 01-22-2019 Accu-Chek Softcl ix Lancet Dev Miscellaneous 1 (one) Misc one for 1 days Quantity: 1 Kit Refills: 0 Ordered: 03-Oct-2016 Jamiaissac WORLEYNoy CNP, Mary E Start : 03-Oct-2016 End : 04-Oct-2016 Inactive Start: 10-03-2016 End: 10-04-2016 Accu-Chek Apple Plus In Vitro Strip 1 (one) Strip Strip test 2-3 times daily for 0 days Quantity: 90 {Strip} Refills: 10 Ordered: 03-Oct-2016 Latrice Castillo LPN Start : 03-Oct-2016 Active Start: 10-03-2016 Accu-Chek Soft T ouch Lancets Miscellaneous 1 (one) Misc Misc test 3x daily for 0 days Quantity: 100 {Applicator} Refills: 11 Ordered: 03-Oct-2016 Latrice Castillo LPN Start : 03-Oct-2016 Active Start: 10-03-2016 BD Pen Needle Na no U/F 32G X 4 MM Miscellaneous 1 (one) Misc Misc qd for 0 days Quantity: 1 {Box} Refills: 6 Ordered: 02-May-2017 Noy Hook CNP, CNP, Mary E Start : 02-May-2017 Active Start: 05-02-2017 NovoFine 32G X 6 MM Miscellaneous 1 (one) Misc daily for 0 days Quantity: 30 {Each} Refills: 0 Ordered: 22-Jan-2019 Gravius AUDIT ASSOCIATE, Latoya Start : 22-Jan-2019 Active Start: 01-22-2019 Accu-Chek Softcl ix Lancet Dev Miscellaneous 1 (one) Misc one for 1 days Quantity: 1 Kit Refills: 0 Ordered: 03-Oct-2016 Noy Hook CNP, CNP, Mary E Start : 03-Oct-2016 End : 04-Oct-2016 Inactive Start: 10-03-2016 End: 10-04-2016 Accu-Chek Apple Plus In Vitro Strip 1 (one) Strip Strip test 2-3 times daily for 0 days Quantity: 90 {Strip} Refills: 10 Ordered: 03-Oct-2016 Slarb BOX TURNER, Latrice Start : 03-Oct-2016 Active Start: 10-03-2016 Accu-Chek Soft T ouch Lancets Miscellaneous 1 (one) Misc Misc test 3x daily for 0 days Quantity: 100 {Applicator} Refills: 11 Ordered: 03-Oct-2016 Slarb BOX TURNER, Latrice Start : 03-Oct-2016 Active Start: 10-03-2016 BD Pen Needle Na no U/F 32G X 4 MM Miscellaneous 1 (one) Misc Misc qd for 0 days Quantity: 1 {Box} Refills: 6 Ordered: 02-May-2017 Noy Hook CNP, CNP, Mary E Start : 02-May-2017 Active Start: 05-02-2017 NovoFine 32G X 6 MM Miscellaneous 1 (one) Misc daily for 0 days Quantity: 30 {Each} Refills: 0 Ordered: 22-Jan-2019 Latoya Duque CMA Start : 22-Jan-2019 Active Start: 01-22-2019 Accu-Chek Softcl ix Lancet Dev Miscellaneous 1 (one) Misc one for 1 days Quantity: 1 Kit Refills: 0 Ordered: 03-Oct-2016 Noy Hook CNP, CNP, Mary E Start : 03-Oct-2016 End : 04-Oct-2016 Inactive Start: 10-03-2016 End: 10-04-2016 Accu-Chek Apple Plus In Vitro Strip 1 (one) Strip Strip test 2-3 times daily for 0 days Quantity: 90 {Strip} Refills: 10 Ordered: 03-Oct-2016 Slarb BOX TURNER, Latrice Start : 03-Oct-2016 Active Start: 10-03-2016 Accu-Chek Soft T ouch Lancets Miscellaneous 1 (one) Misc Misc test 3x daily for 0 days Quantity: 100 {Applicator} Refills: 11 Ordered: 03-Oct-2016 Jonathan ARREDONDORonaldoa Start : 03-Oct-2016 Active Start: 10-03-2016 BD Pen Needle Na no U/F 32G X 4 MM Miscellaneous 1 (one) Misc Misc qd for 0 days Quantity: 1 {Box} Refills: 6 Ordered: 02-May-2017 Jamiaissac WORLEY, Dina Julio Cesar WORLEY, Noy Arevalo Start : 02-May-2017 Active Start: 05-02-2017 NovoFine 32G X 6 MM Miscellaneous 1 (one) Misc daily for 0 days Quantity: 30 {Each} Refills: 0 Ordered: 22-Jan-2019 Gravius AUDIT ASSOCIATE, Latoya Start : 22-Jan-2019 Active Start: 01-22-2019 Accu-Chek Softcl ix Lancet Dev Miscellaneous 1 (one) Misc one for 1 days Quantity: 1 Kit Refills: 0 Ordered: 03-Oct-2016 Julio Cesar WORLEY Noy Hook CNP, Noy Arevalo Start : 03-Oct-2016 End : 04-Oct-2016 Inactive Start: 10-03-2016 End: 10-04-2016 Accu-Chek Apple Plus In Vitro Strip 1 (one) Strip Strip test 2-3 times daily for 0 days Quantity: 90 {Strip} Refills: 10 Ordered: 03-Oct-2016 Jonathan ARREDONDOLatrice Start : 03-Oct-2016 Active Start: 10-03-2016 Accu-Chek Soft T ouch Lancets Miscellaneous 1 (one) Misc Misc test 3x daily for 0 days Quantity: 100 {Applicator} Refills: 11 Ordered: 03-Oct-2016 Jonathan ARREDONDOLatrice Start : 03-Oct-2016 Active Start: 10-03-2016 BD Pen Needle Na no U/F 32G X 4 MM Miscellaneous 1 (one) Misc Misc qd for 0 days Quantity: 1 {Box} Refills: 6 Ordered: 02-May-2017 Julio Cesar WORLEY, Noy Hook CNP, Noy Arevalo Start : 02-May-2017 Active Start: 05-02-2017 NovoFine 32G X 6 MM Miscellaneous 1 (one) Misc daily for 0 days Quantity: 30 {Each} Refills: 0 Ordered: 22-Jan-2019 Latoya Duque CMA Start : 22-Jan-2019 Active Start: 01-22-2019 Accu-Chek Softcl ix Lancet Dev Miscellaneous 1 (one) Misc one for 1 days Quantity: 1 Kit Refills: 0 Ordered: 03-Oct-2016 Noy Hook CNP, CNP, Noy Arevalo Start : 03-Oct-2016 End : 04-Oct-2016 Inactive Start: 10-03-2016 End: 10-04-2016 Accu-Chek Apple Plus In Vitro Strip 1 (one) Strip Strip test 2-3 times daily for 0 days Quantity: 90 {Strip} Refills: 10 Ordered: 03-Oct-2016 Slarb BOX TURNER, Latrice Start : 03-Oct-2016 Active Start: 10-03-2016 Accu-Chek Apple Plus In Vitro Strip 1 (one) Strip Strip test 2-3 times daily for 0 days Quantity: 90 {Strip} Refills: 10 Ordered: 03-Oct-2016 Slarb BOX TURNER, Latrice Start : 03-Oct-2016 Active Start: 10-03-2016 Accu-Chek Soft T ouch Lancets Miscellaneous 1 (one) Misc Misc test 3x daily for 0 days Quantity: 100 {Applicator} Refills: 11 Ordered: 03-Oct-2016 Slarb BOX TURNER, Latrice Start : 03-Oct-2016 Active Start: 10-03-2016 BD Pen Needle Na no U/F 32G X 4 MM Miscellaneous 1 (one) Misc Misc qd for 0 days Quantity: 1 {Box} Refills: 6 Ordered: 02-May-2017 Noy Hook Mary Start : 02-May-2017 Active Start: 05-02-2017 NovoFine 32G X 6 MM Miscellaneous 1 (one) Misc daily for 0 days Quantity: 30 {Each} Refills: 0 Ordered: 22-Jan-2019 Latoya Duque CMA Start : 22-Jan-2019 Active Start: 01-22-2019 Accu-Chek Softcl ix Lancet Dev Miscellaneous 1 (one) Misc one for 1 days Quantity: 1 Kit Refills: 0 Ordered: 03-Oct-2016 Noy Hook Mary Start : 03-Oct-2016 End : 04-Oct-2016 Inactive Start: 10-03-2016 End: 10-04-2016 Clinical Notes 06-01-2021 to 06-14-2024 Patient InstructionsAwa Aguero APRN.[facility] - 06/14/2024 10:34 AM EDJamilah Riddle MD - 05/14/2024 10:00 AM EDTKelli Marquis RN - 05/14/2024 10:00 AM EDTPatient InstructionsAttachments Note Date & Type Note Facility 06-14-2024 Instructions Awa Aguero APRN.[facility] - 06/14/2024 10:38 AM EDT ASSESSMENT/PLAN:[facility] PATIENT INFO POISON NISHA INTRODUCTION When the skin comes in direct contact with an irritating or allergy-causing substance, contact dermatitis can develop. Exposure to poison nisha, poison oak, and poison sumac cause more cases of allergic contact dermatitis than all other plant families combined. People of all ethnicities and skin types are at risk for developing poison nisha dermatitis. The severity of the reaction tends to decrease with age, especially in people who have had mild reactions in the past. People in occupations such as firefighting, forestry, and farming are at a higher risk of poison nisha dermatitis because of repeated exposure to toxic plants. POISON NISHA CAUSES Poison nisha, poison oak, and poison sumac plants all contain a compound called urushiol, which is a light, colorless oil that is found on the fruit, leaves, stem, root, and sap of the plant. When urushiol is exposed to air, it turns brown and the plant leaves develop small black spots. There are several ways that you can be exposed to urushiol: By touching the sap or rubbing against the leaves of the toxic plant By touching something that has urushiol on it, such as animal fur or garden tools By breathing in smoke when toxic plants are burned Ginkgo fruit and the skin of mangoes also contain urushiol and can produce symptoms similar to poison nisha dermatitis. IDENTIFYING POISON NISHA Leaves of three, let them be is a phrase often used to identify plants that cause poison nisha dermatitis. Generally, poison nisha and poison oak have three leaves with flowering branches on a single stem. Poison sumac has five, seven, or more leaves that angle upward toward the top of the stem. Some types of poison nisha produce a green or off-white fruit in [place], and in some cases, black dots form on the plants' leaves. It is not always possible to identify the plant by the leaves alone since the appearance can vary depending upon the season, growth cycle, region, and climate. Poison nisha, oak, and sumac plants grow in many areas across the [facility] and throughout the world. East of the [facility], poison nisha commonly grows as a climbing vine. In the [place] area and west, poison nisha tends to grow low to the ground as a shrub. Poison oak most often grows west of the [facility], and poison sumac inhabits boggy areas in the southeastern part of the [facility]. The plants are not usually found in areas at high elevations or in desert climates. POISON NISHA SIGNS AND SYMPTOMS After contact with urushiol, approximately 50 percent of people develop signs and symptoms of poison nisha dermatitis. The symptoms and severity differ from person to person. The most common signs and symptoms of poison nisha dermatitis are: Intense itching Skin swelling Skin redness These symptoms usually develop within four hours to four days after exposure to the urushiol. After the initial symptoms, you will develop fluid-filled blisters in a line or streak-like pattern. The symptoms are worst within 1 to 14 days after touching the plant, but can develop up to 21 days later if you have never been exposed to urushiol before. The blisters can occur at different times in different people; blisters can develop on the arms several days after blisters on the hands developed. This does not mean that the reaction is spreading from one area of the body to the other. The fluid that leaks from blisters does not cause symptoms. Poison nisha dermatitis is not contagious and cannot be passed from person to person. However, urushiol can be carried under fingernails and on clothes; if another person comes in contact with the urushiol, they can develop poison nisha dermatitis. POISON NISHA DIAGNOSIS Poison nisha is usually diagnosed based upon how your skin looks. Further testing is not usually necessary. POISON NISHA TREATMENT Poison nisha dermatitis usually resolves within one to three weeks without treatment. Treatments that may help relieve the itching, soreness, and discomfort caused by poison nisha dermatitis include: Skin treatments -- For some people, adding oatmeal to a bath, applying cool wet compresses, and applying calamine lotion may help to relieve itching. Once the blisters begin weeping fluid, astringents containing aluminum acetate (Jesus's solution) and [place] may help to relieve the rash. Antihistamines -- Antihistamines may help to relieve itching caused by poison nisha dermatitis. Some antihistamines make you sleepy while others do not. Antihistamines that make you sleepy (eg, diphenhydramine [Benadryl ]) may be helpful if you have trouble sleeping due to itching. Other formulas (eg, loratadine [Claritin ], cetirizine [Zyrtec ]) may be preferable for daytime. Steroid creams -- Steroid creams may be helpful if they are used during the first few days after symptoms develop. Low potency steroid creams, such as 1 percent hydrocortisone (available in the [place] without prescription) are not usually helpful. A stronger prescription formula may be helpful. Steroids -- If you develop severe symptoms or the rash covers a large area (especially on the face or genitals), you may need steroid pills or injections (eg, prednisone) to help relieve itching and swelling. Pills are usually given for 14 to 21 days, with the dosage slowly decreased over time. Antibiotics -- Skin infections are a potential complication of poison nisha, especially if you scratch your skin. If you develop a skin infection because of poison nisha dermatitis, you may need antibiotics to treat the infection. Other treatments -- An herbal therapy called jewelweed extract has been used to treat poison nisha dermatitis, although it has not been proven effective. You should not use antihistamine creams or lotions, anesthetic creams containing benzocaine, or antibiotic creams containing neomycin or bacitracin to the skin. These creams or ointments could make the rash worse. POISON NISHA PREVENTION The best way to prevent poison nisha dermatitis is to identify and avoid the plants that cause it. These plants can irritate the skin year round, even during the winter months, and can still cause a reaction years after the plant dies. Wear protective clothing, including long sleeves and pants when working in areas where toxic plants may be found. Keep in mind that the resin and oils from the toxic plants can be carried on clothing, pets, and under fingernails. Wear heavy-duty vinyl gloves when doing yard work or gardening. The oils from toxic plants can seep through latex or rubber gloves. After coming in contact with poison nisha, remove any contaminated clothing and gently wash (do not scrub or rub) you skin and under the fingernails with mild soap and water as soon as possible. Washing within two hours after exposure can reduce the likelihood and severity of symptoms; washing the skin after you have symptoms will not help. Creams and ointments that create a barrier between the skin and the urushiol oil may be somewhat effective for people who are frequently exposed to poison nisha. Bentoquatam (Nisha Block ) is one type of barrier cream that may prevent poison nisha dermatitis. It must be reapplied every four hours and it leaves a mel residue on the skin. Avoid burning poisonous vegetation, which can disperse the plant particles in the smoke, irritate the skin, and cause poison nisha dermatitis. 1. 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 - PREDNISONE 10 MG TABLET - TRIAMCINOLONE ACETONIDE 0.025 % TOPICAL CREAM - Follow-up with your PCP in 3-5 days if symptoms have not improved or sooner if symptoms worsen - Discussed red flags and need for immediate medical evaluation if any occur. - Discussed supportive care treatment with fluids, rest and analgesia. - Discussed expected course of illness Awa Aguero APRN.[facility] documented in this encounter [facility] 06-14-2024 History of Presen t illness Narrative Images from the original note were not included. Subjective Rash Pertinent negatives include no fever. Liss Samaniego is a 54 year old male who presents with a rash present for the past 2 weeks. He was exposed to poison nisha while pulling weeds. He has been using benadryl cream on it which has not helped. Rash is itchy and sometimes fatima. He has not had a fever. Review of Systems Constitutional: Negative for chills and fever. Respiratory: Negative. Cardiovascular: Negative. Musculoskeletal: Negative for myalgias. Skin: Positive for itching and rash. BP 160/90 Pulse 77 Temp 37 C (98.6 F) Resp 18 Wt 116 kg (255 lb 11.7 oz) SpO2 98% No past medical history on file. No past surgical history on file. ALLERGIES Contrast Dye [Iodine] MEDICATIONS amLODIPine (NORVASC) 5 mg tablet Take 2 tablets by mouth every afternoon. JARDIANCE 25 mg tablet Take 1 tablet by mouth every afternoon. TRESIBA FLEXTOUCH U-100 100 unit/mL (3 mL) injection pen Inject 60 Units subcutaneously every evening. losartan (COZAAR) 100 mg tablet Take 1 tablet by mouth every afternoon. metFORMIN ER (GLUCOPHAGE XR) 750 mg 24 hr tablet Take 750 mg by mouth two times a day with meals. metoprolol succinate ER (TOPROL XL) 100 mg Take 1 tablet by mouth every afternoon. pravastatin (PRAVACHOL) 40 mg tablet Take 1 tablet by mouth every afternoon. RYBELSUS 14 mg tablet Take 1 tablet by mouth every afternoon. predniSONE (DELTASONE) 10 mg tablet Take 4 tabs daily for 3 days, then 2 tabs daily for 3 days, then 1 tab daily for 3 days with food. triamcinolone (KENALOG) 0.025 % cream Apply 1 application to affected area two times a day. No family history on file. Social History Tobacco Use Smoking status: Former Current packs/day: 0.00 Types: Cigarettes Quit date: 2020 Years since quittin.6 Smokeless tobacco: Current Objective Physical Exam Vitals and nursing note reviewed. Constitutional: Appearance: Normal appearance. Cardiovascular: Rate and Rhythm: Normal rate and regular rhythm. Heart sounds: Normal heart sounds. Pulmonary: Effort: Pulmonary effort is normal. No respiratory distress. Breath sounds: Normal breath sounds. No wheezing or rales. Skin: General: Skin is warm and dry. Findings: Erythema and rash present. Neurological: Mental Status: He is alert. ASSESSMENT/PLAN: 1. 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 - PREDNISONE 10 MG TABLET - TRIAMCINOLONE ACETONIDE 0.025 % TOPICAL CREAM Awa Aguero APRN.[facility] documented in this encounter [facility] 05-14-2024 History of Presen t illness Narrative [facility] ADULT CONGENITAL HEART DISEASE AND PULMONARY HYPERTENSION CLINIC DIAGNOSES: 1) Bicuspid aortic valve and aortic root dilation s/p valve sparing supracoronary root replacement 2) Ventricular septal defect s/p repair 3) Coarctation of the aorta s/p repair Relevant Surgical and Procedural History: - 1976: VSD and coarctation repair [facility] - 2002: surveillance revealed a 5.0 cm aortic aneurysm - 09/17/03: Valve-sparing supracoronary root replacement at [facility] 26 mm hemashield tube graft and closure of residual VSD HPI: This is a 54 y.o. male with a history of a BAV, VSD, and coarctation who underwent repair in 1976 of his VSD and Coarctation at [facility] and later, in 2002, required a valve-sparing supracoronary aortic root replacement at [facility]. In addition to his CHD his PMH is significant for diabetes mellitus type 2, hypertension, hyperlipidemia, and obesity. Interval History: Liss Moon is doing well today and denies new symptoms of angina, dyspnea, orthopnea/PND, leg edema, claudications, presyncope, syncope, or palpitations. He does have some chronic dyspnea with significant exertion, and attributes this to his weight. He denies a change in his exercise capacity over the past year. Past Medical History: Diagnosis Date Allergic rhinitis Aortic aneurysm 2001 5.0 cm Ascending Bicuspid aortic valve Coarctation of aorta Diabetes mellitus Erectile dysfunction Hyperlipidemia Hypertension Migraine Past Surgical History: Procedure Laterality Date AORTIC ARCH REPAIR 2002 26 mm Tube graft aortic root, valve sparing ([facility]) COARCTATION OF AORTA REPAIR 1976 OTHER SURGICAL 1971 repair joint in arm, bilateral ELBOW JOINT FUSION Bilateral 1971 KNEE SURGERY Social History Socioeconomic History Marital status: Spouse name: Not on file Number of children: 0 Years of education: Not on file Highest education level: Not on file Occupational History Employer: [employer] Tobacco Use Smoking status: Former Current packs/day: 0.00 Types: Cigarettes Start date: 10/16/1981 Quit date: 10/16/1984 Years since quittin.6 Smokeless tobacco: Never Vaping Use Vaping status: Never Used Substance and Sexual Activity Alcohol use: No Alcohol/week: 0.0 standard drinks of alcohol Drug use: No Sexual activity: Not on file Other Topics Concern Not on file Social History Narrative Not on file Social Determinants of Health Financial Resource Strain: Not on file Food Insecurity: Not on file Transportation Needs: Not on file Physical Activity: Not on file Stress: Not on file Social Connections: Not on file Intimate Partner Violence: Not on file Housing Stability: Not on file Family History Problem Relation Age of Onset Heart Disease - Other Mother Heart Failure Mother Diabetes Father Heart Disease - Other Maternal Grandmother Heart Disease - Other Maternal Grandfather Myocardial Infarction Maternal Grandfather Current Outpatient Medications Medication Sig amLODIPine (Norvasc) 5 MG tablet Take 2 tablets by mouth daily. Amoxicillin (Amoxil) 500 MG capsule take by mouth As directed. Take total of 4 capsules (2grams) one hour before dental procedure. ascorbic acid 500 MG Tab tablet Take 1 tablet by mouth daily. aspirin 81 MG PO TABS take 1 Tab by mouth daily. Blood Pressure Monitoring (Blood Pressure Monitor/L Cuff) Misc 1 kit by Unknown route daily. cyanocobalamin 500 MCG tablet Take 1 tablet by mouth daily. Empagliflozin (Jardiance) 10 MG tablet Take 1 tablet by mouth daily. insulin degludec (TRESIBA) 100 UNIT/ML Solution Inject under the skin. 10 units losartan 100 MG tablet Take 1 tablet by mouth daily. metformin 500 MG PO TABS take 1 Tab by mouth 2 times daily with meals. (Patient taking differently: Take 1.5 tablets by mouth 2 times daily with meals. States 750mg) Metoprolol succinate 100 MG tablet XL Take 1 tablet by mouth daily. pravastatin 40 MG Tab Take 1.5 tablets by mouth daily. pyridoxine 50 MG Tab Take 2 tablets by mouth daily. Semaglutide (Rybelsus) 14 MG tablet Take 1 tablet by mouth daily. Tresiba FlexTouch 200 UNIT/ML Solution Pen-injector injection Inject under the skin. Turmeric 500 MG Tab Take 2 tablets by mouth. Vitamin D3 25 MCG (1000 UT) tablet Take 1 tablet by mouth daily. States 5,000-10,000 units per day Allergies Allergen Reactions Definity [Perflutren Lipid Microsphere] Hives Welts on forearms; throat fullness Review of Systems: A complete 14 point review of systems was completed. Pertinent items are noted in HPI. Remainder of ROS was otherwise negative. Physical Examination: BP 188/86 (BP Location: Left leg, BP Position: Lying) Pulse 73 Resp 16 Ht 1.689 m (5' 6.5) Wt 115.7 kg (255 lb) SpO2 99% BMI 40.54 kg/m Smoking Status Former Body mass index is 40.54 kg/m . In general, he was well appearing and in no acute distress. HEENT was unremarkable. Neck: There was no evidence of jugular venous distention. Lungs/chest: The lungs were clear to auscultation bilaterally without increased work of breathing Cardiovascular exam: RRR, 2/6 systolic murmur Abdomen was soft, non-tender, and there was no hepatosplenomegaly. Extremities were warm without peripheral edema. There was no evidence of clubbing or cyanosis. Neurologic exam was grossly intact with no focal deficits. Skin: there were no unusual rashes. Current Outpatient Medications: amLODIPine (Norvasc) 5 MG tablet, Take 2 tablets by mouth daily., Disp: 180 tablet, Rfl: 3 Amoxicillin (Amoxil) 500 MG capsule, take by mouth As directed. Take total of 4 capsules (2grams) one hour before dental procedure., Disp: 4 capsule, Rfl: 2 ascorbic acid 500 MG Tab tablet, Take 1 tablet by mouth daily., Disp: , Rfl: aspirin 81 MG PO TABS, take 1 Tab by mouth daily., Disp: 90 Tab, Rfl: 3 Blood Pressure Monitoring (Blood Pressure Monitor/L Cuff) Misc, 1 kit by Unknown route daily., Disp: 1 Each, Rfl: 0 cyanocobalamin 500 MCG tablet, Take 1 tablet by mouth daily., Disp: , Rfl: Empagliflozin (Jardiance) 10 MG tablet, Take 1 tablet by mouth daily., Disp: , Rfl: insulin degludec (TRESIBA) 100 UNIT/ML Solution, Inject under the skin. 10 units, Disp: , Rfl: losartan 100 MG tablet, Take 1 tablet by mouth daily., Disp: 90 tablet, Rfl: 3 metformin 500 MG PO TABS, take 1 Tab by mouth 2 times daily with meals. (Patient taking differently: Take 1.5 tablets by mouth 2 times daily with meals. States 750mg), Disp: 180 Tab, Rfl: 1 Metoprolol succinate 100 MG tablet XL, Take 1 tablet by mouth daily., Disp: 90 tablet, Rfl: 3 pravastatin 40 MG Tab, Take 1.5 tablets by mouth daily., Disp: , Rfl: pyridoxine 50 MG Tab, Take 2 tablets by mouth daily., Disp: , Rfl: Semaglutide (Rybelsus) 14 MG tablet, Take 1 tablet by mouth daily., Disp: , Rfl: Tresiba FlexTouch 200 UNIT/ML Solution Pen-injector injection, Inject under the skin., Disp: , Rfl: Turmeric 500 MG Tab, Take 2 tablets by mouth., Disp: , Rfl: Vitamin D3 25 MCG (1000 UT) tablet, Take 1 tablet by mouth daily. States 5,000-10,000 units per day, Disp: , Rfl: DIAGNOSTIC DATA Echocardiogram: 05/14/24, reviewed personally Final read pending Moderate bicuspid , normal LV function, some degree of LVH PG 49/ MG 26 mm Hg across aortic valve Electrocardiogram: 05/14/24, reviewed personally Normal sinus rhythm, voltage criteria for LVH Transthoracic echocardiogram 05/16/2023 BAV, s/p asc aorta replacement, VSD and coarct repairs. Fair image quality. Left Ventricle: Chamber size is normal. Normal global systolic function. Regional wall motion is normal. The ejection fraction is 56%. Ejection fraction by modified Grace's rule is normal (55 - 60%). Right Ventricle: Chamber size is normal. Systolic function is normal. Aortic valve not well visualized, reportedly bicusoid. Non-specific thickening. Leaflet calcification. Leaflet excursion is decreased. Moderate stenosis. Mean gradient: 25 mmHg. Dimensionless Index by VTI: 0.30. Valve area continuity VTI: 0.96 cm2. The valve Vmax is 3.11 m/s. MAC with a small gradient, mild MR. Estimated right ventricular systolic pressure is 31 mmHg. Estimated right atrial pressure is 3.00 mmHg. Sinuses of Valsalva/aortic root is mildly enlarged. The ascending aorta regions contain a prosthetic graft (26 mm Hemshield). SOV: 4.20 cm. Coarct repsir site noted, ? graft or stent, no gradient to suggest re-coarctation. Compared to 05/31/22 TTE, results are similar, some progression of No evidence of VSD flow with color Doppler. Transthoracic echocardiogram 05/31/22 Bicuspid aortic valve s/p valve sparing root replacement (26mm Hemashield graft), VSD s/p repair, coarctation s/p repair. Left Ventricle: Chamber size is normal. Normal wall thickness. Normal global wall motion. Regional wall motion is normal. Ejection fraction is normal (60 - 65%). Diastolic function is consistent with impaired relaxation (grade I). Right Ventricle: Chamber size is normal. Systolic function is normal. No evidence of VSD flow with color Doppler. Left Atrium: Chamber size is mildly enlarged. Bicuspid aortic valve. Non-specific thickening. Leaflet calcification. Leaflet excursion is decreased. Trace regurgitation. Mild stenosis. LVOT diameter: 2.00 cm. Mean gradient: 23 mmHg. Dimensionless Index by VTI: 0.33. Valve area continuity VTI: 1.05 cm2. The valve Vmax is 2.97 m/s. An echo density consistent with a fat pad is present. Trivial pericardial effusion. Sinuses of Valsalva/aortic root is mildly enlarged. The ascending aorta regions contain a graft. SOV: 4.23 cm. Stent (or graft) in descending aorta at the site of coarct repiar, no gradient detected (peak v 1.5 m/s). Compared to 06/01/21, AV gradient has increased, valve area and DI are lower consistent with progression of . Aortic measurements similar. Transthoracic echocardiogram (06/01/21): Bicuspid aortic valve s/p valve sparing root replacement (26mm Hemashield graft), VSD s/p repair, coarctation s/p repair. Fair to poor image quality. Left Ventricle: Chamber size is normal. Concentric remodeling present. Normal global wall motion. Regional wall motion is normal. Ejection fraction is normal (60 - 65%). Diastolic function is consistent with impaired relaxation (grade I). Right Ventricle: Chamber size is normal. Systolic function is normal. No evidence of VSD flow with color Doppler. Aortic valve not well visualized. Presumed bicuspid valve. Leaflet excursion is decreased. No regurgitation. Mild stenosis. Mean gradient: 14 mmHg. Dimensionless Index by VTI: 0.44. Valve area continuity VTI: 1.39 cm2. Sinuses of Valsalva/aortic root size is mildly enlarged. Ascending aorta size is normal. SOV: 4.30 cm. STJ: 3.10 cm. Ascendin.90 cm. Arch: 2.30 cm. Stent (or graft) in descending aorta at the site of coarct repiar, no gradient detected (peak v 1.1 m/s). Compared to 06/11/19, aortic root has increased ( was reported to be 4 cm), no change in AV hemodynamics. MRI Cardiac with contrast and MRA of Chest (06/02/20) FINAL IMPRESSION: Bicuspid aortic valve (R-L) fusion with moderate stenosis and mild regurgitation. Moderate dilation of the [place] proximal aortic root with maximal cusp-cusp diameter of 4.3 cm. Intact aortic graft. Beyond the surgical graft, the distal ascending aorta is at the upper size of normal. No evidence of re-contraction. Normal LV size and systolic function. Left ventricular hypertrophy and prominent LV trabeculae and non-ischemic fibrosis. 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 MRI Arteriogram Brain 06/11/19: Very thin caliber of the left vertebral artery which may be due to high-grade stenosis, or may be hypoplastic in nature MRI Arteriogram Brain 06/12/18: Very thin caliber of the left vertebral artery which may be due to high-grade stenosis, or may be hypoplastic in nature IMPRESSION - DISCUSSION Liss Moon is a 54 y.o. with: DIAGNOSES: 1) Bicuspid aortic valve and aortic root dilation s/p valve sparing supracoronary root replacement 2) Ventricular septal defect s/p repair 3) Coarctation of the aorta s/p repair Relevant Surgical and Procedural History: - 1976: VSD and coarctation repair [facility] - 2002: surveillance revealed a 5.0 cm aortic aneurysm - 09/17/03: Valve-sparing supracoronary root replacement at [facility] 26 mm hemashield tube graft and closure of residual VSD Recommendations: Liss is doing well today. His echo shows moderate bicuspid aortic valve stenosis. His prior MRI from 2019 is reassuring without re-coarctation or aneurysm, and his coarctation vitals are reassuring today. Follow up in 1 year with an echo to reassess his aortic valve stenosis. He is aware of the need to continue close follow up for progression of stenosis. We advised him about red flag symptoms today. HEALTH MAINTENANCE: - According to the ACC 2007 guidelines for endocarditis prophylaxis this patient does require antibiotics prior to dental work. - Exercise recommendations per the [employer]th [place] Conference: Avoid heavy lifting or valsalva - Reproduction: Children should be screen for CHD - Non-cardiac surgery: Should have surgeries at [facility] Liss Moon was seen/examined and the plan was discussed with Dr Llanos. Jr Riddle MD Fellow in Adult Congenital Heart Disease [facility] Adult Congenital Heart (HOSPITAL SALES REPRESENTATIVE) Program at [facility] Patient Education Patient education regarding the following topic(s) was provided for pt: cardiac concerns/follow up planning Plan: Return in one year with an echocardiogram and clinic visit with Dr Llanos Medication refills sent as prescribed by Dr Llanos SBE amoxicillin antibiotic also sent for refills for use prior to dental appointments Those in attendance for the education included: patient. Barriers in providing the education included: none. The following methods were used in providing the education: explanation. [facility] handouts given included: After Visit Summary. The response of those in attendance was: states/identifies education topic. The following Clinical Intervention(s) occurred during today s visit: Teaching/education provided to patient and or support team regarding follow up plans. CoA BP measurements done on right upper arm and left lower leg per physician request; provider reviewed results I independently reviewed the patients chart, examined the patient and reviewed the diagnostic studies. I spent > 50% of the time involved in counseling and education. A total of 45 min was spent reviewing diagnostic testing, and specific time with Liss Moon during the clinic visit. We discussed the patient and I agree with the assessment and plan. Follow up testing and clinic visits will be scheduled accordingly. Liss is doing well. He has no complaints today. On exam vital signs are normal he has no evidence of re-coarctation his blood pressure is normal he has no features of heart failure. He has aortic stenosis murmur. His echocardiogram demonstrates [id number] aortic stenosis mean gradient 29 he has had a slight increase over last few years. He has normal LV function with probably mild LVH. We will make no changes at this time plan on echocardiogram next year documented in this encounter [facility] 05-14-2024 Instructions Kelli Marquis RN - 05/14/2024 10:00 AM EDT Plan: Return in one year with an echocardiogram and clinic visit with Dr Llanos Medication refills sent as prescribed by Dr Llanos Amoxicillin (antibiotic) also sent for refills for use prior to dental appointments Thank you for choosing [facility] for your cardiac care. If questions or concerns regarding your visit or treatment plan, please call: Adult Congenital Heart Disease Physicians/Providers: MD Yeyo Rivers MD Lauren Lastinger, MD Isla McClelland, MD Bo Marshall, MD May Ling Mah, MD ([facility] only) Leopoldo Lambert MD ([facility] only) [facility] Nurse Practitioners: Aníbal Miner APRN-ONDINA Arora CNP [facility] FELLOWS: MD Mino Gutiérrez MD PRIMARY CONTACT INFORMATION: Adult Congenital Heart Disease Triage Nurses- [facility] Main Line [phone] opt 6; opt 4 phone tree options FLORINDA Vincent RN Phoebe South, RN Pulmonary Hypertension Coordinators- [facility] Julissa Grant RN Adult Congenital Heart Disease Nurse Practitioner- [facility] [phone] opt 6; opt 4 Aníbal Miner APRN, CNP Trina Cunningham, APRN, CNP Amy Alexander, APRN-VOCATIONAL CASE MANAGER () MyChart messaging is often the best way to contact Adult Congenital Heart Disease Copy Chaser- [facility] For appointment scheduling/verification and general information Jitendra Li Main Line Phone Tree [phone] opt7 [facility] Congenital Team Contact for Nurse Practitioner, Nurse and Schedulers Go to the website below for further program information. Check out patient education featuring topics and videos related to adults and adolescents with congenital heart disease and provides valuable information from leading experts. [email or web address] [email or web address]-[email or web address] Look for us on FACEBOOK at Adult Congenital Heart Disease at [facility] Test results are reviewed at the time of your office visit. If additional testing is ordered, it may take 1-2 weeks for physician review and recommendations. Please call or send a [employer] message if you have not received a phone call or message via Nutrinsic with your results/recommendations. Holter/Event Monitors require at least 2 weeks from when you drop off your monitor, for physicians to review. Return recommendations notification may be via Nutrinsic message or phone call. If you have not received your Event/Mobile cardiac quality assurance monitor final in the mail when expected, please contact our office [phone] or the device office [phone]. For a monitoring device being mailed to you, TalkBin customer account representative will contact you within 48-hours of your expected start date to verify your mailing address. You will not receive the monitor without consent. [employer] can be reached at [phone] Medication Refills are routinely reviewed at your clinic visits. If you know you will be in need of refills, please let your providers be aware at time of visit. If in need of refills between visits, please contact our office 48-72 hours ahead of need or send a Nutrinsic message including name of specific medication, dosing, quantity of refill (30 day vs. 90 day supply preference) and name/location of preferred pharmacy. Outside bloodwork needs faxed to our office for physician review at [phone]. [facility] is an available tool to securely access your online medical information and communicate with your healthcare team members - please ask to enroll during any [facility] appointment. If you experience a change in your symptoms, please notify this office at [phone] or call 911 if an emergent situation. Please leave your name, date of and question or concern with the nurse line staff if I am unavailable to take your call directly. Nutrinsic is an excellent resource for communication with your providers as well. All calls are prioritized and responses researched, if possible, prior to calls being returned. Calls are reviewed/answered M-F 8am to 4:30pm - with the exception of weekends and holidays when offices are closed. If after hours or weekend concerns, please call - listen for after hours prompts as needed. Please allow 24 hours for your call message to be answered. [facility] patient testing and procedure instructions may be obtained at [email or web address] Thank you for your interest in the COVID-19 vaccine and current virus management recommendations. We are providing the vaccine to our patients based on the [place] Department of Health s recommendations for age and medical conditions. The link to our website has the most up-to-date information related to the COVID-19 vaccine. Visit us at [facility] documented in this encounter [facility] 05-16-2023 Evaluation + Plan note Associated Problem(s): Hypertension BP uncontrolled on home readings. Continue amlodipine 10 mg/day and toprol xl 100 mg/day. Increase losartan from 25 mg to 50 mg for one week, then increase to 100 mg/d. After this we can consider converting toprol XL to carvedilol. [facility] 05-16-2023 Miscellaneous Notes Associated Problem(s): Hypertension BP uncontrolled on home readings. Continue amlodipine 10 mg/day and toprol xl 100 mg/day. Increase losartan from 25 mg to 50 mg for one week, then increase to 100 mg/d. After this we can consider converting toprol XL to carvedilol. Associated Problem(s): Bicuspid aortic valve Transthoracic echocardiogram today shows a calcified bicuspid AV with stable mild (mean gradient 23 mmHg) with no AR. [place] aortic root is slightly dilated to 4.2 cm. Grafted portion is intact with no anastomotic complications evident. Last advanced arch imaging in 2019. Can consider repeating in the next 1-3 years. Associated Problem(s): Coarctation of aorta - no significant recoarctation of the aorta as evidenced by normal arm/leg BP gradient, no radio-femoral pulse delay, and reassuring doppler echo findings. BP is uncontrolled which is likely due in part to his abnormal aortic architecture however given the evidence above, do not think there is any significant re-coarctation. documented in this encounter [facility] 05-16-2023 Evaluation + Plan note Associated Problem(s): Bicuspid aortic valve Transthoracic echocardiogram today shows a calcified bicuspid AV with stable mild (mean gradient 23 mmHg) with no AR. [place] aortic root is slightly dilated to 4.2 cm. Grafted portion is intact with no anastomotic complications evident. Last advanced arch imaging in 2019. Can consider repeating in the next 1-3 years. [facility] 05-16-2023 Evaluation + Plan note Associated Problem(s): Coarctation of aorta - no significant recoarctation of the aorta as evidenced by normal arm/leg BP gradient, no radio-femoral pulse delay, and reassuring doppler echo findings. BP is uncontrolled which is likely due in part to his abnormal aortic architecture however given the evidence above, do not think there is any significant re-coarctation. [facility] 05-16-2023 History of Presen t illness Narrative [facility] ADULT CONGENITAL HEART DISEASE AND PULMONARY HYPERTENSION CLINIC DIAGNOSES: 1) Bicuspid aortic valve and aortic root dilation s/p valve sparing supracoronary root replacement 2) Ventricular septal defect s/p repair 3) Coarctation of the aorta s/p repair Relevant Surgical and Procedural History: - 1976: VSD and coarctation repair [facility] - 2002: surveillance revealed a 5.0 cm aortic aneurysm - 09/17/03: Valve-sparing supracoronary root replacement at [facility] 26 mm hemashield tube graft and closure of residual VSD HPI: This is a 53 y.o. male with a history of a BAV, VSD, and coarctation who underwent repair in 1976 of his VSD and Coarctation at [facility] and later, in 2002, required a valve-sparing supracoronary aortic root replacement at [facility]. In addition to his CHD his PMH is significant for diabetes mellitus type 2, hypertension, hyperlipidemia, and obesity. 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 He says he is more sedentary since making this move but tries to be active when able. He doesn't have any specific cardiac concerns today. Denies chest pain, dyspnea, palpitation, syncope. He has been checking BP at home and gets 150-180s systolic Physical Exam: BP 148/77 R arm, 201/88 R leg Cardiovascular: PMI at left midclavicular line. Normal rate. Regular rhythm. Normal S1. Normal S2. Murmurs: There is a grade 2/6 high frequency early systolic murmur. No gallop. No click. No rub. Pulses: Radial: 2+ bilaterally. Comments: No radio-femoral pulse delay Edema: Pretibial: bilateral trace edema of the pretibial area. Current Outpatient Medications: amLODIPine (Norvasc) 5 MG tablet, Take 2 tablets by mouth daily., Disp: 180 tablet, Rfl: 3 amoxicillin (Amoxil) 500 MG capsule, take by mouth As directed. Take total of 4 capsules (2grams) one hour before dental procedure., Disp: 4 capsule, Rfl: 0 ascorbic acid 500 MG Tab tablet, Take 1 tablet by mouth daily., Disp: , Rfl: aspirin 81 MG PO TABS, take 1 Tab by mouth daily., Disp: 90 Tab, Rfl: 3 Blood Pressure Monitoring (Blood Pressure Monitor/L Cuff) Misc, 1 kit by Unknown route daily., Disp: 1 Each, Rfl: 0 cyanocobalamin 500 MCG tablet, Take 1 tablet by mouth daily., Disp: , Rfl: Empagliflozin (Jardiance) 10 MG tablet, Take 1 tablet by mouth daily., Disp: , Rfl: insulin degludec (TRESIBA) 100 UNIT/ML Solution, Inject under the skin. 10 units, Disp: , Rfl: Losartan 100 MG tablet, Take 1 tablet by mouth daily., Disp: 90 tablet, Rfl: 3 metformin 500 MG PO TABS, take 1 Tab by mouth 2 times daily with meals. (Patient taking differently: Take 1.5 tablets by mouth 2 times daily with meals. States 750mg), Disp: 180 Tab, Rfl: 1 metoprolol succinate 100 MG tablet XL, Take 1 tablet by mouth daily., Disp: 90 tablet, Rfl: 3 pravastatin 40 MG Tab, Take 1.5 tablets by mouth daily., Disp: , Rfl: pyridoxine 50 MG Tab, Take 2 tablets by mouth daily., Disp: , Rfl: Semaglutide (Rybelsus) 14 MG tablet, Take 1 tablet by mouth daily., Disp: , Rfl: Tresiba FlexTouch 200 UNIT/ML Solution Pen-injector injection, Inject under the skin., Disp: , Rfl: Turmeric 500 MG Tab, Take 2 tablets by mouth., Disp: , Rfl: Vitamin D3 25 MCG (1000 UT) tablet, Take 1 tablet by mouth daily. States 5,000-10,000 units per day, Disp: , Rfl: DIAGNOSTIC DATA New imaging/data since last visit ECG 05/16/2023 sinus rhythm with LVH Transthoracic echocardiogram 05/16/2023 Images reviewed, read pending Transthoracic echocardiogram 05/31/22 Bicuspid aortic valve s/p valve sparing root replacement (26mm Hemashield graft), VSD s/p repair, coarctation s/p repair. Left Ventricle: Chamber size is normal. Normal wall thickness. Normal global wall motion. Regional wall motion is normal. Ejection fraction is normal (60 - 65%). Diastolic function is consistent with impaired relaxation (grade I). Right Ventricle: Chamber size is normal. Systolic function is normal. No evidence of VSD flow with color Doppler. Left Atrium: Chamber size is mildly enlarged. Bicuspid aortic valve. Non-specific thickening. Leaflet calcification. Leaflet excursion is decreased. Trace regurgitation. Mild stenosis. LVOT diameter: 2.00 cm. Mean gradient: 23 mmHg. Dimensionless Index by VTI: 0.33. Valve area continuity VTI: 1.05 cm2. The valve Vmax is 2.97 m/s. An echo density consistent with a fat pad is present. Trivial pericardial effusion. Sinuses of Valsalva/aortic root is mildly enlarged. The ascending aorta regions contain a graft. SOV: 4.23 cm. Stent (or graft) in descending aorta at the site of coarct repiar, no gradient detected (peak v 1.5 m/s). Compared to 06/01/21, AV gradient has increased, valve area and DI are lower consistent with progression of . Aortic measurements similar. Transthoracic echocardiogram (06/01/21): Bicuspid aortic valve s/p valve sparing root replacement (26mm Hemashield graft), VSD s/p repair, coarctation s/p repair. Fair to poor image quality. Left Ventricle: Chamber size is normal. Concentric remodeling present. Normal global wall motion. Regional wall motion is normal. Ejection fraction is normal (60 - 65%). Diastolic function is consistent with impaired relaxation (grade I). Right Ventricle: Chamber size is normal. Systolic function is normal. No evidence of VSD flow with color Doppler. Aortic valve not well visualized. Presumed bicuspid valve. Leaflet excursion is decreased. No regurgitation. Mild stenosis. Mean gradient: 14 mmHg. Dimensionless Index by VTI: 0.44. Valve area continuity VTI: 1.39 cm2. Sinuses of Valsalva/aortic root size is mildly enlarged. Ascending aorta size is normal. SOV: 4.30 cm. STJ: 3.10 cm. Ascendin.90 cm. Arch: 2.30 cm. Stent (or graft) in descending aorta at the site of coarct repiar, no gradient detected (peak v 1.1 m/s). Compared to 06/11/19, aortic root has increased ( was reported to be 4 cm), no change in AV hemodynamics. MRI Cardiac with contrast and MRA of Chest (06/02/20) FINAL IMPRESSION: Bicuspid aortic valve (R-L) fusion with moderate stenosis and mild regurgitation. Moderate dilation of the [place] proximal aortic root with maximal cusp-cusp diameter of 4.3 cm. Intact aortic graft. Beyond the surgical graft, the distal ascending aorta is at the upper size of normal. No evidence of re-contraction. Normal LV size and systolic function. Left ventricular hypertrophy and prominent LV trabeculae and non-ischemic fibrosis. 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 MRI Arteriogram Brain 06/11/19: Very thin caliber of the left vertebral artery which may be due to high-grade stenosis, or may be hypoplastic in nature MRI Arteriogram Brain 06/12/18: Very thin caliber of the left vertebral artery which may be due to high-grade stenosis, or may be hypoplastic in nature IMPRESSION - DISCUSSION Coarctation of Aorta - no significant recoarctation of the aorta as evidenced by normal arm/leg BP gradient, no radio-femoral pulse delay, and reassuring doppler echo findings. BP is uncontrolled which is likely due in part to his abnormal aortic architecture however given the evidence above, do not think there is any significant re-coarctation. Bicuspid aortic valve Transthoracic echocardiogram today shows a calcified bicuspid AV with stable mild (mean gradient 23 mmHg) with no AR. [place] aortic root is slightly dilated to 4.2 cm. Grafted portion is intact with no anastomotic complications evident. Last advanced arch imaging in 2020. Can consider repeating in the next 1-3 years. Hypertension BP uncontrolled on home readings. Continue amlodipine 10 mg/day and toprol xl 100 mg/day. Increase losartan from 25 mg to 50 mg for one week, then increase to 100 mg/d. After this we can consider converting toprol XL to carvedilol. HEALTH MAINTENANCE: - According to the ACC 2007 guidelines for endocarditis prophylaxis this patient does require antibiotics prior to dental work. - Exercise recommendations per the 36th [place] Conference: Avoid heavy lifting or valsalva - Reproduction: Children should be screen for CHD - Non-cardiac surgery: Should have surgeries at [facility] Thank you for allowing us to participate in the care of your patient. If you have any concerns or questions, please do not hesitate to contact me. Case discussed and plan developed in collaboration with Dr. Era Miner APRN-MEIR [facility] Adult Congenital Heart Disease and Cardio-Obstetrics Program Office: [phone] The total time spent in this encounter, including pre-charting, ramz-ma-dzcu time, review of testing, and post visit documentation, is 91 minutes. Patient Education Patient education regarding the following topic(s) was provided for pt: cardiac concerns/follow up planning Plan Increase Losartan to 100mg Daily Follow up with Dr. Llanos in One year with a clinic visit and echocardiogram Those in attendance for the education included: patient. Barriers in providing the education included: none. The following methods were used in providing the education: explanation. [facility] handouts given included: After Visit Summary. The response of those in attendance was: states/identifies education topic. The following Clinical Intervention(s) occurred during today s visit: Teaching/education provided to patient and or support team regarding follow up plans. E-scripts sent I independently reviewed the patients chart, examined the patient and reviewed the diagnostic studies. I spent > 50% of the time involved in counseling and education. A total of 45 min was spent reviewing diagnostic testing, and specific time with Liss Moon during the clinic visit. We discussed the patient and I agree with the assessment and plan. Follow up testing and clinic visits will be scheduled accordingly. Liss has BAV s/p valve sparing root and COA s/prepair - doing well with no complaints - BP is elevated. No signs of HF 2/6 KIKE. ECHO stable mild -otherwise unremarkable. Plan RTC 1 yr with ECHO and increase Losarten documented [facility] Instructions Jaci Aguilar RN - 05/16/2023 9:00 AM EDT Plan Increase Losartan to 100mg Daily- Continue to monitor blood pressure- we will reach out to you to see how you are doing on your increased dosing Follow up with Dr. Llanos in one year with a clinic visit and echocardiogram Thank you for choosing [facility] for your cardiac care. If questions or concerns regarding your visit or treatment plan, please call: Adult Congenital Heart Disease Physicians/Providers: MD Yeyo Rivers MD Lauren Lastinger, MD Isla McClelland, MD May Ling Mah, MD ([facility] only) Leopoldo Lambert MD ([facility] only) [facility] Nurse Practitioners: Aníbal Miner APRN-MEIR Wilson APRN- MEIR [facility] FELLOWS: MD Noris Noonan MD PRIMARY CONTACT INFORMATION: Adult Congenital Heart Disease Triage Nurses- [facility] Main Line [phone] phone tree FLORINDA Barron RN Phoebe South, RN Pulmonary Hypertension Coordinators- [facility] Julissa Grant RN Pedro Avelar Adult Congenital Heart Disease Nurse Practitioner- [facility] [phone] Aníbal Miner APRN, MEIR Wilson APRN, MEIR Alexandra APRN-VOCATIONAL CASE MANAGER ( inpatient) [employer] Solution[employer] messaging is often the best way to contact Adult Congenital Heart Disease Copy Chaser- [facility] For appointment scheduling/verification and general information Jitendra Li Main Line Phone Tree [phone] [facility] Congenital Team Contact for Nurse Practitioner, Nurse and Schedulers Go to the website below for further program information. Check out patient education featuring topics and videos related to adults and adolescents with congenital heart disease and provides valuable information from leading experts. [email or web address] org/dacliiscfl-rtayf-[email or web address] [email or web address]-disease Look for us on FACEBOOK at Adult Congenital Heart Disease at [facility] Test results are reviewed at the time of your office visit. If additional testing ordered, it may take 1-2 weeks for physician review and recommendations. Abnormal results are prioritized first. Please call or send a Mychart message if you have not received a phone call or letter in the mail with your results/recommendations. Holter/Event Monitors require at least 2 weeks from when you drop off your monitor, for physicians to review. Abnormal results are prioritized first. Notification may be a letter, MyChart message or phone call. If you have not received your Event/Mobile cardiac quality assurance monitor final in the mail when expected, please contact our office [phone] or the device office [phone]. For a monitoring device being mailed to you, [employer] customer account representative will contact you within 48-hours of your expected start date to verify your mailing address. You will not receive the monitor without consent. [employer] can be reached at [phone]. Medication Refills are routinely reviewed at your clinic visits. If you know you will be in need of refills, please let your providers be aware at time of visit. If in need of refills between visits, please contact our office 48-72 hours ahead of need - leave message of specific medication, dosing, quantity of refill (30 day vs. 90 day supply preference) and name/location of preferred pharmacy. Outside bloodwork needs faxed to our office for physician review at [phone]. POTAT[employer]FT is an available tool to securely access your online medical information and communicate with your healthcare team members - please ask to enroll during any [facility] appointment. If you experience a change in your symptoms, please notify this office immediately or call 911 if an emergent situation. All calls are prioritized and responses researched, if possible, prior to calls being returned. Please leave your name, date of and question or concern on my voicemail. Calls are reviewed/answered M-F 8am to 4:00pm - with the exception of holidays when offices are closed. If after hours or weekend concerns, please call - listen for after hours prompts as needed. Please allow 24 hours for your call to be answered. [facility] patient testing and procedure instructions may be obtained at [email or web address] Thank you for your interest in the COVID-19 vaccine and current virus management recommendations. We are providing the vaccine to our patients based on the [facility] s recommendations for age and medical conditions. The link to our website has the most up-to-date information related to the COVID-19 vaccine. Visit us at [email or web address] documented in this encounter [facility] 07-18-2022 Telephone encounter Note Third attempt to reach out to patient to obtain blood pressure readings, unable to leave message as mailbox is full. Previously left MyChart message is unread. [facility] 07-18-2022 Miscellaneous Notes Third attempt to reach out to patient to obtain blood pressure readings, unable to leave message as mailbox is full. Previously left MyChart message is unread. Attempted to reach pt again to obtain bp readings. No answer and unable to leave message a mailbox full. MyChart msg sent to pt. Follow-up call to patient to check for blood pressure log after Dr. Llanos visit on 05/30/22. No answer at provided number and mailbox full. No voicemail left. [facility] MyChart sent to patient alternatively, asking about log and requesting follow message, fax or call. documented in this encounter [facility] 07-01-2022 Telephone encounter Note Attempted to reach pt again to obtain bp readings. No answer and unable to leave message a mailbox full. MyChart msg sent to pt. [facility] 06-21-2022 Telephone encounter Note Follow-up call to patient to check for blood pressure log after Dr. Llanos visit on 05/30/22. No answer at provided number and mailbox full. No voicemail left. [facility] MyChart sent to patient alternatively, asking about log and requesting follow message, fax or call. [facility] 05-31-2022 History of Presen t illness Narrative [facility] ADULT CONGENITAL HEART DISEASE AND PULMONARY HYPERTENSION CLINIC DIAGNOSES: 1) Bicuspid aortic valve and aortic root dilation s/p valve sparing supracoronary root replacement 2) Ventricular septal defect s/p repair 3) Coarctation of the aorta s/p repair Relevant Surgical and Procedural History: - 1976: VSD and coarctation repair [facility] - 2002: surveillance revealed a 5.0 cm aortic aneurysm - 09/17/03: Valve-sparing supracoronary root replacement at [facility] 26 mm hemashield tube graft and closure of residual VSD HPI: This is a 52 y.o. male with a history of a BAV, VSD, and coarctation who underwent repair in 1976 of his VSD and Coarctation at [facility] and later, in 2002, required a valve-sparing supracoronary aortic root replacement at [facility]. In addition to his CHD his PMH is significant for diabetes mellitus type 2, hypertension, hyperlipidemia, and obesity. INTERVAL HISTORY: Mr. Moon has no major concerns today, he feels somewhat better than he did last year. His diabetes is under better control. He does not check BP regularly. His RLE is still swollen but improves after he sleeps, and he usually uses compression stockings. He had a prior surgery to his R knee for a shattered kneecap but this is >20 years ago. He does not check his BP's at home but he reports adherence to his Metoprolol, Amlodipine, and Losartan. ROS Denies SOB at rest, orthopnea, PND, cough, palpitations, chest pain/pressure/tightness, syncope or near-syncope. All other ROS negative except as detailed in the history. Physical Exam: BP 148/81 (BP Location: Right arm, BP Position: Lying) Pulse 79 Resp 20 Ht 1.702 m (5' 7) Wt 115.8 kg (255 lb 3.2 oz) SpO2 96% BMI 39.97 kg/m Smoking Status Former Smoker General appearance: Patient is alert and in no acute distress. Neck: No JVD. Respiratory: Normal effort, no use of accessory muscles. Lungs are clear to auscultation Cardiovascular: Regular rate and rhythm. There is a III/IV systolic murmur most prominent at RUSB. S1 normal, S2 . No rubs. Pulses 2+ radial and PT. Abdomen: non tender Skin: Warm and dry. Neurologic: Motor strength grossly intact. No focal deficits. Extremities: No clubbing or cyanosis of the nails. No edema. Current Outpatient Medications: amLODIPine (Norvasc) 5 MG tablet, Take 2 tablets by mouth daily., Disp: 180 tablet, Rfl: 3 amoxicillin (Amoxil) 500 MG capsule, take by mouth As directed. Take total of 4 capsules (2grams) one hour before dental procedure., Disp: 4 capsule, Rfl: 0 ascorbic acid 500 MG Tab tablet, Take 500 mg by mouth daily., Disp: , Rfl: aspirin 81 MG PO TABS, take 1 Tab by mouth daily., Disp: 90 Tab, Rfl: 3 Blood Pressure Monitoring (Blood Pressure Monitor/L Cuff) Misc, 1 kit by Unknown route daily., Disp: 1 Each, Rfl: 0 cyanocobalamin 500 MCG tablet, Take 500 mcg by mouth daily., Disp: , Rfl: fenofibrate 145 MG tablet, Take 1 tablet by mouth daily., Disp: 90 tablet, Rfl: 3 gliMEPIride 4 MG tablet, Take 2 mg by mouth daily every morning., Disp: , Rfl: insulin degludec (TRESIBA) 100 UNIT/ML Solution, Inject under the skin. 10 units, Disp: , Rfl: linaGLIPtin (TRADJENTA) 5 MG Tab tablet, Take by mouth. (Patient not taking: Reported on 06/01/2021), Disp: , Rfl: Liraglutide (VICTOZA) 18 MG/3ML Solution Pen-injector, 1.2 mg by Subcutaneous route. (Patient not taking: Reported on 06/01/2021), Disp: , Rfl: losartan 50 MG tablet, Take 0.5 tablets by mouth 2 times daily., Disp: 90 tablet, Rfl: 3 metformin 500 MG PO TABS, take 1 Tab by mouth 2 times daily with meals. (Patient taking differently: Take 750 mg by mouth 2 times daily with meals. States 750mg), Disp: 180 Tab, Rfl: 1 metoprolol succinate 100 MG tablet XL, Take 1 tablet by mouth daily., Disp: 90 tablet, Rfl: 3 pravastatin 40 MG Tab, take 60 mg by mouth daily., Disp: , Rfl: pyridoxine 50 MG Tab, Take 100 mg by mouth daily., Disp: , Rfl: Turmeric 500 MG Tab, Take 1,000 mg by mouth., Disp: , Rfl: Vitamin D3 25 MCG (1000 UT) tablet, Take 1,000 Units by mouth daily. States 5,000-10,000 units per day, Disp: , Rfl: DIAGNOSTIC DATA New imaging/data since last visit ECG 05/31/2022 : sinus rhythm, voltage for LVH Transthoracic echocardiogram, personally reviewed 05/31/22 Normal biventricular systolic function and size No residual VSD Aortic valve calcified, decreased excursion, peak velocity 2.9 m,/s consistent with mild . Known BAV, not well visualized Aortic root dilated 4.2 cm stable from prior Ascending Ao 3 cm, stable from prior Transthoracic echocardiogram (06/01/21): Bicuspid aortic valve s/p valve sparing root replacement (26mm Hemashield graft), VSD s/p repair, coarctation s/p repair. Fair to poor image quality. Left Ventricle: Chamber size is normal. Concentric remodeling present. Normal global wall motion. Regional wall motion is normal. Ejection fraction is normal (60 - 65%). Diastolic function is consistent with impaired relaxation (grade I). Right Ventricle: Chamber size is normal. Systolic function is normal. No evidence of VSD flow with color Doppler. Aortic valve not well visualized. Presumed bicuspid valve. Leaflet excursion is decreased. No regurgitation. Mild stenosis. Mean gradient: 14 mmHg. Dimensionless Index by VTI: 0.44. Valve area continuity VTI: 1.39 cm2. Sinuses of Valsalva/aortic root size is mildly enlarged. Ascending aorta size is normal. SOV: 4.30 cm. STJ: 3.10 cm. Ascendin.90 cm. Arch: 2.30 cm. Stent (or graft) in descending aorta at the site of coarct repiar, no gradient detected (peak v 1.1 m/s). Compared to 06/11/19, aortic root has increased ( was reported to be 4 cm), no change in AV hemodynamics. Previous imaging since last visit: MRI Cardiac with contrast and MRA of Chest (06/02/20) FINAL IMPRESSION: Bicuspid aortic valve (R-L) fusion with moderate stenosis and mild regurgitation. Moderate dilation of the [place] proximal aortic root with maximal cusp-cusp diameter of 4.3 cm. Intact aortic graft. Beyond the surgical graft, the distal ascending aorta is at the upper size of normal. No evidence of re-contraction. Normal LV size and systolic function. Left ventricular hypertrophy and prominent LV trabeculae and non-ischemic fibrosis. 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 MRI Arteriogram Brain 06/11/19: Very thin caliber of the left vertebral artery which may be due to high-grade stenosis, or may be hypoplastic in nature MRI Arteriogram Brain 06/12/18: Very thin caliber of the left vertebral artery which may be due to high-grade stenosis, or may be hypoplastic in nature IMPRESSION - DISCUSSION Liss Moon is a 52 y.o. male with: Coarctation of the aorta s/p repair Bicuspid aortic valve with mild Aortic root dilation s/p valve sparing root repair VSD s/p repair Left ventricular hypertrophy Hypertension Diabetes Mellitus Type 2 Hyperlipidemia Chronic RLE edema NYHA functional class 1 (though not very active). ACHD Anatomic classification 2 (moderately complex CHD), physiological stage B (mild , residual hypertension). Mr. Moon is largely stable from his prior visits. His exertional capacity issues appear to be consistent with obesity and deconditioning with no new symptoms or echo findings concerned for cardiac change. He shows no signs of re-coarctation by echocardiogram or UE/LE BP. He remains persistently hypertensive in clinic and we asked him to check his BP and send to us by mychart. PLAN / ORDERS - Increase Amlodipine to 10mg. Continue Losartan 25mg BID, Toprol XL 100mg daily - check BP at home, if elevated will increase Losartan to 50 BID - labs checked with PCP - Continue working on diet and exercise FOLLOW-UP One year follow-up with echo. HEALTH MAINTENANCE: - According to the ACC 2007 guidelines for endocarditis prophylaxis this patient does require antibiotics prior to dental work. - Exercise recommendations per the 36th [place] Conference: Avoid heavy lifting or valsalva - Reproduction: Children should be screen for CHD - Non-cardiac surgery: Should have surgeries at [facility] Thank you for allowing us to participate in the care of your patient. If you have any concerns or questions, please do not hesitate to contact me. Case discussed and plan developed in collaboration with Dr. Era Berry MD Fellow, Adult Congenital Heart Disease & Pulmonary Hypertension Pager: [phone] Patient Education Patient education regarding the following topic(s) was provided for pt: cardiac concerns/follow up planning One year follow-up with Dr. Llanos- echo at this time Monitor BP at home and send results and can be faxed to [phone] Refills sent to pharmacy Those in attendance for the education included: patient. Barriers in providing the education included: none. The following methods were used in providing the education: explanation. [facility] handouts given included: After Visit Summary. The response of those in attendance was: states/identifies education topic. The following Clinical Intervention(s) occurred during today s visit: Teaching/education provided to patient and or support team regarding follow up plans. I independently reviewed the patients chart, examined the patient and reviewed the diagnostic studies. I spent > 50% of the time involved in counseling and education. A total of 45 min was spent reviewing diagnostic testing, and specific time with Liss Moon during the clinic visit. We discussed the patient and I agree with the assessment and plan. Follow up testing and clinic visits will be scheduled accordingly. Liss has a history of coarctation of the aorta status post repair VSD and bicuspid aortic valve status post valve sparing aortic root replacement in 2002. He has been doing well from a heart standpoint he has no symptoms. On exam vital signs are normal lungs are clear he has a systolic ejection click and a systolic ejection murmur no features of heart failure his echocardiogram is stable with no significant aortic valve disease and will see him back in follow-up next year. He had advanced imaging in 2019 which evaluated his thoracic aorta. documented in this encounter [facility] Instructions Jaci Aguilar RN - 05/31/2022 9:00 AM EDT Patient Education Patient education regarding the following topic(s) was provided for pt: cardiac concerns/follow up planning Those in attendance for the education included: patient. Barriers in providing the education included: none. The following methods were used in providing the education: explanation. [facility] handouts given included: After Visit Summary. The response of those in attendance was: states/identifies education topic. The following Clinical Intervention(s) occurred during today s visit: Teaching/education provided to patient and or support team regarding follow up plans. One year follow-up with Dr. Llanos- robin at this time Monitor BP at home and send results and can be faxed to [phone] Refills sent to pharmacy The following attachments cannot be sent through Care Everywhere.Blood Pressure Log ([facility]) (Albanian)Blood Pressure Test: Home (Albanian)documented in this encounter [facility] 06-01-2021 History of Presen t illness Narrative I independently reviewed the patients chart, examined the patient and reviewed the diagnostic studies. I spent > 50% of the time involved in counseling and education. A total of 45 min was spent reviewing diagnostic testing, and specific time with Liss Moon during the clinic visit. We discussed the patient and I agree with the assessment and plan. Follow up testing and clinic visits will be scheduled accordingly. Liss has a history of bicuspid aortic valve and aortopathy. He has undergone valve sparing root replacement. He has overall been doing well from a cardiovascular standpoint. He has no complaints today. He does state that he has had some swelling in his right leg verses left leg this has been ongoing for last few months. He has no other symptoms or concerns. On exam blood pressure is moderately elevated he has some swelling of his right leg verses left leg. He has had knee surgery on that leg in the past. His echocardiogram is stable. He underwent cardiac MRI and MRA. This was stable. He has a bicuspid aortic valve with mild regurgitation. He has moderate dilation of the [place] proximal aortic root with a max diameter of 4.3 cm. He has some dilation beyond the graft which is stable. He has no re-coarctation of the aorta. He has some prominent left ventricular trabecula a but normal left ventricular systolic function. We will increase his amlodipine for blood pressure control. We are concerned with his leg swelling and we wanted to perform ultrasound today but he declined. We decided that we would do this locally hopefully soon. We will try to schedule this at [facility] we asked him to let us know make sure we follow up with him with the results and call us if he has not heard. Patient Education Patient education regarding the following topic(s) was provided for pt: cardiac concerns/follow up planning CoA BPs done per RN to right arm/leg in semi reclining position Plan: Increase Amlodipine to 10 mg daily - new prescription sent to pharmacy - refills sent for other cardiac medications - contact PCP for cholesterol medication management Prescription available to for right calf ultrasound - you may schedule locally if preferred; please contact PCP for scheduling assistance if in network to local facility for any prior authorization needs Return in one year with echocardiogram and clinic visit with Dr Llanos Those in attendance for the education included: patient. Barriers in providing the education included: none. The following methods were used in providing the education: explanation. [facility] handouts given included: After Visit Summary. The response of those in attendance was: states/identifies education topic. The following Clinical Intervention(s) occurred during today s visit: Teaching/education provided to patient and or support team regarding follow up plans. Patient placed in supine position. Skin prepped with alcohol, leads placed, EKG ran. EKG given to FLORINDA Vigil. [facility] ADULT CONGENITAL HEART DISEASE AND PULMONARY HYPERTENSION CLINIC DIAGNOSES: 1) Bicuspid aortic valve and aortic root dilation s/p valve sparing supracoronary root replacement 2) Ventricular septal defect s/p repair 3) Coarctation of the aorta s/p repair Relevant Surgical and Procedural History: - 1976: VSD and coarctation repair [facility] - 2002: surveillance revealed a 5.0 cm aortic aneurysm - 09/17/03: Valve-sparing supracoronary root replacement at [facility] 26 mm hemashield tube graft and closure of residual VSD HPI: This is a 51 y.o. male with a history of a BAV, VSD, and coarctation who underwent repair in 1976 of his VSD and Coarctation at [facility] and later, in 2002, required a valve-sparing supracoronary aortic root replacement at [facility]. In addition to his CHD his PMH is significant for diabetes mellitus type 2, hypertension, hyperlipidemia, and obesity. INTERVAL HISTORY: Mr. Moon has no major concerns today. He reports no changing in exercise capacity, no chest pain or dyspnea limiting exertion. He has no chest pain or dyspnea at rest, no orthopnea or PND. He reports no increased sleepiness or mental fogging but he does only get about 4h of sleep a night. He does report some increased leg swelling (R > L) for a few months, no recent long flights or drives. He had a prior surgery to his R knee for a shattered kneecap but this is >20 years ago. He does not check his BP's at home but he reports excellent adherence to his Metoprolol, Amlodipine, and Losartan. His lipids are followed by his PCP and have reportedly improved on Pravastatin. He stopped taking Fenofibrate last year as it wasn't at the pharmacy when he picked it up. His PCP has been checking his Cr but he doesn't know what it is. ROS Denies SOB at rest, orthopnea, PND, cough, palpitations, chest pain/pressure/tightness, syncope or near-syncope. All other ROS negative except as detailed in the history. Physical Exam: Smoking Status Former Smoker General appearance: Patient is alert and in no acute distress. Neck: No JVD. Respiratory: Normal effort, no use of accessory muscles. Lungs are clear to auscultation, no rhonchi or rales. Cardiovascular: Regular rate and rhythm. There is a III/IV systolic murmur most prominent at RUSB. S1 normal, S2 loud with narrow split at LSB. No rubs. Pulses 2+ radial and PT. Abdomen: Protuberant, obese abdomen. Soft, nontender, notable for abdominal hernia 2 cm above umbilicus. Skin: Warm and dry. Neurologic: Motor strength grossly intact. No focal deficits. Extremities: No clubbing or cyanosis of the nails. No edema. Current Outpatient Medications: amLODIPine (Norvasc) 5 MG tablet, Take 1 tablet by mouth daily., Disp: 90 tablet, Rfl: 3 amoxicillin (AMOXIL) 500 MG Cap, take by mouth As directed. Take total of 4 capsules (2grams) one hour before dental procedure., Disp: 4 Cap, Rfl: 0 ascorbic acid 500 MG Tab tablet, Take 500 mg by mouth daily., Disp: , Rfl: aspirin 81 MG PO TABS, take 1 Tab by mouth daily., Disp: 90 Tab, Rfl: 3 Blood Pressure Monitoring (Blood Pressure Monitor/L Cuff) Misc, 1 kit by Unknown route daily., Disp: 1 Each, Rfl: 0 cyanocobalamin 500 MCG tablet, Take 500 mcg by mouth daily., Disp: , Rfl: fenofibrate 145 MG tablet, Take 1 tablet by mouth daily., Disp: 90 tablet, Rfl: 3 insulin degludec (TRESIBA) 100 UNIT/ML Solution, Inject under the skin. 10 units, Disp: , Rfl: linaGLIPtin (TRADJENTA) 5 MG Tab tablet, Take by mouth., Disp: , Rfl: Liraglutide (VICTOZA) 18 MG/3ML Solution Pen-injector, 1.2 mg by Subcutaneous route., Disp: , Rfl: LOSARTAN 50 MG Tab, TAKE 1/2 BY MOUTH TWICE DAILY, Disp: 90 tablet, Rfl: 3 metformin 500 MG PO TABS, take 1 Tab by mouth 2 times daily with meals. (Patient taking differently: Take 500 mg by mouth 2 times daily with meals. States 750mg), Disp: 180 Tab, Rfl: 1 metoprolol succinate 100 MG tablet XL, Take 1 tablet by mouth daily., Disp: 90 tablet, Rfl: 3 pravastatin 40 MG Tab, take 60 mg by mouth daily., Disp: , Rfl: pyridoxine 50 MG Tab, Take 100 mg by mouth daily., Disp: , Rfl: Turmeric 500 MG Tab, Take 1,000 mg by mouth., Disp: , Rfl: Vitamin D3 25 MCG (1000 UT) tablet, Take 1,000 Units by mouth daily. States 5,000-10,000 units per day, Disp: , Rfl: DIAGNOSTIC DATA New imaging/data since last visit ECG/Monitor: Minimal LVH criteria, c/w prior EKGs Echo (06/01/21): Reviewed with Dr. Llanos. Gradient across isthmus ~9mmHg by my calculation, mild . No acute findings. Previous imaging since last visit: MRI Cardiac with contrast and MRA of Chest (06/02/20) FINAL IMPRESSION: Bicuspid aortic valve (R-L) fusion with moderate stenosis and mild regurgitation. Moderate dilation of the [place] proximal aortic root with maximal cusp-cusp diameter of 4.3 cm. Intact aortic graft. Beyond the surgical graft, the distal ascending aorta is at the upper size of normal. No evidence of re-contraction. Normal LV size and systolic function. Left ventricular hypertrophy and prominent LV trabeculae and non-ischemic fibrosis. 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 05/17/2019 ECHO Bicuspid aortic valve s/p valve sparing root replacement (26mm Hemashield graft), VSD s/p repair, coarctation s/p repair. Overall image quality is fair. The left ventricle is normal in size and systolic function; EF 50-55%. The right ventricle is normal in size and systolic function. There is no hemodynamically significant valve disease. Aortic valve leaflets not well seen on this study; known to have BAV. There is mild ; mean/peak 16/28mmHg. Aorta measures 4.0cm at the SV and 2.9cm at the STJ, Arch 4.7cm. Graft vs. Stent visualized in the descending thoracic aorta; peak gradient 10mmHg. Compared to the prior echo, there are no significant changes. MRI Arteriogram Brain 06/11/19: Very thin caliber of the left vertebral artery which may be due to high-grade stenosis, or may be hypoplastic in nature Echo 06/12/18: History of bicuspid aortic valve s/p valve sparing root replacement, VSD s/p repair, coarctation s/p repair. Left Ventricle: Chamber size is normal. Ejection fraction normal (60 - 65%). Right Ventricle: Chamber size is normal. Systolic function is normal. Normal atria Aortic valve not well visualized reportedly bicuspid. No regurgitation. Peak/mean gradient ~ 24/13 mmHg. Transverse aorta is mildly enlarged. 4cm The aortic root (sinus level) and ascending aorta regions contain a graft. 26mm Hemshield tube graft with post surgical changes. s/p coarctation repair. Peak /meam gradients of ~17/7mmHg were obtained across the prior coarctation site which measures ~2.0cm MRI Arteriogram Brain 06/12/18: Very thin caliber of the left vertebral artery which may be due to high-grade stenosis, or may be hypoplastic in nature IMPRESSION - DISCUSSION 1) Coarctation of the aorta s/p repair 2) Bicuspid aortic valve c/b aortic root dilation s/p valve sparing repair 3) VSD s/p repair 4) Left ventricular hypertrophy 5) Hypertension 6) Diabetes Mellitus Type 2 7) Hyperlipidemia Mr. Moon is largely stable from his prior visits. His exertional capacity issues appear to be consistent with obesity and deconditioning with no new symptoms or echo findings concerned for cardiac change. He shows no signs of re-coarctation with a gradient of 9mmHg and R leg BP greater than RUE (RUE 149/83, RLE 156/101). He remains persistently hypertensive; since we are unable to obtain his OSH Cr results we will increase Amlodipine to 10mg daily. Should his Cr normalize, could consider increasing Losartan. We discussed further improvement of diet and exercise which he reports he's working on as this would assist with multiple of his comorbidities. His sleep habits make it difficult to determine if he has BARRY, but he is at high risk for this. Were he to develop fatigue, morning sleepiness, or increased need for sleep he should undergo sleep study. His R > L leg swelling is concerning for possible clotting. If amenable will plan to get a Doppler US of the RLE. PLAN / ORDERS - Increase Amlodipine to 10mg. Continue Losartan 25mg BID, Toprol XL 100mg daily - If Cr normalizes, can consider increasing Losartan with PCP - Continue working on diet and exercise - Counseled on signs of BARRY. Difficult to assess with short sleep duration. Further workup per PCP - RLE Doppler US to be completed locally - Lipid, DM management with PCP FOLLOW-UP One year follow-up with echo. HEALTH MAINTENANCE: - According to the ACC 2007 guidelines for endocarditis prophylaxis this patient does require antibiotics prior to dental work. - Exercise recommendations per the [employer]th [place] Conference: Avoid heavy lifting or valsalva - Reproduction: Children should be screen for CHD - Non-cardiac surgery: Should have surgeries at [facility] Thank you for allowing us to participate in the care of your patient. If you have any concerns or questions, please do not hesitate to contact me. Case discussed and plan developed in collaboration with Dr. Era Chung MD Internal Medicine-Pediatrics, PGY-3 [facility] documented in this encounter [facility] 06-01-2021 Instructions Kelli Marquis RN - 06/01/2021 11:00 AM EDT Thank you for choosing [facility] for your cardiac care. If questions or concerns regarding your visit or treatment plan, please call: Adult Congenital Heart Disease Physicians/Providers: MD Yeyo Rivers MD Lauren Lastinger, MD May Ling Mah, MD ([facility] only) Leopoldo Lambert MD ([facility] only) [facility] Nurse Practitioners: Aníbal Miner APRN-MEIR Wilson APRN- MEIR [facility] FELLOWS: MD Marin Araya MD PRIMARY CONTACT INFORMATION: Adult Congenital Heart Disease Triage Nurses- [facility] Yaritza Marquis RN Shweta Pedroza RN Pulmonary Hypertension Coordinators- [facility] Lolis Alexandra RN Julissa Grant RN Adult Congenital Heart Disease Nurse Practitioner- [facility] [phone] Aníbal [place], EMERGENCY DISPATCH OPERATOR, CONFERENCE CONCIERGE Abbey Wilson, EMERGENCY DISPATCH OPERATOR, CONFERENCE CONCIERGE MyChart messaging is often the best way to contact Adult Congenital Heart Disease Copy Chaser- [facility] For appointment scheduling/verification and general information Francisco Maravilla Jitendra Li [facility] Congenital Team Contact for Nurse Practitioner, Nurse and Schedulers Go to the website below for further program information. Check out patient education featuring topics and videos related to adults and adolescents with congenital heart disease and provides valuable information from leading experts. [email or web address] Look for us on FACEBOOK at Adult Congenital Heart Disease at [facility] Test results are reviewed at the time of your office visit. If additional testing ordered, it may take 1-2 weeks for physician review and recommendations. Abnormal results are prioritized first. Please call or send a Newsboundhart message if you have not received a phone call or letter in the mail with your results/recommendations. Holter/Event Monitors require at least 2 weeks from when you drop off your monitor, for physicians to review. Abnormal results are prioritized first. Notification may be a letter, Accelerated IOhart message or phone call. If you have not received your Event/Mobile cardiac quality assurance monitor final in the mail when expected, please contact our office [phone] or the device office [phone]. For a monitoring device being mailed to you, TalkBin customer account representative will contact you within 48-hours of your expected start date to verify your mailing address. You will not receive the monitor without consent. [employer]oft can be reached at [phone]. Medication Refills are routinely reviewed at your clinic visits. If you know you will be in need of refills, please let your providers be aware at time of visit. If in need of refills between visits, please contact our office 48-72 hours ahead of need - leave message of specific medication, dosing, quantity of refill (30 day vs. 90 day supply preference) and name/location of preferred pharmacy. Outside bloodwork needs faxed to our office for physician review at [phone]. [employer] Analyticsart is an available tool to securely access your online medical information and communicate with your healthcare team members - please ask to enroll during any [facility] appointment. If you experience a change in your symptoms, please notify this office immediately or call 911 if an emergent situation. All calls are prioritized and responses researched, if possible, prior to calls being returned. Please leave your name, date of and question or concern on my voicemail. Calls are reviewed/answered M-F 8am to 4:00pm - with the exception of holidays when offices are closed. If after hours or weekend concerns, please call - listen for after hours prompts as needed. Please allow 24 hours for your call to be answered. [facility] patient testing and procedure instructions may be obtained at [email or web address] Thank you for your interest in the COVID-19 vaccine. We are providing the vaccine to our patients based on the [place] Department of Health s recommendations for age and medical conditions. The link to our website has the most up-to-date information related to the COVID-19 vaccine. Visit us at [email or web address] Plan: Increase Amlodipine to 10 mg daily - new prescription sent to pharmacy - refills sent for other cardiac medications - contact PCP for cholesterol medication management Prescription available to for right calf ultrasound - you may schedule locally if preferred; please contact PCP for scheduling assistance if in network to local facility for any prior authorization needs Return in one year with echocardiogram and clinic visit with Dr Llanos documented in this encounter [facility] Evaluation note Diagnosis Other specified congenital malformations Bicuspid aortic valve Congenital insufficiency of aortic valve Coarctation of aorta Coarctation of aorta (preductal) (postductal) [facility] Edema of right lower extremity- Primary Edema Essential hypertension Unspecified essential hypertension Congenital dilatation of aorta Other congenital anomaly of aorta Coarctation of aorta Coarctation of aorta (preductal) (postductal) Other hyperlipidemia Other specified congenital malformations [facility] Diagnosis Coarctation of aorta- Primary Coarctation of aorta (preductal) (postductal) H/O aortic root repair Personal history of surgery to heart and great vessels, presenting hazards to health S/P VSD repair Other postprocedural status Bicuspid aortic valve Congenital insufficiency of aortic valve Essential hypertension Unspecified essential hypertension Other hyperlipidemia Other specified congenital malformations [facility] Diagnosis Onset Date Resolution Status Benign essential hypertension chronic Diabetes chronic Obesity [facility] Work Phone: Evaluation note* Diagnosis H/O aortic root repair Personal history of surgery to heart and great vessels, presenting hazards to health S/P VSD repair Other postprocedural status Bicuspid aortic valve Congenital insufficiency of aortic valve [facility] Diagnosis Coarctation of aorta Coarctation of aorta (preductal) (postductal) Bicuspid aortic valve Congenital insufficiency of aortic valve Primary hypertension Unspecified essential hypertension Essential hypertension Unspecified essential hypertension Other hyperlipidemia Other specified congenital malformations [facility] Diagnosis Coarctation of aorta Coarctation of aorta (preductal) (postductal) Bicuspid aortic valve Congenital insufficiency of aortic valve [facility] Diagnosis Coarctation of aorta- Primary Coarctation of aorta (preductal) (postductal) Essential hypertension Unspecified essential hypertension Other hyperlipidemia Other specified congenital malformations Congenital aortic insufficiency Congenital insufficiency of aortic valve [facility] Diagnosis Dermatitis due to plants, including poison nisha, sumac, and oak- Primary Contact dermatitis and other eczema due to plants (except food) documented in this encounter [facility]* Name Dates Details Patient Instructions Indication:Uncontrolled diabetes mellitus with complications Start:03-Mar-2021 Instruction Type:Provider Instructions for Treatment How to Access Health Informa tion Online using Patient Portal and Afluenta Apps Indication:Uncontrolled diabetes mellitus with complications Start:03-Mar-2021 Instruction Type:Patient Education Patient Instructions Indication:Non-smoker Start:03-Nov-2020 Instruction Type:Provider Instructions for Treatment How to Access Health Informa tion Online using Patient Portal and [employer] Apps Indication:Non-smoker Start:03-Nov-2020 Instruction Type:Patient Education How to access health informa tion online Indication:Uncontrolled diabetes mellitus with complications Start:30-Jun-2020 Instruction Type:Patient Education How to access health informa tion online - Detail Indication:Uncontrolled diabetes mellitus with complications Start:30-Jun-2020 Instruction Type:Patient Education Patient Instructions Indication:Non-smoker Start:30-Jun-2020 Instruction Type:Provider Instructions for Treatment How to access health informa tion online Indication:BMI 37.0-37.9, adult Start:18-Feb-2020 Instruction Type:Patient Education How to access health informa tion online - Detail Indication:BMI 37.0-37.9, adult Start:18-Feb-2020 Instruction Type:Patient Education Patient Instructions Indication:BMI 37.0-37.9, adult Start:18-Feb-2020 Instruction Type:Provider Instructions for Treatment How to access health informa tion online Indication:Non-smoker Start:18-Feb-2020 Instruction Type:Patient Education How to access health informa tion online - Detail Indication:Non-smoker Start:18-Feb-2020 Instruction Type:Patient Education Patient Instructions Indication:Non-smoker Start:18-Feb-2020 Instruction Type:Provider Instructions for Treatment How to access health informa tion online Indication:Uncontrolled diabetes mellitus with complications Start:26-Nov-2019 Instruction Type:Patient Education How to access health informa tion online - Detail Indication:Uncontrolled diabetes mellitus with complications Start:26-Nov-2019 Instruction Type:Patient Education Patient Instructions Indication:Uncontrolled diabetes mellitus with complications Start:26-Nov-2019 Instruction Type:Provider Instructions for Treatment DISCONTINUED - LIPID PANEL ( [id number]) Indication:Hypercholesterolemia Start:20-Aug-2019 Instruction Type:Patient Education How to access health informa tion online Indication:Non-smoker Start:20-Aug-2019 Instruction Type:Patient Education How to access health informa tion online - Detail Indication:Non-smoker Start:20-Aug-2019 Instruction Type:Patient Education Patient Instructions Indication:Encounter for screening for lipid disorder Start:20-Aug-2019 Instruction Type:Provider Instructions for Treatment How to access health informa tion online Indication:BMI 37.0-37.9, adult Start:30-Apr-2019 Instruction Type:Patient Education How to access health informa tion online - Detail Indication:BMI 37.0-37.9, adult Start:30-Apr-2019 Instruction Type:Patient Education Patient Instructions Indication:BMI 37.0-37.9, adult Start:30-Apr-2019 Instruction Type:Provider Instructions for Treatment How to access health informa tion online Indication:Non-smoker Start:22-Jan-2019 Instruction Type:Patient Education How to access health informa tion online - Detail Indication:Non-smoker Start:22-Jan-2019 Instruction Type:Patient Education Patient Instructions Indication:BMI 37.0-37.9, adult Start:22-Jan-2019 Instruction Type:Provider Instructions for Treatment How to access health informa tion online Indication:Uncontrolled diabetes mellitus with complications Start:10-Oct-2018 Instruction Type:Patient Education How to access health informa tion online - Detail Indication:Uncontrolled diabetes mellitus with complications Start:10-Oct-2018 Instruction Type:Patient Education Patient Instructions Indication:Uncontrolled diabetes mellitus with complications Start:10-Oct-2018 Instruction Type:Provider Instructions for Treatment How to access health informa tion online Indication:Annual visit for general adult medical examination without abnormal findings Start:10-Jul-2018 Instruction Type:Patient Education How to access health informa tion online - Detail Indication:Annual visit for general adult medical examination without abnormal findings Start:10-Jul-2018 Instruction Type:Patient Education Patient Instructions Indication:Annual visit for general adult medical examination without abnormal findings Start:10-Jul-2018 Instruction Type:Provider Instructions for Treatment DISCONTINUED - CALCIFEDIOL ( [id number]) Indication:Diabetes mellitus type II, controlled, with no complications Start:03-Apr-2018 Instruction Type:Patient Education DISCONTINUED - CBC, PLATELET S & AUT DIFF ([id number]) Indication:Diabetes mellitus type II, controlled, with no complications Start:03-Apr-2018 Instruction Type:Patient Education DISCONTINUED - LIPID PANEL ( [id number]) Indication:Hypercholesterolemia Start:03-Apr-2018 Instruction Type:Patient Education How to access health informa tion online Indication:Diabetes mellitus type II, controlled, with no complications Start:03-Apr-2018 Instruction Type:Patient Education How to access health informa tion online - Detail Indication:Diabetes mellitus type II, controlled, with no complications Start:03-Apr-2018 Instruction Type:Patient Education How to access health informa tion online Indication:Diabetes mellitus type II, controlled, with no complications Start:27-Dec-2017 Instruction Type:Patient Education How to access health informa tion online - Detail Indication:Diabetes mellitus type II, controlled, with no complications Start:27-Dec-2017 Instruction Type:Patient Education Patient Instructions Indication:Diabetes mellitus type II, controlled, with no complications Start:27-Dec-2017 Instruction Type:Provider Instructions for Treatment Patient Instructions Indication:BMI 36.0-36.9,adult Start:24-Oct-2017 Instruction Type:Provider Instructions for Treatment How to access health informa tion online Indication:Nonsmoker Start:24-Oct-2017 Instruction Type:Patient Education How to access health informa tion online - Detail Indication:Nonsmoker Start:24-Oct-2017 Instruction Type:Patient Education Patient Instructions Indication:Nonsmoker Start:24-Oct-2017 Instruction Type:Provider Instructions for Treatment How to access health informa tion online Indication:Diabetes mellitus type 2, uncontrolled, without complications Start:25-Jul-2017 Instruction Type:Patient Education How to access health informa tion online - Detail Indication:Diabetes mellitus type 2, uncontrolled, without complications Start:25-Jul-2017 Instruction Type:Patient Education Patient Instructions Indication:Diabetes mellitus type 2, uncontrolled, without complications Start:25-Jul-2017 Instruction Type:Provider Instructions for Treatment How to access health informa tion online Indication:Diabetes mellitus type 2, uncontrolled, without complications Start:11-Apr-2017 Instruction Type:Patient Education How to access health informa tion online - Detail Indication:Diabetes mellitus type 2, uncontrolled, without complications Start:11-Apr-2017 Instruction Type:Patient Education Patient Instructions Indication:Diabetes mellitus type 2, uncontrolled, without complications Start:11-Apr-2017 Instruction Type:Provider Instructions for Treatment How to access health informa tion online Indication:Diabetes mellitus type 2, uncontrolled, without complications Start:02-Jan-2017 Instruction Type:Patient Education How to access health informa tion online - Detail Indication:Diabetes mellitus type 2, uncontrolled, without complications Start:02-Jan-2017 Instruction Type:Patient Education Patient Instructions Indication:Diabetes mellitus type 2, uncontrolled, without complications Start:02-Jan-2017 Instruction Type:Provider Instructions for Treatment How to access health informa tion online Indication:Diabetes mellitus type 2, uncontrolled, without complications Start:03-Oct-2016 Instruction Type:Patient Education How to access health informa tion online - Detail Indication:Diabetes mellitus type 2, uncontrolled, without complications Start:03-Oct-2016 Instruction Type:Patient Education Patient Instructions Indication:Diabetes mellitus type 2, uncontrolled, without complications Start:03-Oct-2016 Instruction Type:Provider Instructions for Treatment How to access health informa tion online Indication:Diabetes mellitus type 2, uncontrolled, without complications Start:27-Jun-2016 Instruction Type:Patient Education How to access health informa tion online - Detail Indication:Diabetes mellitus type 2, uncontrolled, without complications Start:27-Jun-2016 Instruction Type:Patient Education Patient Instructions Indication:Diabetes mellitus type 2, uncontrolled, without complications Start:27-Jun-2016 Instruction Type:Provider Instructions for Treatment How to access health informa tion online Indication:Diabetes mellitus type 2, uncontrolled, without complications Start:08-Mar-2016 Instruction Type:Patient Education How to access health informa tion online - Detail Indication:Diabetes mellitus type 2, uncontrolled, without complications Start:08-Mar-2016 Instruction Type:Patient Education Patient Instructions Indication:Diabetes mellitus type 2, uncontrolled, without complications Start:08-Mar-2016 Instruction Type:Provider Instructions for Treatment How to access health informa tion online - Detail Indication:Diabetes mellitus type II, controlled, with no complications Start:25-May-2015 Instruction Type:Patient Education Patient Instructions Indication:Diabetes mellitus type II, controlled, with no complications Start:25-May-2015 Instruction Type:Provider Instructions for Treatment How to access health informa tion online Indication:Diabetes mellitus type 2, uncontrolled, without complications Start:16-Dec-2014 Instruction Type:Patient Education How to access health informa tion online - Detail Indication:Diabetes mellitus type 2, uncontrolled, without complications Start:16-Dec-2014 Instruction Type:Patient Education Patient Instructions Indication:Diabetes mellitus type 2, uncontrolled, without complications Start:16-Dec-2014 Instruction Type:Provider Instructions for Treatment Patient Instructions Indication:Diabetes mellitus type 2, uncontrolled, without complications Start:21-Aug-2014 Instruction Type:Provider Instructions for Treatment Patient Instructions Indication:Erectile dysfunction Start:21-Aug-2014 Instruction Type:Provider Instructions for Treatment [facility]; [facility] Work Phone: Instructions* Name Dates Details Patient Instructions Indication:Uncontrolled diabetes mellitus with complications Start:03-Mar-2021 Instruction Type:Provider Instructions for Treatment How to Access Health Informa tion Online using Patient Portal and [employer] Apps Indication:Uncontrolled diabetes mellitus with complications Start:03-Mar-2021 Instruction Type:Patient Education Patient Instructions Indication:Non-smoker Start:03-Nov-2020 Instruction Type:Provider Instructions for Treatment How to Access Health Informa tion Online using Patient Portal and [employer] Apps Indication:Non-smoker Start:03-Nov-2020 Instruction Type:Patient Education How to access health informa tion online Indication:Uncontrolled diabetes mellitus with complications Start:30-Jun-2020 Instruction Type:Patient Education How to access health informa tion online - Detail Indication:Uncontrolled diabetes mellitus with complications Start:30-Jun-2020 Instruction Type:Patient Education Patient Instructions Indication:Non-smoker Start:30-Jun-2020 Instruction Type:Provider Instructions for Treatment How to access health informa tion online Indication:BMI 37.0-37.9, adult Start:18-Feb-2020 Instruction Type:Patient Education How to access health informa tion online - Detail Indication:BMI 37.0-37.9, adult Start:18-Feb-2020 Instruction Type:Patient Education Patient Instructions Indication:BMI 37.0-37.9, adult Start:18-Feb-2020 Instruction Type:Provider Instructions for Treatment How to access health informa tion online Indication:Non-smoker Start:18-Feb-2020 Instruction Type:Patient Education How to access health informa tion online - Detail Indication:Non-smoker Start:18-Feb-2020 Instruction Type:Patient Education Patient Instructions Indication:Non-smoker Start:18-Feb-2020 Instruction Type:Provider Instructions for Treatment How to access health informa tion online Indication:Uncontrolled diabetes mellitus with complications Start:26-Nov-2019 Instruction Type:Patient Education How to access health informa tion online - Detail Indication:Uncontrolled diabetes mellitus with complications Start:26-Nov-2019 Instruction Type:Patient Education Patient Instructions Indication:Uncontrolled diabetes mellitus with complications Start:26-Nov-2019 Instruction Type:Provider Instructions for Treatment DISCONTINUED - LIPID PANEL ( [id number]) Indication:Hypercholesterolemia Start:20-Aug-2019 Instruction Type:Patient Education How to access health informa tion online Indication:Non-smoker Start:20-Aug-2019 Instruction Type:Patient Education How to access health informa tion online - Detail Indication:Non-smoker Start:20-Aug-2019 Instruction Type:Patient Education Patient Instructions Indication:Encounter for screening for lipid disorder Start:20-Aug-2019 Instruction Type:Provider Instructions for Treatment How to access health informa tion online Indication:BMI 37.0-37.9, adult Start:30-Apr-2019 Instruction Type:Patient Education How to access health informa tion online - Detail Indication:BMI 37.0-37.9, adult Start:30-Apr-2019 Instruction Type:Patient Education Patient Instructions Indication:BMI 37.0-37.9, adult Start:30-Apr-2019 Instruction Type:Provider Instructions for Treatment How to access health informa tion online Indication:Non-smoker Start:22-Jan-2019 Instruction Type:Patient Education How to access health informa tion online - Detail Indication:Non-smoker Start:22-Jan-2019 Instruction Type:Patient Education Patient Instructions Indication:BMI 37.0-37.9, adult Start:22-Jan-2019 Instruction Type:Provider Instructions for Treatment How to access health informa tion online Indication:Uncontrolled diabetes mellitus with complications Start:10-Oct-2018 Instruction Type:Patient Education How to access health informa tion online - Detail Indication:Uncontrolled diabetes mellitus with complications Start:10-Oct-2018 Instruction Type:Patient Education Patient Instructions Indication:Uncontrolled diabetes mellitus with complications Start:10-Oct-2018 Instruction Type:Provider Instructions for Treatment How to access health informa tion online Indication:Annual visit for general adult medical examination without abnormal findings Start:10-Jul-2018 Instruction Type:Patient Education How to access health informa tion online - Detail Indication:Annual visit for general adult medical examination without abnormal findings Start:10-Jul-2018 Instruction Type:Patient Education Patient Instructions Indication:Annual visit for general adult medical examination without abnormal findings Start:10-Jul-2018 Instruction Type:Provider Instructions for Treatment DISCONTINUED - CALCIFEDIOL ( [id number]) Indication:Diabetes mellitus type II, controlled, with no complications Start:03-Apr-2018 Instruction Type:Patient Education DISCONTINUED - CBC, PLATELET S & AUT DIFF ([id number]) Indication:Diabetes mellitus type II, controlled, with no complications Start:03-Apr-2018 Instruction Type:Patient Education DISCONTINUED - LIPID PANEL ( [id number]) Indication:Hypercholesterolemia Start:03-Apr-2018 Instruction Type:Patient Education How to access health informa tion online Indication:Diabetes mellitus type II, controlled, with no complications Start:03-Apr-2018 Instruction Type:Patient Education How to access health informa tion online - Detail Indication:Diabetes mellitus type II, controlled, with no complications Start:03-Apr-2018 Instruction Type:Patient Education How to access health informa tion online Indication:Diabetes mellitus type II, controlled, with no complications Start:27-Dec-2017 Instruction Type:Patient Education How to access health informa tion online - Detail Indication:Diabetes mellitus type II, controlled, with no complications Start:27-Dec-2017 Instruction Type:Patient Education Patient Instructions Indication:Diabetes mellitus type II, controlled, with no complications Start:27-Dec-2017 Instruction Type:Provider Instructions for Treatment Patient Instructions Indication:BMI 36.0-36.9,adult Start:24-Oct-2017 Instruction Type:Provider Instructions for Treatment How to access health informa tion online Indication:Nonsmoker Start:24-Oct-2017 Instruction Type:Patient Education How to access health informa tion online - Detail Indication:Nonsmoker Start:24-Oct-2017 Instruction Type:Patient Education Patient Instructions Indication:Nonsmoker Start:24-Oct-2017 Instruction Type:Provider Instructions for Treatment How to access health informa tion online Indication:Diabetes mellitus type 2, uncontrolled, without complications Start:25-Jul-2017 Instruction Type:Patient Education How to access health informa tion online - Detail Indication:Diabetes mellitus type 2, uncontrolled, without complications Start:25-Jul-2017 Instruction Type:Patient Education Patient Instructions Indication:Diabetes mellitus type 2, uncontrolled, without complications Start:25-Jul-2017 Instruction Type:Provider Instructions for Treatment How to access health informa tion online Indication:Diabetes mellitus type 2, uncontrolled, without complications Start:11-Apr-2017 Instruction Type:Patient Education How to access health informa tion online - Detail Indication:Diabetes mellitus type 2, uncontrolled, without complications Start:11-Apr-2017 Instruction Type:Patient Education Patient Instructions Indication:Diabetes mellitus type 2, uncontrolled, without complications Start:11-Apr-2017 Instruction Type:Provider Instructions for Treatment How to access health informa tion online Indication:Diabetes mellitus type 2, uncontrolled, without complications Start:02-Jan-2017 Instruction Type:Patient Education How to access health informa tion online - Detail Indication:Diabetes mellitus type 2, uncontrolled, without complications Start:02-Jan-2017 Instruction Type:Patient Education Patient Instructions Indication:Diabetes mellitus type 2, uncontrolled, without complications Start:02-Jan-2017 Instruction Type:Provider Instructions for Treatment How to access health informa tion online Indication:Diabetes mellitus type 2, uncontrolled, without complications Start:03-Oct-2016 Instruction Type:Patient Education How to access health informa tion online - Detail Indication:Diabetes mellitus type 2, uncontrolled, without complications Start:03-Oct-2016 Instruction Type:Patient Education Patient Instructions Indication:Diabetes mellitus type 2, uncontrolled, without complications Start:03-Oct-2016 Instruction Type:Provider Instructions for Treatment How to access health informa tion online Indication:Diabetes mellitus type 2, uncontrolled, without complications Start:27-Jun-2016 Instruction Type:Patient Education How to access health informa tion online - Detail Indication:Diabetes mellitus type 2, uncontrolled, without complications Start:27-Jun-2016 Instruction Type:Patient Education Patient Instructions Indication:Diabetes mellitus type 2, uncontrolled, without complications Start:27-Jun-2016 Instruction Type:Provider Instructions for Treatment How to access health informa tion online Indication:Diabetes mellitus type 2, uncontrolled, without complications Start:08-Mar-2016 Instruction Type:Patient Education How to access health informa tion online - Detail Indication:Diabetes mellitus type 2, uncontrolled, without complications Start:08-Mar-2016 Instruction Type:Patient Education Patient Instructions Indication:Diabetes mellitus type 2, uncontrolled, without complications Start:08-Mar-2016 Instruction Type:Provider Instructions for Treatment How to access health informa tion online - Detail Indication:Diabetes mellitus type II, controlled, with no complications Start:25-May-2015 Instruction Type:Patient Education Patient Instructions Indication:Diabetes mellitus type II, controlled, with no complications Start:25-May-2015 Instruction Type:Provider Instructions for Treatment How to access health informa tion online Indication:Diabetes mellitus type 2, uncontrolled, without complications Start:16-Dec-2014 Instruction Type:Patient Education How to access health informa tion online - Detail Indication:Diabetes mellitus type 2, uncontrolled, without complications Start:16-Dec-2014 Instruction Type:Patient Education Patient Instructions Indication:Diabetes mellitus type 2, uncontrolled, without complications Start:16-Dec-2014 Instruction Type:Provider Instructions for Treatment Patient Instructions Indication:Diabetes mellitus type 2, uncontrolled, without complications Start:21-Aug-2014 Instruction Type:Provider Instructions for Treatment Patient Instructions Indication:Erectile dysfunction Start:21-Aug-2014 Instruction Type:Provider Instructions for Treatment [facility]; [facility] Work Phone: Instructions* Name Dates Details Patient Instructions Indication:BMI 40.0-44.9, adult Start:07-Jul-2021 Instruction Type:Provider Instructions for Treatment How to Access Health Informa tion Online using Patient Portal and [employer] Apps Indication:BMI 40.0-44.9, adult Start:07-Jul-2021 Instruction Type:Patient Education Patient Instructions Indication:Uncontrolled diabetes mellitus with complications Start:03-Mar-2021 Instruction Type:Provider Instructions for Treatment How to Access Health Informa tion Online using Patient Portal and [employer] Apps Indication:Uncontrolled diabetes mellitus with complications Start:03-Mar-2021 Instruction Type:Patient Education Patient Instructions Indication:Non-smoker Start:03-Nov-2020 Instruction Type:Provider Instructions for Treatment How to Access Health Informa tion Online using Patient Portal and [employer] Apps Indication:Non-smoker Start:03-Nov-2020 Instruction Type:Patient Education How to access health informa tion online Indication:Uncontrolled diabetes mellitus with complications Start:30-Jun-2020 Instruction Type:Patient Education How to access health informa tion online - Detail Indication:Uncontrolled diabetes mellitus with complications Start:30-Jun-2020 Instruction Type:Patient Education Patient Instructions Indication:Non-smoker Start:30-Jun-2020 Instruction Type:Provider Instructions for Treatment How to access health informa tion online Indication:BMI 37.0-37.9, adult Start:18-Feb-2020 Instruction Type:Patient Education How to access health informa tion online - Detail Indication:BMI 37.0-37.9, adult Start:18-Feb-2020 Instruction Type:Patient Education Patient Instructions Indication:BMI 37.0-37.9, adult Start:18-Feb-2020 Instruction Type:Provider Instructions for Treatment How to access health informa tion online Indication:Non-smoker Start:18-Feb-2020 Instruction Type:Patient Education How to access health informa tion online - Detail Indication:Non-smoker Start:18-Feb-2020 Instruction Type:Patient Education Patient Instructions Indication:Non-smoker Start:18-Feb-2020 Instruction Type:Provider Instructions for Treatment How to access health informa tion online Indication:Uncontrolled diabetes mellitus with complications Start:26-Nov-2019 Instruction Type:Patient Education How to access health informa tion online - Detail Indication:Uncontrolled diabetes mellitus with complications Start:26-Nov-2019 Instruction Type:Patient Education Patient Instructions Indication:Uncontrolled diabetes mellitus with complications Start:26-Nov-2019 Instruction Type:Provider Instructions for Treatment DISCONTINUED - LIPID PANEL ( [id number]) Indication:Hypercholesterolemia Start:20-Aug-2019 Instruction Type:Patient Education How to access health informa tion online Indication:Non-smoker Start:20-Aug-2019 Instruction Type:Patient Education How to access health informa tion online - Detail Indication:Non-smoker Start:20-Aug-2019 Instruction Type:Patient Education Patient Instructions Indication:Encounter for screening for lipid disorder Start:20-Aug-2019 Instruction Type:Provider Instructions for Treatment How to access health informa tion online Indication:BMI 37.0-37.9, adult Start:30-Apr-2019 Instruction Type:Patient Education How to access health informa tion online - Detail Indication:BMI 37.0-37.9, adult Start:30-Apr-2019 Instruction Type:Patient Education Patient Instructions Indication:BMI 37.0-37.9, adult Start:30-Apr-2019 Instruction Type:Provider Instructions for Treatment How to access health informa tion online Indication:Non-smoker Start:22-Jan-2019 Instruction Type:Patient Education How to access health informa tion online - Detail Indication:Non-smoker Start:22-Jan-2019 Instruction Type:Patient Education Patient Instructions Indication:BMI 37.0-37.9, adult Start:22-Jan-2019 Instruction Type:Provider Instructions for Treatment How to access health informa tion online Indication:Uncontrolled diabetes mellitus with complications Start:10-Oct-2018 Instruction Type:Patient Education How to access health informa tion online - Detail Indication:Uncontrolled diabetes mellitus with complications Start:10-Oct-2018 Instruction Type:Patient Education Patient Instructions Indication:Uncontrolled diabetes mellitus with complications Start:10-Oct-2018 Instruction Type:Provider Instructions for Treatment How to access health informa tion online Indication:Annual visit for general adult medical examination without abnormal findings Start:10-Jul-2018 Instruction Type:Patient Education How to access health informa tion online - Detail Indication:Annual visit for general adult medical examination without abnormal findings Start:10-Jul-2018 Instruction Type:Patient Education Patient Instructions Indication:Annual visit for general adult medical examination without abnormal findings Start:10-Jul-2018 Instruction Type:Provider Instructions for Treatment DISCONTINUED - CALCIFEDIOL ( [id number]) Indication:Diabetes mellitus type II, controlled, with no complications Start:03-Apr-2018 Instruction Type:Patient Education DISCONTINUED - CBC, PLATELET S & AUT DIFF ([id number]) Indication:Diabetes mellitus type II, controlled, with no complications Start:03-Apr-2018 Instruction Type:Patient Education DISCONTINUED - LIPID PANEL ( [id number]) Indication:Hypercholesterolemia Start:03-Apr-2018 Instruction Type:Patient Education How to access health informa tion online Indication:Diabetes mellitus type II, controlled, with no complications Start:03-Apr-2018 Instruction Type:Patient Education How to access health informa tion online - Detail Indication:Diabetes mellitus type II, controlled, with no complications Start:03-Apr-2018 Instruction Type:Patient Education How to access health informa tion online Indication:Diabetes mellitus type II, controlled, with no complications Start:27-Dec-2017 Instruction Type:Patient Education How to access health informa tion online - Detail Indication:Diabetes mellitus type II, controlled, with no complications Start:27-Dec-2017 Instruction Type:Patient Education Patient Instructions Indication:Diabetes mellitus type II, controlled, with no complications Start:27-Dec-2017 Instruction Type:Provider Instructions for Treatment Patient Instructions Indication:BMI 36.0-36.9,adult Start:24-Oct-2017 Instruction Type:Provider Instructions for Treatment How to access health informa tion online Indication:Nonsmoker Start:24-Oct-2017 Instruction Type:Patient Education How to access health informa tion online - Detail Indication:Nonsmoker Start:24-Oct-2017 Instruction Type:Patient Education Patient Instructions Indication:Nonsmoker Start:24-Oct-2017 Instruction Type:Provider Instructions for Treatment How to access health informa tion online Indication:Diabetes mellitus type 2, uncontrolled, without complications Start:25-Jul-2017 Instruction Type:Patient Education How to access health informa tion online - Detail Indication:Diabetes mellitus type 2, uncontrolled, without complications Start:25-Jul-2017 Instruction Type:Patient Education Patient Instructions Indication:Diabetes mellitus type 2, uncontrolled, without complications Start:25-Jul-2017 Instruction Type:Provider Instructions for Treatment How to access health informa tion online Indication:Diabetes mellitus type 2, uncontrolled, without complications Start:11-Apr-2017 Instruction Type:Patient Education How to access health informa tion online - Detail Indication:Diabetes mellitus type 2, uncontrolled, without complications Start:11-Apr-2017 Instruction Type:Patient Education Patient Instructions Indication:Diabetes mellitus type 2, uncontrolled, without complications Start:11-Apr-2017 Instruction Type:Provider Instructions for Treatment How to access health informa tion online Indication:Diabetes mellitus type 2, uncontrolled, without complications Start:02-Jan-2017 Instruction Type:Patient Education How to access health informa tion online - Detail Indication:Diabetes mellitus type 2, uncontrolled, without complications Start:02-Jan-2017 Instruction Type:Patient Education Patient Instructions Indication:Diabetes mellitus type 2, uncontrolled, without complications Start:02-Jan-2017 Instruction Type:Provider Instructions for Treatment How to access health informa tion online Indication:Diabetes mellitus type 2, uncontrolled, without complications Start:03-Oct-2016 Instruction Type:Patient Education How to access health informa tion online - Detail Indication:Diabetes mellitus type 2, uncontrolled, without complications Start:03-Oct-2016 Instruction Type:Patient Education Patient Instructions Indication:Diabetes mellitus type 2, uncontrolled, without complications Start:03-Oct-2016 Instruction Type:Provider Instructions for Treatment How to access health informa tion online Indication:Diabetes mellitus type 2, uncontrolled, without complications Start:27-Jun-2016 Instruction Type:Patient Education How to access health informa tion online - Detail Indication:Diabetes mellitus type 2, uncontrolled, without complications Start:27-Jun-2016 Instruction Type:Patient Education Patient Instructions Indication:Diabetes mellitus type 2, uncontrolled, without complications Start:27-Jun-2016 Instruction Type:Provider Instructions for Treatment How to access health informa tion online Indication:Diabetes mellitus type 2, uncontrolled, without complications Start:08-Mar-2016 Instruction Type:Patient Education How to access health informa tion online - Detail Indication:Diabetes mellitus type 2, uncontrolled, without complications Start:08-Mar-2016 Instruction Type:Patient Education Patient Instructions Indication:Diabetes mellitus type 2, uncontrolled, without complications Start:08-Mar-2016 Instruction Type:Provider Instructions for Treatment How to access health informa tion online - Detail Indication:Diabetes mellitus type II, controlled, with no complications Start:25-May-2015 Instruction Type:Patient Education Patient Instructions Indication:Diabetes mellitus type II, controlled, with no complications Start:25-May-2015 Instruction Type:Provider Instructions for Treatment How to access health informa tion online Indication:Diabetes mellitus type 2, uncontrolled, without complications Start:16-Dec-2014 Instruction Type:Patient Education How to access health informa tion online - Detail Indication:Diabetes mellitus type 2, uncontrolled, without complications Start:16-Dec-2014 Instruction Type:Patient Education Patient Instructions Indication:Diabetes mellitus type 2, uncontrolled, without complications Start:16-Dec-2014 Instruction Type:Provider Instructions for Treatment Patient Instructions Indication:Diabetes mellitus type 2, uncontrolled, without complications Start:21-Aug-2014 Instruction Type:Provider Instructions for Treatment Patient Instructions Indication:Erectile dysfunction Start:21-Aug-2014 Instruction Type:Provider Instructions for Treatment [facility]; [facility] Work Phone: Instructions* Name Dates Details How to access health informa tion online Indication:Uncontrolled diabetes mellitus with complications Start:30-Jun-2020 Instruction Type:Patient Education How to access health informa tion online - Detail Indication:Uncontrolled diabetes mellitus with complications Start:30-Jun-2020 Instruction Type:Patient Education Patient Instructions Indication:Uncontrolled diabetes mellitus with complications Start:30-Jun-2020 Instruction Type:Provider Instructions for Treatment How to access health informa tion online Indication:BMI 37.0-37.9, adult Start:18-Feb-2020 Instruction Type:Patient Education How to access health informa tion online - Detail Indication:BMI 37.0-37.9, adult Start:18-Feb-2020 Instruction Type:Patient Education Patient Instructions Indication:BMI 37.0-37.9, adult Start:18-Feb-2020 Instruction Type:Provider Instructions for Treatment How to access health informa tion online Indication:Non-smoker Start:18-Feb-2020 Instruction Type:Patient Education How to access health informa tion online - Detail Indication:Non-smoker Start:18-Feb-2020 Instruction Type:Patient Education Patient Instructions Indication:Non-smoker Start:18-Feb-2020 Instruction Type:Provider Instructions for Treatment How to access health informa tion online Indication:Uncontrolled diabetes mellitus with complications Start:26-Nov-2019 Instruction Type:Patient Education How to access health informa tion online - Detail Indication:Uncontrolled diabetes mellitus with complications Start:26-Nov-2019 Instruction Type:Patient Education Patient Instructions Indication:Uncontrolled diabetes mellitus with complications Start:26-Nov-2019 Instruction Type:Provider Instructions for Treatment DISCONTINUED - LIPID PANEL ( [id number]) Indication:Hypercholesterolemia Start:20-Aug-2019 Instruction Type:Patient Education How to access health informa tion online Indication:Non-smoker Start:20-Aug-2019 Instruction Type:Patient Education How to access health informa tion online - Detail Indication:Non-smoker Start:20-Aug-2019 Instruction Type:Patient Education Patient Instructions Indication:Encounter for screening for lipid disorder Start:20-Aug-2019 Instruction Type:Provider Instructions for Treatment How to access health informa tion online Indication:BMI 37.0-37.9, adult Start:30-Apr-2019 Instruction Type:Patient Education How to access health informa tion online - Detail Indication:BMI 37.0-37.9, adult Start:30-Apr-2019 Instruction Type:Patient Education Patient Instructions Indication:BMI 37.0-37.9, adult Start:30-Apr-2019 Instruction Type:Provider Instructions for Treatment How to access health informa tion online Indication:Non-smoker Start:22-Jan-2019 Instruction Type:Patient Education How to access health informa tion online - Detail Indication:Non-smoker Start:22-Jan-2019 Instruction Type:Patient Education Patient Instructions Indication:BMI 37.0-37.9, adult Start:22-Jan-2019 Instruction Type:Provider Instructions for Treatment How to access health informa tion online Indication:Uncontrolled diabetes mellitus with complications Start:10-Oct-2018 Instruction Type:Patient Education How to access health informa tion online - Detail Indication:Uncontrolled diabetes mellitus with complications Start:10-Oct-2018 Instruction Type:Patient Education Patient Instructions Indication:Uncontrolled diabetes mellitus with complications Start:10-Oct-2018 Instruction Type:Provider Instructions for Treatment How to access health informa tion online Indication:Annual visit for general adult medical examination without abnormal findings Start:10-Jul-2018 Instruction Type:Patient Education How to access health informa tion online - Detail Indication:Annual visit for general adult medical examination without abnormal findings Start:10-Jul-2018 Instruction Type:Patient Education Patient Instructions Indication:Annual visit for general adult medical examination without abnormal findings Start:10-Jul-2018 Instruction Type:Provider Instructions for Treatment DISCONTINUED - CALCIFEDIOL ( [id number]) Indication:Diabetes mellitus type II, controlled, with no complications Start:03-Apr-2018 Instruction Type:Patient Education DISCONTINUED - CBC, PLATELET S & AUT DIFF ([id number]) Indication:Diabetes mellitus type II, controlled, with no complications Start:03-Apr-2018 Instruction Type:Patient Education DISCONTINUED - LIPID PANEL ( [id number]) Indication:Hypercholesterolemia Start:03-Apr-2018 Instruction Type:Patient Education How to access health informa tion online Indication:Diabetes mellitus type II, controlled, with no complications Start:03-Apr-2018 Instruction Type:Patient Education How to access health informa tion online - Detail Indication:Diabetes mellitus type II, controlled, with no complications Start:03-Apr-2018 Instruction Type:Patient Education How to access health informa tion online Indication:Diabetes mellitus type II, controlled, with no complications Start:27-Dec-2017 Instruction Type:Patient Education How to access health informa tion online - Detail Indication:Diabetes mellitus type II, controlled, with no complications Start:27-Dec-2017 Instruction Type:Patient Education Patient Instructions Indication:Diabetes mellitus type II, controlled, with no complications Start:27-Dec-2017 Instruction Type:Provider Instructions for Treatment Patient Instructions Indication:BMI 36.0-36.9,adult Start:24-Oct-2017 Instruction Type:Provider Instructions for Treatment How to access health informa tion online Indication:Nonsmoker Start:24-Oct-2017 Instruction Type:Patient Education How to access health informa tion online - Detail Indication:Nonsmoker Start:24-Oct-2017 Instruction Type:Patient Education Patient Instructions Indication:Nonsmoker Start:24-Oct-2017 Instruction Type:Provider Instructions for Treatment How to access health informa tion online Indication:Diabetes mellitus type 2, uncontrolled, without complications Start:25-Jul-2017 Instruction Type:Patient Education How to access health informa tion online - Detail Indication:Diabetes mellitus type 2, uncontrolled, without complications Start:25-Jul-2017 Instruction Type:Patient Education Patient Instructions Indication:Diabetes mellitus type 2, uncontrolled, without complications Start:25-Jul-2017 Instruction Type:Provider Instructions for Treatment How to access health informa tion online Indication:Diabetes mellitus type 2, uncontrolled, without complications Start:11-Apr-2017 Instruction Type:Patient Education How to access health informa tion online - Detail Indication:Diabetes mellitus type 2, uncontrolled, without complications Start:11-Apr-2017 Instruction Type:Patient Education Patient Instructions Indication:Diabetes mellitus type 2, uncontrolled, without complications Start:11-Apr-2017 Instruction Type:Provider Instructions for Treatment How to access health informa tion online Indication:Diabetes mellitus type 2, uncontrolled, without complications Start:02-Jan-2017 Instruction Type:Patient Education How to access health informa tion online - Detail Indication:Diabetes mellitus type 2, uncontrolled, without complications Start:02-Jan-2017 Instruction Type:Patient Education Patient Instructions Indication:Diabetes mellitus type 2, uncontrolled, without complications Start:02-Jan-2017 Instruction Type:Provider Instructions for Treatment How to access health informa tion online Indication:Diabetes mellitus type 2, uncontrolled, without complications Start:03-Oct-2016 Instruction Type:Patient Education How to access health informa tion online - Detail Indication:Diabetes mellitus type 2, uncontrolled, without complications Start:03-Oct-2016 Instruction Type:Patient Education Patient Instructions Indication:Diabetes mellitus type 2, uncontrolled, without complications Start:03-Oct-2016 Instruction Type:Provider Instructions for Treatment How to access health informa tion online Indication:Diabetes mellitus type 2, uncontrolled, without complications Start:27-Jun-2016 Instruction Type:Patient Education How to access health informa tion online - Detail Indication:Diabetes mellitus type 2, uncontrolled, without complications Start:27-Jun-2016 Instruction Type:Patient Education Patient Instructions Indication:Diabetes mellitus type 2, uncontrolled, without complications Start:27-Jun-2016 Instruction Type:Provider Instructions for Treatment How to access health informa tion online Indication:Diabetes mellitus type 2, uncontrolled, without complications Start:08-Mar-2016 Instruction Type:Patient Education How to access health informa tion online - Detail Indication:Diabetes mellitus type 2, uncontrolled, without complications Start:08-Mar-2016 Instruction Type:Patient Education Patient Instructions Indication:Diabetes mellitus type 2, uncontrolled, without complications Start:08-Mar-2016 Instruction Type:Provider Instructions for Treatment How to access health informa tion online - Detail Indication:Diabetes mellitus type II, controlled, with no complications Start:25-May-2015 Instruction Type:Patient Education Patient Instructions Indication:Diabetes mellitus type II, controlled, with no complications Start:25-May-2015 Instruction Type:Provider Instructions for Treatment How to access health informa tion online Indication:Diabetes mellitus type 2, uncontrolled, without complications Start:16-Dec-2014 Instruction Type:Patient Education How to access health informa tion online - Detail Indication:Diabetes mellitus type 2, uncontrolled, without complications Start:16-Dec-2014 Instruction Type:Patient Education Patient Instructions Indication:Diabetes mellitus type 2, uncontrolled, without complications Start:16-Dec-2014 Instruction Type:Provider Instructions for Treatment Patient Instructions Indication:Diabetes mellitus type 2, uncontrolled, without complications Start:21-Aug-2014 Instruction Type:Provider Instructions for Treatment Patient Instructions Indication:Erectile dysfunction Start:21-Aug-2014 Instruction Type:Provider Instructions for Treatment [facility] Work Phone: Instructions* Name Dates Details How to access health informa tion online Indication:Uncontrolled diabetes mellitus with complications Start:30-Jun-2020 Instruction Type:Patient Education How to access health informa tion online - Detail Indication:Uncontrolled diabetes mellitus with complications Start:30-Jun-2020 Instruction Type:Patient Education Patient Instructions Indication:Non-smoker Start:30-Jun-2020 Instruction Type:Provider Instructions for Treatment How to access health informa tion online Indication:BMI 37.0-37.9, adult Start:18-Feb-2020 Instruction Type:Patient Education How to access health informa tion online - Detail Indication:BMI 37.0-37.9, adult Start:18-Feb-2020 Instruction Type:Patient Education Patient Instructions Indication:BMI 37.0-37.9, adult Start:18-Feb-2020 Instruction Type:Provider Instructions for Treatment How to access health informa tion online Indication:Non-smoker Start:18-Feb-2020 Instruction Type:Patient Education How to access health informa tion online - Detail Indication:Non-smoker Start:18-Feb-2020 Instruction Type:Patient Education Patient Instructions Indication:Non-smoker Start:18-Feb-2020 Instruction Type:Provider Instructions for Treatment How to access health informa tion online Indication:Uncontrolled diabetes mellitus with complications Start:26-Nov-2019 Instruction Type:Patient Education How to access health informa tion online - Detail Indication:Uncontrolled diabetes mellitus with complications Start:26-Nov-2019 Instruction Type:Patient Education Patient Instructions Indication:Uncontrolled diabetes mellitus with complications Start:26-Nov-2019 Instruction Type:Provider Instructions for Treatment DISCONTINUED - LIPID PANEL ( [id number]) Indication:Hypercholesterolemia Start:20-Aug-2019 Instruction Type:Patient Education How to access health informa tion online Indication:Non-smoker Start:20-Aug-2019 Instruction Type:Patient Education How to access health informa tion online - Detail Indication:Non-smoker Start:20-Aug-2019 Instruction Type:Patient Education Patient Instructions Indication:Encounter for screening for lipid disorder Start:20-Aug-2019 Instruction Type:Provider Instructions for Treatment How to access health informa tion online Indication:BMI 37.0-37.9, adult Start:30-Apr-2019 Instruction Type:Patient Education How to access health informa tion online - Detail Indication:BMI 37.0-37.9, adult Start:30-Apr-2019 Instruction Type:Patient Education Patient Instructions Indication:BMI 37.0-37.9, adult Start:30-Apr-2019 Instruction Type:Provider Instructions for Treatment How to access health informa tion online Indication:Non-smoker Start:22-Jan-2019 Instruction Type:Patient Education How to access health informa tion online - Detail Indication:Non-smoker Start:22-Jan-2019 Instruction Type:Patient Education Patient Instructions Indication:BMI 37.0-37.9, adult Start:22-Jan-2019 Instruction Type:Provider Instructions for Treatment How to access health informa tion online Indication:Uncontrolled diabetes mellitus with complications Start:10-Oct-2018 Instruction Type:Patient Education How to access health informa tion online - Detail Indication:Uncontrolled diabetes mellitus with complications Start:10-Oct-2018 Instruction Type:Patient Education Patient Instructions Indication:Uncontrolled diabetes mellitus with complications Start:10-Oct-2018 Instruction Type:Provider Instructions for Treatment How to access health informa tion online Indication:Annual visit for general adult medical examination without abnormal findings Start:10-Jul-2018 Instruction Type:Patient Education How to access health informa tion online - Detail Indication:Annual visit for general adult medical examination without abnormal findings Start:10-Jul-2018 Instruction Type:Patient Education Patient Instructions Indication:Annual visit for general adult medical examination without abnormal findings Start:10-Jul-2018 Instruction Type:Provider Instructions for Treatment DISCONTINUED - CALCIFEDIOL ( [id number]) Indication:Diabetes mellitus type II, controlled, with no complications Start:03-Apr-2018 Instruction Type:Patient Education DISCONTINUED - CBC, PLATELET S & AUT DIFF ([id number]) Indication:Diabetes mellitus type II, controlled, with no complications Start:03-Apr-2018 Instruction Type:Patient Education DISCONTINUED - LIPID PANEL ( [id number]) Indication:Hypercholesterolemia Start:03-Apr-2018 Instruction Type:Patient Education How to access health informa tion online Indication:Diabetes mellitus type II, controlled, with no complications Start:03-Apr-2018 Instruction Type:Patient Education How to access health informa tion online - Detail Indication:Diabetes mellitus type II, controlled, with no complications Start:03-Apr-2018 Instruction Type:Patient Education How to access health informa tion online Indication:Diabetes mellitus type II, controlled, with no complications Start:27-Dec-2017 Instruction Type:Patient Education How to access health informa tion online - Detail Indication:Diabetes mellitus type II, controlled, with no complications Start:27-Dec-2017 Instruction Type:Patient Education Patient Instructions Indication:Diabetes mellitus type II, controlled, with no complications Start:27-Dec-2017 Instruction Type:Provider Instructions for Treatment Patient Instructions Indication:BMI 36.0-36.9,adult Start:24-Oct-2017 Instruction Type:Provider Instructions for Treatment How to access health informa tion online Indication:Nonsmoker Start:24-Oct-2017 Instruction Type:Patient Education How to access health informa tion online - Detail Indication:Nonsmoker Start:24-Oct-2017 Instruction Type:Patient Education Patient Instructions Indication:Nonsmoker Start:24-Oct-2017 Instruction Type:Provider Instructions for Treatment How to access health informa tion online Indication:Diabetes mellitus type 2, uncontrolled, without complications Start:25-Jul-2017 Instruction Type:Patient Education How to access health informa tion online - Detail Indication:Diabetes mellitus type 2, uncontrolled, without complications Start:25-Jul-2017 Instruction Type:Patient Education Patient Instructions Indication:Diabetes mellitus type 2, uncontrolled, without complications Start:25-Jul-2017 Instruction Type:Provider Instructions for Treatment How to access health informa tion online Indication:Diabetes mellitus type 2, uncontrolled, without complications Start:11-Apr-2017 Instruction Type:Patient Education How to access health informa tion online - Detail Indication:Diabetes mellitus type 2, uncontrolled, without complications Start:11-Apr-2017 Instruction Type:Patient Education Patient Instructions Indication:Diabetes mellitus type 2, uncontrolled, without complications Start:11-Apr-2017 Instruction Type:Provider Instructions for Treatment How to access health informa tion online Indication:Diabetes mellitus type 2, uncontrolled, without complications Start:02-Jan-2017 Instruction Type:Patient Education How to access health informa tion online - Detail Indication:Diabetes mellitus type 2, uncontrolled, without complications Start:02-Jan-2017 Instruction Type:Patient Education Patient Instructions Indication:Diabetes mellitus type 2, uncontrolled, without complications Start:02-Jan-2017 Instruction Type:Provider Instructions for Treatment How to access health informa tion online Indication:Diabetes mellitus type 2, uncontrolled, without complications Start:03-Oct-2016 Instruction Type:Patient Education How to access health informa tion online - Detail Indication:Diabetes mellitus type 2, uncontrolled, without complications Start:03-Oct-2016 Instruction Type:Patient Education Patient Instructions Indication:Diabetes mellitus type 2, uncontrolled, without complications Start:03-Oct-2016 Instruction Type:Provider Instructions for Treatment How to access health informa tion online Indication:Diabetes mellitus type 2, uncontrolled, without complications Start:27-Jun-2016 Instruction Type:Patient Education How to access health informa tion online - Detail Indication:Diabetes mellitus type 2, uncontrolled, without complications Start:27-Jun-2016 Instruction Type:Patient Education Patient Instructions Indication:Diabetes mellitus type 2, uncontrolled, without complications Start:27-Jun-2016 Instruction Type:Provider Instructions for Treatment How to access health informa tion online Indication:Diabetes mellitus type 2, uncontrolled, without complications Start:08-Mar-2016 Instruction Type:Patient Education How to access health informa tion online - Detail Indication:Diabetes mellitus type 2, uncontrolled, without complications Start:08-Mar-2016 Instruction Type:Patient Education Patient Instructions Indication:Diabetes mellitus type 2, uncontrolled, without complications Start:08-Mar-2016 Instruction Type:Provider Instructions for Treatment How to access health informa tion online - Detail Indication:Diabetes mellitus type II, controlled, with no complications Start:25-May-2015 Instruction Type:Patient Education Patient Instructions Indication:Diabetes mellitus type II, controlled, with no complications Start:25-May-2015 Instruction Type:Provider Instructions for Treatment How to access health informa tion online Indication:Diabetes mellitus type 2, uncontrolled, without complications Start:16-Dec-2014 Instruction Type:Patient Education How to access health informa tion online - Detail Indication:Diabetes mellitus type 2, uncontrolled, without complications Start:16-Dec-2014 Instruction Type:Patient Education Patient Instructions Indication:Diabetes mellitus type 2, uncontrolled, without complications Start:16-Dec-2014 Instruction Type:Provider Instructions for Treatment Patient Instructions Indication:Diabetes mellitus type 2, uncontrolled, without complications Start:21-Aug-2014 Instruction Type:Provider Instructions for Treatment Patient Instructions Indication:Erectile dysfunction Start:21-Aug-2014 Instruction Type:Provider Instructions for Treatment [facility] Work Phone: Instructions* Name Dates Details Patient Instructions Indication:Non-smoker Start:03-Nov-2021 Instruction Type:Provider Instructions for Treatment How to Access Health Informa tion Online using Patient Portal and [employer]rd [employer] Apps Indication:Non-smoker Start:03-Nov-2021 Instruction Type:Patient Education Patient Instructions Indication:BMI 40.0-44.9, adult Start:07-Jul-2021 Instruction Type:Provider Instructions for Treatment How to Access Health Informa tion Online using Patient Portal and [employer]rd [employer] Apps Indication:BMI 40.0-44.9, adult Start:07-Jul-2021 Instruction Type:Patient Education Patient Instructions Indication:Uncontrolled diabetes mellitus with complications Start:03-Mar-2021 Instruction Type:Provider Instructions for Treatment How to Access Health Informa tion Online using Patient Portal and [employer]rd [employer] Apps Indication:Uncontrolled diabetes mellitus with complications Start:03-Mar-2021 Instruction Type:Patient Education Patient Instructions Indication:Non-smoker Start:03-Nov-2020 Instruction Type:Provider Instructions for Treatment How to Access Health Informa tion Online using Patient Portal and [employer]rd [employer] Apps Indication:Non-smoker Start:03-Nov-2020 Instruction Type:Patient Education How to access health informa tion online Indication:Uncontrolled diabetes mellitus with complications Start:30-Jun-2020 Instruction Type:Patient Education How to access health informa tion online - Detail Indication:Uncontrolled diabetes mellitus with complications Start:30-Jun-2020 Instruction Type:Patient Education Patient Instructions Indication:Non-smoker Start:30-Jun-2020 Instruction Type:Provider Instructions for Treatment How to access health informa tion online Indication:BMI 37.0-37.9, adult Start:18-Feb-2020 Instruction Type:Patient Education How to access health informa tion online - Detail Indication:BMI 37.0-37.9, adult Start:18-Feb-2020 Instruction Type:Patient Education Patient Instructions Indication:BMI 37.0-37.9, adult Start:18-Feb-2020 Instruction Type:Provider Instructions for Treatment How to access health informa tion online Indication:Non-smoker Start:18-Feb-2020 Instruction Type:Patient Education How to access health informa tion online - Detail Indication:Non-smoker Start:18-Feb-2020 Instruction Type:Patient Education Patient Instructions Indication:Non-smoker Start:18-Feb-2020 Instruction Type:Provider Instructions for Treatment How to access health informa tion online Indication:Uncontrolled diabetes mellitus with complications Start:26-Nov-2019 Instruction Type:Patient Education How to access health informa tion online - Detail Indication:Uncontrolled diabetes mellitus with complications Start:26-Nov-2019 Instruction Type:Patient Education Patient Instructions Indication:Uncontrolled diabetes mellitus with complications Start:26-Nov-2019 Instruction Type:Provider Instructions for Treatment DISCONTINUED - LIPID PANEL ( [id number]) Indication:Hypercholesterolemia Start:20-Aug-2019 Instruction Type:Patient Education How to access health informa tion online Indication:Non-smoker Start:20-Aug-2019 Instruction Type:Patient Education How to access health informa tion online - Detail Indication:Non-smoker Start:20-Aug-2019 Instruction Type:Patient Education Patient Instructions Indication:Encounter for screening for lipid disorder Start:20-Aug-2019 Instruction Type:Provider Instructions for Treatment How to access health informa tion online Indication:BMI 37.0-37.9, adult Start:30-Apr-2019 Instruction Type:Patient Education How to access health informa tion online - Detail Indication:BMI 37.0-37.9, adult Start:30-Apr-2019 Instruction Type:Patient Education Patient Instructions Indication:BMI 37.0-37.9, adult Start:30-Apr-2019 Instruction Type:Provider Instructions for Treatment How to access health informa tion online Indication:Non-smoker Start:22-Jan-2019 Instruction Type:Patient Education How to access health informa tion online - Detail Indication:Non-smoker Start:22-Jan-2019 Instruction Type:Patient Education Patient Instructions Indication:BMI 37.0-37.9, adult Start:22-Jan-2019 Instruction Type:Provider Instructions for Treatment How to access health informa tion online Indication:Uncontrolled diabetes mellitus with complications Start:10-Oct-2018 Instruction Type:Patient Education How to access health informa tion online - Detail Indication:Uncontrolled diabetes mellitus with complications Start:10-Oct-2018 Instruction Type:Patient Education Patient Instructions Indication:Uncontrolled diabetes mellitus with complications Start:10-Oct-2018 Instruction Type:Provider Instructions for Treatment How to access health informa tion online Indication:Annual visit for general adult medical examination without abnormal findings Start:10-Jul-2018 Instruction Type:Patient Education How to access health informa tion online - Detail Indication:Annual visit for general adult medical examination without abnormal findings Start:10-Jul-2018 Instruction Type:Patient Education Patient Instructions Indication:Annual visit for general adult medical examination without abnormal findings Start:10-Jul-2018 Instruction Type:Provider Instructions for Treatment DISCONTINUED - CALCIFEDIOL ( [id number]) Indication:Diabetes mellitus type II, controlled, with no complications Start:03-Apr-2018 Instruction Type:Patient Education DISCONTINUED - CBC, PLATELET S & AUT DIFF ([id number]) Indication:Diabetes mellitus type II, controlled, with no complications Start:03-Apr-2018 Instruction Type:Patient Education DISCONTINUED - LIPID PANEL ( [id number]) Indication:Hypercholesterolemia Start:03-Apr-2018 Instruction Type:Patient Education How to access health informa tion online Indication:Diabetes mellitus type II, controlled, with no complications Start:03-Apr-2018 Instruction Type:Patient Education How to access health informa tion online - Detail Indication:Diabetes mellitus type II, controlled, with no complications Start:03-Apr-2018 Instruction Type:Patient Education How to access health informa tion online Indication:Diabetes mellitus type II, controlled, with no complications Start:27-Dec-2017 Instruction Type:Patient Education How to access health informa tion online - Detail Indication:Diabetes mellitus type II, controlled, with no complications Start:27-Dec-2017 Instruction Type:Patient Education Patient Instructions Indication:Diabetes mellitus type II, controlled, with no complications Start:27-Dec-2017 Instruction Type:Provider Instructions for Treatment Patient Instructions Indication:BMI 36.0-36.9,adult Start:24-Oct-2017 Instruction Type:Provider Instructions for Treatment How to access health informa tion online Indication:Nonsmoker Start:24-Oct-2017 Instruction Type:Patient Education How to access health informa tion online - Detail Indication:Nonsmoker Start:24-Oct-2017 Instruction Type:Patient Education Patient Instructions Indication:Nonsmoker Start:24-Oct-2017 Instruction Type:Provider Instructions for Treatment How to access health informa tion online Indication:Diabetes mellitus type 2, uncontrolled, without complications Start:25-Jul-2017 Instruction Type:Patient Education How to access health informa tion online - Detail Indication:Diabetes mellitus type 2, uncontrolled, without complications Start:25-Jul-2017 Instruction Type:Patient Education Patient Instructions Indication:Diabetes mellitus type 2, uncontrolled, without complications Start:25-Jul-2017 Instruction Type:Provider Instructions for Treatment How to access health informa tion online Indication:Diabetes mellitus type 2, uncontrolled, without complications Start:11-Apr-2017 Instruction Type:Patient Education How to access health informa tion online - Detail Indication:Diabetes mellitus type 2, uncontrolled, without complications Start:11-Apr-2017 Instruction Type:Patient Education Patient Instructions Indication:Diabetes mellitus type 2, uncontrolled, without complications Start:11-Apr-2017 Instruction Type:Provider Instructions for Treatment How to access health informa tion online Indication:Diabetes mellitus type 2, uncontrolled, without complications Start:02-Jan-2017 Instruction Type:Patient Education How to access health informa tion online - Detail Indication:Diabetes mellitus type 2, uncontrolled, without complications Start:02-Jan-2017 Instruction Type:Patient Education Patient Instructions Indication:Diabetes mellitus type 2, uncontrolled, without complications Start:02-Jan-2017 Instruction Type:Provider Instructions for Treatment How to access health informa tion online Indication:Diabetes mellitus type 2, uncontrolled, without complications Start:03-Oct-2016 Instruction Type:Patient Education How to access health informa tion online - Detail Indication:Diabetes mellitus type 2, uncontrolled, without complications Start:03-Oct-2016 Instruction Type:Patient Education Patient Instructions Indication:Diabetes mellitus type 2, uncontrolled, without complications Start:03-Oct-2016 Instruction Type:Provider Instructions for Treatment How to access health informa tion online Indication:Diabetes mellitus type 2, uncontrolled, without complications Start:27-Jun-2016 Instruction Type:Patient Education How to access health informa tion online - Detail Indication:Diabetes mellitus type 2, uncontrolled, without complications Start:27-Jun-2016 Instruction Type:Patient Education Patient Instructions Indication:Diabetes mellitus type 2, uncontrolled, without complications Start:27-Jun-2016 Instruction Type:Provider Instructions for Treatment How to access health informa tion online Indication:Diabetes mellitus type 2, uncontrolled, without complications Start:08-Mar-2016 Instruction Type:Patient Education How to access health informa tion online - Detail Indication:Diabetes mellitus type 2, uncontrolled, without complications Start:08-Mar-2016 Instruction Type:Patient Education Patient Instructions Indication:Diabetes mellitus type 2, uncontrolled, without complications Start:08-Mar-2016 Instruction Type:Provider Instructions for Treatment How to access health informa tion online - Detail Indication:Diabetes mellitus type II, controlled, with no complications Start:25-May-2015 Instruction Type:Patient Education Patient Instructions Indication:Diabetes mellitus type II, controlled, with no complications Start:25-May-2015 Instruction Type:Provider Instructions for Treatment How to access health informa tion online Indication:Diabetes mellitus type 2, uncontrolled, without complications Start:16-Dec-2014 Instruction Type:Patient Education How to access health informa tion online - Detail Indication:Diabetes mellitus type 2, uncontrolled, without complications Start:16-Dec-2014 Instruction Type:Patient Education Patient Instructions Indication:Diabetes mellitus type 2, uncontrolled, without complications Start:16-Dec-2014 Instruction Type:Provider Instructions for Treatment Patient Instructions Indication:Diabetes mellitus type 2, uncontrolled, without complications Start:21-Aug-2014 Instruction Type:Provider Instructions for Treatment Patient Instructions Indication:Erectile dysfunction Start:21-Aug-2014 Instruction Type:Provider Instructions for Treatment [facility]; [facility] Work Phone: Instructions* Name Dates Details Patient Instructions Indication:Non-smoker Start:03-Nov-2021 Instruction Type:Provider Instructions for Treatment How to Access Health Informa tion Online using Patient Portal and [employer]rd [employer] Apps Indication:Non-smoker Start:03-Nov-2021 Instruction Type:Patient Education Patient Instructions Indication:BMI 40.0-44.9, adult Start:07-Jul-2021 Instruction Type:Provider Instructions for Treatment How to Access Health Informa tion Online using Patient Portal and [employer]rd [employer] Apps Indication:BMI 40.0-44.9, adult Start:07-Jul-2021 Instruction Type:Patient Education Patient Instructions Indication:Uncontrolled diabetes mellitus with complications Start:03-Mar-2021 Instruction Type:Provider Instructions for Treatment How to Access Health Informa tion Online using Patient Portal and [employer]rd [employer] Apps Indication:Uncontrolled diabetes mellitus with complications Start:03-Mar-2021 Instruction Type:Patient Education Patient Instructions Indication:Non-smoker Start:03-Nov-2020 Instruction Type:Provider Instructions for Treatment How to Access Health Informa tion Online using Patient Portal and [employer]rd [employer] Apps Indication:Non-smoker Start:03-Nov-2020 Instruction Type:Patient Education How to access health informa tion online Indication:Uncontrolled diabetes mellitus with complications Start:30-Jun-2020 Instruction Type:Patient Education How to access health informa tion online - Detail Indication:Uncontrolled diabetes mellitus with complications Start:30-Jun-2020 Instruction Type:Patient Education Patient Instructions Indication:Non-smoker Start:30-Jun-2020 Instruction Type:Provider Instructions for Treatment How to access health informa tion online Indication:BMI 37.0-37.9, adult Start:18-Feb-2020 Instruction Type:Patient Education How to access health informa tion online - Detail Indication:BMI 37.0-37.9, adult Start:18-Feb-2020 Instruction Type:Patient Education Patient Instructions Indication:BMI 37.0-37.9, adult Start:18-Feb-2020 Instruction Type:Provider Instructions for Treatment How to access health informa tion online Indication:Non-smoker Start:18-Feb-2020 Instruction Type:Patient Education How to access health informa tion online - Detail Indication:Non-smoker Start:18-Feb-2020 Instruction Type:Patient Education Patient Instructions Indication:Non-smoker Start:18-Feb-2020 Instruction Type:Provider Instructions for Treatment How to access health informa tion online Indication:Uncontrolled diabetes mellitus with complications Start:26-Nov-2019 Instruction Type:Patient Education How to access health informa tion online - Detail Indication:Uncontrolled diabetes mellitus with complications Start:26-Nov-2019 Instruction Type:Patient Education Patient Instructions Indication:Uncontrolled diabetes mellitus with complications Start:26-Nov-2019 Instruction Type:Provider Instructions for Treatment DISCONTINUED - LIPID PANEL ( [id number]) Indication:Hypercholesterolemia Start:20-Aug-2019 Instruction Type:Patient Education How to access health informa tion online Indication:Non-smoker Start:20-Aug-2019 Instruction Type:Patient Education How to access health informa tion online - Detail Indication:Non-smoker Start:20-Aug-2019 Instruction Type:Patient Education Patient Instructions Indication:Encounter for screening for lipid disorder Start:20-Aug-2019 Instruction Type:Provider Instructions for Treatment How to access health informa tion online Indication:BMI 37.0-37.9, adult Start:30-Apr-2019 Instruction Type:Patient Education How to access health informa tion online - Detail Indication:BMI 37.0-37.9, adult Start:30-Apr-2019 Instruction Type:Patient Education Patient Instructions Indication:BMI 37.0-37.9, adult Start:30-Apr-2019 Instruction Type:Provider Instructions for Treatment How to access health informa tion online Indication:Non-smoker Start:22-Jan-2019 Instruction Type:Patient Education How to access health informa tion online - Detail Indication:Non-smoker Start:22-Jan-2019 Instruction Type:Patient Education Patient Instructions Indication:BMI 37.0-37.9, adult Start:22-Jan-2019 Instruction Type:Provider Instructions for Treatment How to access health informa tion online Indication:Uncontrolled diabetes mellitus with complications Start:10-Oct-2018 Instruction Type:Patient Education How to access health informa tion online - Detail Indication:Uncontrolled diabetes mellitus with complications Start:10-Oct-2018 Instruction Type:Patient Education Patient Instructions Indication:Uncontrolled diabetes mellitus with complications Start:10-Oct-2018 Instruction Type:Provider Instructions for Treatment How to access health informa tion online Indication:Annual visit for general adult medical examination without abnormal findings Start:10-Jul-2018 Instruction Type:Patient Education How to access health informa tion online - Detail Indication:Annual visit for general adult medical examination without abnormal findings Start:10-Jul-2018 Instruction Type:Patient Education Patient Instructions Indication:Annual visit for general adult medical examination without abnormal findings Start:10-Jul-2018 Instruction Type:Provider Instructions for Treatment DISCONTINUED - CALCIFEDIOL ( [id number]) Indication:Diabetes mellitus type II, controlled, with no complications Start:03-Apr-2018 Instruction Type:Patient Education DISCONTINUED - CBC, PLATELET S & AUT DIFF ([id number]) Indication:Diabetes mellitus type II, controlled, with no complications Start:03-Apr-2018 Instruction Type:Patient Education DISCONTINUED - LIPID PANEL ( [id number]) Indication:Hypercholesterolemia Start:03-Apr-2018 Instruction Type:Patient Education How to access health informa tion online Indication:Diabetes mellitus type II, controlled, with no complications Start:03-Apr-2018 Instruction Type:Patient Education How to access health informa tion online - Detail Indication:Diabetes mellitus type II, controlled, with no complications Start:03-Apr-2018 Instruction Type:Patient Education How to access health informa tion online Indication:Diabetes mellitus type II, controlled, with no complications Start:27-Dec-2017 Instruction Type:Patient Education How to access health informa tion online - Detail Indication:Diabetes mellitus type II, controlled, with no complications Start:27-Dec-2017 Instruction Type:Patient Education Patient Instructions Indication:Diabetes mellitus type II, controlled, with no complications Start:27-Dec-2017 Instruction Type:Provider Instructions for Treatment Patient Instructions Indication:BMI 36.0-36.9,adult Start:24-Oct-2017 Instruction Type:Provider Instructions for Treatment How to access health informa tion online Indication:Nonsmoker Start:24-Oct-2017 Instruction Type:Patient Education How to access health informa tion online - Detail Indication:Nonsmoker Start:24-Oct-2017 Instruction Type:Patient Education Patient Instructions Indication:Nonsmoker Start:24-Oct-2017 Instruction Type:Provider Instructions for Treatment How to access health informa tion online Indication:Diabetes mellitus type 2, uncontrolled, without complications Start:25-Jul-2017 Instruction Type:Patient Education How to access health informa tion online - Detail Indication:Diabetes mellitus type 2, uncontrolled, without complications Start:25-Jul-2017 Instruction Type:Patient Education Patient Instructions Indication:Diabetes mellitus type 2, uncontrolled, without complications Start:25-Jul-2017 Instruction Type:Provider Instructions for Treatment How to access health informa tion online Indication:Diabetes mellitus type 2, uncontrolled, without complications Start:11-Apr-2017 Instruction Type:Patient Education How to access health informa tion online - Detail Indication:Diabetes mellitus type 2, uncontrolled, without complications Start:11-Apr-2017 Instruction Type:Patient Education Patient Instructions Indication:Diabetes mellitus type 2, uncontrolled, without complications Start:11-Apr-2017 Instruction Type:Provider Instructions for Treatment How to access health informa tion online Indication:Diabetes mellitus type 2, uncontrolled, without complications Start:02-Jan-2017 Instruction Type:Patient Education How to access health informa tion online - Detail Indication:Diabetes mellitus type 2, uncontrolled, without complications Start:02-Jan-2017 Instruction Type:Patient Education Patient Instructions Indication:Diabetes mellitus type 2, uncontrolled, without complications Start:02-Jan-2017 Instruction Type:Provider Instructions for Treatment How to access health informa tion online Indication:Diabetes mellitus type 2, uncontrolled, without complications Start:03-Oct-2016 Instruction Type:Patient Education How to access health informa tion online - Detail Indication:Diabetes mellitus type 2, uncontrolled, without complications Start:03-Oct-2016 Instruction Type:Patient Education Patient Instructions Indication:Diabetes mellitus type 2, uncontrolled, without complications Start:03-Oct-2016 Instruction Type:Provider Instructions for Treatment How to access health informa tion online Indication:Diabetes mellitus type 2, uncontrolled, without complications Start:27-Jun-2016 Instruction Type:Patient Education How to access health informa tion online - Detail Indication:Diabetes mellitus type 2, uncontrolled, without complications Start:27-Jun-2016 Instruction Type:Patient Education Patient Instructions Indication:Diabetes mellitus type 2, uncontrolled, without complications Start:27-Jun-2016 Instruction Type:Provider Instructions for Treatment How to access health informa tion online Indication:Diabetes mellitus type 2, uncontrolled, without complications Start:08-Mar-2016 Instruction Type:Patient Education How to access health informa tion online - Detail Indication:Diabetes mellitus type 2, uncontrolled, without complications Start:08-Mar-2016 Instruction Type:Patient Education Patient Instructions Indication:Diabetes mellitus type 2, uncontrolled, without complications Start:08-Mar-2016 Instruction Type:Provider Instructions for Treatment How to access health informa tion online - Detail Indication:Diabetes mellitus type II, controlled, with no complications Start:25-May-2015 Instruction Type:Patient Education Patient Instructions Indication:Diabetes mellitus type II, controlled, with no complications Start:25-May-2015 Instruction Type:Provider Instructions for Treatment How to access health informa tion online Indication:Diabetes mellitus type 2, uncontrolled, without complications Start:16-Dec-2014 Instruction Type:Patient Education How to access health informa tion online - Detail Indication:Diabetes mellitus type 2, uncontrolled, without complications Start:16-Dec-2014 Instruction Type:Patient Education Patient Instructions Indication:Diabetes mellitus type 2, uncontrolled, without complications Start:16-Dec-2014 Instruction Type:Provider Instructions for Treatment Patient Instructions Indication:Diabetes mellitus type 2, uncontrolled, without complications Start:21-Aug-2014 Instruction Type:Provider Instructions for Treatment Patient Instructions Indication:Erectile dysfunction Start:21-Aug-2014 Instruction Type:Provider Instructions for Treatment [facility]; [facility] Work Phone: Instructions* Name Dates Details Patient Instructions Indication:Non-smoker Start:03-Nov-2021 Instruction Type:Provider Instructions for Treatment How to Access Health Informa tion Online using Patient Portal and [employer] Apps Indication:Non-smoker Start:03-Nov-2021 Instruction Type:Patient Education Patient Instructions Indication:BMI 40.0-44.9, adult Start:07-Jul-2021 Instruction Type:Provider Instructions for Treatment How to Access Health Informa tion Online using Patient Portal and [employer] Apps Indication:BMI 40.0-44.9, adult Start:07-Jul-2021 Instruction Type:Patient Education Patient Instructions Indication:Uncontrolled diabetes mellitus with complications Start:03-Mar-2021 Instruction Type:Provider Instructions for Treatment How to Access Health Informa tion Online using Patient Portal and [employer] Apps Indication:Uncontrolled diabetes mellitus with complications Start:03-Mar-2021 Instruction Type:Patient Education Patient Instructions Indication:Non-smoker Start:03-Nov-2020 Instruction Type:Provider Instructions for Treatment How to Access Health Informa tion Online using Patient Portal and [employer] Apps Indication:Non-smoker Start:03-Nov-2020 Instruction Type:Patient Education How to access health informa tion online Indication:Uncontrolled diabetes mellitus with complications Start:30-Jun-2020 Instruction Type:Patient Education How to access health informa tion online - Detail Indication:Uncontrolled diabetes mellitus with complications Start:30-Jun-2020 Instruction Type:Patient Education Patient Instructions Indication:Non-smoker Start:30-Jun-2020 Instruction Type:Provider Instructions for Treatment How to access health informa tion online Indication:BMI 37.0-37.9, adult Start:18-Feb-2020 Instruction Type:Patient Education How to access health informa tion online - Detail Indication:BMI 37.0-37.9, adult Start:18-Feb-2020 Instruction Type:Patient Education Patient Instructions Indication:BMI 37.0-37.9, adult Start:18-Feb-2020 Instruction Type:Provider Instructions for Treatment How to access health informa tion online Indication:Non-smoker Start:18-Feb-2020 Instruction Type:Patient Education How to access health informa tion online - Detail Indication:Non-smoker Start:18-Feb-2020 Instruction Type:Patient Education Patient Instructions Indication:Non-smoker Start:18-Feb-2020 Instruction Type:Provider Instructions for Treatment How to access health informa tion online Indication:Uncontrolled diabetes mellitus with complications Start:26-Nov-2019 Instruction Type:Patient Education How to access health informa tion online - Detail Indication:Uncontrolled diabetes mellitus with complications Start:26-Nov-2019 Instruction Type:Patient Education Patient Instructions Indication:Uncontrolled diabetes mellitus with complications Start:26-Nov-2019 Instruction Type:Provider Instructions for Treatment DISCONTINUED - LIPID PANEL ( [id number]) Indication:Hypercholesterolemia Start:20-Aug-2019 Instruction Type:Patient Education How to access health informa tion online Indication:Non-smoker Start:20-Aug-2019 Instruction Type:Patient Education How to access health informa tion online - Detail Indication:Non-smoker Start:20-Aug-2019 Instruction Type:Patient Education Patient Instructions Indication:Encounter for screening for lipid disorder Start:20-Aug-2019 Instruction Type:Provider Instructions for Treatment How to access health informa tion online Indication:BMI 37.0-37.9, adult Start:30-Apr-2019 Instruction Type:Patient Education How to access health informa tion online - Detail Indication:BMI 37.0-37.9, adult Start:30-Apr-2019 Instruction Type:Patient Education Patient Instructions Indication:BMI 37.0-37.9, adult Start:30-Apr-2019 Instruction Type:Provider Instructions for Treatment How to access health informa tion online Indication:Non-smoker Start:22-Jan-2019 Instruction Type:Patient Education How to access health informa tion online - Detail Indication:Non-smoker Start:22-Jan-2019 Instruction Type:Patient Education Patient Instructions Indication:BMI 37.0-37.9, adult Start:22-Jan-2019 Instruction Type:Provider Instructions for Treatment How to access health informa tion online Indication:Uncontrolled diabetes mellitus with complications Start:10-Oct-2018 Instruction Type:Patient Education How to access health informa tion online - Detail Indication:Uncontrolled diabetes mellitus with complications Start:10-Oct-2018 Instruction Type:Patient Education Patient Instructions Indication:Uncontrolled diabetes mellitus with complications Start:10-Oct-2018 Instruction Type:Provider Instructions for Treatment How to access health informa tion online Indication:Annual visit for general adult medical examination without abnormal findings Start:10-Jul-2018 Instruction Type:Patient Education How to access health informa tion online - Detail Indication:Annual visit for general adult medical examination without abnormal findings Start:10-Jul-2018 Instruction Type:Patient Education Patient Instructions Indication:Annual visit for general adult medical examination without abnormal findings Start:10-Jul-2018 Instruction Type:Provider Instructions for Treatment DISCONTINUED - CALCIFEDIOL ( [id number]) Indication:Diabetes mellitus type II, controlled, with no complications Start:03-Apr-2018 Instruction Type:Patient Education DISCONTINUED - CBC, PLATELET S & AUT DIFF ([id number]) Indication:Diabetes mellitus type II, controlled, with no complications Start:03-Apr-2018 Instruction Type:Patient Education DISCONTINUED - LIPID PANEL ( [id number]) Indication:Hypercholesterolemia Start:03-Apr-2018 Instruction Type:Patient Education How to access health informa tion online Indication:Diabetes mellitus type II, controlled, with no complications Start:03-Apr-2018 Instruction Type:Patient Education How to access health informa tion online - Detail Indication:Diabetes mellitus type II, controlled, with no complications Start:03-Apr-2018 Instruction Type:Patient Education How to access health informa tion online Indication:Diabetes mellitus type II, controlled, with no complications Start:27-Dec-2017 Instruction Type:Patient Education How to access health informa tion online - Detail Indication:Diabetes mellitus type II, controlled, with no complications Start:27-Dec-2017 Instruction Type:Patient Education Patient Instructions Indication:Diabetes mellitus type II, controlled, with no complications Start:27-Dec-2017 Instruction Type:Provider Instructions for Treatment Patient Instructions Indication:BMI 36.0-36.9,adult Start:24-Oct-2017 Instruction Type:Provider Instructions for Treatment How to access health informa tion online Indication:Nonsmoker Start:24-Oct-2017 Instruction Type:Patient Education How to access health informa tion online - Detail Indication:Nonsmoker Start:24-Oct-2017 Instruction Type:Patient Education Patient Instructions Indication:Nonsmoker Start:24-Oct-2017 Instruction Type:Provider Instructions for Treatment How to access health informa tion online Indication:Diabetes mellitus type 2, uncontrolled, without complications Start:25-Jul-2017 Instruction Type:Patient Education How to access health informa tion online - Detail Indication:Diabetes mellitus type 2, uncontrolled, without complications Start:25-Jul-2017 Instruction Type:Patient Education Patient Instructions Indication:Diabetes mellitus type 2, uncontrolled, without complications Start:25-Jul-2017 Instruction Type:Provider Instructions for Treatment How to access health informa tion online Indication:Diabetes mellitus type 2, uncontrolled, without complications Start:11-Apr-2017 Instruction Type:Patient Education How to access health informa tion online - Detail Indication:Diabetes mellitus type 2, uncontrolled, without complications Start:11-Apr-2017 Instruction Type:Patient Education Patient Instructions Indication:Diabetes mellitus type 2, uncontrolled, without complications Start:11-Apr-2017 Instruction Type:Provider Instructions for Treatment How to access health informa tion online Indication:Diabetes mellitus type 2, uncontrolled, without complications Start:02-Jan-2017 Instruction Type:Patient Education How to access health informa tion online - Detail Indication:Diabetes mellitus type 2, uncontrolled, without complications Start:02-Jan-2017 Instruction Type:Patient Education Patient Instructions Indication:Diabetes mellitus type 2, uncontrolled, without complications Start:02-Jan-2017 Instruction Type:Provider Instructions for Treatment How to access health informa tion online Indication:Diabetes mellitus type 2, uncontrolled, without complications Start:03-Oct-2016 Instruction Type:Patient Education How to access health informa tion online - Detail Indication:Diabetes mellitus type 2, uncontrolled, without complications Start:03-Oct-2016 Instruction Type:Patient Education Patient Instructions Indication:Diabetes mellitus type 2, uncontrolled, without complications Start:03-Oct-2016 Instruction Type:Provider Instructions for Treatment How to access health informa tion online Indication:Diabetes mellitus type 2, uncontrolled, without complications Start:27-Jun-2016 Instruction Type:Patient Education How to access health informa tion online - Detail Indication:Diabetes mellitus type 2, uncontrolled, without complications Start:27-Jun-2016 Instruction Type:Patient Education Patient Instructions Indication:Diabetes mellitus type 2, uncontrolled, without complications Start:27-Jun-2016 Instruction Type:Provider Instructions for Treatment How to access health informa tion online Indication:Diabetes mellitus type 2, uncontrolled, without complications Start:08-Mar-2016 Instruction Type:Patient Education How to access health informa tion online - Detail Indication:Diabetes mellitus type 2, uncontrolled, without complications Start:08-Mar-2016 Instruction Type:Patient Education Patient Instructions Indication:Diabetes mellitus type 2, uncontrolled, without complications Start:08-Mar-2016 Instruction Type:Provider Instructions for Treatment How to access health informa tion online - Detail Indication:Diabetes mellitus type II, controlled, with no complications Start:25-May-2015 Instruction Type:Patient Education Patient Instructions Indication:Diabetes mellitus type II, controlled, with no complications Start:25-May-2015 Instruction Type:Provider Instructions for Treatment How to access health informa tion online Indication:Diabetes mellitus type 2, uncontrolled, without complications Start:16-Dec-2014 Instruction Type:Patient Education How to access health informa tion online - Detail Indication:Diabetes mellitus type 2, uncontrolled, without complications Start:16-Dec-2014 Instruction Type:Patient Education Patient Instructions Indication:Diabetes mellitus type 2, uncontrolled, without complications Start:16-Dec-2014 Instruction Type:Provider Instructions for Treatment Patient Instructions Indication:Diabetes mellitus type 2, uncontrolled, without complications Start:21-Aug-2014 Instruction Type:Provider Instructions for Treatment Patient Instructions Indication:Erectile dysfunction Start:21-Aug-2014 Instruction Type:Provider Instructions for Treatment [facility]; [facility] Work Phone: Family History No Family History Records FoundUnknown Family Member Name Dates Details Father Comments:obesity, HN, hyperl ipidemia, psoriasis CHF 83 yo Status:Active Mother Comments:Breast cancer, HTN CHF at 66 yo, CV disease Status:Active uncles maternal early heart disease Status:Active Unknown Family Member Name Dates Details Father Comments:obesity, HN, hyperl ipidemia, psoriasis CHF 83 yo Status:Active Mother Comments:Breast cancer, HTN CHF at 66 yo, CV disease Status:Active uncles maternal early heart disease Status:Active Unknown Family Member Name Dates Details Father Comments:obesity, HN, hyperl ipidemia, psoriasis CHF 83 yo Status:Active Mother Comments:Breast cancer, HTN CHF at 66 yo, CV disease Status:Active uncles maternal early heart disease Status:Active Unknown Family Member Name Dates Details Father Comments:obesity, HN, hyperl ipidemia, psoriasis CHF 83 yo Status:Active Mother Comments:Breast cancer, HTN CHF at 66 yo, CV disease Status:Active uncles maternal early heart disease Status:Active Unknown Family Member Name Dates Details Father Comments:obesity, HN, hyperl ipidemia, psoriasis CHF 83 yo Status:Active Mother Comments:Breast cancer, HTN CHF at 66 yo, CV disease Status:Active uncles maternal early heart disease Status:Active Unknown Family Member Name Dates Details Father Comments:obesity, HN, hyperl ipidemia, psoriasis CHF 83 yo Status:Active Mother Comments:Breast cancer, HTN CHF at 66 yo, CV disease Status:Active uncles maternal early heart disease Status:Active Unknown Family Member Name Dates Details Father Comments:obesity, HN, hyperl ipidemia, psoriasis CHF 83 yo Status:Active Mother Comments:Breast cancer, HTN CHF at 66 yo, CV disease Status:Active uncles maternal early heart disease Status:Active Unknown Family Member Name Dates Details Father Comments:obesity, HN, hyperl ipidemia, psoriasis CHF 83 yo Status:Active Mother Comments:Breast cancer, HTN CHF at 66 yo, CV disease Status:Active uncles maternal early heart disease Status:Active Unknown Family Member Name Dates Details Father Comments:obesity, HN, hyperl ipidemia, psoriasis CHF 83 yo Status:Active Mother Comments:Breast cancer, HTN CHF at 66 yo, CV disease Status:Active uncles maternal early heart disease Status:Active Unknown Family Member Name Dates Details Father Comments:obesity, HN, hyperl ipidemia, psoriasis CHF 83 yo Status:Active Mother Comments:Breast cancer, HTN CHF at 66 yo, CV disease Status:Active uncles maternal early heart disease Status:Active Unknown Family Member Name Dates Details Father Comments:obesity, HN, hyperl ipidemia, psoriasis CHF 83 yo Status:Active Mother Comments:Breast cancer, HTN CHF at 66 yo, CV disease Status:Active uncles maternal early heart disease Status:Active Unknown Family Member Name Dates Details Father Comments:obesity, HN, hyperl ipidemia, psoriasis CHF 83 yo Status:Active Mother Comments:Breast cancer, HTN CHF at 66 yo, CV disease Status:Active uncles maternal early heart disease Status:Active Unknown Family Member Name Dates Details Father Comments:obesity, HN, hyperl ipidemia, psoriasis CHF 83 yo Status:Active Mother Comments:Breast cancer, HTN CHF at 66 yo, CV disease Status:Active uncles maternal early heart disease Status:Active Unknown Family Member Name Dates Details Father Comments:obesity, HN, hyperl ipidemia, psoriasis CHF 83 yo Status:Active Mother Comments:Breast cancer, HTN CHF at 66 yo, CV disease Status:Active uncles maternal early heart disease Status:Active Unknown Family Member Name Dates Details Father Comments:obesity, HN, hyperl ipidemia, psoriasis CHF 83 yo Status:Active Mother Comments:Breast cancer, HTN CHF at 66 yo, CV disease Status:Active uncles maternal early heart disease Status:Active Unknown Family Member Name Dates Details Father Comments:obesity, HN, hyperl ipidemia, psoriasis CHF 83 yo Status:Active Mother Comments:Breast cancer, HTN CHF at 66 yo, CV disease Status:Active uncles maternal early heart disease Status:Active Unknown Family Member Name Dates Details Father Comments:obesity, HN, hyperl ipidemia, psoriasis CHF 83 yo Status:Active Mother Comments:Breast cancer, HTN CHF at 66 yo, CV disease Status:Active uncles maternal early heart disease Status:Active Unknown Family Member Name Dates Details Father Comments:obesity, HN, hyperl ipidemia, psoriasis CHF 83 yo Status:Active Mother Comments:Breast cancer, HTN CHF at 66 yo, CV disease Status:Active uncles maternal early heart disease Status:Active Unknown Family Member Name Dates Details Father Comments:obesity, HN, hyperl ipidemia, psoriasis CHF 83 yo Status:Active Mother Comments:Breast cancer, HTN CHF at 66 yo, CV disease Status:Active uncles maternal early heart disease Status:Active Unknown Family Member Name Dates Details Father Comments:obesity, HN, hyperl ipidemia, psoriasis CHF 83 yo Status:Active Mother Comments:Breast cancer, HTN CHF at 66 yo, CV disease Status:Active uncles maternal early heart disease Status:Active Unknown Family Member Name Dates Details Father Comments:obesity, HN, hyperl ipidemia, psoriasis CHF 83 yo Status:Active Mother Comments:Breast cancer, HTN CHF at 66 yo, CV disease Status:Active uncles maternal early heart disease Status:Active Unknown Family Member Name Dates Details Father Comments:obesity, HN, hyperl ipidemia, psoriasis CHF 83 yo Status:Active Mother Comments:Breast cancer, HTN CHF at 66 yo, CV disease Status:Active uncles maternal early heart disease Status:Active Unknown Family Member Name Dates Details Father Comments:obesity, HN, hyperl ipidemia, psoriasis CHF 83 yo Status:Active Mother Comments:Breast cancer, HTN CHF at 66 yo, CV disease Status:Active uncles maternal early heart disease Status:Active Relationship Condition Age at Onset Recorded Date/T jerry Not Specified Psychiatric care Unknown Diabetes mellitus Unknown Alcohol abuse Unknown Depression Unknown Cardiac disease Unknown Mental disorder Unknown Malignant neoplasm of breast Unknown Hypertension Unknown Unknown Family Member Name Dates Details Father Comments:obesity, HN, hyperl ipidemia, psoriasis CHF 83 yo Status:Active Mother Comments:Breast cancer, HTN CHF at 66 yo, CV disease Status:Active uncles maternal early heart disease Status:Active Instructions Name Dates Details Annual visit for general roxana lt medical examination without abnormal findings : How to access health information online Indication:Annual visit for general adult medical examination without abnormal findings Annual visit for general roxana lt medical examination without abnormal findings : How to access health information online - Detail Indication:Annual visit for general adult medical examination without abnormal findings Annual visit for general roxana lt medical examination without abnormal findings : Patient Instructions Indication:Annual visit for general adult medical examination without abnormal findings Diabetes mellitus type II, c ontrolled, with no complications : DISCONTINUED - CALCIFEDIOL ([id number]) Indication:Diabetes mellitus type II, controlled, with no complications Diabetes mellitus type II, c ontrolled, with no complications : DISCONTINUED - CBC, PLATELETS & AUT DIFF ([id number]) Indication:Diabetes mellitus type II, controlled, with no complications Hypercholesterolemia : DISCO NTINUED - LIPID PANEL ([id number]) Indication:Hypercholesterolemia Diabetes mellitus type II, c ontrolled, with no complications : How to access health information online Indication:Diabetes mellitus type II, controlled, with no complications Diabetes mellitus type II, c ontrolled, with no complications : How to access health information online - Detail Indication:Diabetes mellitus type II, controlled, with no complications Diabetes mellitus type II, c ontrolled, with no complications : Patient Instructions Indication:Diabetes mellitus type II, controlled, with no complications BMI 36.0-36.9,adult : Patien t Instructions Indication:BMI 36.0-36.9,adult Nonsmoker : How to access he alth information online Indication:Nonsmoker Nonsmoker : How to access he alth information online - Detail Indication:Nonsmoker Nonsmoker : Patient Instruct ions Indication:Nonsmoker Diabetes mellitus type 2, un controlled, without complications : How to access health information online Indication:Diabetes mellitus type 2, uncontrolled, without complications Diabetes mellitus type 2, un controlled, without complications : How to access health information online - Detail Indication:Diabetes mellitus type 2, uncontrolled, without complications Diabetes mellitus type 2, un controlled, without complications : Patient Instructions Indication:Diabetes mellitus type 2, uncontrolled, without complications Erectile dysfunction : Patie nt Instructions Indication:Erectile dysfunction Name Dates Details Uncontrolled diabetes tiffanie us with complications : How to access health information online Indication:Uncontrolled diabetes mellitus with complications Uncontrolled diabetes tiffanie us with complications : How to access health information online - Detail Indication:Uncontrolled diabetes mellitus with complications Uncontrolled diabetes tiffanie with complications : Patient Instructions Indication:Uncontrolled diabetes mellitus with complications Annual visit for general roxana lt medical examination without abnormal findings : How to access health information online Indication:Annual visit for general adult medical examination without abnormal findings Annual visit for general roxana lt medical examination without abnormal findings : How to access health information online - Detail Indication:Annual visit for general adult medical examination without abnormal findings Annual visit for general roxana lt medical examination without abnormal findings : Patient Instructions Indication:Annual visit for general adult medical examination without abnormal findings Diabetes mellitus type II, c ontrolled, with no complications : DISCONTINUED - CALCIFEDIOL ([id number]) Indication:Diabetes mellitus type II, controlled, with no complications Diabetes mellitus type II, c ontrolled, with no complications : DISCONTINUED - CBC, PLATELETS & AUT DIFF ([id number]) Indication:Diabetes mellitus type II, controlled, with no complications Hypercholesterolemia : DISCO NTINUED - LIPID PANEL ([id number]) Indication:Hypercholesterolemia Diabetes mellitus type II, c ontrolled, with no complications : How to access health information online Indication:Diabetes mellitus type II, controlled, with no complications Diabetes mellitus type II, c ontrolled, with no complications : How to access health information online - Detail Indication:Diabetes mellitus type II, controlled, with no complications Diabetes mellitus type II, c ontrolled, with no complications : Patient Instructions Indication:Diabetes mellitus type II, controlled, with no complications BMI 36.0-36.9,adult : Patien t Instructions Indication:BMI 36.0-36.9,adult Nonsmoker : How to access he alth information online Indication:Nonsmoker Nonsmoker : How to access he alth information online - Detail Indication:Nonsmoker Nonsmoker : Patient Instruct ions Indication:Nonsmoker Diabetes mellitus type 2, un controlled, without complications : How to access health information online Indication:Diabetes mellitus type 2, uncontrolled, without complications Diabetes mellitus type 2, un controlled, without complications : How to access health information online - Detail Indication:Diabetes mellitus type 2, uncontrolled, without complications Diabetes mellitus type 2, un controlled, without complications : Patient Instructions Indication:Diabetes mellitus type 2, uncontrolled, without complications Erectile dysfunction : Patie nt Instructions Indication:Erectile dysfunction Name Dates Details Uncontrolled diabetes tiffanie us with complications : How to access health information online Indication:Uncontrolled diabetes mellitus with complications Uncontrolled diabetes tiffanie us with complications : How to access health information online - Detail Indication:Uncontrolled diabetes mellitus with complications Uncontrolled diabetes tiffanie with complications : Patient Instructions Indication:Uncontrolled diabetes mellitus with complications Annual visit for general roxana lt medical examination without abnormal findings : How to access health information online Indication:Annual visit for general adult medical examination without abnormal findings Annual visit for general roxana lt medical examination without abnormal findings : How to access health information online - Detail Indication:Annual visit for general adult medical examination without abnormal findings Annual visit for general roxana lt medical examination without abnormal findings : Patient Instructions Indication:Annual visit for general adult medical examination without abnormal findings Diabetes mellitus type II, c ontrolled, with no complications : DISCONTINUED - CALCIFEDIOL ([id number]) Indication:Diabetes mellitus type II, controlled, with no complications Diabetes mellitus type II, c ontrolled, with no complications : DISCONTINUED - CBC, PLATELETS & AUT DIFF ([id number]) Indication:Diabetes mellitus type II, controlled, with no complications Hypercholesterolemia : DISCO NTINUED - LIPID PANEL ([id number]) Indication:Hypercholesterolemia Diabetes mellitus type II, c ontrolled, with no complications : How to access health information online Indication:Diabetes mellitus type II, controlled, with no complications Diabetes mellitus type II, c ontrolled, with no complications : How to access health information online - Detail Indication:Diabetes mellitus type II, controlled, with no complications Diabetes mellitus type II, c ontrolled, with no complications : Patient Instructions Indication:Diabetes mellitus type II, controlled, with no complications BMI 36.0-36.9,adult : Patien t Instructions Indication:BMI 36.0-36.9,adult Nonsmoker : How to access he alth information online Indication:Nonsmoker Nonsmoker : How to access he alth information online - Detail Indication:Nonsmoker Nonsmoker : Patient Instruct ions Indication:Nonsmoker Diabetes mellitus type 2, un controlled, without complications : How to access health information online Indication:Diabetes mellitus type 2, uncontrolled, without complications Diabetes mellitus type 2, un controlled, without complications : How to access health information online - Detail Indication:Diabetes mellitus type 2, uncontrolled, without complications Diabetes mellitus type 2, un controlled, without complications : Patient Instructions Indication:Diabetes mellitus type 2, uncontrolled, without complications Erectile dysfunction : Patie nt Instructions Indication:Erectile dysfunction Name Dates Details Non-smoker : How to access h ealth information online Indication:Non-smoker Non-smoker : How to access h ealth information online - Detail Indication:Non-smoker BMI 37.0-37.9, adult : Godwin nt Instructions Indication:BMI 37.0-37.9, adult Uncontrolled diabetes mellit us with complications : How to access health information online Indication:Uncontrolled diabetes mellitus with complications Uncontrolled diabetes mellit us with complications : How to access health information online - Detail Indication:Uncontrolled diabetes mellitus with complications Uncontrolled diabetes mellit us with complications : Patient Instructions Indication:Uncontrolled diabetes mellitus with complications Annual visit for general roxana lt medical examination without abnormal findings : How to access health information online Indication:Annual visit for general adult medical examination without abnormal findings Annual visit for general roxana lt medical examination without abnormal findings : How to access health information online - Detail Indication:Annual visit for general adult medical examination without abnormal findings Annual visit for general roxana lt medical examination without abnormal findings : Patient Instructions Indication:Annual visit for general adult medical examination without abnormal findings Diabetes mellitus type II, c ontrolled, with no complications : DISCONTINUED - CALCIFEDIOL ([id number]) Indication:Diabetes mellitus type II, controlled, with no complications Diabetes mellitus type II, c ontrolled, with no complications : DISCONTINUED - CBC, PLATELETS & AUT DIFF ([id number]) Indication:Diabetes mellitus type II, controlled, with no complications Hypercholesterolemia : DISCO NTINUED - LIPID PANEL ([id number]) Indication:Hypercholesterolemia Diabetes mellitus type II, c ontrolled, with no complications : How to access health information online Indication:Diabetes mellitus type II, controlled, with no complications Diabetes mellitus type II, c ontrolled, with no complications : How to access health information online - Detail Indication:Diabetes mellitus type II, controlled, with no complications Diabetes mellitus type II, c ontrolled, with no complications : Patient Instructions Indication:Diabetes mellitus type II, controlled, with no complications BMI 36.0-36.9,adult : Patien t Instructions Indication:BMI 36.0-36.9,adult Nonsmoker : How to access he alth information online Indication:Nonsmoker Nonsmoker : How to access he alth information online - Detail Indication:Nonsmoker Nonsmoker : Patient Instruct ions Indication:Nonsmoker Diabetes mellitus type 2, un controlled, without complications : How to access health information online Indication:Diabetes mellitus type 2, uncontrolled, without complications Diabetes mellitus type 2, un controlled, without complications : How to access health information online - Detail Indication:Diabetes mellitus type 2, uncontrolled, without complications Diabetes mellitus type 2, un controlled, without complications : Patient Instructions Indication:Diabetes mellitus type 2, uncontrolled, without complications Erectile dysfunction : Patie nt Instructions Indication:Erectile dysfunction Name Dates Details How to access health informa tion online Indication:BMI 37.0-37.9, adult Start:30-Apr-2019 Instruction Type:Patient Education How to access health informa tion online - Detail Indication:BMI 37.0-37.9, adult Start:30-Apr-2019 Instruction Type:Patient Education Patient Instructions Indication:BMI 37.0-37.9, adult Start:30-Apr-2019 Instruction Type:Provider Instructions for Treatment How to access health informa tion online Indication:Non-smoker Start:22-Jan-2019 Instruction Type:Patient Education How to access health informa tion online - Detail Indication:Non-smoker Start:22-Jan-2019 Instruction Type:Patient Education Patient Instructions Indication:BMI 37.0-37.9, adult Start:22-Jan-2019 Instruction Type:Provider Instructions for Treatment How to access health informa tion online Indication:Uncontrolled diabetes mellitus with complications Start:10-Oct-2018 Instruction Type:Patient Education How to access health informa tion online - Detail Indication:Uncontrolled diabetes mellitus with complications Start:10-Oct-2018 Instruction Type:Patient Education Patient Instructions Indication:Uncontrolled diabetes mellitus with complications Start:10-Oct-2018 Instruction Type:Provider Instructions for Treatment How to access health informa tion online Indication:Annual visit for general adult medical examination without abnormal findings Start:10-Jul-2018 Instruction Type:Patient Education How to access health informa tion online - Detail Indication:Annual visit for general adult medical examination without abnormal findings Start:10-Jul-2018 Instruction Type:Patient Education Patient Instructions Indication:Annual visit for general adult medical examination without abnormal findings Start:10-Jul-2018 Instruction Type:Provider Instructions for Treatment DISCONTINUED - CALCIFEDIOL ( [id number]) Indication:Diabetes mellitus type II, controlled, with no complications Start:03-Apr-2018 Instruction Type:Patient Education DISCONTINUED - CBC, PLATELET S & AUT DIFF ([id number]) Indication:Diabetes mellitus type II, controlled, with no complications Start:03-Apr-2018 Instruction Type:Patient Education DISCONTINUED - LIPID PANEL ( [id number]) Indication:Hypercholesterolemia Start:03-Apr-2018 Instruction Type:Patient Education How to access health informa tion online Indication:Diabetes mellitus type II, controlled, with no complications Start:03-Apr-2018 Instruction Type:Patient Education How to access health informa tion online - Detail Indication:Diabetes mellitus type II, controlled, with no complications Start:03-Apr-2018 Instruction Type:Patient Education How to access health informa tion online Indication:Diabetes mellitus type II, controlled, with no complications Start:27-Dec-2017 Instruction Type:Patient Education How to access health informa tion online - Detail Indication:Diabetes mellitus type II, controlled, with no complications Start:27-Dec-2017 Instruction Type:Patient Education Patient Instructions Indication:Diabetes mellitus type II, controlled, with no complications Start:27-Dec-2017 Instruction Type:Provider Instructions for Treatment Patient Instructions Indication:BMI 36.0-36.9,adult Start:24-Oct-2017 Instruction Type:Provider Instructions for Treatment How to access health informa tion online Indication:Nonsmoker Start:24-Oct-2017 Instruction Type:Patient Education How to access health informa tion online - Detail Indication:Nonsmoker Start:24-Oct-2017 Instruction Type:Patient Education Patient Instructions Indication:Nonsmoker Start:24-Oct-2017 Instruction Type:Provider Instructions for Treatment How to access health informa tion online Indication:Diabetes mellitus type 2, uncontrolled, without complications Start:25-Jul-2017 Instruction Type:Patient Education How to access health informa tion online - Detail Indication:Diabetes mellitus type 2, uncontrolled, without complications Start:25-Jul-2017 Instruction Type:Patient Education Patient Instructions Indication:Diabetes mellitus type 2, uncontrolled, without complications Start:25-Jul-2017 Instruction Type:Provider Instructions for Treatment How to access health informa tion online Indication:Diabetes mellitus type 2, uncontrolled, without complications Start:11-Apr-2017 Instruction Type:Patient Education How to access health informa tion online - Detail Indication:Diabetes mellitus type 2, uncontrolled, without complications Start:11-Apr-2017 Instruction Type:Patient Education Patient Instructions Indication:Diabetes mellitus type 2, uncontrolled, without complications Start:11-Apr-2017 Instruction Type:Provider Instructions for Treatment How to access health informa tion online Indication:Diabetes mellitus type 2, uncontrolled, without complications Start:02-Jan-2017 Instruction Type:Patient Education How to access health informa tion online - Detail Indication:Diabetes mellitus type 2, uncontrolled, without complications Start:02-Jan-2017 Instruction Type:Patient Education Patient Instructions Indication:Diabetes mellitus type 2, uncontrolled, without complications Start:02-Jan-2017 Instruction Type:Provider Instructions for Treatment How to access health informa tion online Indication:Diabetes mellitus type 2, uncontrolled, without complications Start:03-Oct-2016 Instruction Type:Patient Education How to access health informa tion online - Detail Indication:Diabetes mellitus type 2, uncontrolled, without complications Start:03-Oct-2016 Instruction Type:Patient Education Patient Instructions Indication:Diabetes mellitus type 2, uncontrolled, without complications Start:03-Oct-2016 Instruction Type:Provider Instructions for Treatment How to access health informa tion online Indication:Diabetes mellitus type 2, uncontrolled, without complications Start:27-Jun-2016 Instruction Type:Patient Education How to access health informa tion online - Detail Indication:Diabetes mellitus type 2, uncontrolled, without complications Start:27-Jun-2016 Instruction Type:Patient Education Patient Instructions Indication:Diabetes mellitus type 2, uncontrolled, without complications Start:27-Jun-2016 Instruction Type:Provider Instructions for Treatment How to access health informa tion online Indication:Diabetes mellitus type 2, uncontrolled, without complications Start:08-Mar-2016 Instruction Type:Patient Education How to access health informa tion online - Detail Indication:Diabetes mellitus type 2, uncontrolled, without complications Start:08-Mar-2016 Instruction Type:Patient Education Patient Instructions Indication:Diabetes mellitus type 2, uncontrolled, without complications Start:08-Mar-2016 Instruction Type:Provider Instructions for Treatment How to access health informa tion online - Detail Indication:Diabetes mellitus type II, controlled, with no complications Start:25-May-2015 Instruction Type:Patient Education Patient Instructions Indication:Diabetes mellitus type II, controlled, with no complications Start:25-May-2015 Instruction Type:Provider Instructions for Treatment How to access health informa tion online Indication:Diabetes mellitus type 2, uncontrolled, without complications Start:16-Dec-2014 Instruction Type:Patient Education How to access health informa tion online - Detail Indication:Diabetes mellitus type 2, uncontrolled, without complications Start:16-Dec-2014 Instruction Type:Patient Education Patient Instructions Indication:Diabetes mellitus type 2, uncontrolled, without complications Start:16-Dec-2014 Instruction Type:Provider Instructions for Treatment Patient Instructions Indication:Diabetes mellitus type 2, uncontrolled, without complications Start:21-Aug-2014 Instruction Type:Provider Instructions for Treatment Patient Instructions Indication:Erectile dysfunction Start:21-Aug-2014 Instruction Type:Provider Instructions for Treatment Name Dates Details How to access health informa tion online Indication:Non-smoker Start:20-Aug-2019 Instruction Type:Patient Education How to access health informa tion online - Detail Indication:Non-smoker Start:20-Aug-2019 Instruction Type:Patient Education Patient Instructions Indication:Non-smoker Start:20-Aug-2019 Instruction Type:Provider Instructions for Treatment How to access health informa tion online Indication:BMI 37.0-37.9, adult Start:30-Apr-2019 Instruction Type:Patient Education How to access health informa tion online - Detail Indication:BMI 37.0-37.9, adult Start:30-Apr-2019 Instruction Type:Patient Education Patient Instructions Indication:BMI 37.0-37.9, adult Start:30-Apr-2019 Instruction Type:Provider Instructions for Treatment How to access health informa tion online Indication:Non-smoker Start:22-Jan-2019 Instruction Type:Patient Education How to access health informa tion online - Detail Indication:Non-smoker Start:22-Jan-2019 Instruction Type:Patient Education Patient Instructions Indication:BMI 37.0-37.9, adult Start:22-Jan-2019 Instruction Type:Provider Instructions for Treatment How to access health informa tion online Indication:Uncontrolled diabetes mellitus with complications Start:10-Oct-2018 Instruction Type:Patient Education How to access health informa tion online - Detail Indication:Uncontrolled diabetes mellitus with complications Start:10-Oct-2018 Instruction Type:Patient Education Patient Instructions Indication:Uncontrolled diabetes mellitus with complications Start:10-Oct-2018 Instruction Type:Provider Instructions for Treatment How to access health informa tion online Indication:Annual visit for general adult medical examination without abnormal findings Start:10-Jul-2018 Instruction Type:Patient Education How to access health informa tion online - Detail Indication:Annual visit for general adult medical examination without abnormal findings Start:10-Jul-2018 Instruction Type:Patient Education Patient Instructions Indication:Annual visit for general adult medical examination without abnormal findings Start:10-Jul-2018 Instruction Type:Provider Instructions for Treatment DISCONTINUED - CALCIFEDIOL ( [id number]) Indication:Diabetes mellitus type II, controlled, with no complications Start:03-Apr-2018 Instruction Type:Patient Education DISCONTINUED - CBC, PLATELET S & AUT DIFF ([id number]) Indication:Diabetes mellitus type II, controlled, with no complications Start:03-Apr-2018 Instruction Type:Patient Education DISCONTINUED - LIPID PANEL ( [id number]) Indication:Hypercholesterolemia Start:03-Apr-2018 Instruction Type:Patient Education How to access health informa tion online Indication:Diabetes mellitus type II, controlled, with no complications Start:03-Apr-2018 Instruction Type:Patient Education How to access health informa tion online - Detail Indication:Diabetes mellitus type II, controlled, with no complications Start:03-Apr-2018 Instruction Type:Patient Education How to access health informa tion online Indication:Diabetes mellitus type II, controlled, with no complications Start:27-Dec-2017 Instruction Type:Patient Education How to access health informa tion online - Detail Indication:Diabetes mellitus type II, controlled, with no complications Start:27-Dec-2017 Instruction Type:Patient Education Patient Instructions Indication:Diabetes mellitus type II, controlled, with no complications Start:27-Dec-2017 Instruction Type:Provider Instructions for Treatment Patient Instructions Indication:BMI 36.0-36.9,adult Start:24-Oct-2017 Instruction Type:Provider Instructions for Treatment How to access health informa tion online Indication:Nonsmoker Start:24-Oct-2017 Instruction Type:Patient Education How to access health informa tion online - Detail Indication:Nonsmoker Start:24-Oct-2017 Instruction Type:Patient Education Patient Instructions Indication:Nonsmoker Start:24-Oct-2017 Instruction Type:Provider Instructions for Treatment How to access health informa tion online Indication:Diabetes mellitus type 2, uncontrolled, without complications Start:25-Jul-2017 Instruction Type:Patient Education How to access health informa tion online - Detail Indication:Diabetes mellitus type 2, uncontrolled, without complications Start:25-Jul-2017 Instruction Type:Patient Education Patient Instructions Indication:Diabetes mellitus type 2, uncontrolled, without complications Start:25-Jul-2017 Instruction Type:Provider Instructions for Treatment How to access health informa tion online Indication:Diabetes mellitus type 2, uncontrolled, without complications Start:11-Apr-2017 Instruction Type:Patient Education How to access health informa tion online - Detail Indication:Diabetes mellitus type 2, uncontrolled, without complications Start:11-Apr-2017 Instruction Type:Patient Education Patient Instructions Indication:Diabetes mellitus type 2, uncontrolled, without complications Start:11-Apr-2017 Instruction Type:Provider Instructions for Treatment How to access health informa tion online Indication:Diabetes mellitus type 2, uncontrolled, without complications Start:02-Jan-2017 Instruction Type:Patient Education How to access health informa tion online - Detail Indication:Diabetes mellitus type 2, uncontrolled, without complications Start:02-Jan-2017 Instruction Type:Patient Education Patient Instructions Indication:Diabetes mellitus type 2, uncontrolled, without complications Start:02-Jan-2017 Instruction Type:Provider Instructions for Treatment How to access health informa tion online Indication:Diabetes mellitus type 2, uncontrolled, without complications Start:03-Oct-2016 Instruction Type:Patient Education How to access health informa tion online - Detail Indication:Diabetes mellitus type 2, uncontrolled, without complications Start:03-Oct-2016 Instruction Type:Patient Education Patient Instructions Indication:Diabetes mellitus type 2, uncontrolled, without complications Start:03-Oct-2016 Instruction Type:Provider Instructions for Treatment How to access health informa tion online Indication:Diabetes mellitus type 2, uncontrolled, without complications Start:27-Jun-2016 Instruction Type:Patient Education How to access health informa tion online - Detail Indication:Diabetes mellitus type 2, uncontrolled, without complications Start:27-Jun-2016 Instruction Type:Patient Education Patient Instructions Indication:Diabetes mellitus type 2, uncontrolled, without complications Start:27-Jun-2016 Instruction Type:Provider Instructions for Treatment How to access health informa tion online Indication:Diabetes mellitus type 2, uncontrolled, without complications Start:08-Mar-2016 Instruction Type:Patient Education How to access health informa tion online - Detail Indication:Diabetes mellitus type 2, uncontrolled, without complications Start:08-Mar-2016 Instruction Type:Patient Education Patient Instructions Indication:Diabetes mellitus type 2, uncontrolled, without complications Start:08-Mar-2016 Instruction Type:Provider Instructions for Treatment How to access health informa tion online - Detail Indication:Diabetes mellitus type II, controlled, with no complications Start:25-May-2015 Instruction Type:Patient Education Patient Instructions Indication:Diabetes mellitus type II, controlled, with no complications Start:25-May-2015 Instruction Type:Provider Instructions for Treatment How to access health informa tion online Indication:Diabetes mellitus type 2, uncontrolled, without complications Start:16-Dec-2014 Instruction Type:Patient Education How to access health informa tion online - Detail Indication:Diabetes mellitus type 2, uncontrolled, without complications Start:16-Dec-2014 Instruction Type:Patient Education Patient Instructions Indication:Diabetes mellitus type 2, uncontrolled, without complications Start:16-Dec-2014 Instruction Type:Provider Instructions for Treatment Patient Instructions Indication:Diabetes mellitus type 2, uncontrolled, without complications Start:21-Aug-2014 Instruction Type:Provider Instructions for Treatment Patient Instructions Indication:Erectile dysfunction Start:21-Aug-2014 Instruction Type:Provider Instructions for Treatment Name Dates Details DISCONTINUED - LIPID PANEL ( [id number]) Indication:Hypercholesterolemia Start:20-Aug-2019 Instruction Type:Patient Education How to access health informa tion online Indication:Non-smoker Start:20-Aug-2019 Instruction Type:Patient Education How to access health informa tion online - Detail Indication:Non-smoker Start:20-Aug-2019 Instruction Type:Patient Education Patient Instructions Indication:Encounter for screening for lipid disorder Start:20-Aug-2019 Instruction Type:Provider Instructions for Treatment How to access health informa tion online Indication:BMI 37.0-37.9, adult Start:30-Apr-2019 Instruction Type:Patient Education How to access health informa tion online - Detail Indication:BMI 37.0-37.9, adult Start:30-Apr-2019 Instruction Type:Patient Education Patient Instructions Indication:BMI 37.0-37.9, adult Start:30-Apr-2019 Instruction Type:Provider Instructions for Treatment How to access health informa tion online Indication:Non-smoker Start:22-Jan-2019 Instruction Type:Patient Education How to access health informa tion online - Detail Indication:Non-smoker Start:22-Jan-2019 Instruction Type:Patient Education Patient Instructions Indication:BMI 37.0-37.9, adult Start:22-Jan-2019 Instruction Type:Provider Instructions for Treatment How to access health informa tion online Indication:Uncontrolled diabetes mellitus with complications Start:10-Oct-2018 Instruction Type:Patient Education How to access health informa tion online - Detail Indication:Uncontrolled diabetes mellitus with complications Start:10-Oct-2018 Instruction Type:Patient Education Patient Instructions Indication:Uncontrolled diabetes mellitus with complications Start:10-Oct-2018 Instruction Type:Provider Instructions for Treatment How to access health informa tion online Indication:Annual visit for general adult medical examination without abnormal findings Start:10-Jul-2018 Instruction Type:Patient Education How to access health informa tion online - Detail Indication:Annual visit for general adult medical examination without abnormal findings Start:10-Jul-2018 Instruction Type:Patient Education Patient Instructions Indication:Annual visit for general adult medical examination without abnormal findings Start:10-Jul-2018 Instruction Type:Provider Instructions for Treatment DISCONTINUED - CALCIFEDIOL ( [id number]) Indication:Diabetes mellitus type II, controlled, with no complications Start:03-Apr-2018 Instruction Type:Patient Education DISCONTINUED - CBC, PLATELET S & AUT DIFF ([id number]) Indication:Diabetes mellitus type II, controlled, with no complications Start:03-Apr-2018 Instruction Type:Patient Education DISCONTINUED - LIPID PANEL ( [id number]) Indication:Hypercholesterolemia Start:03-Apr-2018 Instruction Type:Patient Education How to access health informa tion online Indication:Diabetes mellitus type II, controlled, with no complications Start:03-Apr-2018 Instruction Type:Patient Education How to access health informa tion online - Detail Indication:Diabetes mellitus type II, controlled, with no complications Start:03-Apr-2018 Instruction Type:Patient Education How to access health informa tion online Indication:Diabetes mellitus type II, controlled, with no complications Start:27-Dec-2017 Instruction Type:Patient Education How to access health informa tion online - Detail Indication:Diabetes mellitus type II, controlled, with no complications Start:27-Dec-2017 Instruction Type:Patient Education Patient Instructions Indication:Diabetes mellitus type II, controlled, with no complications Start:27-Dec-2017 Instruction Type:Provider Instructions for Treatment Patient Instructions Indication:BMI 36.0-36.9,adult Start:24-Oct-2017 Instruction Type:Provider Instructions for Treatment How to access health informa tion online Indication:Nonsmoker Start:24-Oct-2017 Instruction Type:Patient Education How to access health informa tion online - Detail Indication:Nonsmoker Start:24-Oct-2017 Instruction Type:Patient Education Patient Instructions Indication:Nonsmoker Start:24-Oct-2017 Instruction Type:Provider Instructions for Treatment How to access health informa tion online Indication:Diabetes mellitus type 2, uncontrolled, without complications Start:25-Jul-2017 Instruction Type:Patient Education How to access health informa tion online - Detail Indication:Diabetes mellitus type 2, uncontrolled, without complications Start:25-Jul-2017 Instruction Type:Patient Education Patient Instructions Indication:Diabetes mellitus type 2, uncontrolled, without complications Start:25-Jul-2017 Instruction Type:Provider Instructions for Treatment How to access health informa tion online Indication:Diabetes mellitus type 2, uncontrolled, without complications Start:11-Apr-2017 Instruction Type:Patient Education How to access health informa tion online - Detail Indication:Diabetes mellitus type 2, uncontrolled, without complications Start:11-Apr-2017 Instruction Type:Patient Education Patient Instructions Indication:Diabetes mellitus type 2, uncontrolled, without complications Start:11-Apr-2017 Instruction Type:Provider Instructions for Treatment How to access health informa tion online Indication:Diabetes mellitus type 2, uncontrolled, without complications Start:02-Jan-2017 Instruction Type:Patient Education How to access health informa tion online - Detail Indication:Diabetes mellitus type 2, uncontrolled, without complications Start:02-Jan-2017 Instruction Type:Patient Education Patient Instructions Indication:Diabetes mellitus type 2, uncontrolled, without complications Start:02-Jan-2017 Instruction Type:Provider Instructions for Treatment How to access health informa tion online Indication:Diabetes mellitus type 2, uncontrolled, without complications Start:03-Oct-2016 Instruction Type:Patient Education How to access health informa tion online - Detail Indication:Diabetes mellitus type 2, uncontrolled, without complications Start:03-Oct-2016 Instruction Type:Patient Education Patient Instructions Indication:Diabetes mellitus type 2, uncontrolled, without complications Start:03-Oct-2016 Instruction Type:Provider Instructions for Treatment How to access health informa tion online Indication:Diabetes mellitus type 2, uncontrolled, without complications Start:27-Jun-2016 Instruction Type:Patient Education How to access health informa tion online - Detail Indication:Diabetes mellitus type 2, uncontrolled, without complications Start:27-Jun-2016 Instruction Type:Patient Education Patient Instructions Indication:Diabetes mellitus type 2, uncontrolled, without complications Start:27-Jun-2016 Instruction Type:Provider Instructions for Treatment How to access health informa tion online Indication:Diabetes mellitus type 2, uncontrolled, without complications Start:08-Mar-2016 Instruction Type:Patient Education How to access health informa tion online - Detail Indication:Diabetes mellitus type 2, uncontrolled, without complications Start:08-Mar-2016 Instruction Type:Patient Education Patient Instructions Indication:Diabetes mellitus type 2, uncontrolled, without complications Start:08-Mar-2016 Instruction Type:Provider Instructions for Treatment How to access health informa tion online - Detail Indication:Diabetes mellitus type II, controlled, with no complications Start:25-May-2015 Instruction Type:Patient Education Patient Instructions Indication:Diabetes mellitus type II, controlled, with no complications Start:25-May-2015 Instruction Type:Provider Instructions for Treatment How to access health informa tion online Indication:Diabetes mellitus type 2, uncontrolled, without complications Start:16-Dec-2014 Instruction Type:Patient Education How to access health informa tion online - Detail Indication:Diabetes mellitus type 2, uncontrolled, without complications Start:16-Dec-2014 Instruction Type:Patient Education Patient Instructions Indication:Diabetes mellitus type 2, uncontrolled, without complications Start:16-Dec-2014 Instruction Type:Provider Instructions for Treatment Patient Instructions Indication:Diabetes mellitus type 2, uncontrolled, without complications Start:21-Aug-2014 Instruction Type:Provider Instructions for Treatment Patient Instructions Indication:Erectile dysfunction Start:21-Aug-2014 Instruction Type:Provider Instructions for Treatment Name Dates Details How to access health informa tion online Indication:BMI 37.0-37.9, adult Start:18-Feb-2020 Instruction Type:Patient Education How to access health informa tion online - Detail Indication:BMI 37.0-37.9, adult Start:18-Feb-2020 Instruction Type:Patient Education Patient Instructions Indication:BMI 37.0-37.9, adult Start:18-Feb-2020 Instruction Type:Provider Instructions for Treatment How to access health informa tion online Indication:Non-smoker Start:18-Feb-2020 Instruction Type:Patient Education How to access health informa tion online - Detail Indication:Non-smoker Start:18-Feb-2020 Instruction Type:Patient Education Patient Instructions Indication:Non-smoker Start:18-Feb-2020 Instruction Type:Provider Instructions for Treatment How to access health informa tion online Indication:Uncontrolled diabetes mellitus with complications Start:26-Nov-2019 Instruction Type:Patient Education How to access health informa tion online - Detail Indication:Uncontrolled diabetes mellitus with complications Start:26-Nov-2019 Instruction Type:Patient Education Patient Instructions Indication:Uncontrolled diabetes mellitus with complications Start:26-Nov-2019 Instruction Type:Provider Instructions for Treatment DISCONTINUED - LIPID PANEL ( [id number]) Indication:Hypercholesterolemia Start:20-Aug-2019 Instruction Type:Patient Education How to access health informa tion online Indication:Non-smoker Start:20-Aug-2019 Instruction Type:Patient Education How to access health informa tion online - Detail Indication:Non-smoker Start:20-Aug-2019 Instruction Type:Patient Education Patient Instructions Indication:Encounter for screening for lipid disorder Start:20-Aug-2019 Instruction Type:Provider Instructions for Treatment How to access health informa tion online Indication:BMI 37.0-37.9, adult Start:30-Apr-2019 Instruction Type:Patient Education How to access health informa tion online - Detail Indication:BMI 37.0-37.9, adult Start:30-Apr-2019 Instruction Type:Patient Education Patient Instructions Indication:BMI 37.0-37.9, adult Start:30-Apr-2019 Instruction Type:Provider Instructions for Treatment How to access health informa tion online Indication:Non-smoker Start:22-Jan-2019 Instruction Type:Patient Education How to access health informa tion online - Detail Indication:Non-smoker Start:22-Jan-2019 Instruction Type:Patient Education Patient Instructions Indication:BMI 37.0-37.9, adult Start:22-Jan-2019 Instruction Type:Provider Instructions for Treatment How to access health informa tion online Indication:Uncontrolled diabetes mellitus with complications Start:10-Oct-2018 Instruction Type:Patient Education How to access health informa tion online - Detail Indication:Uncontrolled diabetes mellitus with complications Start:10-Oct-2018 Instruction Type:Patient Education Patient Instructions Indication:Uncontrolled diabetes mellitus with complications Start:10-Oct-2018 Instruction Type:Provider Instructions for Treatment How to access health informa tion online Indication:Annual visit for general adult medical examination without abnormal findings Start:10-Jul-2018 Instruction Type:Patient Education How to access health informa tion online - Detail Indication:Annual visit for general adult medical examination without abnormal findings Start:10-Jul-2018 Instruction Type:Patient Education Patient Instructions Indication:Annual visit for general adult medical examination without abnormal findings Start:10-Jul-2018 Instruction Type:Provider Instructions for Treatment DISCONTINUED - CALCIFEDIOL ( [id number]) Indication:Diabetes mellitus type II, controlled, with no complications Start:03-Apr-2018 Instruction Type:Patient Education DISCONTINUED - CBC, PLATELET S & AUT DIFF ([id number]) Indication:Diabetes mellitus type II, controlled, with no complications Start:03-Apr-2018 Instruction Type:Patient Education DISCONTINUED - LIPID PANEL ( [id number]) Indication:Hypercholesterolemia Start:03-Apr-2018 Instruction Type:Patient Education How to access health informa tion online Indication:Diabetes mellitus type II, controlled, with no complications Start:03-Apr-2018 Instruction Type:Patient Education How to access health informa tion online - Detail Indication:Diabetes mellitus type II, controlled, with no complications Start:03-Apr-2018 Instruction Type:Patient Education How to access health informa tion online Indication:Diabetes mellitus type II, controlled, with no complications Start:27-Dec-2017 Instruction Type:Patient Education How to access health informa tion online - Detail Indication:Diabetes mellitus type II, controlled, with no complications Start:27-Dec-2017 Instruction Type:Patient Education Patient Instructions Indication:Diabetes mellitus type II, controlled, with no complications Start:27-Dec-2017 Instruction Type:Provider Instructions for Treatment Patient Instructions Indication:BMI 36.0-36.9,adult Start:24-Oct-2017 Instruction Type:Provider Instructions for Treatment How to access health informa tion online Indication:Nonsmoker Start:24-Oct-2017 Instruction Type:Patient Education How to access health informa tion online - Detail Indication:Nonsmoker Start:24-Oct-2017 Instruction Type:Patient Education Patient Instructions Indication:Nonsmoker Start:24-Oct-2017 Instruction Type:Provider Instructions for Treatment How to access health informa tion online Indication:Diabetes mellitus type 2, uncontrolled, without complications Start:25-Jul-2017 Instruction Type:Patient Education How to access health informa tion online - Detail Indication:Diabetes mellitus type 2, uncontrolled, without complications Start:25-Jul-2017 Instruction Type:Patient Education Patient Instructions Indication:Diabetes mellitus type 2, uncontrolled, without complications Start:25-Jul-2017 Instruction Type:Provider Instructions for Treatment How to access health informa tion online Indication:Diabetes mellitus type 2, uncontrolled, without complications Start:11-Apr-2017 Instruction Type:Patient Education How to access health informa tion online - Detail Indication:Diabetes mellitus type 2, uncontrolled, without complications Start:11-Apr-2017 Instruction Type:Patient Education Patient Instructions Indication:Diabetes mellitus type 2, uncontrolled, without complications Start:11-Apr-2017 Instruction Type:Provider Instructions for Treatment How to access health informa tion online Indication:Diabetes mellitus type 2, uncontrolled, without complications Start:02-Jan-2017 Instruction Type:Patient Education How to access health informa tion online - Detail Indication:Diabetes mellitus type 2, uncontrolled, without complications Start:02-Jan-2017 Instruction Type:Patient Education Patient Instructions Indication:Diabetes mellitus type 2, uncontrolled, without complications Start:02-Jan-2017 Instruction Type:Provider Instructions for Treatment How to access health informa tion online Indication:Diabetes mellitus type 2, uncontrolled, without complications Start:03-Oct-2016 Instruction Type:Patient Education How to access health informa tion online - Detail Indication:Diabetes mellitus type 2, uncontrolled, without complications Start:03-Oct-2016 Instruction Type:Patient Education Patient Instructions Indication:Diabetes mellitus type 2, uncontrolled, without complications Start:03-Oct-2016 Instruction Type:Provider Instructions for Treatment How to access health informa tion online Indication:Diabetes mellitus type 2, uncontrolled, without complications Start:27-Jun-2016 Instruction Type:Patient Education How to access health informa tion online - Detail Indication:Diabetes mellitus type 2, uncontrolled, without complications Start:27-Jun-2016 Instruction Type:Patient Education Patient Instructions Indication:Diabetes mellitus type 2, uncontrolled, without complications Start:27-Jun-2016 Instruction Type:Provider Instructions for Treatment How to access health informa tion online Indication:Diabetes mellitus type 2, uncontrolled, without complications Start:08-Mar-2016 Instruction Type:Patient Education How to access health informa tion online - Detail Indication:Diabetes mellitus type 2, uncontrolled, without complications Start:08-Mar-2016 Instruction Type:Patient Education Patient Instructions Indication:Diabetes mellitus type 2, uncontrolled, without complications Start:08-Mar-2016 Instruction Type:Provider Instructions for Treatment How to access health informa tion online - Detail Indication:Diabetes mellitus type II, controlled, with no complications Start:25-May-2015 Instruction Type:Patient Education Patient Instructions Indication:Diabetes mellitus type II, controlled, with no complications Start:25-May-2015 Instruction Type:Provider Instructions for Treatment How to access health informa tion online Indication:Diabetes mellitus type 2, uncontrolled, without complications Start:16-Dec-2014 Instruction Type:Patient Education How to access health informa tion online - Detail Indication:Diabetes mellitus type 2, uncontrolled, without complications Start:16-Dec-2014 Instruction Type:Patient Education Patient Instructions Indication:Diabetes mellitus type 2, uncontrolled, without complications Start:16-Dec-2014 Instruction Type:Provider Instructions for Treatment Patient Instructions Indication:Diabetes mellitus type 2, uncontrolled, without complications Start:21-Aug-2014 Instruction Type:Provider Instructions for Treatment Patient Instructions Indication:Erectile dysfunction Start:21-Aug-2014 Instruction Type:Provider Instructions for Treatment Name Dates Details How to access health informa tion online Indication:BMI 37.0-37.9, adult Start:18-Feb-2020 Instruction Type:Patient Education How to access health informa tion online - Detail Indication:BMI 37.0-37.9, adult Start:18-Feb-2020 Instruction Type:Patient Education Patient Instructions Indication:BMI 37.0-37.9, adult Start:18-Feb-2020 Instruction Type:Provider Instructions for Treatment How to access health informa tion online Indication:Non-smoker Start:18-Feb-2020 Instruction Type:Patient Education How to access health informa tion online - Detail Indication:Non-smoker Start:18-Feb-2020 Instruction Type:Patient Education Patient Instructions Indication:Non-smoker Start:18-Feb-2020 Instruction Type:Provider Instructions for Treatment How to access health informa tion online Indication:Uncontrolled diabetes mellitus with complications Start:26-Nov-2019 Instruction Type:Patient Education How to access health informa tion online - Detail Indication:Uncontrolled diabetes mellitus with complications Start:26-Nov-2019 Instruction Type:Patient Education Patient Instructions Indication:Uncontrolled diabetes mellitus with complications Start:26-Nov-2019 Instruction Type:Provider Instructions for Treatment DISCONTINUED - LIPID PANEL ( [id number]) Indication:Hypercholesterolemia Start:20-Aug-2019 Instruction Type:Patient Education How to access health informa tion online Indication:Non-smoker Start:20-Aug-2019 Instruction Type:Patient Education How to access health informa tion online - Detail Indication:Non-smoker Start:20-Aug-2019 Instruction Type:Patient Education Patient Instructions Indication:Encounter for screening for lipid disorder Start:20-Aug-2019 Instruction Type:Provider Instructions for Treatment How to access health informa tion online Indication:BMI 37.0-37.9, adult Start:30-Apr-2019 Instruction Type:Patient Education How to access health informa tion online - Detail Indication:BMI 37.0-37.9, adult Start:30-Apr-2019 Instruction Type:Patient Education Patient Instructions Indication:BMI 37.0-37.9, adult Start:30-Apr-2019 Instruction Type:Provider Instructions for Treatment How to access health informa tion online Indication:Non-smoker Start:22-Jan-2019 Instruction Type:Patient Education How to access health informa tion online - Detail Indication:Non-smoker Start:22-Jan-2019 Instruction Type:Patient Education Patient Instructions Indication:BMI 37.0-37.9, adult Start:22-Jan-2019 Instruction Type:Provider Instructions for Treatment How to access health informa tion online Indication:Uncontrolled diabetes mellitus with complications Start:10-Oct-2018 Instruction Type:Patient Education How to access health informa tion online - Detail Indication:Uncontrolled diabetes mellitus with complications Start:10-Oct-2018 Instruction Type:Patient Education Patient Instructions Indication:Uncontrolled diabetes mellitus with complications Start:10-Oct-2018 Instruction Type:Provider Instructions for Treatment How to access health informa tion online Indication:Annual visit for general adult medical examination without abnormal findings Start:10-Jul-2018 Instruction Type:Patient Education How to access health informa tion online - Detail Indication:Annual visit for general adult medical examination without abnormal findings Start:10-Jul-2018 Instruction Type:Patient Education Patient Instructions Indication:Annual visit for general adult medical examination without abnormal findings Start:10-Jul-2018 Instruction Type:Provider Instructions for Treatment DISCONTINUED - CALCIFEDIOL ( [id number]) Indication:Diabetes mellitus type II, controlled, with no complications Start:03-Apr-2018 Instruction Type:Patient Education DISCONTINUED - CBC, PLATELET S & AUT DIFF ([id number]) Indication:Diabetes mellitus type II, controlled, with no complications Start:03-Apr-2018 Instruction Type:Patient Education DISCONTINUED - LIPID PANEL ( [id number]) Indication:Hypercholesterolemia Start:03-Apr-2018 Instruction Type:Patient Education How to access health informa tion online Indication:Diabetes mellitus type II, controlled, with no complications Start:03-Apr-2018 Instruction Type:Patient Education How to access health informa tion online - Detail Indication:Diabetes mellitus type II, controlled, with no complications Start:03-Apr-2018 Instruction Type:Patient Education How to access health informa tion online Indication:Diabetes mellitus type II, controlled, with no complications Start:27-Dec-2017 Instruction Type:Patient Education How to access health informa tion online - Detail Indication:Diabetes mellitus type II, controlled, with no complications Start:27-Dec-2017 Instruction Type:Patient Education Patient Instructions Indication:Diabetes mellitus type II, controlled, with no complications Start:27-Dec-2017 Instruction Type:Provider Instructions for Treatment Patient Instructions Indication:BMI 36.0-36.9,adult Start:24-Oct-2017 Instruction Type:Provider Instructions for Treatment How to access health informa tion online Indication:Nonsmoker Start:24-Oct-2017 Instruction Type:Patient Education How to access health informa tion online - Detail Indication:Nonsmoker Start:24-Oct-2017 Instruction Type:Patient Education Patient Instructions Indication:Nonsmoker Start:24-Oct-2017 Instruction Type:Provider Instructions for Treatment How to access health informa tion online Indication:Diabetes mellitus type 2, uncontrolled, without complications Start:25-Jul-2017 Instruction Type:Patient Education How to access health informa tion online - Detail Indication:Diabetes mellitus type 2, uncontrolled, without complications Start:25-Jul-2017 Instruction Type:Patient Education Patient Instructions Indication:Diabetes mellitus type 2, uncontrolled, without complications Start:25-Jul-2017 Instruction Type:Provider Instructions for Treatment How to access health informa tion online Indication:Diabetes mellitus type 2, uncontrolled, without complications Start:11-Apr-2017 Instruction Type:Patient Education How to access health informa tion online - Detail Indication:Diabetes mellitus type 2, uncontrolled, without complications Start:11-Apr-2017 Instruction Type:Patient Education Patient Instructions Indication:Diabetes mellitus type 2, uncontrolled, without complications Start:11-Apr-2017 Instruction Type:Provider Instructions for Treatment How to access health informa tion online Indication:Diabetes mellitus type 2, uncontrolled, without complications Start:02-Jan-2017 Instruction Type:Patient Education How to access health informa tion online - Detail Indication:Diabetes mellitus type 2, uncontrolled, without complications Start:02-Jan-2017 Instruction Type:Patient Education Patient Instructions Indication:Diabetes mellitus type 2, uncontrolled, without complications Start:02-Jan-2017 Instruction Type:Provider Instructions for Treatment How to access health informa tion online Indication:Diabetes mellitus type 2, uncontrolled, without complications Start:03-Oct-2016 Instruction Type:Patient Education How to access health informa tion online - Detail Indication:Diabetes mellitus type 2, uncontrolled, without complications Start:03-Oct-2016 Instruction Type:Patient Education Patient Instructions Indication:Diabetes mellitus type 2, uncontrolled, without complications Start:03-Oct-2016 Instruction Type:Provider Instructions for Treatment How to access health informa tion online Indication:Diabetes mellitus type 2, uncontrolled, without complications Start:27-Jun-2016 Instruction Type:Patient Education How to access health informa tion online - Detail Indication:Diabetes mellitus type 2, uncontrolled, without complications Start:27-Jun-2016 Instruction Type:Patient Education Patient Instructions Indication:Diabetes mellitus type 2, uncontrolled, without complications Start:27-Jun-2016 Instruction Type:Provider Instructions for Treatment How to access health informa tion online Indication:Diabetes mellitus type 2, uncontrolled, without complications Start:08-Mar-2016 Instruction Type:Patient Education How to access health informa tion online - Detail Indication:Diabetes mellitus type 2, uncontrolled, without complications Start:08-Mar-2016 Instruction Type:Patient Education Patient Instructions Indication:Diabetes mellitus type 2, uncontrolled, without complications Start:08-Mar-2016 Instruction Type:Provider Instructions for Treatment How to access health informa tion online - Detail Indication:Diabetes mellitus type II, controlled, with no complications Start:25-May-2015 Instruction Type:Patient Education Patient Instructions Indication:Diabetes mellitus type II, controlled, with no complications Start:25-May-2015 Instruction Type:Provider Instructions for Treatment How to access health informa tion online Indication:Diabetes mellitus type 2, uncontrolled, without complications Start:16-Dec-2014 Instruction Type:Patient Education How to access health informa tion online - Detail Indication:Diabetes mellitus type 2, uncontrolled, without complications Start:16-Dec-2014 Instruction Type:Patient Education Patient Instructions Indication:Diabetes mellitus type 2, uncontrolled, without complications Start:16-Dec-2014 Instruction Type:Provider Instructions for Treatment Patient Instructions Indication:Diabetes mellitus type 2, uncontrolled, without complications Start:21-Aug-2014 Instruction Type:Provider Instructions for Treatment Patient Instructions Indication:Erectile dysfunction Start:21-Aug-2014 Instruction Type:Provider Instructions for Treatment Name Dates Details How to access health informa tion online Indication:Uncontrolled diabetes mellitus with complications Start:30-Jun-2020 Instruction Type:Patient Education How to access health informa tion online - Detail Indication:Uncontrolled diabetes mellitus with complications Start:30-Jun-2020 Instruction Type:Patient Education Patient Instructions Indication:Non-smoker Start:30-Jun-2020 Instruction Type:Provider Instructions for Treatment How to access health informa tion online Indication:BMI 37.0-37.9, adult Start:18-Feb-2020 Instruction Type:Patient Education How to access health informa tion online - Detail Indication:BMI 37.0-37.9, adult Start:18-Feb-2020 Instruction Type:Patient Education Patient Instructions Indication:BMI 37.0-37.9, adult Start:18-Feb-2020 Instruction Type:Provider Instructions for Treatment How to access health informa tion online Indication:Non-smoker Start:18-Feb-2020 Instruction Type:Patient Education How to access health informa tion online - Detail Indication:Non-smoker Start:18-Feb-2020 Instruction Type:Patient Education Patient Instructions Indication:Non-smoker Start:18-Feb-2020 Instruction Type:Provider Instructions for Treatment How to access health informa tion online Indication:Uncontrolled diabetes mellitus with complications Start:26-Nov-2019 Instruction Type:Patient Education How to access health informa tion online - Detail Indication:Uncontrolled diabetes mellitus with complications Start:26-Nov-2019 Instruction Type:Patient Education Patient Instructions Indication:Uncontrolled diabetes mellitus with complications Start:26-Nov-2019 Instruction Type:Provider Instructions for Treatment DISCONTINUED - LIPID PANEL ( [id number]) Indication:Hypercholesterolemia Start:20-Aug-2019 Instruction Type:Patient Education How to access health informa tion online Indication:Non-smoker Start:20-Aug-2019 Instruction Type:Patient Education How to access health informa tion online - Detail Indication:Non-smoker Start:20-Aug-2019 Instruction Type:Patient Education Patient Instructions Indication:Encounter for screening for lipid disorder Start:20-Aug-2019 Instruction Type:Provider Instructions for Treatment How to access health informa tion online Indication:BMI 37.0-37.9, adult Start:30-Apr-2019 Instruction Type:Patient Education How to access health informa tion online - Detail Indication:BMI 37.0-37.9, adult Start:30-Apr-2019 Instruction Type:Patient Education Patient Instructions Indication:BMI 37.0-37.9, adult Start:30-Apr-2019 Instruction Type:Provider Instructions for Treatment How to access health informa tion online Indication:Non-smoker Start:22-Jan-2019 Instruction Type:Patient Education How to access health informa tion online - Detail Indication:Non-smoker Start:22-Jan-2019 Instruction Type:Patient Education Patient Instructions Indication:BMI 37.0-37.9, adult Start:22-Jan-2019 Instruction Type:Provider Instructions for Treatment How to access health informa tion online Indication:Uncontrolled diabetes mellitus with complications Start:10-Oct-2018 Instruction Type:Patient Education How to access health informa tion online - Detail Indication:Uncontrolled diabetes mellitus with complications Start:10-Oct-2018 Instruction Type:Patient Education Patient Instructions Indication:Uncontrolled diabetes mellitus with complications Start:10-Oct-2018 Instruction Type:Provider Instructions for Treatment How to access health informa tion online Indication:Annual visit for general adult medical examination without abnormal findings Start:10-Jul-2018 Instruction Type:Patient Education How to access health informa tion online - Detail Indication:Annual visit for general adult medical examination without abnormal findings Start:10-Jul-2018 Instruction Type:Patient Education Patient Instructions Indication:Annual visit for general adult medical examination without abnormal findings Start:10-Jul-2018 Instruction Type:Provider Instructions for Treatment DISCONTINUED - CALCIFEDIOL ( [id number]) Indication:Diabetes mellitus type II, controlled, with no complications Start:03-Apr-2018 Instruction Type:Patient Education DISCONTINUED - CBC, PLATELET S & AUT DIFF ([id number]) Indication:Diabetes mellitus type II, controlled, with no complications Start:03-Apr-2018 Instruction Type:Patient Education DISCONTINUED - LIPID PANEL ( [id number]) Indication:Hypercholesterolemia Start:03-Apr-2018 Instruction Type:Patient Education How to access health informa tion online Indication:Diabetes mellitus type II, controlled, with no complications Start:03-Apr-2018 Instruction Type:Patient Education How to access health informa tion online - Detail Indication:Diabetes mellitus type II, controlled, with no complications Start:03-Apr-2018 Instruction Type:Patient Education How to access health informa tion online Indication:Diabetes mellitus type II, controlled, with no complications Start:27-Dec-2017 Instruction Type:Patient Education How to access health informa tion online - Detail Indication:Diabetes mellitus type II, controlled, with no complications Start:27-Dec-2017 Instruction Type:Patient Education Patient Instructions Indication:Diabetes mellitus type II, controlled, with no complications Start:27-Dec-2017 Instruction Type:Provider Instructions for Treatment Patient Instructions Indication:BMI 36.0-36.9,adult Start:24-Oct-2017 Instruction Type:Provider Instructions for Treatment How to access health informa tion online Indication:Nonsmoker Start:24-Oct-2017 Instruction Type:Patient Education How to access health informa tion online - Detail Indication:Nonsmoker Start:24-Oct-2017 Instruction Type:Patient Education Patient Instructions Indication:Nonsmoker Start:24-Oct-2017 Instruction Type:Provider Instructions for Treatment How to access health informa tion online Indication:Diabetes mellitus type 2, uncontrolled, without complications Start:25-Jul-2017 Instruction Type:Patient Education How to access health informa tion online - Detail Indication:Diabetes mellitus type 2, uncontrolled, without complications Start:25-Jul-2017 Instruction Type:Patient Education Patient Instructions Indication:Diabetes mellitus type 2, uncontrolled, without complications Start:25-Jul-2017 Instruction Type:Provider Instructions for Treatment How to access health informa tion online Indication:Diabetes mellitus type 2, uncontrolled, without complications Start:11-Apr-2017 Instruction Type:Patient Education How to access health informa tion online - Detail Indication:Diabetes mellitus type 2, uncontrolled, without complications Start:11-Apr-2017 Instruction Type:Patient Education Patient Instructions Indication:Diabetes mellitus type 2, uncontrolled, without complications Start:11-Apr-2017 Instruction Type:Provider Instructions for Treatment How to access health informa tion online Indication:Diabetes mellitus type 2, uncontrolled, without complications Start:02-Jan-2017 Instruction Type:Patient Education How to access health informa tion online - Detail Indication:Diabetes mellitus type 2, uncontrolled, without complications Start:02-Jan-2017 Instruction Type:Patient Education Patient Instructions Indication:Diabetes mellitus type 2, uncontrolled, without complications Start:02-Jan-2017 Instruction Type:Provider Instructions for Treatment How to access health informa tion online Indication:Diabetes mellitus type 2, uncontrolled, without complications Start:03-Oct-2016 Instruction Type:Patient Education How to access health informa tion online - Detail Indication:Diabetes mellitus type 2, uncontrolled, without complications Start:03-Oct-2016 Instruction Type:Patient Education Patient Instructions Indication:Diabetes mellitus type 2, uncontrolled, without complications Start:03-Oct-2016 Instruction Type:Provider Instructions for Treatment How to access health informa tion online Indication:Diabetes mellitus type 2, uncontrolled, without complications Start:27-Jun-2016 Instruction Type:Patient Education How to access health informa tion online - Detail Indication:Diabetes mellitus type 2, uncontrolled, without complications Start:27-Jun-2016 Instruction Type:Patient Education Patient Instructions Indication:Diabetes mellitus type 2, uncontrolled, without complications Start:27-Jun-2016 Instruction Type:Provider Instructions for Treatment How to access health informa tion online Indication:Diabetes mellitus type 2, uncontrolled, without complications Start:08-Mar-2016 Instruction Type:Patient Education How to access health informa tion online - Detail Indication:Diabetes mellitus type 2, uncontrolled, without complications Start:08-Mar-2016 Instruction Type:Patient Education Patient Instructions Indication:Diabetes mellitus type 2, uncontrolled, without complications Start:08-Mar-2016 Instruction Type:Provider Instructions for Treatment How to access health informa tion online - Detail Indication:Diabetes mellitus type II, controlled, with no complications Start:25-May-2015 Instruction Type:Patient Education Patient Instructions Indication:Diabetes mellitus type II, controlled, with no complications Start:25-May-2015 Instruction Type:Provider Instructions for Treatment How to access health informa tion online Indication:Diabetes mellitus type 2, uncontrolled, without complications Start:16-Dec-2014 Instruction Type:Patient Education How to access health informa tion online - Detail Indication:Diabetes mellitus type 2, uncontrolled, without complications Start:16-Dec-2014 Instruction Type:Patient Education Patient Instructions Indication:Diabetes mellitus type 2, uncontrolled, without complications Start:16-Dec-2014 Instruction Type:Provider Instructions for Treatment Patient Instructions Indication:Diabetes mellitus type 2, uncontrolled, without complications Start:21-Aug-2014 Instruction Type:Provider Instructions for Treatment Patient Instructions Indication:Erectile dysfunction Start:21-Aug-2014 Instruction Type:Provider Instructions for Treatment Name Dates Details How to access health informa tion online Indication:Uncontrolled diabetes mellitus with complications Start:30-Jun-2020 Instruction Type:Patient Education How to access health informa tion online - Detail Indication:Uncontrolled diabetes mellitus with complications Start:30-Jun-2020 Instruction Type:Patient Education Patient Instructions Indication:Non-smoker Start:30-Jun-2020 Instruction Type:Provider Instructions for Treatment How to access health informa tion online Indication:BMI 37.0-37.9, adult Start:18-Feb-2020 Instruction Type:Patient Education How to access health informa tion online - Detail Indication:BMI 37.0-37.9, adult Start:18-Feb-2020 Instruction Type:Patient Education Patient Instructions Indication:BMI 37.0-37.9, adult Start:18-Feb-2020 Instruction Type:Provider Instructions for Treatment How to access health informa tion online Indication:Non-smoker Start:18-Feb-2020 Instruction Type:Patient Education How to access health informa tion online - Detail Indication:Non-smoker Start:18-Feb-2020 Instruction Type:Patient Education Patient Instructions Indication:Non-smoker Start:18-Feb-2020 Instruction Type:Provider Instructions for Treatment How to access health informa tion online Indication:Uncontrolled diabetes mellitus with complications Start:26-Nov-2019 Instruction Type:Patient Education How to access health informa tion online - Detail Indication:Uncontrolled diabetes mellitus with complications Start:26-Nov-2019 Instruction Type:Patient Education Patient Instructions Indication:Uncontrolled diabetes mellitus with complications Start:26-Nov-2019 Instruction Type:Provider Instructions for Treatment DISCONTINUED - LIPID PANEL ( [id number]) Indication:Hypercholesterolemia Start:20-Aug-2019 Instruction Type:Patient Education How to access health informa tion online Indication:Non-smoker Start:20-Aug-2019 Instruction Type:Patient Education How to access health informa tion online - Detail Indication:Non-smoker Start:20-Aug-2019 Instruction Type:Patient Education Patient Instructions Indication:Encounter for screening for lipid disorder Start:20-Aug-2019 Instruction Type:Provider Instructions for Treatment How to access health informa tion online Indication:BMI 37.0-37.9, adult Start:30-Apr-2019 Instruction Type:Patient Education How to access health informa tion online - Detail Indication:BMI 37.0-37.9, adult Start:30-Apr-2019 Instruction Type:Patient Education Patient Instructions Indication:BMI 37.0-37.9, adult Start:30-Apr-2019 Instruction Type:Provider Instructions for Treatment How to access health informa tion online Indication:Non-smoker Start:22-Jan-2019 Instruction Type:Patient Education How to access health informa tion online - Detail Indication:Non-smoker Start:22-Jan-2019 Instruction Type:Patient Education Patient Instructions Indication:BMI 37.0-37.9, adult Start:22-Jan-2019 Instruction Type:Provider Instructions for Treatment How to access health informa tion online Indication:Uncontrolled diabetes mellitus with complications Start:10-Oct-2018 Instruction Type:Patient Education How to access health informa tion online - Detail Indication:Uncontrolled diabetes mellitus with complications Start:10-Oct-2018 Instruction Type:Patient Education Patient Instructions Indication:Uncontrolled diabetes mellitus with complications Start:10-Oct-2018 Instruction Type:Provider Instructions for Treatment How to access health informa tion online Indication:Annual visit for general adult medical examination without abnormal findings Start:10-Jul-2018 Instruction Type:Patient Education How to access health informa tion online - Detail Indication:Annual visit for general adult medical examination without abnormal findings Start:10-Jul-2018 Instruction Type:Patient Education Patient Instructions Indication:Annual visit for general adult medical examination without abnormal findings Start:10-Jul-2018 Instruction Type:Provider Instructions for Treatment DISCONTINUED - CALCIFEDIOL ( [id number]) Indication:Diabetes mellitus type II, controlled, with no complications Start:03-Apr-2018 Instruction Type:Patient Education DISCONTINUED - CBC, PLATELET S & AUT DIFF ([id number]) Indication:Diabetes mellitus type II, controlled, with no complications Start:03-Apr-2018 Instruction Type:Patient Education DISCONTINUED - LIPID PANEL ( [id number]) Indication:Hypercholesterolemia Start:03-Apr-2018 Instruction Type:Patient Education How to access health informa tion online Indication:Diabetes mellitus type II, controlled, with no complications Start:03-Apr-2018 Instruction Type:Patient Education How to access health informa tion online - Detail Indication:Diabetes mellitus type II, controlled, with no complications Start:03-Apr-2018 Instruction Type:Patient Education How to access health informa tion online Indication:Diabetes mellitus type II, controlled, with no complications Start:27-Dec-2017 Instruction Type:Patient Education How to access health informa tion online - Detail Indication:Diabetes mellitus type II, controlled, with no complications Start:27-Dec-2017 Instruction Type:Patient Education Patient Instructions Indication:Diabetes mellitus type II, controlled, with no complications Start:27-Dec-2017 Instruction Type:Provider Instructions for Treatment Patient Instructions Indication:BMI 36.0-36.9,adult Start:24-Oct-2017 Instruction Type:Provider Instructions for Treatment How to access health informa tion online Indication:Nonsmoker Start:24-Oct-2017 Instruction Type:Patient Education How to access health informa tion online - Detail Indication:Nonsmoker Start:24-Oct-2017 Instruction Type:Patient Education Patient Instructions Indication:Nonsmoker Start:24-Oct-2017 Instruction Type:Provider Instructions for Treatment How to access health informa tion online Indication:Diabetes mellitus type 2, uncontrolled, without complications Start:25-Jul-2017 Instruction Type:Patient Education How to access health informa tion online - Detail Indication:Diabetes mellitus type 2, uncontrolled, without complications Start:25-Jul-2017 Instruction Type:Patient Education Patient Instructions Indication:Diabetes mellitus type 2, uncontrolled, without complications Start:25-Jul-2017 Instruction Type:Provider Instructions for Treatment How to access health informa tion online Indication:Diabetes mellitus type 2, uncontrolled, without complications Start:11-Apr-2017 Instruction Type:Patient Education How to access health informa tion online - Detail Indication:Diabetes mellitus type 2, uncontrolled, without complications Start:11-Apr-2017 Instruction Type:Patient Education Patient Instructions Indication:Diabetes mellitus type 2, uncontrolled, without complications Start:11-Apr-2017 Instruction Type:Provider Instructions for Treatment How to access health informa tion online Indication:Diabetes mellitus type 2, uncontrolled, without complications Start:02-Jan-2017 Instruction Type:Patient Education How to access health informa tion online - Detail Indication:Diabetes mellitus type 2, uncontrolled, without complications Start:02-Jan-2017 Instruction Type:Patient Education Patient Instructions Indication:Diabetes mellitus type 2, uncontrolled, without complications Start:02-Jan-2017 Instruction Type:Provider Instructions for Treatment How to access health informa tion online Indication:Diabetes mellitus type 2, uncontrolled, without complications Start:03-Oct-2016 Instruction Type:Patient Education How to access health informa tion online - Detail Indication:Diabetes mellitus type 2, uncontrolled, without complications Start:03-Oct-2016 Instruction Type:Patient Education Patient Instructions Indication:Diabetes mellitus type 2, uncontrolled, without complications Start:03-Oct-2016 Instruction Type:Provider Instructions for Treatment How to access health informa tion online Indication:Diabetes mellitus type 2, uncontrolled, without complications Start:27-Jun-2016 Instruction Type:Patient Education How to access health informa tion online - Detail Indication:Diabetes mellitus type 2, uncontrolled, without complications Start:27-Jun-2016 Instruction Type:Patient Education Patient Instructions Indication:Diabetes mellitus type 2, uncontrolled, without complications Start:27-Jun-2016 Instruction Type:Provider Instructions for Treatment How to access health informa tion online Indication:Diabetes mellitus type 2, uncontrolled, without complications Start:08-Mar-2016 Instruction Type:Patient Education How to access health informa tion online - Detail Indication:Diabetes mellitus type 2, uncontrolled, without complications Start:08-Mar-2016 Instruction Type:Patient Education Patient Instructions Indication:Diabetes mellitus type 2, uncontrolled, without complications Start:08-Mar-2016 Instruction Type:Provider Instructions for Treatment How to access health informa tion online - Detail Indication:Diabetes mellitus type II, controlled, with no complications Start:25-May-2015 Instruction Type:Patient Education Patient Instructions Indication:Diabetes mellitus type II, controlled, with no complications Start:25-May-2015 Instruction Type:Provider Instructions for Treatment How to access health informa tion online Indication:Diabetes mellitus type 2, uncontrolled, without complications Start:16-Dec-2014 Instruction Type:Patient Education How to access health informa tion online - Detail Indication:Diabetes mellitus type 2, uncontrolled, without complications Start:16-Dec-2014 Instruction Type:Patient Education Patient Instructions Indication:Diabetes mellitus type 2, uncontrolled, without complications Start:16-Dec-2014 Instruction Type:Provider Instructions for Treatment Patient Instructions Indication:Diabetes mellitus type 2, uncontrolled, without complications Start:21-Aug-2014 Instruction Type:Provider Instructions for Treatment Patient Instructions Indication:Erectile dysfunction Start:21-Aug-2014 Instruction Type:Provider Instructions for Treatment Name Dates Details How to access health informa tion online Indication:Uncontrolled diabetes mellitus with complications Start:30-Jun-2020 Instruction Type:Patient Education How to access health informa tion online - Detail Indication:Uncontrolled diabetes mellitus with complications Start:30-Jun-2020 Instruction Type:Patient Education Patient Instructions Indication:Non-smoker Start:30-Jun-2020 Instruction Type:Provider Instructions for Treatment How to access health informa tion online Indication:BMI 37.0-37.9, adult Start:18-Feb-2020 Instruction Type:Patient Education How to access health informa tion online - Detail Indication:BMI 37.0-37.9, adult Start:18-Feb-2020 Instruction Type:Patient Education Patient Instructions Indication:BMI 37.0-37.9, adult Start:18-Feb-2020 Instruction Type:Provider Instructions for Treatment How to access health informa tion online Indication:Non-smoker Start:18-Feb-2020 Instruction Type:Patient Education How to access health informa tion online - Detail Indication:Non-smoker Start:18-Feb-2020 Instruction Type:Patient Education Patient Instructions Indication:Non-smoker Start:18-Feb-2020 Instruction Type:Provider Instructions for Treatment How to access health informa tion online Indication:Uncontrolled diabetes mellitus with complications Start:26-Nov-2019 Instruction Type:Patient Education How to access health informa tion online - Detail Indication:Uncontrolled diabetes mellitus with complications Start:26-Nov-2019 Instruction Type:Patient Education Patient Instructions Indication:Uncontrolled diabetes mellitus with complications Start:26-Nov-2019 Instruction Type:Provider Instructions for Treatment DISCONTINUED - LIPID PANEL ( [id number]) Indication:Hypercholesterolemia Start:20-Aug-2019 Instruction Type:Patient Education How to access health informa tion online Indication:Non-smoker Start:20-Aug-2019 Instruction Type:Patient Education How to access health informa tion online - Detail Indication:Non-smoker Start:20-Aug-2019 Instruction Type:Patient Education Patient Instructions Indication:Encounter for screening for lipid disorder Start:20-Aug-2019 Instruction Type:Provider Instructions for Treatment How to access health informa tion online Indication:BMI 37.0-37.9, adult Start:30-Apr-2019 Instruction Type:Patient Education How to access health informa tion online - Detail Indication:BMI 37.0-37.9, adult Start:30-Apr-2019 Instruction Type:Patient Education Patient Instructions Indication:BMI 37.0-37.9, adult Start:30-Apr-2019 Instruction Type:Provider Instructions for Treatment How to access health informa tion online Indication:Non-smoker Start:22-Jan-2019 Instruction Type:Patient Education How to access health informa tion online - Detail Indication:Non-smoker Start:22-Jan-2019 Instruction Type:Patient Education Patient Instructions Indication:BMI 37.0-37.9, adult Start:22-Jan-2019 Instruction Type:Provider Instructions for Treatment How to access health informa tion online Indication:Uncontrolled diabetes mellitus with complications Start:10-Oct-2018 Instruction Type:Patient Education How to access health informa tion online - Detail Indication:Uncontrolled diabetes mellitus with complications Start:10-Oct-2018 Instruction Type:Patient Education Patient Instructions Indication:Uncontrolled diabetes mellitus with complications Start:10-Oct-2018 Instruction Type:Provider Instructions for Treatment How to access health informa tion online Indication:Annual visit for general adult medical examination without abnormal findings Start:10-Jul-2018 Instruction Type:Patient Education How to access health informa tion online - Detail Indication:Annual visit for general adult medical examination without abnormal findings Start:10-Jul-2018 Instruction Type:Patient Education Patient Instructions Indication:Annual visit for general adult medical examination without abnormal findings Start:10-Jul-2018 Instruction Type:Provider Instructions for Treatment DISCONTINUED - CALCIFEDIOL ( [id number]) Indication:Diabetes mellitus type II, controlled, with no complications Start:03-Apr-2018 Instruction Type:Patient Education DISCONTINUED - CBC, PLATELET S & AUT DIFF ([id number]) Indication:Diabetes mellitus type II, controlled, with no complications Start:03-Apr-2018 Instruction Type:Patient Education DISCONTINUED - LIPID PANEL ( [id number]) Indication:Hypercholesterolemia Start:03-Apr-2018 Instruction Type:Patient Education How to access health informa tion online Indication:Diabetes mellitus type II, controlled, with no complications Start:03-Apr-2018 Instruction Type:Patient Education How to access health informa tion online - Detail Indication:Diabetes mellitus type II, controlled, with no complications Start:03-Apr-2018 Instruction Type:Patient Education How to access health informa tion online Indication:Diabetes mellitus type II, controlled, with no complications Start:27-Dec-2017 Instruction Type:Patient Education How to access health informa tion online - Detail Indication:Diabetes mellitus type II, controlled, with no complications Start:27-Dec-2017 Instruction Type:Patient Education Patient Instructions Indication:Diabetes mellitus type II, controlled, with no complications Start:27-Dec-2017 Instruction Type:Provider Instructions for Treatment Patient Instructions Indication:BMI 36.0-36.9,adult Start:24-Oct-2017 Instruction Type:Provider Instructions for Treatment How to access health informa tion online Indication:Nonsmoker Start:24-Oct-2017 Instruction Type:Patient Education How to access health informa tion online - Detail Indication:Nonsmoker Start:24-Oct-2017 Instruction Type:Patient Education Patient Instructions Indication:Nonsmoker Start:24-Oct-2017 Instruction Type:Provider Instructions for Treatment How to access health informa tion online Indication:Diabetes mellitus type 2, uncontrolled, without complications Start:25-Jul-2017 Instruction Type:Patient Education How to access health informa tion online - Detail Indication:Diabetes mellitus type 2, uncontrolled, without complications Start:25-Jul-2017 Instruction Type:Patient Education Patient Instructions Indication:Diabetes mellitus type 2, uncontrolled, without complications Start:25-Jul-2017 Instruction Type:Provider Instructions for Treatment How to access health informa tion online Indication:Diabetes mellitus type 2, uncontrolled, without complications Start:11-Apr-2017 Instruction Type:Patient Education How to access health informa tion online - Detail Indication:Diabetes mellitus type 2, uncontrolled, without complications Start:11-Apr-2017 Instruction Type:Patient Education Patient Instructions Indication:Diabetes mellitus type 2, uncontrolled, without complications Start:11-Apr-2017 Instruction Type:Provider Instructions for Treatment How to access health informa tion online Indication:Diabetes mellitus type 2, uncontrolled, without complications Start:02-Jan-2017 Instruction Type:Patient Education How to access health informa tion online - Detail Indication:Diabetes mellitus type 2, uncontrolled, without complications Start:02-Jan-2017 Instruction Type:Patient Education Patient Instructions Indication:Diabetes mellitus type 2, uncontrolled, without complications Start:02-Jan-2017 Instruction Type:Provider Instructions for Treatment How to access health informa tion online Indication:Diabetes mellitus type 2, uncontrolled, without complications Start:03-Oct-2016 Instruction Type:Patient Education How to access health informa tion online - Detail Indication:Diabetes mellitus type 2, uncontrolled, without complications Start:03-Oct-2016 Instruction Type:Patient Education Patient Instructions Indication:Diabetes mellitus type 2, uncontrolled, without complications Start:03-Oct-2016 Instruction Type:Provider Instructions for Treatment How to access health informa tion online Indication:Diabetes mellitus type 2, uncontrolled, without complications Start:27-Jun-2016 Instruction Type:Patient Education How to access health informa tion online - Detail Indication:Diabetes mellitus type 2, uncontrolled, without complications Start:27-Jun-2016 Instruction Type:Patient Education Patient Instructions Indication:Diabetes mellitus type 2, uncontrolled, without complications Start:27-Jun-2016 Instruction Type:Provider Instructions for Treatment How to access health informa tion online Indication:Diabetes mellitus type 2, uncontrolled, without complications Start:08-Mar-2016 Instruction Type:Patient Education How to access health informa tion online - Detail Indication:Diabetes mellitus type 2, uncontrolled, without complications Start:08-Mar-2016 Instruction Type:Patient Education Patient Instructions Indication:Diabetes mellitus type 2, uncontrolled, without complications Start:08-Mar-2016 Instruction Type:Provider Instructions for Treatment How to access health informa tion online - Detail Indication:Diabetes mellitus type II, controlled, with no complications Start:25-May-2015 Instruction Type:Patient Education Patient Instructions Indication:Diabetes mellitus type II, controlled, with no complications Start:25-May-2015 Instruction Type:Provider Instructions for Treatment How to access health informa tion online Indication:Diabetes mellitus type 2, uncontrolled, without complications Start:16-Dec-2014 Instruction Type:Patient Education How to access health informa tion online - Detail Indication:Diabetes mellitus type 2, uncontrolled, without complications Start:16-Dec-2014 Instruction Type:Patient Education Patient Instructions Indication:Diabetes mellitus type 2, uncontrolled, without complications Start:16-Dec-2014 Instruction Type:Provider Instructions for Treatment Patient Instructions Indication:Diabetes mellitus type 2, uncontrolled, without complications Start:21-Aug-2014 Instruction Type:Provider Instructions for Treatment Patient Instructions Indication:Erectile dysfunction Start:21-Aug-2014 Instruction Type:Provider Instructions for Treatment Name Dates Details How to access health informa tion online Indication:Non-smoker Start:22-Jan-2019 Instruction Type:Patient Education How to access health informa tion online - Detail Indication:Non-smoker Start:22-Jan-2019 Instruction Type:Patient Education Patient Instructions Indication:BMI 37.0-37.9, adult Start:22-Jan-2019 Instruction Type:Provider Instructions for Treatment How to access health informa tion online Indication:Uncontrolled diabetes mellitus with complications Start:10-Oct-2018 Instruction Type:Patient Education How to access health informa tion online - Detail Indication:Uncontrolled diabetes mellitus with complications Start:10-Oct-2018 Instruction Type:Patient Education Patient Instructions Indication:Uncontrolled diabetes mellitus with complications Start:10-Oct-2018 Instruction Type:Provider Instructions for Treatment How to access health informa tion online Indication:Annual visit for general adult medical examination without abnormal findings Start:10-Jul-2018 Instruction Type:Patient Education How to access health informa tion online - Detail Indication:Annual visit for general adult medical examination without abnormal findings Start:10-Jul-2018 Instruction Type:Patient Education Patient Instructions Indication:Annual visit for general adult medical examination without abnormal findings Start:10-Jul-2018 Instruction Type:Provider Instructions for Treatment DISCONTINUED - CALCIFEDIOL ( [id number]) Indication:Diabetes mellitus type II, controlled, with no complications Start:03-Apr-2018 Instruction Type:Patient Education DISCONTINUED - CBC, PLATELET S & AUT DIFF ([id number]) Indication:Diabetes mellitus type II, controlled, with no complications Start:03-Apr-2018 Instruction Type:Patient Education DISCONTINUED - LIPID PANEL ( [id number]) Indication:Hypercholesterolemia Start:03-Apr-2018 Instruction Type:Patient Education How to access health informa tion online Indication:Diabetes mellitus type II, controlled, with no complications Start:03-Apr-2018 Instruction Type:Patient Education How to access health informa tion online - Detail Indication:Diabetes mellitus type II, controlled, with no complications Start:03-Apr-2018 Instruction Type:Patient Education How to access health informa tion online Indication:Diabetes mellitus type II, controlled, with no complications Start:27-Dec-2017 Instruction Type:Patient Education How to access health informa tion online - Detail Indication:Diabetes mellitus type II, controlled, with no complications Start:27-Dec-2017 Instruction Type:Patient Education Patient Instructions Indication:Diabetes mellitus type II, controlled, with no complications Start:27-Dec-2017 Instruction Type:Provider Instructions for Treatment Patient Instructions Indication:BMI 36.0-36.9,adult Start:24-Oct-2017 Instruction Type:Provider Instructions for Treatment How to access health informa tion online Indication:Nonsmoker Start:24-Oct-2017 Instruction Type:Patient Education How to access health informa tion online - Detail Indication:Nonsmoker Start:24-Oct-2017 Instruction Type:Patient Education Patient Instructions Indication:Nonsmoker Start:24-Oct-2017 Instruction Type:Provider Instructions for Treatment How to access health informa tion online Indication:Diabetes mellitus type 2, uncontrolled, without complications Start:25-Jul-2017 Instruction Type:Patient Education How to access health informa tion online - Detail Indication:Diabetes mellitus type 2, uncontrolled, without complications Start:25-Jul-2017 Instruction Type:Patient Education Patient Instructions Indication:Diabetes mellitus type 2, uncontrolled, without complications Start:25-Jul-2017 Instruction Type:Provider Instructions for Treatment How to access health informa tion online Indication:Diabetes mellitus type 2, uncontrolled, without complications Start:11-Apr-2017 Instruction Type:Patient Education How to access health informa tion online - Detail Indication:Diabetes mellitus type 2, uncontrolled, without complications Start:11-Apr-2017 Instruction Type:Patient Education Patient Instructions Indication:Diabetes mellitus type 2, uncontrolled, without complications Start:11-Apr-2017 Instruction Type:Provider Instructions for Treatment How to access health informa tion online Indication:Diabetes mellitus type 2, uncontrolled, without complications Start:02-Jan-2017 Instruction Type:Patient Education How to access health informa tion online - Detail Indication:Diabetes mellitus type 2, uncontrolled, without complications Start:02-Jan-2017 Instruction Type:Patient Education Patient Instructions Indication:Diabetes mellitus type 2, uncontrolled, without complications Start:02-Jan-2017 Instruction Type:Provider Instructions for Treatment How to access health informa tion online Indication:Diabetes mellitus type 2, uncontrolled, without complications Start:03-Oct-2016 Instruction Type:Patient Education How to access health informa tion online - Detail Indication:Diabetes mellitus type 2, uncontrolled, without complications Start:03-Oct-2016 Instruction Type:Patient Education Patient Instructions Indication:Diabetes mellitus type 2, uncontrolled, without complications Start:03-Oct-2016 Instruction Type:Provider Instructions for Treatment How to access health informa tion online Indication:Diabetes mellitus type 2, uncontrolled, without complications Start:27-Jun-2016 Instruction Type:Patient Education How to access health informa tion online - Detail Indication:Diabetes mellitus type 2, uncontrolled, without complications Start:27-Jun-2016 Instruction Type:Patient Education Patient Instructions Indication:Diabetes mellitus type 2, uncontrolled, without complications Start:27-Jun-2016 Instruction Type:Provider Instructions for Treatment How to access health informa tion online Indication:Diabetes mellitus type 2, uncontrolled, without complications Start:08-Mar-2016 Instruction Type:Patient Education How to access health informa tion online - Detail Indication:Diabetes mellitus type 2, uncontrolled, without complications Start:08-Mar-2016 Instruction Type:Patient Education Patient Instructions Indication:Diabetes mellitus type 2, uncontrolled, without complications Start:08-Mar-2016 Instruction Type:Provider Instructions for Treatment How to access health informa tion online - Detail Indication:Diabetes mellitus type II, controlled, with no complications Start:25-May-2015 Instruction Type:Patient Education Patient Instructions Indication:Diabetes mellitus type II, controlled, with no complications Start:25-May-2015 Instruction Type:Provider Instructions for Treatment How to access health informa tion online Indication:Diabetes mellitus type 2, uncontrolled, without complications Start:16-Dec-2014 Instruction Type:Patient Education How to access health informa tion online - Detail Indication:Diabetes mellitus type 2, uncontrolled, without complications Start:16-Dec-2014 Instruction Type:Patient Education Patient Instructions Indication:Diabetes mellitus type 2, uncontrolled, without complications Start:16-Dec-2014 Instruction Type:Provider Instructions for Treatment Patient Instructions Indication:Diabetes mellitus type 2, uncontrolled, without complications Start:21-Aug-2014 Instruction Type:Provider Instructions for Treatment Patient Instructions Indication:Erectile dysfunction Start:21-Aug-2014 Instruction Type:Provider Instructions for Treatment Name Dates Details Patient Instructions Indication:Non-smoker Start:03-Nov-2020 Instruction Type:Provider Instructions for Treatment How to Access Health Informa tion Online using Patient Portal and [employer] Apps Indication:Non-smoker Start:03-Nov-2020 Instruction Type:Patient Education How to access health informa tion online Indication:Uncontrolled diabetes mellitus with complications Start:30-Jun-2020 Instruction Type:Patient Education How to access health informa tion online - Detail Indication:Uncontrolled diabetes mellitus with complications Start:30-Jun-2020 Instruction Type:Patient Education Patient Instructions Indication:Non-smoker Start:30-Jun-2020 Instruction Type:Provider Instructions for Treatment How to access health informa tion online Indication:BMI 37.0-37.9, adult Start:18-Feb-2020 Instruction Type:Patient Education How to access health informa tion online - Detail Indication:BMI 37.0-37.9, adult Start:18-Feb-2020 Instruction Type:Patient Education Patient Instructions Indication:BMI 37.0-37.9, adult Start:18-Feb-2020 Instruction Type:Provider Instructions for Treatment How to access health informa tion online Indication:Non-smoker Start:18-Feb-2020 Instruction Type:Patient Education How to access health informa tion online - Detail Indication:Non-smoker Start:18-Feb-2020 Instruction Type:Patient Education Patient Instructions Indication:Non-smoker Start:18-Feb-2020 Instruction Type:Provider Instructions for Treatment How to access health informa tion online Indication:Uncontrolled diabetes mellitus with complications Start:26-Nov-2019 Instruction Type:Patient Education How to access health informa tion online - Detail Indication:Uncontrolled diabetes mellitus with complications Start:26-Nov-2019 Instruction Type:Patient Education Patient Instructions Indication:Uncontrolled diabetes mellitus with complications Start:26-Nov-2019 Instruction Type:Provider Instructions for Treatment DISCONTINUED - LIPID PANEL ( [id number]) Indication:Hypercholesterolemia Start:20-Aug-2019 Instruction Type:Patient Education How to access health informa tion online Indication:Non-smoker Start:20-Aug-2019 Instruction Type:Patient Education How to access health informa tion online - Detail Indication:Non-smoker Start:20-Aug-2019 Instruction Type:Patient Education Patient Instructions Indication:Encounter for screening for lipid disorder Start:20-Aug-2019 Instruction Type:Provider Instructions for Treatment How to access health informa tion online Indication:BMI 37.0-37.9, adult Start:30-Apr-2019 Instruction Type:Patient Education How to access health informa tion online - Detail Indication:BMI 37.0-37.9, adult Start:30-Apr-2019 Instruction Type:Patient Education Patient Instructions Indication:BMI 37.0-37.9, adult Start:30-Apr-2019 Instruction Type:Provider Instructions for Treatment How to access health informa tion online Indication:Non-smoker Start:22-Jan-2019 Instruction Type:Patient Education How to access health informa tion online - Detail Indication:Non-smoker Start:22-Jan-2019 Instruction Type:Patient Education Patient Instructions Indication:BMI 37.0-37.9, adult Start:22-Jan-2019 Instruction Type:Provider Instructions for Treatment How to access health informa tion online Indication:Uncontrolled diabetes mellitus with complications Start:10-Oct-2018 Instruction Type:Patient Education How to access health informa tion online - Detail Indication:Uncontrolled diabetes mellitus with complications Start:10-Oct-2018 Instruction Type:Patient Education Patient Instructions Indication:Uncontrolled diabetes mellitus with complications Start:10-Oct-2018 Instruction Type:Provider Instructions for Treatment How to access health informa tion online Indication:Annual visit for general adult medical examination without abnormal findings Start:10-Jul-2018 Instruction Type:Patient Education How to access health informa tion online - Detail Indication:Annual visit for general adult medical examination without abnormal findings Start:10-Jul-2018 Instruction Type:Patient Education Patient Instructions Indication:Annual visit for general adult medical examination without abnormal findings Start:10-Jul-2018 Instruction Type:Provider Instructions for Treatment DISCONTINUED - CALCIFEDIOL ( [id number]) Indication:Diabetes mellitus type II, controlled, with no complications Start:03-Apr-2018 Instruction Type:Patient Education DISCONTINUED - CBC, PLATELET S & AUT DIFF ([id number]) Indication:Diabetes mellitus type II, controlled, with no complications Start:03-Apr-2018 Instruction Type:Patient Education DISCONTINUED - LIPID PANEL ( [id number]) Indication:Hypercholesterolemia Start:03-Apr-2018 Instruction Type:Patient Education How to access health informa tion online Indication:Diabetes mellitus type II, controlled, with no complications Start:03-Apr-2018 Instruction Type:Patient Education How to access health informa tion online - Detail Indication:Diabetes mellitus type II, controlled, with no complications Start:03-Apr-2018 Instruction Type:Patient Education How to access health informa tion online Indication:Diabetes mellitus type II, controlled, with no complications Start:27-Dec-2017 Instruction Type:Patient Education How to access health informa tion online - Detail Indication:Diabetes mellitus type II, controlled, with no complications Start:27-Dec-2017 Instruction Type:Patient Education Patient Instructions Indication:Diabetes mellitus type II, controlled, with no complications Start:27-Dec-2017 Instruction Type:Provider Instructions for Treatment Patient Instructions Indication:BMI 36.0-36.9,adult Start:24-Oct-2017 Instruction Type:Provider Instructions for Treatment How to access health informa tion online Indication:Nonsmoker Start:24-Oct-2017 Instruction Type:Patient Education How to access health informa tion online - Detail Indication:Nonsmoker Start:24-Oct-2017 Instruction Type:Patient Education Patient Instructions Indication:Nonsmoker Start:24-Oct-2017 Instruction Type:Provider Instructions for Treatment How to access health informa tion online Indication:Diabetes mellitus type 2, uncontrolled, without complications Start:25-Jul-2017 Instruction Type:Patient Education How to access health informa tion online - Detail Indication:Diabetes mellitus type 2, uncontrolled, without complications Start:25-Jul-2017 Instruction Type:Patient Education Patient Instructions Indication:Diabetes mellitus type 2, uncontrolled, without complications Start:25-Jul-2017 Instruction Type:Provider Instructions for Treatment How to access health informa tion online Indication:Diabetes mellitus type 2, uncontrolled, without complications Start:11-Apr-2017 Instruction Type:Patient Education How to access health informa tion online - Detail Indication:Diabetes mellitus type 2, uncontrolled, without complications Start:11-Apr-2017 Instruction Type:Patient Education Patient Instructions Indication:Diabetes mellitus type 2, uncontrolled, without complications Start:11-Apr-2017 Instruction Type:Provider Instructions for Treatment How to access health informa tion online Indication:Diabetes mellitus type 2, uncontrolled, without complications Start:02-Jan-2017 Instruction Type:Patient Education How to access health informa tion online - Detail Indication:Diabetes mellitus type 2, uncontrolled, without complications Start:02-Jan-2017 Instruction Type:Patient Education Patient Instructions Indication:Diabetes mellitus type 2, uncontrolled, without complications Start:02-Jan-2017 Instruction Type:Provider Instructions for Treatment How to access health informa tion online Indication:Diabetes mellitus type 2, uncontrolled, without complications Start:03-Oct-2016 Instruction Type:Patient Education How to access health informa tion online - Detail Indication:Diabetes mellitus type 2, uncontrolled, without complications Start:03-Oct-2016 Instruction Type:Patient Education Patient Instructions Indication:Diabetes mellitus type 2, uncontrolled, without complications Start:03-Oct-2016 Instruction Type:Provider Instructions for Treatment How to access health informa tion online Indication:Diabetes mellitus type 2, uncontrolled, without complications Start:27-Jun-2016 Instruction Type:Patient Education How to access health informa tion online - Detail Indication:Diabetes mellitus type 2, uncontrolled, without complications Start:27-Jun-2016 Instruction Type:Patient Education Patient Instructions Indication:Diabetes mellitus type 2, uncontrolled, without complications Start:27-Jun-2016 Instruction Type:Provider Instructions for Treatment How to access health informa tion online Indication:Diabetes mellitus type 2, uncontrolled, without complications Start:08-Mar-2016 Instruction Type:Patient Education How to access health informa tion online - Detail Indication:Diabetes mellitus type 2, uncontrolled, without complications Start:08-Mar-2016 Instruction Type:Patient Education Patient Instructions Indication:Diabetes mellitus type 2, uncontrolled, without complications Start:08-Mar-2016 Instruction Type:Provider Instructions for Treatment How to access health informa tion online - Detail Indication:Diabetes mellitus type II, controlled, with no complications Start:25-May-2015 Instruction Type:Patient Education Patient Instructions Indication:Diabetes mellitus type II, controlled, with no complications Start:25-May-2015 Instruction Type:Provider Instructions for Treatment How to access health informa tion online Indication:Diabetes mellitus type 2, uncontrolled, without complications Start:16-Dec-2014 Instruction Type:Patient Education How to access health informa tion online - Detail Indication:Diabetes mellitus type 2, uncontrolled, without complications Start:16-Dec-2014 Instruction Type:Patient Education Patient Instructions Indication:Diabetes mellitus type 2, uncontrolled, without complications Start:16-Dec-2014 Instruction Type:Provider Instructions for Treatment Patient Instructions Indication:Diabetes mellitus type 2, uncontrolled, without complications Start:21-Aug-2014 Instruction Type:Provider Instructions for Treatment Patient Instructions Indication:Erectile dysfunction Start:21-Aug-2014 Instruction Type:Provider Instructions for Treatment Name Dates Details Patient Instructions Indication:Non-smoker Start:03-Nov-2020 Instruction Type:Provider Instructions for Treatment How to Access Health Informa tion Online using Patient Portal and [employer] Apps Indication:Non-smoker Start:03-Nov-2020 Instruction Type:Patient Education How to access health informa tion online Indication:Uncontrolled diabetes mellitus with complications Start:30-Jun-2020 Instruction Type:Patient Education How to access health informa tion online - Detail Indication:Uncontrolled diabetes mellitus with complications Start:30-Jun-2020 Instruction Type:Patient Education Patient Instructions Indication:Non-smoker Start:30-Jun-2020 Instruction Type:Provider Instructions for Treatment How to access health informa tion online Indication:BMI 37.0-37.9, adult Start:18-Feb-2020 Instruction Type:Patient Education How to access health informa tion online - Detail Indication:BMI 37.0-37.9, adult Start:18-Feb-2020 Instruction Type:Patient Education Patient Instructions Indication:BMI 37.0-37.9, adult Start:18-Feb-2020 Instruction Type:Provider Instructions for Treatment How to access health informa tion online Indication:Non-smoker Start:18-Feb-2020 Instruction Type:Patient Education How to access health informa tion online - Detail Indication:Non-smoker Start:18-Feb-2020 Instruction Type:Patient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
[2025-04-05 08:09] LABS: Microalbumin,Random Urine 16.8 mg/L (NO RANGE EST.); Microalbumin:Creatinine Ratio 12.6 mg/g CRE
[2025-04-05 08:28] LABS: Cholesterol 164 mg/dL (<=200); High Density Lipoprotein 32 mg/dL; Low Density Lipoprotein Calc. 89 mg/dL; Triglycerides 216 mg/dL; Very Low Density Lipoprotein 43 mg/dL (5-40); Vitamin D,25 Hydroxy 30.5 ng/mL (30-100); cholesterol:hdl ratio screen 5.09
[2025-04-05 08:31] LABS: ALB/GLOB Ratio 1.3 RATIO (0.9-2.4); AST(SGOT) 29 U/L (<=37); Alanine Aminotransfer ALT/SGPT 35 U/L (<=46); Alkaline Phosphatase 93 U/L (40-129); Anion Gap 11 (5-15); BUN 19 mg/dL (4-19); BUN/Creat Ratio 20.6 RATIO (10-20); Calcium,Total 8.8 mg/dL (7.6-11.0); Carbon Dioxide 22.3 mmol/L (21.0-32.0); Chloride 105 mmol/L (98-108); Creatinine, Serum 0.92 mg/dL (0.70-1.20); EST Glomerular Filtration Rate 98 (>60); Globulin 3.1 g/dL (2.2-4.2); Glucose 116 mg/dL (70-99); Potassium 4.4 mmol/L (3.3-5.1); Protein, Total 7.1 g/dL (5.9-8.4); Sodium Level 138 mmol/L (133-145); Total Bilirubin 0.57 mg/dL (0.00-1.30)
== END | disposition home or self-care (01) ==
LOC: LAB 07:22
PROVIDERS: Referring Provider Nurse Practitioner Family; Visit Provider Nurse Practitioner Family
DX: E11.65 Type 2 diabetes mellitus with hyperglycemia (principal)
CPT/HCPCS: 36415; 80053; 80061; 82043; 82306; 82570; 84443